=== PATIENT | male | born 1960 | race Two or more races ===

== ENCOUNTER 2024-05-31 07:16 | Inpatient (IN) | payer MEDICAID, OTHER ==
[~2024-05-31] VITALS: Ht 170.2 cm; Wt 109.4 kg
[~2024-05-31 07:16] MED LIST: AMLO1TAB23 PO; FURO40TA4 PO; HYDR-4798 PO; LABE200T33 PO; SPIR25TA8 PO
[2024-05-31] MEDS: LABETALOL HCL 20 MG/4 ML VL IV ONE (07:30)
[2024-05-31] MEDS: FUROSEMIDE 20 MG/2 ML VIAL IV ONE (07:30)
[2024-05-31 07:49] LABS: Basophils # (auto) 0 10 ^3/uL (0-0.2); Basophils % (auto) 0.5 % (0.0-2.0); Eosinophils # (auto) 0.3 10 ^3/uL (0-0.8); Eosinophils % (auto) 3.6 % (0.0-7.0); Hematocrit 34.9 % (41.0-53.0); Lymphocytes # (auto) 0.7 10 ^3/uL (0.4-5.4); Mean Corpuscular Hemoglobin 31.4 pg (28.0-32.0); Mean Corpuscular Hgb Conc. 34.3 g/dL (32.0-36.0); Mean Corpuscular Volume 91.4 fL (80.0-100.0); Monocytes # (auto) 0.4 10 ^3/uL (0-1.3); Monocytes % (auto) 5.4 % (0.0-12.0); Neutrophils # (auto) 5.9 10 ^3/uL (1.6-8.6); Neutrophils % (auto) 80.5 % (37.0-80.0); Platelet Count (auto) 128 10^3/uL (140-450); Red Blood Cells 3.82 10^6/uL (4.5-5.90); Red Cell Distribution Width 14.7 % (11.8-14.3); White Blood Cell 7.4 10^3/uL (4.4-10.8)
[2024-05-31 08:00] LABS: Alanine Aminotransferase 11 U/L (7-40); Albumin 3.8 g/dL (3.2-4.8); Alkaline Phosphatase 62 U/L (46-116); Anion Gap 10 (5-15); Aspartate Aminotransferase 11 U/L (13-40); BUN/Creatinine Ratio 7.8 (10.0-20.0); Bilirubin, Total 0.5 mg/dL (0.2-1.0); Blood Urea Nitrogen 23 mg/dL (9-23); Calcium 8.8 mg/dL (8.7-10.4); Carbon Dioxide 29 mmol/L (20-31); Chloride 105 mmol/L (98-107); Glucose 196 mg/dL (74-106); Magnesium 1.9 mg/dL (1.6-2.6); Potassium 2.6 mmol/L (3.5-5.1); Sodium 144 mmol/L (136-145)
[2024-05-31 08:01] LABS: Total Protein 6.3 g/dL (5.7-8.2)
[2024-05-31 08:05] LABS: INR 0.98 (0.9-1.15); Partial Thromboplastin Time 25.1 SEC (24.5-34.5); Prothrombin Time 10.4 sec (9.3-11.8)
[2024-05-31] MEDS: POTASSIUM EFFERVESENT TAB 25 MEQ PO ONE (13:58)
[2024-05-31] MEDS ORDERED: ACETAMINOPHEN 325 MG TAB PO PRN (15:15)
[2024-05-31] MEDS: MORPHINE SULFATE INJ 2 MG/ml SYRG IV PRN (15:28)
[2024-05-31] MEDS: ONDANSETRON HCL 4 MG/2 ML VIAL IV PRN (15:29)
[2024-05-31] MEDS ORDERED: MORPHINE SULFATE INJ 2 MG/ml SYRG IV PRN (15:30)
[2024-05-31] MEDS ORDERED: NITROGLYCERIN 0.4 MG SL TAB SL PRN (15:30)
[2024-05-31 15:32] LABS: Urine Bacteria None Seen /hpf (None Seen)
[2024-05-31 15:40] VITALS: PULSE 67; RESP 22; O2SAT 98
[2024-05-31] MEDS: METOPROLOL TARTRATE 25 MG TAB PO SCH (15:45)
[2024-05-31] MEDS: NIFEdipine ER 30 MG TAB PO SCH (15:46)
[2024-05-31 15:48] LABS: Urine Blood TRACE /uL (Negative); Urine Clarity Clear (Clear); Urine Color Colorless (Yellow); Urine Protein, UAD 2+ (Negative); Urine Specific Gravity 1.008 (1.001-1.035); Urine Urobilinogen Normal (Negative); Urine WBC 1 /hpf (0 - 3); Urine pH 6.5 (5.0-9.0)
[2024-05-31] MEDS: cloNIDine HCL 0.1 MG TAB PO PRN (16:31)
[2024-05-31] MEDS: METOPROLOL TARTRATE 25 MG TAB PO ONE (16:31)
[2024-05-31] MEDS: POTASSIUM CHL 20 Meq TABLET PO ONE (18:14)
[2024-05-31] MEDS: POTASSIUM CHL 20MEQ/100ML 100 ML IV SCH (18:14)
[2024-05-31] MEDS: FUROSEMIDE 40 MG/4 ML VIAL IV SCH (18:15)
[2024-05-31 19:25] VITALS: PULSE 64; RESP 19; O2SAT 95
[2024-05-31] MEDS: hydrALAZINE HCL 20 MG/ML VL IV PRN (21:29)
[2024-05-31 23:15] LABS: Alanine Aminotransferase 10 U/L (7-40); Alkaline Phosphatase 64 U/L (46-116); Anion Gap 6 (5-15); Aspartate Aminotransferase 11 U/L (13-40); BUN/Creatinine Ratio 10.7 (10.0-20.0); Blood Urea Nitrogen 28 mg/dL (9-23); Carbon Dioxide 32 mmol/L (20-31); Chloride 106 mmol/L (98-107); Glucose 126 mg/dL (74-106); Potassium 3.3 mmol/L (3.5-5.1); Sodium 144 mmol/L (136-145)
[2024-05-31 23:16] LABS: Albumin 3.8 g/dL (3.2-4.8); Bilirubin, Total 0.4 mg/dL (0.2-1.0); Total Protein 6.4 g/dL (5.7-8.2)
[2024-06-01] MEDS: cloNIDine HCL 0.1 MG TAB PO PRN (01:13)
[2024-06-01 04:55] LABS: Basophils # (auto) 0 10 ^3/uL (0-0.2); Basophils % (auto) 0.5 % (0.0-2.0); Eosinophils # (auto) 0.3 10 ^3/uL (0-0.8); Eosinophils % (auto) 3.3 % (0.0-7.0); Hematocrit 37.5 % (41.0-53.0); Hemoglobin 12.9 g/dL (13.5-17.5); Lymphocytes # (auto) 0.9 10 ^3/uL (0.4-5.4); Lymphocytes % (auto) 11.2 % (10.0-50.0); Mean Corpuscular Hemoglobin 31.4 pg (28.0-32.0); Mean Corpuscular Hgb Conc. 34.4 g/dL (32.0-36.0); Mean Corpuscular Volume 91.2 fL (80.0-100.0); Monocytes # (auto) 0.6 10 ^3/uL (0-1.3); Monocytes % (auto) 7.7 % (0.0-12.0); Neutrophils # (auto) 6.2 10 ^3/uL (1.6-8.6); Neutrophils % (auto) 77.3 % (37.0-80.0); Platelet Count (auto) 146 10^3/uL (140-450); Red Blood Cells 4.11 10^6/uL (4.5-5.90); Red Cell Distribution Width 14.5 % (11.8-14.3); White Blood Cell 8.1 10^3/uL (4.4-10.8)
[2024-06-01 05:21] LABS: Alanine Aminotransferase 12 U/L (7-40); Alkaline Phosphatase 66 U/L (46-116); Anion Gap 9 (5-15); BUN/Creatinine Ratio 11.1 (10.0-20.0); Blood Urea Nitrogen 27 mg/dL (9-23); Carbon Dioxide 31 mmol/L (20-31); Chloride 104 mmol/L (98-107); Glucose 169 mg/dL (74-106); Potassium 3.2 mmol/L (3.5-5.1); Sodium 144 mmol/L (136-145)
[2024-06-01 05:22] LABS: Albumin 3.8 g/dL (3.2-4.8); Aspartate Aminotransferase 14 U/L (13-40); Bilirubin, Total 0.6 mg/dL (0.2-1.0); Total Protein 6.1 g/dL (5.7-8.2)
[2024-06-01 07:44] VITALS: PULSE 70; RESP 17; O2SAT 92
[2024-06-01] MEDS: ENOXAPARIN SOD 30 MG/0.3 ML SYRINGE SC SCH (09:32)
[2024-06-01] MEDS: POTASSIUM CHL 20 Meq TABLET PO ONE (14:53)
[2024-06-01 22:09] VITALS: PULSE 83; RESP 20; O2SAT 98
[2024-06-01] MEDS ORDERED: GABA-1250 PO (22:22)
[2024-06-01] MEDS ORDERED: ASPI1TAB20 PO (22:22)
[2024-06-01] MEDS ORDERED: HYDR-4902 PO (22:22)
[2024-06-01] MEDS ORDERED: HYDR50TA47 PO (22:22)
[2024-06-01] MEDS ORDERED: CLON0.2T PO (22:22)
[2024-06-01] MEDS ORDERED: NIFE1TAB30 PO (22:22)
[2024-06-01] MEDS ORDERED: FURO1TAB33 PO (22:22)
[2024-06-02] VITALS (7 sets, daily range): BP systolic 142–174; BP diastolic 64–94; PULSE 46–76; RESP 17–20; TEMP 97.6–98; O2SAT 96–99
[2024-06-02] MEDS: ENOXAPARIN SOD 40 MG/0.4 ML SYRINGE SC SCH (10:29)
[2024-06-02] MEDS ORDERED: MET25T PO (15:52)
[2024-06-02] MEDS ORDERED: CLON0.2T PO (15:52)
[2024-06-02] MEDS ORDERED: NIFE1TAB30 PO (15:52)
[2024-06-02] MEDS ORDERED: GABA-1250 PO (15:52)
[2024-06-02] MEDS ORDERED: ASPI1TAB20 PO (15:52)
[2024-06-02] MEDS ORDERED: SPIR25TA8 PO (15:52)
[2024-06-02] MEDS ORDERED: FURO40TA4 PO (15:52)
[2024-06-02] MEDS ORDERED: HYDR50TA47 PO (15:52)
== END 2024-06-02 18:05 | disposition home or self-care (01) | DRG 133 ==
LOC: EDBD 07:16 → ER 07:16 → TELE 15:21 → TELE-E-ADS 06-01 15:21
PROVIDERS: ADMIT Internal Medicine; ATTEND Internal Medicine
DX: J96.21 Acute and chronic respiratory failure with hypoxia (principal); I50.33 Acute on chronic diastolic (congestive) heart failure; I24.89 Other forms of acute ischemic heart disease; J44.9 Chronic obstructive pulmonary disease, unspecified; J90 Pleural effusion, not elsewhere classified; I13.0 Hypertensive heart and chronic kidney disease with heart failure and stage 1 through stage 4 chronic kidney disease, or unspecified chronic kidney disease; Z99.81 Dependence on supplemental oxygen; E66.9 Obesity, unspecified; I16.0 Hypertensive urgency; N18.9 Chronic kidney disease, unspecified; J98.11 Atelectasis; F12.90 Cannabis use, unspecified, uncomplicated; Z87.891 Personal history of nicotine dependence; Z88.0 Allergy status to penicillin; Z91.148 Patient's other noncompliance with medication regimen for other reason; Z91.199 Patient's noncompliance with other medical treatment and regimen due to unspecified reason; Z68.37 Body mass index [BMI] 37.0-37.9, adult
CPT/HCPCS: 36415; 71045; 80053; 81001; 83735; 83880; 84132; 84484; 85025; 85610; 85730; 93306; 96374; 96375; 99291; G0378; J2405; J3480

== ENCOUNTER 2025-03-27 04:16 | Inpatient (IN) | payer MEDICAID ==
[~2025-03-27] VITALS: Ht 170.2 cm; Wt 120.0 kg
[~2025-03-27 04:16] MED LIST changes: -AMLO1TAB23 PO; +ASPI1TAB20 PO; +CLON0.2T PO; +GABA-1250 PO; -HYDR-4798 PO; +HYDR50TA47 PO; -LABE200T33 PO; +MET25T PO; +NIFE1TAB30 PO
--- NOTE | 2025-03-27 04:25 | ED.PDOC ---
SOB-HPI HPI Comments 64 year old male with a Hx of HTN, COPD, and CHF was BIBA for the c/c of SOB w/ associated non productive Cough. Per EMS, pts symptoms started 1x hour before ED arrival, and note the pts BP was in the 240's systolic on scene and BP is currently 250/112. EMS states that pt is normally on 4L O2 at home, and is currently SAT at 98%. Pt denies any ABD pain, CP, BURKETT, Dysuria, Dizziness, or any other associated factor or symptom at this time. 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 Modifying Factors: Exertion Associated Signs and Symptoms: Cough If cough with SOB: Non-Productive Past Medical History PAST MEDICAL HISTORY: CHF, COPD, HTN Surgical History: Denies all surgeries Family History Family History: Unknown Social History Smoker: Quit Greater Than 1 Year Alcohol: Denies ETOH Use Drugs: Denies Drug Use Lives In: Home Constitutional: denies: chills, diaphoresis, fatigue, fever, malaise, sweats, weakness, others EENTM: denies: blurred vision, double vision, ear bleeding, ear discharge, ear drainage, ear pain, ear ringing, eye pain, eye redness, hearing loss, mouth pain, mouth swelling, nasal discharge, nose bleeding, nose congestion, nose pain, photophobia, tearing, throat pain, throat swelling, voice changes, others Respiratory: reports: cough, SOB at rest, shortness of breath; denies: hemoptysis, orthopnea, SOB with excertion, stridor, wheezing, others Cardiovascular: denies: chest pain, dizzy spells, diaphoresis, Dyspnea on exertion, edema, irregular heart beat, left arm pain, lightheadedness, palpitations, PND, syncope, others Gastrointestinal: denies: abdomen distended, abdominal pain, blood streaked bowels, constipated, diarrhea, dysphagia, difficulty swallowing, hematemesis, melena, nausea, poor appetite, poor fluid intake, rectal bleeding, rectal pain, vomiting, others Genitourinary: denies: burning, dysuria, flank pain, frequency, hematuria, incontinence, penile discharge, penile sore, pain, testicle pain, testicle swelling, urgency, others Neurological: denies: dizziness, fainting, headache, left sided numbness, left sided weakness, numbness, paresthesia, pre-existing deficit, right sided numbness, right sided weakness, seizure, speech problems, tingling, tremors, weakness, others Musculoskeletal: denies: back pain, gout, joint pain, joint swelling, muscle pain, muscle stiffness, neck pain, others Integumetry: denies: bruises, change in color, change in hair/nails, dryness, laceration, lesions, lumps, rash, wounds, others Allergic/Immunocompromised: denies: Difficulty Healing, Frequent Infections, Hives, Itching, others Hematologic/Lymphatic: denies: anemia, blood clots, easy bleeding, easy bruising, swollen glands, others Endocrine: denies: excessive hunger, excessive sweating, excessive thirst, excessive urination, flushing, intolerance to cold, intolerance to heat, unexplained weight gain, unexplained weight loss, others Psychiatric: denies: anxiety, bipolar disorder, depression, hopeless, panic disorder, schizophrenia, sleepless, suicidal, others All Other Systems: Reviewed and Negative Physical Exam General Appearance: Moderate Distress, Normal, Obese HEENT: Normal ENT Inspection, Pharynx Normal, TMs Normal Neck: Full Range of Motion, Non-Tender, Normal, Normal Inspection Respiratory: Accessory Muscle Use, Chest Non-Tender, Lungs Clear, No R espiratory Distress, Other (Tachypnic) Cardiovascular: No Edema, No JVD, No Murmur, No Gallop, Normal Peripheral Pulses, Regular Rate/Rhythm Breast Exam: Deferred Gastrointestinal: No Organomegaly, Non Tender, No Pulsatile Mass, Normal Bowel Sounds, Soft Genitalia: Deferred Pelvic: Deferred Rectal: Deferred Extremities: No calf tenderness, Normal capillary refill, Normal inspection, Normal range of motion, Non-tender, No pedal edema Musculoskeletal : Apperance: Normal Neurologic: Alert, No Motor Deficits, Normal Affect, Normal Mood, No Sensory Deficits Cerebellar Function: Normal Reflexes: Normal Skin: Dry, Normal Color, Warm Lymphatic: No Adenopathy Was a procedure done? Was a procedure done?: No Differential Dx Differential Diagnosis: Anxiety, Asthma, Bronchitis, Cardiogenic Shock, CHF, COPD, Hypertension, Hyponatremia, Panic Attack, Pneumonia, Pneumothorax, Pulmonary Embolism, Respiratory Distress, Sinusitis, Allergic Rhinitis, Pharyngitis X-Ray, Labs, Meds, VS Vital Signs Date Time Temp Pulse Resp B/P (MAP) Pulse Ox O2 Delivery O2 Flow Rate FiO2 03/27/25 05:05 215/115 03/27/25 04:41 20 98 Nasal Cannula* 4 36 03/27/25 04:30 22 98 Nasal Cannula* 4 36 03/27/25 04:30 97.2 73 22 215/115 (148) 98 97.2 03/27/25 04:19 98.7 70 20 250/112 (158) 98 98.7 Lab Test 03/27/25 04:29 Range/Units White Blood Count 4.9 4.4-10.8 10^3/uL Red Blood Count 3.57 L 4.5-5.90 10^6/uL Hemoglobin 10.9 L 13.5-17.5 g/dL Hematocrit 31.8 L 41.0-53.0 % Mean Corpuscular Volume 88.9 80.0-100.0 fL Mean Corpuscular Hemoglobin 30.5 28.0-32.0 pg Mean Corpuscular Hemoglobin Concent 34.3 32.0-36.0 g/dL Red Cell Distribution Width 14.8 H 11.8-14.3 % Platelet Count 150 140-450 10^3/uL Mean Platelet Volume 8.7 6.9-10.8 fL Neutrophils (%) (Auto) 64.9 37.0-80.0 % Lymphocytes (%) (Auto) 19.6 10.0-50.0 % Monocytes (%) (Auto) 9.1 0.0-12.0 % Eosinophils (%) (Auto) 5.5 0.0-7.0 % Basophils (%) (Auto) 0.9 0.0-2.0 % Neutrophils # (Auto) 3.2 1.6-8.6 10 ^3/uL Lymphocytes # (Auto) 1.0 0.4-5.4 10 ^3/uL Monocytes # (Auto) 0.4 0-1.3 10 ^3/uL Eosinophils # (Auto) 0.3 0-0.8 10 ^3/uL Basophils # (Auto) 0 0-0.2 10 ^3/uL Nucleated Red Blood Cells 0.2 % Sodium Level 143 136-145 mmol/L Potassium Level 2.4 *L 3.5-5.1 mmol/L Chloride Level 104 98-107 mmol/L Carbon Dioxide Level 28 20-31 mmol/L Anion Gap 11 5-15 Blood Urea Nitrogen 26 H 9-23 mg/dL Creatinine 3.67 H 0.700-1.30 mg/dL Glomerular Filtration Rate Calc 18 >90 mL/min BUN/Creatinine Ratio 7.1 L 10.0-20.0 Serum Glucose 148 H 74-106 mg/dL Calcium Level 8.0 L 8.7-10.4 mg/dL Magnesium Level 1.9 1.6-2.6 mg/dL Total Bilirubin 0.3 0.2-1.0 mg/dL Aspartate Amino Transferase (AST) 14 13-40 U/L Alanine Aminotransferase (ALT) 9 7-40 U/L Alkaline Phosphatase 73 46-116 U/L Troponin I High Sensitivity 49 </=54 ng/L B-Type Natriuretic Peptide 329.24 0-100 pg/mL Total Protein 6.4 5.7-8.2 g/dL Albumin 3.9 3.2-4.8 g/dL Current Medications Medications (Trade) Dose Ordered Sig/Ricky Route Start Time Stop Time Status Last Admin Prednisone 40 mg ONCE ONCE PO 03/27/25 04:30 03/27/25 04:31 DC 03/27/25 04:44 Albuterol (Ventolin Medneb) 5 mg ONCE ONCE NEB 03/27/25 04:30 03/27/25 04:31 DC 03/27/25 04:34 Hydralazine HCl (Apresoline Injection) 10 mg ONCE ONCE IV 03/27/25 05:00 03/27/25 05:01 DC 03/27/25 05:05 Aspirin 162 mg ONCE ONCE PO 03/27/25 05:00 03/27/25 05:01 DC 03/27/25 05:05 Time of 1ST Reevaluation: 04:50 Reevaluation 1ST: Unchanged Patient Education/Counseling: Diagnosis, Treatment, Need For Follow Up Family Education/Counseling: No Family Present SEPSIS Sepsis Screen Physician Orders Chest Portable (03/27/25 04:20) Electrocardigram (03/27/25 04:20) Troponin-I Hs (03/27/25 05:20) Troponin-I Hs (03/27/25 07:20) Furosemide Injection (Lasix Injection) (03/27/25 05:30) Vital Signs Date Time Temp Pulse Resp B/P (MAP) Pulse Ox O2 Delivery O2 Flow Rate FiO2 03/27/25 05:05 215/115 03/27/25 04:41 20 98 Nasal Cannula* 4 36 03/27/25 04:30 22 98 Nasal Cannula* 4 36 03/27/25 04:30 97.2 73 22 215/115 (148) 98 97.2 03/27/25 04:19 98.7 70 20 250/112 (158) 98 98.7 Laboratory Tests Test 03/27/25 04:29 White Blood Count 4.9 10^3/uL (4.4-10.8) Medications Medications Dose Ordered Sig/Ricky Route Start Time Stop Time Status Last Admin Dose Admin Albuterol 5 mg ONCE ONCE NEB 03/27/25 04:30 03/27/25 04:31 DC 03/27/25 04:34 Aspirin 162 mg ONCE ONCE PO 03/27/25 05:00 03/27/25 05:01 DC 03/27/25 05:05 Hydralazine HCl 10 mg ONCE ONCE IV 03/27/25 05:00 03/27/25 05:01 DC 03/27/25 05:05 Prednisone 40 mg ONCE ONCE PO 03/27/25 04:30 03/27/25 04:31 DC 03/27/25 04:44 Departure 1 Departure Time of Disposition: 05:30 Impression: Primary Impression: CHF (congestive heart failure) Additional Impressions: Hypertensive urgency Hypokalemia Acute renal injury Disposition: 09 ADMITTED INPATIENT Admit to: Tele Condition: Guarded Discharged With: Self Comments Shortness of Breath with Acute CHF Exacerbation Chief Complaint: Shortness of breath worsening over the last day with dry cough History of Present Illness: Patient is a 64-year-old male with a history of hypertension, COPD, and CHF who presented to the Emergency Department via ambulance with complaints of progressively worsening shortness of breath over the past day accompanied by a dry, non-productive cough. The patient was noted to be in mild respiratory distress upon arrival. No reported fever, chest pain, orthopnea, paroxysmal nocturnal dyspnea, or lower extremity edema was mentioned in the decorating consultant. The patient's symptoms are consistent with an acute exacerbation of his underlying cardiopulmonary conditions. Review of Systems: Respiratory: Positive for shortness of breath and dry cough. Negative for hemoptysis. Cardiovascular: No reported chest pain, palpitations, or syncope. Constitutional: No reported fever, chills, or weight changes. Other systems: Limited information available from decorating consultant. Medications: Current medications not specified in decorating consultant. Allergies: No known allergies documented in decorating consultant. Past Medical History: 1. Hypertension 2. Chronic Obstructive Pulmonary Disease (COPD) 3. Congestive Heart Failure (CHF) Physical Exam: General: Patient in mild respiratory distress. Respiratory: Scattered crackles and wheezes in bilateral lung bases. Other systems: Limited information available from decorating consultant. Lab Results: CBC: - Hemoglobin: 10.9 g/dL (Low) - Hematocrit: 31.8% (Low) Chemistry: - BUN: 26 mg/dL (Elevated) - Creatinine: 3.67 mg/dL (Elevated) - Potassium: 2.4 mEq/L (Low) - Glucose: 148 mg/dL (Elevated) Cardiac Markers: - Troponin: 49 ng/L (At upper limit of normal) - BNP: 329 pg/mL (Elevated) Imaging and Other Relevant Results: Chest X-ray: Pulmonary vascular congestion consistent with pulmonary edema and congestive heart failure. Medical Decision Making: Summary Statement: 64-year-old male with history of hypertension, COPD, and CHF presenting with acute shortness of breath, found to have pulmonary edema on chest X-ray, elevated BNP, borderline troponin, acute kidney injury, and hypokalemia. Problem List: 1. Acute congestive heart failure exacerbation with pulmonary edema 2. Possible acute coronary syndrome 3. COPD exacerbation 4. Acute kidney injury 5. Hypokalemia 6. Mild anemia Differential Diagnosis: For the patient's dyspnea and pulmonary findings: CHF exacerbation, COPD exacerbation, pneumonia, pulmonary embolism, acute coronary syndrome with heart failure, volume overload due to renal insufficiency. ED Course: Patient received albuterol breathing treatment, Lasix, and aspirin in the Emergency Department. Laboratory studies revealed acute kidney injury, hypokalemia, mild anemia, and elevated BNP with borderline troponin. Chest X-ray showed findings consistent with pulmonary edema. Decision was made to admit the patient for management of acute coronary syndrome, CHF exacerbation, and COPD. Assessment and Plan: 1. Acute Congestive Heart Failure Exacerbation with Pulmonary Edema - Evident by shortness of breath, pulmonary crackles, elevated BNP, and chest X- ray findings - Initiated IV Lasix in the ED - Continue diuresis with careful monitoring of renal function - Daily weights and strict I/O monitoring - Oxygen supplementation as needed to maintain saturation >92% 2. Possible Acute Coronary Syndrome - Troponin at upper limit of normal - Initiated aspirin in the ED - Admit for serial cardiac enzymes and ECG monitoring - Consider cardiology consultation if troponin trends upward 3. COPD Exacerbation - Wheezes noted on exam - Received albuterol treatment in ED - Continue bronchodilator therapy - Consider steroid therapy 4. Acute Kidney Injury - Elevated BUN and creatinine - Likely pre-renal due to CHF - Monitor renal function closely during diuresis - Avoid nephrotoxic medications 5. Hypokalemia - Potassium 2.4 mEq/L - Initiate potassium replacement - Monitor levels closely, especially with diuretic therapy 6. Mild Anemia - Hemoglobin 10.9 g/dL, Hematocrit 31.8% - Monitor for signs of active bleeding - Consider workup for etiology if not previously evaluated Disposition: Admit to telemetry unit for management of acute cardiac and pulmonary issues with close monitoring of renal function and electrolytes. Additional Notes: Patient requires admission for acute coronary syndrome, CHF exacerbation, and COPD Billing Information: ICD-10: I50.9 - Heart failure, unspecified ICD-10: J44.1 - Chronic obstructive pulmonary disease with acute exacerbation ICD-10: I20.9 - Angina pectoris, unspecified ICD-10: N17.9 - Acute kidney failure, unspecified ICD-10: E87.6 - Hypokalemia Critical Care Note Critical Care Time?: Yes (35 min-critical care time only) Critical care comment: Total critical care time: Approximately 36 minutes Due to a high probability of clinically significant, life threatening deterioration, the patient required my highest level of preparedness to intervene emergently and I personally spent this critical care time directly and personally managing the patient. This critical care time included obtaining a history; examining the patient; pulse oximetry; ordering and review of studies; arranging urgent treatment with development of a management plan; evaluation of patient's response to treatment; frequent reassessment; and, discussions with other providers. This critical care time was performed to assess and manage the high probability of imminent, life-threatening deterioration that could result in multi-organ failure. It was exclusive of separately billable procedures and treating other patients. Stability Stability form required: No Heart Score Heart Score: Heart Score Response (Comments) Value History Moderate Suspicious 1 EKG Repolarization Disturb 1 Age 45-64 1 Risk Factors >3 or Hx ASHD 2 Troponin Normal limit 0 Total 5 I personally scribed for BRANDI SOOD MD ([email or web address]) on 03/27/25 at 04:25. Electronically submitted by Aric Mills ([email or web address]). I personally scribed for BRANDI SOOD MD ([email or web address]) on 03/27/25 at 04:43. Electronically submitted by Aric Mills ([email or web address]). BRANDI SOOD MD Mar 27, 2025 04:25
[2025-03-27 04:30] VITALS: RESP 22; O2SAT 98
[2025-03-27] MEDS: ALBUTEROL SULF 2.5 MG/0.5ML(0.5%) NEB SOLN NEB ONE (04:34)
[2025-03-27] MEDS: predniSONE 20 MG TAB PO ONE (04:44)
[2025-03-27 04:48] LABS: Hematocrit 31.8 % (41.0-53.0); Hemoglobin 10.9 g/dL (13.5-17.5); Mean Corpuscular Hemoglobin 30.5 pg (28.0-32.0); Mean Corpuscular Volume 88.9 fL (80.0-100.0); Nucleated Red Blood Cells % 0.2 %
[2025-03-27 04:57] LABS: Alkaline Phosphatase 73 U/L (46-116); Anion Gap 11 (5-15); BUN/Creatinine Ratio 7.1 (10.0-20.0); Carbon Dioxide 28 mmol/L (20-31); Chloride 104 mmol/L (98-107); Magnesium 1.9 mg/dL (1.6-2.6); Sodium 143 mmol/L (136-145); Total Protein 6.4 g/dL (5.7-8.2)
[2025-03-27 04:58] LABS: Albumin 3.9 g/dL (3.2-4.8); Bilirubin, Total 0.3 mg/dL (0.2-1.0)
[2025-03-27 04:59] LABS: Alanine Aminotransferase 9 U/L (7-40); Blood Urea Nitrogen 26 mg/dL (9-23); Calcium 8.0 mg/dL (8.7-10.4); Glucose 148 mg/dL (74-106)
[2025-03-27] MEDS: hydrALAZINE HCL 20 MG/ML VL IV ONE ×2 (05:05→06:01)
[2025-03-27 05:08] LABS: Potassium 2.4 mmol/L (3.5-5.1)
--- NOTE | 2025-03-27 05:14 | DVH ---
CHEST RADIOGRAPH Indication: SOB Technique: Single frontal view of the chest was obtained COMPARISON: XY CHEST PORTABLE on DOS: 05/31/24 FINDINGS: Lines and Tubes: None Lungs: Increased interstitial prominence Pleura: No effusion. No pneumothorax. Cardiomediastinal contours: Cardiomegaly Bones: Unremarkable IMPRESSION: Pulmonary edema
[2025-03-27] MEDS: POTASSIUM CHL 20 Meq TABLET PO ONE ×2 (05:37→13:24)
[2025-03-27] MEDS: FUROSEMIDE 40 MG/4 ML VIAL IV ONE (05:37)
--- NOTE | 2025-03-27 06:42 | ECG ---
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
[2025-03-27] MEDS: LABETALOL HCL 20 MG/4 ML VL IV ONE (06:45)
[2025-03-27] MEDS ORDERED: DOCUSATE SOD 100 MG CAP PO PRN (07:30)
[2025-03-27] MEDS ORDERED: NITROGLYCERIN 0.4 MG SL TAB SL PRN (07:30)
[2025-03-27] MEDS ORDERED: ACETAMINOPHEN 325 MG TAB PO PRN (07:30)
--- NOTE | 2025-03-27 07:35 | DVHHP2 ---
History of Present Illness Reason for Visit: Shortness of breath History of Present Illness David Huston is a 64-year-old male with past medical history of hypertension, COPD on home oxygen 4L/NC, and CHF, who came to the hospital due to shortness of breath. Patient states his shortness of breath woke him up from sleeping. He states it only started about 1 hour prior to arriving, and that he was feeling fine yesterday. He also states that he started coughing and was having high blood pressure. On arrival patient's SBP was in the 200's. Multiple IV medications were given by ER with little improvement. PO pills were started by myself with little improvement. Patient will be upgraded to ICU and started on a Nitro drip. Cardiovascular: CHF, HTN Pulmonary: COPD, Other (home oxygen use at 4:/NC) Past Surgical History: None Family History: None Smoke: No ALCOHOL: none Drugs: None Lives: Friends Domestic Violence: Neg Review of Systems Constitutional: No: Fever, Chills, Sweats, Weakness, Malaise, Other Eyes: No: Pain, Vision change, Conjunctivae inflammation, Eyelid inflammation, Other, Redness ENT: No: Ear pain, Ear discharge, Nose pain, Nose discharge, Nose congestion, Mouth pain, Mouth swelling, Throat pain, Throat swelling, Other Respiratory: Cough, Shortness of breath, SOB with excertion; No: Dry, Wheezing, Hemoptysis, Pleuritic Pain, Sputum, Wheezing, Other Cardiovascular: No: Chest Pain, Palpitations, Orthopnea, Paroxysmal Noc. Dyspnea, Edema, Lt Headedness, Other Gastrointestinal: No: Nausea, Vomiting, Abdominal Pain, Diarrhea, Constipation, Melena, Hematochezia, Other Genitourinary: No Dysuria, No Frequency, No Incontinence, No Hematuria, No Retention, No Other Musculoskeletal: No: other, neck pain, shoulder pain, arm pain, back pain, hand pain, leg pain, foot pain Skin: No: Rash, Lesions, Jaundice, Bruising, Other Neurological: No: Weakness, Numbness, Incoordination, Change in speech, Confusion, Seizures, Other Allergies: Coded Allergies: Penicillins (Verified Allergy, Unknown, 05/31/24) Medications Current Medications Medications Dose Ordered Sig/Ricky Route Start Time Stop Time Status Last Admin Dose Admin Sodium Chloride 10 ml Q8HR IV 03/27/25 14:00 UNV Ondansetron HCl 4 mg Q4HP PRN IV 03/27/25 07:30 UNV Docusate Sodium 100 mg BIDPRN PRN PO 03/27/25 07:30 UNV Acetaminophen 650 mg Q6HP PRN PO 03/27/25 07:30 UNV Exam Vital Signs Vital Signs Date Time Temp Pulse Resp B/P (MAP) Pulse Ox O2 Delivery O2 Flow Rate FiO2 03/27/25 07:25 200/93 03/27/25 07:00 64 16 98 03/27/25 06:30 97.6 97.6 03/27/25 04:41 Nasal Cannula* 4 36 General Appearance: Alert, Oriented X3, Cooperative, moderate distress HEENT: Atraumatic, PERRLA, Mucous membr. moist/pink Respiratory: Other (bilateral crackles in bases) Cardiovascular: Regular rate, Normal S1, Normal S2, No murmurs Abdominal: Normal bowel sounds, Soft, No tenderness Extremities: No clubbing, No cyanosis, Normal pulses, Other (bilateral lower extremity edema, ) Skin: No rashes, No breakdown, No significant lesion Neuro: Normal gait, Normal speech, Strength at 5/5 X4 ext Psych/Mental Status: Mental status NL, Mood NL Labs/Xrays Labs Test 03/27/25 05:30 03/27/25 04:29 Range/Units Troponin I High Sensitivity 53 </=54 ng/L White Blood Count 4.9 4.4-10.8 10^3/uL Red Blood Count 3.57 L 4.5-5.90 10^6/uL Hemoglobin 10.9 L 13.5-17.5 g/dL Hematocrit 31.8 L 41.0-53.0 % Mean Corpuscular Volume 88.9 80.0-100.0 fL Mean Corpuscular Hemoglobin 30.5 28.0-32.0 pg Mean Corpuscular Hemoglobin Concent 34.3 32.0-36.0 g/dL Red Cell Distribution Width 14.8 H 11.8-14.3 % Platelet Count 150 140-450 10^3/uL Mean Platelet Volume 8.7 6.9-10.8 fL Neutrophils (%) (Auto) 64.9 37.0-80.0 % Lymphocytes (%) (Auto) 19.6 10.0-50.0 % Monocytes (%) (Auto) 9.1 0.0-12.0 % Eosinophils (%) (Auto) 5.5 0.0-7.0 % Basophils (%) (Auto) 0.9 0.0-2.0 % Neutrophils # (Auto) 3.2 1.6-8.6 10 ^3/uL Lymphocytes # (Auto) 1.0 0.4-5.4 10 ^3/uL Monocytes # (Auto) 0.4 0-1.3 10 ^3/uL Eosinophils # (Auto) 0.3 0-0.8 10 ^3/uL Basophils # (Auto) 0 0-0.2 10 ^3/uL Nucleated Red Blood Cells 0.2 % Sodium Level 143 136-145 mmol/L Potassium Level 2.4 *L 3.5-5.1 mmol/L Chloride Level 104 98-107 mmol/L Carbon Dioxide Level 28 20-31 mmol/L Anion Gap 11 5-15 Blood Urea Nitrogen 26 H 9-23 mg/dL Creatinine 3.67 H 0.700-1.30 mg/dL Glomerular Filtration Rate Calc 18 >90 mL/min BUN/Creatinine Ratio 7.1 L 10.0-20.0 Serum Glucose 148 H 74-106 mg/dL Calcium Level 8.0 L 8.7-10.4 mg/dL Magnesium Level 1.9 1.6-2.6 mg/dL Total Bilirubin 0.3 0.2-1.0 mg/dL Aspartate Amino Transferase (AST) 14 13-40 U/L Alanine Aminotransferase (ALT) 9 7-40 U/L Alkaline Phosphatase 73 46-116 U/L B-Type Natriuretic Peptide 329.24 0-100 pg/mL Total Protein 6.4 5.7-8.2 g/dL Albumin 3.9 3.2-4.8 g/dL CHEST RADIOGRAPH FINDINGS: Lines and Tubes: None Lungs: Increased interstitial prominence Pleura: No effusion. No pneumothorax. Cardiomediastinal contours: Cardiomegaly Bones: Unremarkable IMPRESSION: Pulmonary edema SEPSIS Sepsis Screen Date sepsis recognized/suspect: Mar 27, 2025 Time Sepsis recognized/suspect: 629 Recent Procedure: No On Antibiotic Therapy: No Respiratory Rate >20: Yes Heart Rate >90: No Temp<36 C (96.8 F) or >38.3 C: No SBP <90 or MAP <65 mmHG: No New Acute Mental Status Change: No Is the patient on CPAP, BIPAP,: No Physician Orders Chest Portable (03/27/25 04:20) Troponin-I Hs (03/27/25 07:20) Potassium Chloride (Potassium Chloride). (03/27/25 05:45) Admit (03/27/25 07:25) Code Status (03/27/25 07:25) 2 Gm Sodium Diet (03/27/25 Breakfast) Sodium Chloride Lock (Saline Lock Ns) (03/27/25 14:00) Ondansetron Hcl (Zofran) (03/27/25 07:30) Docusate Sodium Capsule (Colace Capsule) (03/27/25 07:30) Complete Blood Count (03/28/25 04:00) Comprehensive Metabolic Panel (03/28/25 04:00) Condition: Serious (03/27/25 07:25) Acetaminophen Tablet (Tylenol Tablet) (03/27/25 07:30) Nitroglycerin Sublingual (Ntrostat Subli (03/27/25 07:30) Morphine Sulfate Injection (03/27/25 07:30) Stat Ekg For Chest Pain (03/27/25 07:25) Notify Md Of Changes From Base (03/27/25 07:25) Table Games Manager For 24 Hours (03/27/25 07:25) Emergency Dysrhythmia Protocol (03/27/25 07:25) Rhythm Strips Once Every Shift (03/27/25 07:25) Oxygen By Nasal Cannula (03/27/25 07:25) Aspirin Enteric Coated Tablet (Ecotrin E (03/27/25 10:00) Gabapentin Capsule (Neurontin Capsule) (03/27/25 14:00) (Nf) Hydralazine Hcl (03/27/25 14:00) (Nf) Nifedipine (Nifedipine Er) (03/27/25 10:00) Vital Signs Date Time Temp Pulse Resp B/P (MAP) Pulse Ox O2 Delivery O2 Flow Rate FiO2 03/27/25 07:25 200/93 03/27/25 07:00 64 16 191/89 (123) 98 03/27/25 06:45 78 216/99 03/27/25 06:30 97.6 78 22 216/99 (138) 99 97.6 03/27/25 06:01 249/111 03/27/25 05:37 230/112 03/27/25 05:05 215/115 03/27/25 04:41 20 98 Nasal Cannula* 4 36 03/27/25 04:37 69 03/27/25 04:30 22 98 Nasal Cannula* 4 36 03/27/25 04:30 97.2 73 22 215/115 (148) 98 97.2 03/27/25 04:19 98.7 70 20 250/112 (158) 98 98.7 Laboratory Tests Test 03/27/25 04:29 White Blood Count 4.9 10^3/uL (4.4-10.8) Medications Medications Dose Ordered Sig/Ricky Route Start Time Stop Time Status Last Admin Dose Admin Albuterol 5 mg ONCE ONCE NEB 03/27/25 04:30 03/27/25 04:31 DC 03/27/25 04:34 5 MG Aspirin 162 mg ONCE ONCE PO 03/27/25 05:00 03/27/25 05:01 DC 03/27/25 05:05 162 MG Clonidine HCl 0.1 mg ONCE ONCE PO 03/27/25 07:15 03/27/25 07:16 DC 03/27/25 07:25 0.1 MG Furosemide 40 mg ONCE ONCE IV 03/27/25 05:30 03/27/25 05:31 DC 03/27/25 05:37 40 MG Hydralazine HCl 10 mg ONCE ONCE IV 03/27/25 05:00 03/27/25 05:01 DC 03/27/25 05:05 10 MG Hydralazine HCl 10 mg ONCE ONCE IV 03/27/25 06:00 03/27/25 06:01 DC 03/27/25 06:01 10 MG Labetalol HCl 10 mg ONCE ONCE IV 03/27/25 06:45 03/27/25 06:46 DC 03/27/25 06:45 10 MG Potassium Chloride 40 meq ONCE ONCE PO 03/27/25 05:45 03/27/25 05:46 DC 03/27/25 05:37 40 MEQ Prednisone 40 mg ONCE ONCE PO 03/27/25 04:30 03/27/25 04:31 DC 03/27/25 04:44 40 MG Assessment/Plan Assessment/Plan Assessment: Pulmonary edema, Hypertensive urgency, Hypokalemia, Acute kidney injury, COPD, CHF, Plan: Admit to Tele, upgraded to ICU, IV Lasix, Manage/Monitor electrolytes closely, Chest X-ray in am, Breathing treatments as needed, Supplemental oxygen as needed, Strict I&O's, Nitro drip, Home medications reconciled, Consider nephrology consult if symptoms do not improve, Plan discussed with: Patient My Orders Orders - DANIS MONACO Procedure Category Date Status Time Admit ADMIT 03/27/25 Transmitted 07:25 Code Status CODE 03/27/25 Transmitted 07:25 2 Gm Sodium Diet DIET 03/27/25 Transmitted Breakfast Sodium Chloride Lock PHA 03/27/25 Transmitted (Saline Lock Ns) 14:00 Ondansetron Hcl PHA 03/27/25 Transmitted (Zofran) 07:30 Docusate Sodium PHA 03/27/25 Transmitted Capsule (Colace 07:30 Complete Blood Count LAB 03/28/25 Verified 04:00 Comprehensive LAB 03/28/25 Verified Metabolic Panel 04:00 Condition: Serious VICKIE 03/27/25 In Process 07:25 Acetaminophen Tablet PHA 03/27/25 Transmitted (Tylenol Tablet) 07:30 Nitroglycerin PHA 03/27/25 Transmitted Sublingual (Ntrostat 07:30 Morphine Sulfate PHA 03/27/25 Transmitted Injection 07:30 Stat Ekg For Chest VICKIE 03/27/25 In Process Pain 07:25 Notify Md Of Changes VICKIE 03/27/25 In Process From Base 07:25 Table Games Manager For VICKIE 03/27/25 In Process 24 Hours 07:25 Emergency Dysrhythmia VICKIE 03/27/25 In Process Protocol 07:25 Rhythm Strips Once VICKIE 03/27/25 In Process Every Shift 07:25 Oxygen By Nasal RT 03/27/25 Transmitted Cannula 07:25 Aspirin Enteric PHA 03/27/25 Transmitted Coated Tablet 10:00 Gabapentin Capsule PHA 03/27/25 Transmitted (Neurontin Capsule) 14:00 (Nf) Hydralazine Hcl PHA 03/27/25 Transmitted 14:00 (Nf) Nifedipine PHA 03/27/25 Transmitted (Nifedipine Er) 10:00 Date of Service: Mar 27, 2025 Billing Provider: DANIS MONACO Common Visit Codes: [id number] INP/OBS CARE (MOD) DANIS MONACO Mar 27, 2025 07:35
[2025-03-27] MEDS: POTASSIUM CHLORIDE 20 MEQ, LIDOCAINE 1% (LOCAL ANESTH.) 2 ML in SODIUM CHL 0.9% 100 ML IV ONE (07:41)
[2025-03-27 09:38] VITALS: BP 206/104; PULSE 64; RESP 25; TEMP 97; O2SAT 100
[2025-03-27] MEDS: methylPREDNISolone SOD SUCC 40 MG/ML VL IV SCH (10:00)
[2025-03-27] MEDS ORDERED: FUROSEMIDE 40 MG TAB PO SCH ×2 (10:00→10:27)
[2025-03-27] MEDS: METOPROLOL TARTRATE 25 MG TAB PO SCH (10:00)
[2025-03-27] MEDS: NITROGLYCERIN 50MG/250ML 250 ML IV SCH (10:59)
[2025-03-27] MEDS: SPIRONOLACTONE 25 MG TAB PO SCH (11:17)
[2025-03-27] MEDS: ASPirin-EC 81 mg tab PO SCH (11:17)
[2025-03-27] MEDS: GABAPENTIN 300 MG CAP PO SCH (11:22)
[2025-03-27 12:07] LABS: Potassium 2.9 mmol/L (3.5-5.1)
[2025-03-27 12:11] LABS: Magnesium 1.9 mg/dL (1.6-2.6)
[2025-03-27] MEDS: MAGNESIUM SULFATE 1GM/100ML 100 ML IV SCH (13:00)
[2025-03-27] MEDS: SODIUM CHLOR 0.9% PF (SALINE LOCK) 10ML VIAL/SYR IV SCH (14:00)
[2025-03-27] MEDS ORDERED: FUROSEMIDE 40 MG/4 ML VIAL IV SCH (18:00)
[2025-03-27] MEDS: FUROSEMIDE 40 MG/4 ML VIAL IV SCH (18:00)
[2025-03-27 19:54] LABS: Potassium 3.1 mmol/L (3.5-5.1)
[2025-03-27 20:01] VITALS: PULSE 71; RESP 16; O2SAT 97
[2025-03-27 20:01] LABS: Magnesium 1.9 mg/dL (1.6-2.6)
[2025-03-28] VITALS (8 sets, daily range): PULSE 68–95; RESP 12–20; O2SAT 90–99
[2025-03-28 04:21] LABS: Hematocrit 31.8 % (41.0-53.0); Hemoglobin 10.9 g/dL (13.5-17.5); Mean Corpuscular Hemoglobin 30.5 pg (28.0-32.0); Mean Corpuscular Volume 89.0 fL (80.0-100.0); Nucleated Red Blood Cells % 0.0 %
[2025-03-28 04:37] LABS: Albumin 4.0 g/dL (3.2-4.8); Alkaline Phosphatase 70 U/L (46-116); Anion Gap 13 (5-15); BUN/Creatinine Ratio 8.4 (10.0-20.0); Calcium 9.0 mg/dL (8.7-10.4); Carbon Dioxide 26 mmol/L (20-31); Chloride 103 mmol/L (98-107); Magnesium 2.0 mg/dL (1.6-2.6); Sodium 142 mmol/L (136-145); Total Protein 6.6 g/dL (5.7-8.2)
[2025-03-28 04:41] LABS: Alanine Aminotransferase < 9 U/L (7-40); Bilirubin, Total 0.3 mg/dL (0.2-1.0); Blood Urea Nitrogen 34 mg/dL (9-23); Glucose 158 mg/dL (74-106); Potassium 2.6 mmol/L (3.5-5.1)
[2025-03-28] MEDS: POTASSIUM CHL 20 Meq TABLET PO ONE (08:48)
[2025-03-28] MEDS: HYDROcodone-ACET 5/325MG TAB PO PRN (08:59)
[2025-03-28] MEDS: POTASSIUM EFFERVESENT TAB 25 MEQ PO ONE ×2 (12:41→21:22)
[2025-03-28] MEDS: hydrALAZINE HCL 20 MG/ML VL IV ONE (12:42)
[2025-03-28] MEDS: METOPROLOL TARTRATE 25 MG TAB PO ONE (12:43)
--- NOTE | 2025-03-28 13:48 | DVHPN2 ---
Subjective FEELS BETTER Reviewed: Care Plan, H&P, Labs, Medications, Previous Orders, Radiology Changes from previous H/P or p: No Changes Objective Vitals Vital Signs Date Time Temp Pulse Resp B/P (MAP) Pulse Ox O2 Delivery O2 Flow Rate FiO2 03/28/25 13:46 176/93 03/28/25 13:43 72 03/28/25 13:00 17 94 03/28/25 07:30 Nasal Cannula* 4 36 03/28/25 07:15 98.4 98.4 Intake/Output Intake and Output 03/28/25 07:00 Intake Total 168 ml Output Total 955 ml Balance -787 ml Intake IV Total 168 ml Output Urine Total 955 ml General Appearance: Alert, Oriented X3, Cooperative HEENT: Atraumatic Lungs: Other (Few crackles bilateral lungs) Cardiovascular: Regular rate Abdomen: Normal bowel sounds, Soft Extremities: Other (3+ edema bilateral lower extremities) Medications Current Medications Medications Dose Ordered Sig/Ricky Route Start Time Stop Time Status Last Admin Dose Admin Sodium Chloride 10 ml Q8HR IV 03/27/25 14:00 03/28/25 13:43 10 ML Ondansetron HCl 4 mg Q4HP PRN IV 03/27/25 07:30 Docusate Sodium 100 mg BIDPRN PRN PO 03/27/25 07:30 Acetaminophen 650 mg Q6HP PRN PO 03/27/25 07:30 Nitroglycerin 0.4 mg Q5MINP PRN SL 03/27/25 07:30 Morphine Sulfate 2 mg Q30M PRN IV 03/27/25 07:30 Aspirin 81 mg DAILY PO 03/27/25 10:00 03/28/25 10:07 81 MG Gabapentin 300 mg BID PO 03/27/25 10:32 03/28/25 10:07 300 MG Hydralazine HCl 50 mg TID PO 03/27/25 10:16 03/28/25 13:46 50 MG Nifedipine 60 mg DAILY PO 03/27/25 10:15 03/28/25 10:07 60 MG Methylprednisolone Sodium Succinate 40 mg BID IV 03/27/25 10:00 03/28/25 10:08 40 MG Ipratropium [place] 0.5 mg Q4HPRN PRN NEB 03/27/25 08:45 Albuterol 2.5 mg Q4HPRN PRN NEB 03/27/25 08:45 Nitroglycerin 250 ml @ 1.5 mls/hr Q24H IV 03/27/25 09:45 03/28/25 09:18 57 MLS/HR Spironolactone 12.5 mg BIDD PO 03/27/25 10:00 03/28/25 07:46 12.5 MG Furosemide 40 mg BIDD IV 03/27/25 18:00 Acetaminophen/ Hydrocodone Bitart 1 tab Q6HPRN PRN PO 03/28/25 08:45 03/28/25 08:59 1 TAB Clonidine HCl 0.2 mg BID PO 03/28/25 22:00 Metoprolol Tartrate 25 mg BID PO 03/28/25 22:00 Hydralazine HCl 10 mg Q2HP PRN IV 03/28/25 14:30 Laboratory Results Laboratory Tests 03/28/25 03:32 03/28/25 10:57 Chemistry Test 03/27/25 19:20 03/28/25 03:32 Magnesium Level 1.9 mg/dL (1.6-2.6) 2.0 mg/dL (1.6-2.6) Albumin 4.0 g/dL (3.2-4.8) Calcium Level 9.0 mg/dL (8.7-10.4) Phosphorus Level 2.9 mg/dL (2.4-5.1) Total Protein 6.6 g/dL (5.7-8.2) LFT Test 03/28/25 03:32 Alanine Aminotransferase (ALT) < 9 U/L (7-40) Alkaline Phosphatase 70 U/L (46-116) Aspartate Amino Transferase (AST) 13 U/L (13-40) Total Bilirubin 0.3 mg/dL (0.2-1.0) Assessment/Plan Assessment/Plan Pulmonary edema/acute on chronic heart failure Hypertensive urgency Anemia of chronic disease Chronic kidney disease stage IV Morbid obesity with BMI 36.1 and multiple comorbidities Hyperglycemia COPD Chronic respiratory failure Hyperlipidemia Hypokalemia Plan: Continue diuretics. Replace potassium. Blood pressure control. Nitroglycerin drip . Home blood pressure medications.. Further plan per orders. Total critical care time 45 minutes Plan discussed with: Patient My Orders Orders - LUIS MCDONALD MD Procedure Category Date Status Time Clonidine Hcl Tablet PHA 7/26/25 In Process (Catapres Tablet) 22:00 Metoprolol Tartrate PHA 03/28/25 In Process Tablet (Lopressor Ta 22:00 Hydralazine Injection PHA 03/28/25 In Process (Apresoline Inject 14:30 Basic Metabolic Panel LAB 03/29/25 Verified 04:00 Date of Service: Mar 28, 2025 Billing Provider: LUIS MCDONALD MD Common Visit Codes: [id number] CARE 30-74 MIN LUIS MCDONALD MD Mar 28, 2025 13:48
[2025-03-28] MEDS: MORPHINE SULFATE INJ 2 MG/ml SYRG IV PRN (13:51)
[2025-03-28] MEDS: ALBUTEROL SULF 2.5 MG/0.5ML(0.5%) NEB SOLN NEB PRN (14:01)
[2025-03-28] MEDS: IPRATROPIUM BROM 0.5 MG/2.5ML INH SOL NEB PRN (14:01)
[2025-03-28] MEDS: hydrALAZINE HCL 20 MG/ML VL IV PRN (15:45)
[2025-03-28 18:33] LABS: Alanine Aminotransferase 12 U/L (7-40); Alkaline Phosphatase 68 U/L (46-116); Anion Gap 14 (5-15); BUN/Creatinine Ratio 9.7 (10.0-20.0); Carbon Dioxide 27 mmol/L (20-31); Chloride 100 mmol/L (98-107); Sodium 141 mmol/L (136-145)
[2025-03-28 18:34] LABS: Albumin 3.4 g/dL (3.2-4.8); Blood Urea Nitrogen 38 mg/dL (9-23); Glucose 265 mg/dL (74-106); Potassium 2.6 mmol/L (3.5-5.1)
[2025-03-28 18:35] LABS: Bilirubin, Total 0.3 mg/dL (0.2-1.0); Calcium 7.9 mg/dL (8.7-10.4); Total Protein 5.5 g/dL (5.7-8.2)
[2025-03-28] MEDS: METOPROLOL TARTRATE 25 MG TAB PO SCH (21:23)
[2025-03-29] VITALS (27 sets, daily range): BP systolic 113–142; BP diastolic 56–76; PULSE 58–85; RESP 11–20; TEMP 97.6; O2SAT 91–100
[2025-03-29 05:06] LABS: Chloride 101 mmol/L (98-107); Sodium 139 mmol/L (136-145)
[2025-03-29 05:07] LABS: Anion Gap 12 (5-15); Carbon Dioxide 26 mmol/L (20-31)
[2025-03-29 05:12] LABS: BUN/Creatinine Ratio 10.5 (10.0-20.0)
[2025-03-29 05:17] LABS: Blood Urea Nitrogen 41 mg/dL (9-23); Calcium 8.5 mg/dL (8.7-10.4); Glucose 279 mg/dL (74-106); Potassium 3.0 mmol/L (3.5-5.1)
[2025-03-29] MEDS: POTASSIUM EFFERVESENT TAB 25 MEQ PO ONE (06:28)
[2025-03-29 07:54] LABS: Urine Protein, UAD 2+ (Negative)
[2025-03-29] MEDS: InsuLIN REG 1unit/0.01ml Soln (100units/ml) SC ONE (09:00)
[2025-03-29] MEDS: ACCU-CHEK COMFORT CURVE STRIP VI ONE (09:00)
[2025-03-29] MEDS: DEXTROSE (50%) 50ML SYRG IV ONE (09:00)
[2025-03-29] MEDS: ONDANSETRON HCL 4 MG/2 ML VIAL IV PRN (09:58)
--- NOTE | 2025-03-29 10:43 | DVHPN2 ---
Subjective Less short of breath today. Overall feels better. Blood pressure better Reviewed: Care Plan, H&P, Labs, Medications, Previous Orders, Radiology Changes from previous H/P or p: No Changes Objective Vitals Vital Signs Date Time Temp Pulse Resp B/P (MAP) Pulse Ox O2 Delivery O2 Flow Rate FiO2 03/29/25 10:15 79 13 147/70 (95) 95 03/29/25 08:16 Nasal Cannula* 4 36 03/29/25 08:16 97.6 97.6 Intake/Output Intake and Output 03/29/25 07:00 Output Total 875 ml Balance -875 ml Output Urine Total 875 ml General Appearance: Alert, Oriented X3, Cooperative HEENT: Atraumatic Lungs: Other (Few crackles bilateral lungs) Cardiovascular: Regular rate Abdomen: Normal bowel sounds, Soft Extremities: Other (2+ edema today bilateral lower extremities) Medications Current Medications Medications Dose Ordered Sig/Ricky Route Start Time Stop Time Status Last Admin Dose Admin Sodium Chloride 10 ml Q8HR IV 03/27/25 14:00 03/29/25 05:12 10 ML Ondansetron HCl 4 mg Q4HP PRN IV 03/27/25 07:30 03/29/25 09:58 4 MG Docusate Sodium 100 mg BIDPRN PRN PO 03/27/25 07:30 Acetaminophen 650 mg Q6HP PRN PO 03/27/25 07:30 Nitroglycerin 0.4 mg Q5MINP PRN SL 03/27/25 07:30 Morphine Sulfate 2 mg Q30M PRN IV 03/27/25 07:30 03/29/25 09:59 2 MG Aspirin 81 mg DAILY PO 03/27/25 10:00 03/29/25 09:43 81 MG Gabapentin 300 mg BID PO 03/27/25 10:32 03/29/25 09:44 300 MG Hydralazine HCl 50 mg TID PO 03/27/25 10:16 03/29/25 05:55 50 MG Nifedipine 60 mg DAILY PO 03/27/25 10:15 03/29/25 09:44 60 MG Methylprednisolone Sodium Succinate 40 mg BID IV 03/27/25 10:00 03/29/25 09:43 40 MG Ipratropium [place] 0.5 mg Q4HPRN PRN NEB 03/27/25 08:45 03/29/25 07:44 0.5 MG Albuterol 2.5 mg Q4HPRN PRN NEB 03/27/25 08:45 03/29/25 07:44 2.5 MG Nitroglycerin 250 ml @ 1.5 mls/hr Q24H IV 03/27/25 09:45 03/29/25 07:45 48 MLS/HR Spironolactone 12.5 mg BIDD PO 03/27/25 10:00 03/29/25 05:55 12.5 MG Acetaminophen/ Hydrocodone Bitart 1 tab Q6HPRN PRN PO 03/28/25 08:45 03/28/25 08:59 1 TAB Clonidine HCl 0.2 mg BID PO 03/28/25 22:00 03/29/25 09:44 0.2 MG Metoprolol Tartrate 25 mg BID PO 03/28/25 22:00 03/29/25 09:43 25 MG Hydralazine HCl 10 mg Q2HP PRN IV 03/28/25 14:30 03/29/25 04:18 10 MG Potassium Bicarbonate 50 meq DAILY PO 03/30/25 10:00 Diagnostic Test (Pha) 1 strip Q6HR 03/29/25 12:00 Insulin Human Regular Q6HR SC 03/29/25 12:00 Dextrose 50 ml PRN PRN IV 03/29/25 12:00 Laboratory Results Laboratory Tests 03/28/25 03:32 03/29/25 04:48 Chemistry Test 03/28/25 10:57 03/29/25 04:48 Albumin 3.4 g/dL (3.2-4.8) Calcium Level 7.9 mg/dL (8.7-10.4) L 8.5 mg/dL (8.7-10.4) L Total Protein 5.5 g/dL (5.7-8.2) L LFT Test 03/28/25 10:57 Alanine Aminotransferase (ALT) 12 U/L (7-40) Alkaline Phosphatase 68 U/L (46-116) Aspartate Amino Transferase (AST) 12 U/L (13-40) L Total Bilirubin 0.3 mg/dL (0.2-1.0) HgA1c, TSH Test 03/29/25 04:48 Hemoglobin A1c Pending Urinalysis Test 03/29/25 06:14 Urine Color Light-yellow (Yellow) Urine Clarity Clear (Clear) Urine pH 6.0 (5.0-9.0) Urine Specific Carbon 1.014 (1.001-1.035) Urine Protein 2+ (Negative) H Urine Ketones Negative (Negative) Urine Blood Trace /uL (Negative) H Urine Nitrite Negative (Negative) Urine Bilirubin Negative (Negative) Urine Urobilinogen Normal mg/dL (Negative) Urine Leukocyte Esterase Negative /uL (Negative) Urine RBC 1 /hpf (0 - 3) Urine Microscopic WBC 2 /HPF (0-3) Urine Squamous Epithelial Cells Few /hpf (<5) Urine Bacteria Few /hpf (None Seen) H Urine Glucose 2+ mg/dL (Normal) H Assessment/Plan Assessment/Plan Pulmonary edema/acute on chronic heart failure Hypertensive urgency Anemia of chronic disease Chronic kidney disease stage IV Morbid obesity with BMI 36.1 and multiple comorbidities Hyperglycemia COPD Chronic respiratory failure Hyperlipidemia Hypokalemia Plan: Continue aggressive diuresis. Replace potassium as needed. Start potassium daily. Nitroglycerin drip. Nephrology consult. Renal ultrasound. Further plan per orders. Total critical care time 35 minutes Plan discussed with: Patient, Other (Nursing) My Orders Orders - LUIS MCDONALD MD Procedure Category Date Status Time Clonidine Hcl Tablet PHA 03/28/25 In Process (Catapres Tablet) 22:00 Metoprolol Tartrate PHA 03/28/25 In Process Tablet (Lopressor Ta 22:00 Hydralazine Injection PHA 03/28/25 In Process (Apresoline Inject 14:30 Comprehensive LAB 03/30/25 Verified Metabolic Panel 06:00 Potassium Effervesent PHA 03/30/25 In Process Tab (Klor-Con/Ef) 10:00 Hemoglobin A1c LAB 03/29/25 In Process 08:58 Glucose Blood PHA 03/29/25 In Process (Accu-Chek Comfort 12:00 Insulin R (Human) PHA 03/29/25 In Process (Insulin R) 12:00 Dextrose 50% Syringe PHA 03/29/25 In Process 12:00 *[facility] CONS 03/29/25 Transmitted -[place] 09:56 Kidney US 03/29/25 Logged 09:56 Date of Service: Mar 29, 2025 Billing Provider: LUIS MCDONALD MD Common Visit Codes: [id number] CARE 30-74 MIN LUIS MCDONALD MD Mar 29, 2025 10:43
[2025-03-29] MEDS: InsuLIN REG 1unit/0.01ml Soln (100units/ml) SC SCH (11:34)
[2025-03-29] MEDS: ACCU-CHEK COMFORT CURVE STRIP VI SCH (11:38)
[2025-03-29] MEDS ORDERED: DEXTROSE (50%) 50ML SYRG IV PRN (12:00)
--- NOTE | 2025-03-29 13:18 | DVH ---
EXAM DESCRIPTION: RENAL ULTRASOUND CLINICAL HISTORY: ELEVATED BUN AND CREATINE COMPARISON: None TECHNIQUE: Multiplanar ultrasound examination of the kidneys and urinary bladder was performed. FINDINGS: Significantly limited study with poor visualization due to obscuring bowel gas and patient body absce ss. The right kidney measures 9.4 cm. No hydronephrosis. No solid renal masses. The left kidney measures 8.6 cm. No hydronephrosis. No solid renal masses. The echogenicity of the kidneys is within normal limits. Decompressed urinary bladder IMPRESSION: Significantly limited study with poor visualization of the kidneys. 1. No definite hydronephrosis. 2. Decompressed urinary bladder
--- NOTE | 2025-03-29 14:13 | DVHINCON2 ---
Date of service: Mar 29, [address] Cordova Reason for Consultation Acute kidney injury History of Present Illness Mr. Huston is a 64-year-old male with known history of chronic kidney disease who presented for further evaluation and management of significant shortness of breath. He was found to be in hypertensive urgency in the emergency department in his received treatment with IV medications. Current consultation requested due to elevated serum creatinine that has been as high as four. He is seen in the emergency department awake alert conversant and in no acute distress currently. He states that his shortness of breath has improved since management in the emergency department. Past Medical History Chronic heart failure Obesity Hypertension Allergies: Coded Allergies: Penicillins (Verified Allergy, Unknown, 05/31/24) Home Meds Active Scripts Metoprolol Tartrate (Lopressor) 25 Mg Tb, 12.5 MG PO BID, #60 TAB Prov:TEO HEART MD 06/02/24 Furosemide (Furosemide) 40 Mg Tab, 1 TAB PO BID for 30 Days, #120 TAB Prov:TEO HEART MD 06/02/24 Clonidine Hydrochloride (Clonidine Hcl) 0.2 Mg Tab, 1 TAB PO BID, #120 TAB 5 Refills Prov:TEO HEART MD 06/02/24 Hydralazine Hcl (Hydralazine Hcl) 50 Mg Tab, 1 TAB PO TID, #90 TAB 5 Refills Prov:TEO HEART MD 06/02/24 Nifedipine (Nifedipine Er) 60 Mg Tab, 1 TAB PO DAILY, #60 TAB 5 Refills Prov:TEO HEART MD 06/02/24 Gabapentin (Gabapentin) 300 Mg Cap, 1 CAP PO TID, #90 CAP 5 Refills Prov:TEO HEART MD 06/02/24 Spironolactone (Spironolactone) 25 Mg Tab, 0.5 TAB PO BID for 30 Days, #30 TAB Prov:TEO HEART MD 06/02/24 Aspirin (Aspir-81) 81 Mg Tab, 1 TAB PO DAILY, #60 TAB 5 Refills Prov:TEO HEART MD 06/02/24 Current Medications Current Medications Medications (Trade) Dose Ordered Sig/Ricky Route PRN Reason Start Time Stop Time Status Last Admin Clonidine HCl (Catapres Tablet) 0.2 mg BID PO 03/28/25 22:00 03/29/25 09:44 Metoprolol Tartrate (Lopressor Tablet) 25 mg BID PO 03/28/25 22:00 03/29/25 09:43 Hydralazine HCl (Apresoline Injection) 10 mg Q2HP PRN IV SBP>150 03/28/25 14:30 03/29/25 04:18 Potassium Bicarbonate (Klor-Con/Ef) 50 meq DAILY PO 03/30/25 10:00 Diagnostic Test (Pha) (Accu-Chek Comfort Curve T) 1 strip Q6HR 03/29/25 12:00 03/29/25 11:38 Insulin Human Regular (InsuLIN R) Q6HR SC 03/29/25 12:00 03/29/25 11:34 Dextrose 50 ml PRN PRN IV Blood Sugar LESS THAN 60 03/29/25 12:00 Family History: Patient reports no known family medical history. Review of Systems Denies gross hematuria, dysuria, tea or Coca-Cola colored urine Denies excessive use of recent NSAIDs, foamy urine, recent IV contrast studies Denies recent chest pain, Denies fever, chills, nausea, vomiting, diarrhea Denies unintentional weight loss, night sweats Denies focal weakness, numbness H&P Exam Vital Signs/I&O Vital Sign Date Time Temp Pulse Resp B/P (MAP) Pulse Ox O2 Delivery O2 Flow Rate FiO2 03/29/25 13:38 77 12 99 03/29/25 13:31 Nasal Cannula 4.0 03/29/25 13:31 36 03/29/25 13:21 147/57 03/29/25 12:00 98.5 98.5 Intake and Output0 03/28/25 03/29/25 19:00 07:00 Output Total 875 ml Balance -875 ml Output Urine Total 875 ml Physical Exam Gen: nad, obese heent: nc/at, mmm lungs: cta anteriorly cvs: No appreciable friction rub abd: soft, bowel sounds audible ext: + edema skin: no rash neuro: alert and oriented Labs/Diagnostic Data Labs/Diagnostic Data Laboratory Tests Test 03/29/25 11:32 03/29/25 06:14 03/29/25 04:48 03/28/25 10:57 Range/Units POC Glucose 327 H 70-106 mg/dl Urine Color Light-yellow Yellow Urine Clarity Clear Clear Urine pH 6.0 5.0-9.0 Urine Specific [place] 1.014 1.001-1.035 Urine Protein 2+ H Negative Urine Ketones Negative Negative Urine Blood Trace H Negative /uL Urine Nitrite Negative Negative Urine Bilirubin Negative Negative Urine Urobilinogen Normal Negative mg/dL Urine Leukocyte Esterase Negative Negative /uL Urine RBC 1 0 - 3 /hpf Urine Microscopic WBC 2 0-3 /HPF Urine Squamous Epithelial Cells Few <5 /hpf Urine Bacteria Few H None Seen /hpf Urine Glucose 2+ H Normal mg/dL Sodium Level 139 141 136-145 mmol/L Potassium Level 3.0 L 2.6 L 3.5-5.1 mmol/L Chloride Level 101 100 98-107 mmol/L Carbon Dioxide Level 26 27 20-31 mmol/L Anion Gap 12 14 5-15 Blood Urea Nitrogen 41 H 38 H 9-23 mg/dL Creatinine 3.90 H 3.91 H 0.700-1.30 mg/dL Glomerular Filtration Rate Calc 17 16 >90 mL/min BUN/Creatinine Ratio 10.5 9.7 L 10.0-20.0 Serum Glucose 279 H 265 #H 74-106 mg/dL Hemoglobin A1c 6.4 H <5.7 % A1C Calcium Level 8.5 L 7.9 L 8.7-10.4 mg/dL Total Bilirubin 0.3 0.2-1.0 mg/dL Aspartate Amino Transferase (AST) 12 L 13-40 U/L Alanine Aminotransferase (ALT) 12 7-40 U/L Alkaline Phosphatase 68 46-116 U/L Total Protein 5.5 L 5.7-8.2 g/dL Albumin 3.4 3.2-4.8 g/dL Test 03/28/25 03:32 03/27/25 19:20 03/27/25 11:09 03/27/25 07:30 Range/Units White Blood Count 9.1 # 4.4-10.8 10^3/uL Red Blood Count 3.57 L 4.5-5.90 10^6/uL Hemoglobin 10.9 L 13.5-17.5 g/dL Hematocrit 31.8 L 41.0-53.0 % Mean Corpuscular Volume 89.0 80.0-100.0 fL Mean Corpuscular Hemoglobin 30.5 28.0-32.0 pg Mean Corpuscular Hemoglobin Concent 34.3 32.0-36.0 g/dL Red Cell Distribution Width 14.6 H 11.8-14.3 % Platelet Count 169 140-450 10^3/uL Mean Platelet Volume 9.2 6.9-10.8 fL Neutrophils (%) (Auto) 80.9 H 37.0-80.0 % Lymphocytes (%) (Auto) 10.4 10.0-50.0 % Monocytes (%) (Auto) 7.8 0.0-12.0 % Eosinophils (%) (Auto) 0.5 0.0-7.0 % Basophils (%) (Auto) 0.4 0.0-2.0 % Neutrophils # (Auto) 7.3 1.6-8.6 10 ^3/uL Lymphocytes # (Auto) 0.9 0.4-5.4 10 ^3/uL Monocytes # (Auto) 0.7 0-1.3 10 ^3/uL Eosinophils # (Auto) 0 0-0.8 10 ^3/uL Basophils # (Auto) 0 0-0.2 10 ^3/uL Nucleated Red Blood Cells 0.0 % Sodium Level 142 136-145 mmol/L Potassium Level 2.6 L 3.1 L 2.9 L 3.5-5.1 mmol/L Chloride Level 103 98-107 mmol/L Carbon Dioxide Level 26 20-31 mmol/L Anion Gap 13 5-15 Blood Urea Nitrogen 34 H 9-23 mg/dL Creatinine 4.05 H 0.700-1.30 mg/dL Glomerular Filtration Rate Calc 16 >90 mL/min BUN/Creatinine Ratio 8.4 L 10.0-20.0 Serum Glucose 158 H 74-106 mg/dL Calcium Level 9.0 8.7-10.4 mg/dL Phosphorus Level 2.9 2.4-5.1 mg/dL Magnesium Level 2.0 1.9 1.9 1.6-2.6 mg/dL Total Bilirubin 0.3 0.2-1.0 mg/dL Aspartate Amino Transferase (AST) 13 13-40 U/L Alanine Aminotransferase (ALT) < 9 7-40 U/L Alkaline Phosphatase 70 46-116 U/L Total Protein 6.6 5.7-8.2 g/dL Albumin 4.0 3.2-4.8 g/dL Troponin I High Sensitivity 51 </=54 ng/L Test 03/27/25 05:30 03/27/25 04:29 Range/Units Troponin I High Sensitivity 53 49 </=54 ng/L White Blood Count 4.9 4.4-10.8 10^3/uL Red Blood Count 3.57 L 4.5-5.90 10^6/uL Hemoglobin 10.9 L 13.5-17.5 g/dL Hematocrit 31.8 L 41.0-53.0 % Mean Corpuscular Volume 88.9 80.0-100.0 fL Mean Corpuscular Hemoglobin 30.5 28.0-32.0 pg Mean Corpuscular Hemoglobin Concent 34.3 32.0-36.0 g/dL Red Cell Distribution Width 14.8 H 11.8-14.3 % Platelet Count 150 140-450 10^3/uL Mean Platelet Volume 8.7 6.9-10.8 fL Neutrophils (%) (Auto) 64.9 37.0-80.0 % Lymphocytes (%) (Auto) 19.6 10.0-50.0 % Monocytes (%) (Auto) 9.1 0.0-12.0 % Eosinophils (%) (Auto) 5.5 0.0-7.0 % Basophils (%) (Auto) 0.9 0.0-2.0 % Neutrophils # (Auto) 3.2 1.6-8.6 10 ^3/uL Lymphocytes # (Auto) 1.0 0.4-5.4 10 ^3/uL Monocytes # (Auto) 0.4 0-1.3 10 ^3/uL Eosinophils # (Auto) 0.3 0-0.8 10 ^3/uL Basophils # (Auto) 0 0-0.2 10 ^3/uL Nucleated Red Blood Cells 0.2 % Sodium Level 143 136-145 mmol/L Potassium Level 2.4 *L 3.5-5.1 mmol/L Chloride Level 104 98-107 mmol/L Carbon Dioxide Level 28 20-31 mmol/L Anion Gap 11 5-15 Blood Urea Nitrogen 26 H 9-23 mg/dL Creatinine 3.67 H 0.700-1.30 mg/dL Glomerular Filtration Rate Calc 18 >90 mL/min BUN/Creatinine Ratio 7.1 L 10.0-20.0 Serum Glucose 148 H 74-106 mg/dL Calcium Level 8.0 L 8.7-10.4 mg/dL Magnesium Level 1.9 1.6-2.6 mg/dL Total Bilirubin 0.3 0.2-1.0 mg/dL Aspartate Amino Transferase (AST) 14 13-40 U/L Alanine Aminotransferase (ALT) 9 7-40 U/L Alkaline Phosphatase 73 46-116 U/L B-Type Natriuretic Peptide 329.24 0-100 pg/mL Total Protein 6.4 5.7-8.2 g/dL Albumin 3.9 3.2-4.8 g/dL Assessment IMP: 1) Hemodynamically mediated acute kidney injury in the setting of hypertensive crisis. 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 Huston. Plan discussed with: Patient LISSETTE MONZON MD Mar 29, 2025 14:13
[2025-03-29 15:40] LABS: Protein, Urine 335.1 mg/dL (1-14)
[2025-03-30] VITALS (56 sets, daily range): BP systolic 116–183; BP diastolic 55–98; PULSE 52–214; RESP 11–22; TEMP 98–98.2; O2SAT 89–100
[2025-03-30 04:07] LABS: Hematocrit 28.3 % (41.0-53.0); Hemoglobin 9.8 g/dL (13.5-17.5); Mean Corpuscular Hemoglobin 30.7 pg (28.0-32.0); Mean Corpuscular Volume 88.4 fL (80.0-100.0); Nucleated Red Blood Cells % 0.1 %
[2025-03-30 04:14] LABS: Alanine Aminotransferase 16 U/L (7-40); Alkaline Phosphatase 69 U/L (46-116); Anion Gap 12 (5-15); BUN/Creatinine Ratio 11.1 (10.0-20.0); Carbon Dioxide 26 mmol/L (20-31); Chloride 100 mmol/L (98-107); Sodium 138 mmol/L (136-145); Total Protein 6.1 g/dL (5.7-8.2)
[2025-03-30 04:15] LABS: Albumin 3.7 g/dL (3.2-4.8)
[2025-03-30 04:36] LABS: Bilirubin, Total 0.2 mg/dL (0.2-1.0); Blood Urea Nitrogen 47 mg/dL (9-23); Calcium 7.8 mg/dL (8.7-10.4); Glucose 168 mg/dL (74-106); Potassium 3.3 mmol/L (3.5-5.1)
[2025-03-30] MEDS: POTASSIUM EFFERVESENT TAB 25 MEQ PO SCH (09:32)
[2025-03-30] MEDS: FUROSEMIDE 40 MG/4 ML VIAL IV ONE (10:29)
--- NOTE | 2025-03-30 11:37 | DVHPN2 ---
Subjective The patient seen and examined at bedside. No complains today. Off nitro drip Reviewed: Care Plan, H&P, Labs, Medications, Previous Orders, Radiology Changes from previous H/P or p: No Changes Objective Vitals Vital Signs Date Time Temp Pulse Resp B/P (MAP) Pulse Ox O2 Delivery O2 Flow Rate FiO2 03/30/25 10:31 67 18 151/72 (98) 99 03/30/25 10:20 Nasal Cannula 4.0 03/30/25 10:20 36 03/30/25 08:01 98.0 98.0 Intake/Output Intake and Output 03/30/25 07:00 Intake Total 701.0 ml Output Total 590 ml Balance 111.0 ml Intake Oral 350 ml IV Total 351.0 ml Output Urine Total 590 ml General Appearance: Alert, Oriented X3, Cooperative HEENT: Atraumatic Lungs: Other (Few crackles bilateral lungs) Cardiovascular: Regular rate Abdomen: Normal bowel sounds, Soft Extremities: Other (2+ edema today bilateral lower extremities) Medications Current Medications Medications Dose Ordered Sig/Ricky Route Start Time Stop Time Status Last Admin Dose Admin Sodium Chloride 10 ml Q8HR IV 03/27/25 14:00 03/30/25 05:30 10 ML Ondansetron HCl 4 mg Q4HP PRN IV 03/27/25 07:30 03/29/25 09:58 4 MG Docusate Sodium 100 mg BIDPRN PRN PO 03/27/25 07:30 Acetaminophen 650 mg Q6HP PRN PO 03/27/25 07:30 Nitroglycerin 0.4 mg Q5MINP PRN SL 03/27/25 07:30 Morphine Sulfate 2 mg Q30M PRN IV 03/27/25 07:30 03/30/25 09:30 2 MG Aspirin 81 mg DAILY PO 03/27/25 10:00 03/30/25 09:32 81 MG Gabapentin 300 mg BID PO 03/27/25 10:32 03/30/25 09:31 300 MG Hydralazine HCl 50 mg TID PO 03/27/25 10:16 03/30/25 05:29 50 MG Nifedipine 60 mg DAILY PO 03/27/25 10:15 03/30/25 10:00 60 MG Methylprednisolone Sodium Succinate 40 mg BID IV 03/27/25 10:00 03/30/25 09:30 40 MG Ipratropium [place] 0.5 mg Q4HPRN PRN NEB 03/27/25 08:45 03/30/25 10:20 0.5 MG Albuterol 2.5 mg Q4HPRN PRN NEB 03/27/25 08:45 03/30/25 10:20 2.5 MG Nitroglycerin 250 ml @ 1.5 mls/hr Q24H IV 03/27/25 09:45 03/29/25 17:07 36 MLS/HR Spironolactone 12.5 mg BIDD PO 03/27/25 10:00 03/30/25 05:29 12.5 MG Acetaminophen/ Hydrocodone Bitart 1 tab Q6HPRN PRN PO 03/28/25 08:45 03/28/25 08:59 1 TAB Clonidine HCl 0.2 mg BID PO 03/28/25 22:00 03/30/25 10:29 0.2 MG Metoprolol Tartrate 25 mg BID PO 03/28/25 22:00 03/29/25 22:09 25 MG Hydralazine HCl 10 mg Q2HP PRN IV 03/28/25 14:30 03/29/25 04:18 10 MG Potassium Bicarbonate 50 meq DAILY PO 03/30/25 10:00 03/30/25 09:32 50 MEQ Diagnostic Test (Pha) 1 strip Q6HR 03/29/25 12:00 03/30/25 05:30 1 STRIP Insulin Human Regular Q6HR SC 03/29/25 12:00 03/30/25 05:31 4 UNITS Dextrose 50 ml PRN PRN IV 03/29/25 12:00 Furosemide 40 mg BIDD IV 03/30/25 18:00 Laboratory Results Laboratory Tests 03/30/25 03:35 Chemistry Test 03/30/25 03:35 Albumin 3.7 g/dL (3.2-4.8) Calcium Level 7.8 mg/dL (8.7-10.4) L Phosphorus Level 5.5 mg/dL (2.4-5.1) H Total Protein 6.1 g/dL (5.7-8.2) LFT Test 03/30/25 03:35 Alanine Aminotransferase (ALT) 16 U/L (7-40) Alkaline Phosphatase 69 U/L (46-116) Aspartate Amino Transferase (AST) 17 U/L (13-40) Total Bilirubin 0.2 mg/dL (0.2-1.0) Urinalysis Test 03/29/25 06:14 03/29/25 14:34 Urine Color Light-yellow (Yellow) Urine Clarity Clear (Clear) Urine pH 6.0 (5.0-9.0) Urine Specific [place] 1.014 (1.001-1.035) Urine Protein 2+ (Negative) H Urine Ketones Negative (Negative) Urine Blood Trace /uL (Negative) H Urine Nitrite Negative (Negative) Urine Bilirubin Negative (Negative) Urine Urobilinogen Normal mg/dL (Negative) Urine Leukocyte Esterase Negative /uL (Negative) Urine RBC 1 /hpf (0 - 3) Urine Microscopic WBC 2 /HPF (0-3) Urine Squamous Epithelial Cells Few /hpf (<5) Urine Bacteria Few /hpf (None Seen) H Urine Glucose 2+ mg/dL (Normal) H Urine Creatinine 124.00 mg/dL (30.0-125.0) Urine Total Protein 335.1 mg/dL (1-14) H Labs and/or images reviewed: Labs reviewed by me Assessment/Plan Assessment/Plan Pulmonary edema, Hypertensive urgency, Hypokalemia, Acute kidney injury, COPD, CHF, Continue current management. Continue HTN medicaiton Continue lasix Will follow up kidney function. Off Nitro drip Down grade to telemetry This medical document was created using an electronic medical record system with [employer] direct computerized dictation system. Although this document has been carefully reviewed, there may still be some phonetic and typographical errors. These areas are purely typographical due to imperfections of the software programs, and do not reflect any compromise in the patient's medical care. Plan discussed with: Patient Date of Service: Mar 30, 2025 Billing Provider: JON WRIGHT MD Common Visit Codes: [id number] INP/OBS CARE(HIGH) JON WRIGHT MD Mar 30, 2025 11:37
--- NOTE | 2025-03-30 13:31 | ECG ---
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
--- NOTE | 2025-03-30 13:32 | ECG ---
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
[2025-03-30 14:39] LABS: COVID19 ANTIGEN SOFIA FIA NEGATIVE (NEGATIVE)
--- NOTE | 2025-03-30 16:09 | DVHPN2 ---
Progress Note Date Seen: Mar 30, 2025 Medical Necessity Reason Pt with a Central, PICC or Fol: No Subjective Patient reports: Feels better Review of Systems: RESPIRATORY:Abnormal (sob) Objective vital signs Vital Sign Date Time Temp Pulse Resp B/P (MAP) Pulse Ox O2 Delivery O2 Flow Rate FiO2 03/30/25 14:30 66 13 152/73 (99) 96 03/30/25 14:00 Nasal Cannula* 4 36 03/30/25 12:00 98.0 98.0 Total Intake and Output 03/29/25 03/29/25 03/30/25 15:00 23:00 07:00 Intake Total 288 ml 63.0 ml 350 ml Output Total 590 ml Balance 288 ml 63.0 ml -240 ml medications Current Medications Medications Dose Ordered Sig/Ricky Route Start Time Stop Time Status Last Admin Dose Admin Sodium Chloride 10 ml Q8HR IV 03/27/25 14:00 03/30/25 13:52 10 ML Ondansetron HCl 4 mg Q4HP PRN IV 03/27/25 07:30 03/29/25 09:58 4 MG Docusate Sodium 100 mg BIDPRN PRN PO 03/27/25 07:30 Acetaminophen 650 mg Q6HP PRN PO 03/27/25 07:30 Nitroglycerin 0.4 mg Q5MINP PRN SL 03/27/25 07:30 Morphine Sulfate 2 mg Q30M PRN IV 03/27/25 07:30 03/30/25 09:30 2 MG Aspirin 81 mg DAILY PO 03/27/25 10:00 03/30/25 09:32 81 MG Gabapentin 300 mg BID PO 03/27/25 10:32 03/30/25 09:31 300 MG Hydralazine HCl 50 mg TID PO 03/27/25 10:16 03/30/25 13:59 50 MG Nifedipine 60 mg DAILY PO 03/27/25 10:15 03/30/25 10:00 60 MG Methylprednisolone Sodium Succinate 40 mg BID IV 03/27/25 10:00 03/30/25 09:30 40 MG Ipratropium [place] 0.5 mg Q4HPRN PRN NEB 03/27/25 08:45 03/30/25 10:20 0.5 MG Albuterol 2.5 mg Q4HPRN PRN NEB 03/27/25 08:45 03/30/25 10:20 2.5 MG Nitroglycerin 250 ml @ 1.5 mls/hr Q24H IV 03/27/25 09:45 03/29/25 17:07 36 MLS/HR Spironolactone 12.5 mg BIDD PO 03/27/25 10:00 03/30/25 05:29 12.5 MG Acetaminophen/ Hydrocodone Bitart 1 tab Q6HPRN PRN PO 03/28/25 08:45 03/28/25 08:59 1 TAB Clonidine HCl 0.2 mg BID PO 03/28/25 22:00 03/30/25 10:29 0.2 MG Metoprolol Tartrate 25 mg BID PO 03/28/25 22:00 03/29/25 22:09 25 MG Hydralazine HCl 10 mg Q2HP PRN IV 03/28/25 14:30 03/29/25 04:18 10 MG Potassium Bicarbonate 50 meq DAILY PO 03/30/25 10:00 03/30/25 09:32 50 MEQ Diagnostic Test (Pha) 1 strip Q6HR 03/29/25 12:00 03/30/25 12:37 1 STRIP Insulin Human Regular Q6HR SC 03/29/25 12:00 03/30/25 12:37 6 UNITS Dextrose 50 ml PRN PRN IV 03/29/25 12:00 Furosemide 40 mg BIDD IV 03/30/25 18:00 Examination: GENERAL:Abnormal, MSK:Abnormal (edema) laboratory and microbiology Laboratory Tests 03/30/25 03:35 Test 03/30/25 03:35 Range/Units Serum Glucose 168 #H 74-106 mg/dL Microbiology Date/Time Source Procedure Growth Status 03/30/25 04:30 Nose MRSA Screen - Final Complete Problem List/Assessment/Plan Problem List/Assessment/Plan 1) Hemodynamically mediated acute kidney injury in the setting of hypertensive crisis./cardiorenal etiology 2) chronic kidney disease stage 4 3) hypertensive urgency 4) obesity 5) acute on chronic systolic and diastolic heart failure recs diuretics iv bp control Plan discussed with: Patient My Orders My Orders Orders - JUDITH SÁNCHEZ MD Procedure Category Date Status Time Furosemide Injection PHA 03/30/25 In Process (Lasix Injection) 18:00 JUDITH SÁNCHEZ MD Mar 30, 2025 16:09
[2025-03-30] MEDS: FUROSEMIDE 40 MG/4 ML VIAL IV SCH (18:14)
[2025-03-31] VITALS (14 sets, daily range): BP systolic 143–179; BP diastolic 87–96; PULSE 53–69; RESP 16–20; TEMP 96.9–98.4; O2SAT 92–100
[2025-03-31 11:19] LABS: Potassium 3.6 mmol/L (3.5-5.1)
[2025-03-31 11:20] LABS: Anion Gap 12 (5-15); Carbon Dioxide 27 mmol/L (20-31)
[2025-03-31 11:26] LABS: BUN/Creatinine Ratio 14.6 (10.0-20.0)
[2025-03-31 11:27] LABS: Blood Urea Nitrogen 69 mg/dL (9-23); Calcium 7.5 mg/dL (8.7-10.4); Chloride 96 mmol/L (98-107); Glucose 291 mg/dL (74-106); Sodium 135 mmol/L (136-145)
--- NOTE | 2025-03-31 11:33 | DVHPN2 ---
Subjective The patient seen and examined at bedside. No complains today. Reviewed: Care Plan, H&P, Labs, Medications, Previous Orders, Radiology Changes from previous H/P or p: No Changes Objective Vitals Vital Signs Date Time Temp Pulse Resp B/P (MAP) Pulse Ox O2 Delivery O2 Flow Rate FiO2 03/31/25 09:59 63 16 100 03/31/25 09:52 Nasal Cannula* 3 32 03/31/25 09:36 146/91 03/31/25 09:00 98.1 98.1 Intake/Output Intake and Output 03/31/25 07:00 Intake Total 400 ml Output Total 105 ml Balance 295 ml Intake Oral 400 ml Output Urine Total 105 ml General Appearance: Alert, Oriented X3, Cooperative HEENT: Atraumatic, PERRLA, EOMI, Mucous membr. moist/pink Lungs: Clear to auscultation, Other (Few crackles bilateral lungs) Cardiovascular: Regular rate, Normal S1, Normal S2, No murmurs, Gallops, Rubs Abdomen: Normal bowel sounds, Soft Extremities: Other (2+ edema today bilateral lower extremities) Neuro: Cranial nerves 3-12 NL Psych/Mental Status: Mental status NL Medications Current Medications Medications Dose Ordered Sig/Ricky Route Start Time Stop Time Status Last Admin Dose Admin Sodium Chloride 10 ml Q8HR IV 03/27/25 14:00 03/31/25 05:31 10 ML Ondansetron HCl 4 mg Q4HP PRN IV 03/27/25 07:30 03/29/25 09:58 4 MG Docusate Sodium 100 mg BIDPRN PRN PO 03/27/25 07:30 Acetaminophen 650 mg Q6HP PRN PO 03/27/25 07:30 Nitroglycerin 0.4 mg Q5MINP PRN SL 03/27/25 07:30 Morphine Sulfate 2 mg Q30M PRN IV 03/27/25 07:30 03/30/25 09:30 2 MG Aspirin 81 mg DAILY PO 03/27/25 10:00 03/31/25 09:37 81 MG Gabapentin 300 mg BID PO 03/27/25 10:32 03/31/25 09:36 300 MG Hydralazine HCl 50 mg TID PO 03/27/25 10:16 03/31/25 05:30 50 MG Nifedipine 60 mg DAILY PO 03/27/25 10:15 03/31/25 09:36 60 MG Methylprednisolone Sodium Succinate 40 mg BID IV 03/27/25 10:00 03/31/25 09:36 40 MG Ipratropium [place] 0.5 mg Q4HPRN PRN NEB 03/27/25 08:45 03/31/25 09:52 0.5 MG Albuterol 2.5 mg Q4HPRN PRN NEB 03/27/25 08:45 03/31/25 09:52 2.5 MG Nitroglycerin 250 ml @ 1.5 mls/hr Q24H IV 03/27/25 09:45 03/29/25 17:07 36 MLS/HR Spironolactone 12.5 mg BIDD PO 03/27/25 10:00 03/31/25 05:30 12.5 MG Acetaminophen/ Hydrocodone Bitart 1 tab Q6HPRN PRN PO 03/28/25 08:45 03/28/25 08:59 1 TAB Clonidine HCl 0.2 mg BID PO 03/28/25 22:00 03/31/25 09:35 0.2 MG Metoprolol Tartrate 25 mg BID PO 03/28/25 22:00 03/31/25 09:36 25 MG Hydralazine HCl 10 mg Q2HP PRN IV 03/28/25 14:30 03/29/25 04:18 10 MG Potassium Bicarbonate 50 meq DAILY PO 03/30/25 10:00 03/31/25 09:36 50 MEQ Diagnostic Test (Pha) 1 strip Q6HR 03/29/25 12:00 03/31/25 05:31 1 STRIP Insulin Human Regular Q6HR SC 03/29/25 12:00 03/31/25 05:41 3 UNITS Dextrose 50 ml PRN PRN IV 03/29/25 12:00 Furosemide 40 mg BIDD IV 03/30/25 18:00 03/31/25 05:31 40 MG Laboratory Results Laboratory Tests 03/30/25 03:35 03/31/25 10:54 Chemistry Test 03/31/25 10:54 Calcium Level 7.5 mg/dL (8.7-10.4) L Urinalysis Test 03/29/25 06:14 03/29/25 14:34 Urine Color Light-yellow (Yellow) Urine Clarity Clear (Clear) Urine pH 6.0 (5.0-9.0) Urine Specific [place] 1.014 (1.001-1.035) Urine Protein 2+ (Negative) H Urine Ketones Negative (Negative) Urine Blood Trace /uL (Negative) H Urine Nitrite Negative (Negative) Urine Bilirubin Negative (Negative) Urine Urobilinogen Normal mg/dL (Negative) Urine Leukocyte Esterase Negative /uL (Negative) Urine RBC 1 /hpf (0 - 3) Urine Microscopic WBC 2 /HPF (0-3) Urine Squamous Epithelial Cells Few /hpf (<5) Urine Bacteria Few /hpf (None Seen) H Urine Glucose 2+ mg/dL (Normal) H Urine Creatinine 124.00 mg/dL (30.0-125.0) Urine Total Protein 335.1 mg/dL (1-14) H Microbiology Microbiology Date/Time Source Procedure Growth Status 03/30/25 14:00 Voided Urine Urine Culture - Preliminary Resulted 03/30/25 04:30 Nose MRSA Screen - Final Complete Labs and/or images reviewed: Labs reviewed by me Assessment/Plan Assessment/Plan Pulmonary edema, Hypertensive urgency, Hypokalemia, Acute kidney injury, COPD, CHF, Continue current management. Continue HTN medicaiton Continue lasix Will follow up kidney function. Off Nitro drip Down grade to telemetry discharge planning. This medical document was created using an electronic medical record system with [email or web address] direct computerized dictation system. Although this document has been carefully reviewed, there may still be some phonetic and typographical errors. These areas are purely typographical due to imperfections of the software programs, and do not reflect any compromise in the patient's medical care. Plan discussed with: Patient My Orders Orders - JON WRIGHT MD Procedure Category Date Status Time Transfer Orders XFER 03/30/25 Transmitted 12:57 Respiratory Culture RAMA 03/30/25 Uncollected W/ Gs 12:57 Blood Culture RAMA 03/30/25 Uncollected 12:57 Urine Bacterial RAMA 03/30/25 In Process Culture 14:21 Date of Service: Mar 31, 2025 Billing Provider: JON WRIGHT MD Common Visit Codes: [id number] INP/OBS CARE(HIGH) JON WRIGHT MD Mar 31, 2025 11:32
--- NOTE | 2025-03-31 12:28 | DVH ---
CHEST RADIOGRAPH Indication: sob Technique: XY CHEST PORTABLE COMPARISON: None FINDINGS: The cardiac silhouette is enlarged. The lungs demonstrate bilateral patchy airspace opacities. The pu lmonary vasculature is prominent. Small bilateral pleural effusion. There is no pneumothorax. IMPRESSION: Cardiomegaly with pulmonary vascular congestion and bilateral patchy airspace opacities. Small bilateral pleural effusions.
--- NOTE | 2025-03-31 16:19 | DVH ---
CLINICAL HISTORY: R/O DVT right forearm TECHNIQUE: Color and duplex doppler imaging of the right upper extremity veins and right subclavian v ein was performed. Vessel compression if possible was also performed. WID: COMPARISON: None FINDINGS: The right internal jugular, axillary, basilic, cephalic, brachial, radial, and ulnar veins are paten t and demonstrate normal compressibility and flow. The right subclavian is patent. A PICC is seen in the cephalic vein. IMPRESSION: NO SONOGRAPHIC EVIDENCE FOR DEEP VENOUS THROMBOSIS IN THE RIGHT UPPER EXTREMITY VEINS.
--- NOTE | 2025-03-31 16:29 | DVHPN2 ---
Progress Note Date Seen: Mar 31, 2025 Medical Necessity Reason Pt with a Central, PICC or Fol: No Subjective Patient reports: Feels better Review of Systems: RESPIRATORY:Abnormal (sob ) Objective vital signs Vital Sign Date Time Temp Pulse Resp B/P (MAP) Pulse Ox O2 Delivery O2 Flow Rate FiO2 03/31/25 14:00 144/82 03/31/25 13:00 98.1 53 18 98 98.1 03/31/25 09:52 Nasal Cannula* 3 32 Total Intake and Output 03/30/25 03/30/25 03/31/25 15:00 23:00 07:00 Intake Total 100 ml 300 ml Output Total 100 ml 5 ml Balance 0 ml 295 ml medications Current Medications Medications Dose Ordered Sig/Ricky Route Start Time Stop Time Status Last Admin Dose Admin Sodium Chloride 10 ml Q8HR IV 03/27/25 14:00 03/31/25 14:00 10 ML Ondansetron HCl 4 mg Q4HP PRN IV 03/27/25 07:30 03/29/25 09:58 4 MG Docusate Sodium 100 mg BIDPRN PRN PO 03/27/25 07:30 Acetaminophen 650 mg Q6HP PRN PO 03/27/25 07:30 Nitroglycerin 0.4 mg Q5MINP PRN SL 03/27/25 07:30 Morphine Sulfate 2 mg Q30M PRN IV 03/27/25 07:30 03/30/25 09:30 2 MG Aspirin 81 mg DAILY PO 03/27/25 10:00 03/31/25 09:37 81 MG Gabapentin 300 mg BID PO 03/27/25 10:32 03/31/25 09:36 300 MG Hydralazine HCl 50 mg TID PO 03/27/25 10:16 03/31/25 14:00 50 MG Nifedipine 60 mg DAILY PO 03/27/25 10:15 03/31/25 09:36 60 MG Methylprednisolone Sodium Succinate 40 mg BID IV 03/27/25 10:00 03/31/25 09:36 40 MG Ipratropium [place] 0.5 mg Q4HPRN PRN NEB 03/27/25 08:45 03/31/25 09:52 0.5 MG Albuterol 2.5 mg Q4HPRN PRN NEB 03/27/25 08:45 03/31/25 09:52 2.5 MG Spironolactone 12.5 mg BIDD PO 03/27/25 10:00 03/31/25 05:30 12.5 MG Acetaminophen/ Hydrocodone Bitart 1 tab Q6HPRN PRN PO 03/28/25 08:45 03/28/25 08:59 1 TAB Clonidine HCl 0.2 mg BID PO 03/28/25 22:00 03/31/25 09:35 0.2 MG Metoprolol Tartrate 25 mg BID PO 03/28/25 22:00 03/31/25 09:36 25 MG Hydralazine HCl 10 mg Q2HP PRN IV 03/28/25 14:30 03/29/25 04:18 10 MG Potassium Bicarbonate 50 meq DAILY PO 03/30/25 10:00 03/31/25 09:36 50 MEQ Diagnostic Test (Pha) 1 strip Q6HR 03/29/25 12:00 03/31/25 12:11 1 STRIP Insulin Human Regular Q6HR SC 03/29/25 12:00 03/31/25 12:00 6 UNITS Dextrose 50 ml PRN PRN IV 03/29/25 12:00 Furosemide 40 mg BIDD IV 03/30/25 18:00 03/31/25 05:31 40 MG Examination: GENERAL:Normal, MSK:Abnormal (edema), SKIN:Abnormal, NEURO:Normal laboratory and microbiology Laboratory Tests 03/31/25 10:54 03/30/25 03:35 Test 03/31/25 10:54 Range/Units Serum Glucose 291 #H 74-106 mg/dL Microbiology Date/Time Source Procedure Growth Status 03/30/25 14:00 Voided Urine Urine Culture - Preliminary Resulted 03/30/25 04:30 Nose MRSA Screen - Final Complete Problem List/Assessment/Plan Problem List/Assessment/Plan 1) Hemodynamically mediated acute kidney injury in the setting of hypertensive crisis 2) chronic kidney disease stage 4 sec to HTN 3) hypertensive urgency 4) obesity 5) acute on chronic systolic and diastolic heart failure recs diuretics iv bp control consideration for SI[employer]ER MACHINE in next 24-48hrs should renal function worsens Plan discussed with: Patient My Orders My Orders Orders - JUDITH SÁNCHEZ MD Procedure Category Date Status Time Basic Metabolic Panel LAB 04/01/25 Verified 05:00 Basic Metabolic Panel LAB 04/02/25 Verified 05:00 Basic Metabolic Panel LAB 8/1/25 Verified 05:00 Basic Metabolic Panel LAB 04/04/25 Verified 05:00 Basic Metabolic Panel LAB 04/05/25 Verified 05:00 Basic Metabolic Panel LAB 04/06/25 Verified 05:00 Basic Metabolic Panel LAB 04/07/25 Verified 05:00 Chest Portable XY 03/31/25 Resulted 11:55 JUDITH SÁNCHEZ MD Mar 31, 2025 16:29
[2025-04-01] VITALS (13 sets, daily range): BP systolic 145–169; BP diastolic 69–101; PULSE 55–75; RESP 16–20; TEMP 97.7–98.3; O2SAT 97–100
[2025-04-01 06:59] LABS: Sodium 137 mmol/L (136-145)
[2025-04-01 07:00] LABS: Anion Gap 14 (5-15); Carbon Dioxide 25 mmol/L (20-31)
[2025-04-01 07:05] LABS: BUN/Creatinine Ratio 17.0 (10.0-20.0)
[2025-04-01 07:09] LABS: Blood Urea Nitrogen 78 mg/dL (9-23); Calcium 7.6 mg/dL (8.7-10.4); Chloride 98 mmol/L (98-107); Glucose 227 mg/dL (74-106); Potassium 3.4 mmol/L (3.5-5.1)
--- NOTE | 2025-04-01 11:43 | DVHPN2 ---
Subjective The patient seen and examined at bedside. The patient wanted to go home today. The patient is upset that he is still in the hospital.. Reviewed: Care Plan, H&P, Labs, Medications, Previous Orders, Radiology Changes from previous H/P or p: No Changes Objective Vitals Vital Signs Date Time Temp Pulse Resp B/P (MAP) Pulse Ox O2 Delivery O2 Flow Rate FiO2 04/01/25 10:54 71 18 100 04/01/25 10:48 Nasal Cannula* 4 36 04/01/25 09:44 179/82 04/01/25 09:00 98.0 98.0 Intake/Output Intake and Output 04/01/25 07:00 Intake Total 1696 ml Output Total 500 ml Balance 1196 ml Intake Oral 1696 ml Output Urine Total 500 ml # Voids 10 General Appearance: Alert, Oriented X3, Cooperative HEENT: Atraumatic, PERRLA, EOMI, Mucous membr. moist/pink Lungs: Clear to auscultation, Other (Few crackles bilateral lungs) Cardiovascular: Regular rate, Normal S1, Normal S2, No murmurs, Gallops, Rubs Abdomen: Normal bowel sounds, Soft Extremities: Other (2+ edema today bilateral lower extremities) Neuro: Cranial nerves 3-12 NL Psych/Mental Status: Mental status NL Medications Current Medications Medications Dose Ordered Sig/Ricky Route Start Time Stop Time Status Last Admin Dose Admin Sodium Chloride 10 ml Q8HR IV 03/27/25 14:00 04/01/25 05:13 10 ML Ondansetron HCl 4 mg Q4HP PRN IV 03/27/25 07:30 03/29/25 09:58 4 MG Docusate Sodium 100 mg BIDPRN PRN PO 03/27/25 07:30 Acetaminophen 650 mg Q6HP PRN PO 03/27/25 07:30 Nitroglycerin 0.4 mg Q5MINP PRN SL 03/27/25 07:30 Morphine Sulfate 2 mg Q30M PRN IV 03/27/25 07:30 03/30/25 09:30 2 MG Aspirin 81 mg DAILY PO 03/27/25 10:00 04/01/25 09:44 81 MG Gabapentin 300 mg BID PO 03/27/25 10:32 04/01/25 09:44 300 MG Hydralazine HCl 50 mg TID PO 03/27/25 10:16 04/01/25 05:12 50 MG Nifedipine 60 mg DAILY PO 03/27/25 10:15 04/01/25 09:43 60 MG Methylprednisolone Sodium Succinate 40 mg BID IV 03/27/25 10:00 04/01/25 09:45 40 MG Ipratropium [place] 0.5 mg Q4HPRN PRN NEB 03/27/25 08:45 04/01/25 10:48 0.5 MG Albuterol 2.5 mg Q4HPRN PRN NEB 03/27/25 08:45 04/01/25 10:48 2.5 MG Spironolactone 12.5 mg BIDD PO 03/27/25 10:00 04/01/25 05:13 12.5 MG Acetaminophen/ Hydrocodone Bitart 1 tab Q6HPRN PRN PO 03/28/25 08:45 03/31/25 21:00 1 TAB Clonidine HCl 0.2 mg BID PO 03/28/25 22:00 04/01/25 09:44 0.2 MG Metoprolol Tartrate 25 mg BID PO 03/28/25 22:00 04/01/25 09:44 25 MG Hydralazine HCl 10 mg Q2HP PRN IV 03/28/25 14:30 04/01/25 08:16 10 MG Potassium Bicarbonate 50 meq DAILY PO 03/30/25 10:00 04/01/25 09:45 50 MEQ Diagnostic Test (Pha) 1 strip Q6HR 03/29/25 12:00 04/01/25 05:14 1 STRIP Insulin Human Regular Q6HR SC 03/29/25 12:00 04/01/25 05:15 4 UNITS Dextrose 50 ml PRN PRN IV 03/29/25 12:00 Furosemide 40 mg BIDD IV 03/30/25 18:00 04/01/25 05:13 40 MG Laboratory Results Laboratory Tests 03/30/25 03:35 04/01/25 06:05 Chemistry Test 04/01/25 06:05 Calcium Level 7.6 mg/dL (8.7-10.4) L Urinalysis Test 03/29/25 06:14 03/29/25 14:34 Urine Color Light-yellow (Yellow) Urine Clarity Clear (Clear) Urine pH 6.0 (5.0-9.0) Urine Specific [place] 1.014 (1.001-1.035) Urine Protein 2+ (Negative) H Urine Ketones Negative (Negative) Urine Blood Trace /uL (Negative) H Urine Nitrite Negative (Negative) Urine Bilirubin Negative (Negative) Urine Urobilinogen Normal mg/dL (Negative) Urine Leukocyte Esterase Negative /uL (Negative) Urine RBC 1 /hpf (0 - 3) Urine Microscopic WBC 2 /HPF (0-3) Urine Squamous Epithelial Cells Few /hpf (<5) Urine Bacteria Few /hpf (None Seen) H Urine Glucose 2+ mg/dL (Normal) H Urine Creatinine 124.00 mg/dL (30.0-125.0) Urine Total Protein 335.1 mg/dL (1-14) H Microbiology Microbiology Date/Time Source Procedure Growth Status 03/30/25 14:00 Voided Urine Urine Culture - Preliminary Resulted 03/30/25 04:30 Nose MRSA Screen - Final Complete Labs and/or images reviewed: Labs reviewed by me Assessment/Plan Assessment/Plan Pulmonary edema, Hypertensive urgency, Hypokalemia, Acute kidney injury, COPD, CHF, Continue current management. Continue HTN medicaiton Continue lasix Will follow up kidney function. Off Nitro drip Down grade to telemetry I spoke with patient and his in length at bedside. I explained to them that the BUN creatinine which is his kidney function worsening today. We have to wait to see if nephrology recommend any other treatment. I spoke with patient and fhis on the phone. Finally, he agreed to stay here and waiting for kidney function improved. If not he might need hemodialysis. Discuss with Dr. Bergeron, nephrologists, she stated that the patient might need hemodialysis. She will reassess patient. This medical document was created using an electronic medical record system with [employer] direct computerized dictation system. Although this document has been carefully reviewed, there may still be some phonetic and typographical errors. These areas are purely typographical due to imperfections of the software programs, and do not reflect any compromise in the patient's medical care. Plan discussed with: Patient, Spouse, Other (rn) My Orders Orders - JON WRIGHT MD Procedure Category Date Status Time Rt Upper Dvt US 03/31/25 Resulted 14:47 Date of Service: Apr 01, 2025 Billing Provider: JON WRIGHT MD Common Visit Codes: [id number] INP/OBS CARE(HIGH) JON WRIGHT MD Apr 01, 2025 11:43
[2025-04-01] MEDS: cefTRIAXone 1GM/50ML D5W 50 ML IV ONE (13:45)
--- NOTE | 2025-04-01 16:39 | DVHPN2 ---
Progress Note Date Seen: Apr 01, 2025 Medical Necessity Reason Pt with a Central, PICC or Fol: No Subjective Patient reports: No new complaints, Feels better Review of Systems: HEENT:Normal, CVS:Normal, RESPIRATORY:Abnormal, GI:Normal, :Normal, MSK:Normal, NEURO:Normal Objective vital signs Vital Sign Date Time Temp Pulse Resp B/P (MAP) Pulse Ox O2 Delivery O2 Flow Rate FiO2 04/01/25 15:37 72 183/80 04/01/25 10:54 18 100 04/01/25 10:48 Nasal Cannula* 4 36 04/01/25 09:00 98.0 98.0 Total Intake and Output 03/31/25 03/31/25 04/01/25 15:00 23:00 07:00 Intake Total 776 ml 920 ml Output Total 500 ml Balance 776 ml 420 ml medications Current Medications Medications Dose Ordered Sig/Ricky Route Start Time Stop Time Status Last Admin Dose Admin Sodium Chloride 10 ml Q8HR IV 03/27/25 14:00 04/01/25 14:00 10 ML Ondansetron HCl 4 mg Q4HP PRN IV 03/27/25 07:30 03/29/25 09:58 4 MG Docusate Sodium 100 mg BIDPRN PRN PO 03/27/25 07:30 Acetaminophen 650 mg Q6HP PRN PO 03/27/25 07:30 Nitroglycerin 0.4 mg Q5MINP PRN SL 03/27/25 07:30 Morphine Sulfate 2 mg Q30M PRN IV 03/27/25 07:30 03/30/25 09:30 2 MG Aspirin 81 mg DAILY PO 03/27/25 10:00 04/01/25 09:44 81 MG Gabapentin 300 mg BID PO 03/27/25 10:32 04/01/25 09:44 300 MG Hydralazine HCl 50 mg TID PO 03/27/25 10:16 04/01/25 14:00 50 MG Nifedipine 60 mg DAILY PO 03/27/25 10:15 04/01/25 09:43 60 MG Methylprednisolone Sodium Succinate 40 mg BID IV 03/27/25 10:00 04/01/25 09:45 40 MG Ipratropium [place] 0.5 mg Q4HPRN PRN NEB 03/27/25 08:45 04/01/25 10:48 0.5 MG Albuterol 2.5 mg Q4HPRN PRN NEB 03/27/25 08:45 04/01/25 10:48 2.5 MG Spironolactone 12.5 mg BIDD PO 03/27/25 10:00 04/01/25 05:13 12.5 MG Acetaminophen/ Hydrocodone Bitart 1 tab Q6HPRN PRN PO 03/28/25 08:45 03/31/25 21:00 1 TAB Clonidine HCl 0.2 mg BID PO 03/28/25 22:00 04/01/25 09:44 0.2 MG Metoprolol Tartrate 25 mg BID PO 03/28/25 22:00 04/01/25 09:44 25 MG Hydralazine HCl 10 mg Q2HP PRN IV 03/28/25 14:30 04/01/25 08:16 10 MG Potassium Bicarbonate 50 meq DAILY PO 03/30/25 10:00 04/01/25 09:45 50 MEQ Diagnostic Test (Pha) 1 strip Q6HR 03/29/25 12:00 04/01/25 12:00 1 STRIP Insulin Human Regular Q6HR SC 03/29/25 12:00 04/01/25 12:00 8 UNITS Dextrose 50 ml PRN PRN IV 03/29/25 12:00 Furosemide 40 mg BIDD IV 03/30/25 18:00 04/01/25 05:13 40 MG Ceftriaxone Sodium 50 ml @ 100 mls/hr DAILY@09 IV 04/02/25 09:00 Examination: GENERAL:Normal, HEENT:Normal, NECK:Normal, LUNGS:Abnormal, CVS:Normal, ABDOMEN:Normal, MSK:Abnormal (edema), SKIN:Normal, NEURO:Normal, :Normal laboratory and microbiology Laboratory Tests 04/01/25 06:05 03/30/25 03:35 Test 04/01/25 06:05 Range/Units Serum Glucose 227 H 74-106 mg/dL Microbiology Date/Time Source Procedure Growth Status 03/31/25 13:28 Blood Blood Culture - Preliminary NO GROWTH AFTER 24 HOURS OF INCUBATION. Resulted 03/30/25 14:00 Voided Urine Urine Culture - Final Enterococcus faecalis Complete 03/30/25 04:30 Nose MRSA Screen - Final Complete Problem List/Assessment/Plan Problem List/Assessment/Plan 1) Hemodynamically mediated acute kidney injury in the setting of hypertensive crisis 2) chronic kidney disease stage 4 sec to HTN 3) hypertensive urgency 4) obesity 5) acute on chronic systolic and diastolic heart failure recs diuretics iv bp control--increase clonidine and hydralazine as ordered --bp high consideration for AIRLINE DISPATCHER in next 24-48hrs should renal function worsens further non oliguric d/w Plan discussed with: Patient My Orders My Orders Orders - JUDITH SÁNCHEZ MD Procedure Category Date Status Time Methylprednisolone PHA 04/02/25 Logged Sod Succ (Solu Medrol 10:00 Clonidine Hcl Tablet PHA 04/01/25 Logged (Catapres Tablet) 22:00 JUDITH SÁNCHEZ MD Apr 01, 2025 16:39
[2025-04-01] MEDS ORDERED: InsuLIN REG 1unit/0.01ml Soln (100units/ml) IV ONE (18:00)
[2025-04-01] MEDS: InsuLIN REG 1unit/0.01ml Soln (100units/ml) SC ONE (18:15)
[2025-04-02] VITALS (9 sets, daily range): BP systolic 154–174; BP diastolic 80–89; PULSE 48–68; RESP 16–19; TEMP 97.7–98.1; O2SAT 96–100
[2025-04-02 07:28] LABS: Chloride 103 mmol/L (98-107); Sodium 143 mmol/L (136-145)
[2025-04-02 07:29] LABS: Anion Gap 12 (5-15); Carbon Dioxide 28 mmol/L (20-31)
[2025-04-02 07:32] LABS: Calcium 7.4 mg/dL (8.7-10.4); Potassium 3.1 mmol/L (3.5-5.1)
[2025-04-02 07:34] LABS: BUN/Creatinine Ratio 18.7 (10.0-20.0); Glucose 95 mg/dL (74-106)
[2025-04-02 07:38] LABS: Blood Urea Nitrogen 80 mg/dL (9-23)
[2025-04-02] MEDS: cefTRIAXone 1GM/50ML D5W 50 ML IV SCH (08:48)
[2025-04-02] MEDS: methylPREDNISolone SOD SUCC 40 MG/ML VL IV SCH (09:34)
--- NOTE | 2025-04-02 11:19 | DVHPN2 ---
Subjective The patient seen and examined at bedside. The patient wanted to go home today. The patient is upset that he is still in the hospital.. Reviewed: Care Plan, H&P, Labs, Medications, Previous Orders, Radiology Objective Vitals Vital Signs Date Time Temp Pulse Resp B/P (MAP) Pulse Ox O2 Delivery O2 Flow Rate FiO2 04/02/25 09:35 174/88 04/02/25 09:34 68 04/02/25 07:32 99 Nasal Cannula 4.0 04/02/25 07:32 36 04/02/25 05:00 98.1 16 98.1 Intake/Output Intake and Output 04/02/25 07:00 Intake Total 1770 ml Output Total 2250 ml Balance -480 ml Intake Oral 1720 ml IV Total 50 ml Output Urine Total 2250 ml # Voids 1 General Appearance: Alert, Oriented X3, Cooperative HEENT: Atraumatic, PERRLA, EOMI, Mucous membr. moist/pink Lungs: Clear to auscultation, Other (Few crackles bilateral lungs) Cardiovascular: Regular rate, Normal S1, Normal S2, No murmurs, Gallops, Rubs Abdomen: Normal bowel sounds, Soft Extremities: Other (2+ edema today bilateral lower extremities) Neuro: Cranial nerves 3-12 NL Psych/Mental Status: Mental status NL Medications Current Medications Medications Dose Ordered Sig/Ricky Route Start Time Stop Time Status Last Admin Dose Admin Sodium Chloride 10 ml Q8HR IV 03/27/25 14:00 04/02/25 05:53 10 ML Ondansetron HCl 4 mg Q4HP PRN IV 03/27/25 07:30 03/29/25 09:58 4 MG Docusate Sodium 100 mg BIDPRN PRN PO 03/27/25 07:30 Acetaminophen 650 mg Q6HP PRN PO 03/27/25 07:30 Nitroglycerin 0.4 mg Q5MINP PRN SL 03/27/25 07:30 Morphine Sulfate 2 mg Q30M PRN IV 03/27/25 07:30 03/30/25 09:30 2 MG Aspirin 81 mg DAILY PO 03/27/25 10:00 04/02/25 09:35 81 MG Gabapentin 300 mg BID PO 03/27/25 10:32 04/02/25 09:34 300 MG Nifedipine 60 mg DAILY PO 03/27/25 10:15 04/02/25 09:35 60 MG Ipratropium [place] 0.5 mg Q4HPRN PRN NEB 03/27/25 08:45 04/01/25 10:48 0.5 MG Albuterol 2.5 mg Q4HPRN PRN NEB 03/27/25 08:45 04/01/25 10:48 2.5 MG Spironolactone 12.5 mg BIDD PO 03/27/25 10:00 04/02/25 05:54 12.5 MG Acetaminophen/ Hydrocodone Bitart 1 tab Q6HPRN PRN PO 03/28/25 08:45 03/31/25 21:00 1 TAB Metoprolol Tartrate 25 mg BID PO 03/28/25 22:00 04/02/25 09:34 25 MG Hydralazine HCl 10 mg Q2HP PRN IV 03/28/25 14:30 04/02/25 08:59 10 MG Potassium Bicarbonate 50 meq DAILY PO 03/30/25 10:00 04/02/25 09:35 50 MEQ Diagnostic Test (Pha) 1 strip Q6HR 03/29/25 12:00 04/02/25 05:59 1 STRIP Insulin Human Regular Q6HR SC 03/29/25 12:00 04/02/25 00:16 3 UNITS Dextrose 50 ml PRN PRN IV 03/29/25 12:00 Furosemide 40 mg BIDD IV 03/30/25 18:00 04/02/25 05:54 40 MG Ceftriaxone Sodium 50 ml @ 100 mls/hr DAILY@09 IV 04/02/25 09:00 04/02/25 08:48 100 MLS/HR Methylprednisolone Sodium Succinate 40 mg DAILY IV 04/02/25 10:00 04/02/25 09:34 40 MG Clonidine HCl 0.2 mg TID PO 04/01/25 22:00 04/02/25 05:57 0.2 MG Hydralazine HCl 100 mg TID PO 04/01/25 22:00 04/02/25 05:55 100 MG Laboratory Results Laboratory Tests 03/30/25 03:35 04/02/25 06:11 Chemistry Test 04/02/25 06:11 Calcium Level 7.4 mg/dL (8.7-10.4) L Urinalysis Test 03/29/25 06:14 03/29/25 14:34 Urine Color Light-yellow (Yellow) Urine Clarity Clear (Clear) Urine pH 6.0 (5.0-9.0) Urine Specific [place] 1.014 (1.001-1.035) Urine Protein 2+ (Negative) H Urine Ketones Negative (Negative) Urine Blood Trace /uL (Negative) H Urine Nitrite Negative (Negative) Urine Bilirubin Negative (Negative) Urine Urobilinogen Normal mg/dL (Negative) Urine Leukocyte Esterase Negative /uL (Negative) Urine RBC 1 /hpf (0 - 3) Urine Microscopic WBC 2 /HPF (0-3) Urine Squamous Epithelial Cells Few /hpf (<5) Urine Bacteria Few /hpf (None Seen) H Urine Glucose 2+ mg/dL (Normal) H Urine Creatinine 124.00 mg/dL (30.0-125.0) Urine Total Protein 335.1 mg/dL (1-14) H Microbiology Microbiology Date/Time Source Procedure Growth Status 03/31/25 13:28 Blood Blood Culture - Preliminary NO GROWTH AFTER 24 HOURS OF INCUBATION. Resulted 03/30/25 14:00 Voided Urine Urine Culture - Final Enterococcus faecalis Complete 03/30/25 04:30 Nose MRSA Screen - Final Complete Assessment/Plan Assessment/Plan Pulmonary edema, Hypertensive urgency, Hypokalemia, Acute kidney injury, COPD, CHF, Continue current management. Continue HTN medicaiton Continue lasix Will follow up kidney function. Off Nitro drip Down grade to telemetry I spoke with patient and his in length at bedside. I explained to them that the BUN creatinine which is his kidney function worsening today. We have to wait to see if nephrology recommend any other treatment. I spoke with patient and fhis on the phone. Finally, he agreed to stay here and waiting for kidney function improved. If not he might need hemodialysis. Discuss with Dr. Bergeron, nephrologists, she stated that the patient might need hemodialysis. She will reassess patient. This medical document was created using an electronic medical record system with [employer] computerized dictation system. Although this document has been carefully reviewed, there may still be some phonetic and typographical errors. These areas are purely typographical due to imperfections of the software programs, and do not reflect any compromise in the patient's medical care. My Orders Orders - JON WRIGHT MD Procedure Category Date Status Time Ceftriaxone 1gm/50ml PHA 04/02/25 In Process D5w (Rocephin) 09:00 Renal DIET 04/01/25 Transmitted Standard(2gna,3gk,Lopho) Dinner JON WRIGHT MD Apr 02, 2025 11:19
--- NOTE | 2025-04-02 16:15 | DVHPN2 ---
Progress Note Date Seen: Apr 02, 2025 Medical Necessity Reason Pt with a Central, PICC or Fol: No Subjective Patient reports: No new complaints Review of Systems: HEENT:Normal, CVS:Normal, RESPIRATORY:Abnormal, GI:Normal, :Normal, MSK:Normal, NEURO:Normal Objective vital signs Vital Sign Date Time Temp Pulse Resp B/P (MAP) Pulse Ox O2 Delivery O2 Flow Rate FiO2 04/02/25 14:30 154/89 04/02/25 12:38 97.7 57 19 96 97.7 04/02/25 10:20 Nasal Cannula 4.0 04/02/25 10:20 36 Total Intake and Output 04/01/25 04/01/25 04/02/25 15:00 23:00 07:00 Intake Total 1050 ml 720 ml Output Total 1000 ml 1250 ml Balance 50 ml -530 ml medications Current Medications Medications Dose Ordered Sig/Ricky Route Start Time Stop Time Status Last Admin Dose Admin Sodium Chloride 10 ml Q8HR IV 03/27/25 14:00 04/02/25 14:29 10 ML Ondansetron HCl 4 mg Q4HP PRN IV 03/27/25 07:30 03/29/25 09:58 4 MG Docusate Sodium 100 mg BIDPRN PRN PO 03/27/25 07:30 Acetaminophen 650 mg Q6HP PRN PO 03/27/25 07:30 Nitroglycerin 0.4 mg Q5MINP PRN SL 03/27/25 07:30 Morphine Sulfate 2 mg Q30M PRN IV 03/27/25 07:30 03/30/25 09:30 2 MG Aspirin 81 mg DAILY PO 03/27/25 10:00 04/02/25 09:35 81 MG Gabapentin 300 mg BID PO 03/27/25 10:32 04/02/25 09:34 300 MG Nifedipine 60 mg DAILY PO 03/27/25 10:15 04/02/25 09:35 60 MG Ipratropium [place] 0.5 mg Q4HPRN PRN NEB 03/27/25 08:45 04/01/25 10:48 0.5 MG Albuterol 2.5 mg Q4HPRN PRN NEB 03/27/25 08:45 04/01/25 10:48 2.5 MG Spironolactone 12.5 mg BIDD PO 03/27/25 10:00 04/02/25 05:54 12.5 MG Acetaminophen/ Hydrocodone Bitart 1 tab Q6HPRN PRN PO 03/28/25 08:45 03/31/25 21:00 1 TAB Metoprolol Tartrate 25 mg BID PO 03/28/25 22:00 04/02/25 09:34 25 MG Hydralazine HCl 10 mg Q2HP PRN IV 03/28/25 14:30 04/02/25 08:59 10 MG Potassium Bicarbonate 50 meq DAILY PO 03/30/25 10:00 04/02/25 09:35 50 MEQ Diagnostic Test (Pha) 1 strip Q6HR 03/29/25 12:00 04/02/25 11:58 1 STRIP Insulin Human Regular Q6HR SC 03/29/25 12:00 04/02/25 12:16 3 UNITS Dextrose 50 ml PRN PRN IV 03/29/25 12:00 Furosemide 40 mg BIDD IV 03/30/25 18:00 04/02/25 05:54 40 MG Ceftriaxone Sodium 50 ml @ 100 mls/hr DAILY@09 IV 04/02/25 09:00 04/02/25 08:48 100 MLS/HR Methylprednisolone Sodium Succinate 40 mg DAILY IV 04/02/25 10:00 04/02/25 09:34 40 MG Clonidine HCl 0.2 mg TID PO 04/01/25 22:00 04/02/25 14:30 0.2 MG Hydralazine HCl 100 mg TID PO 04/01/25 22:00 04/02/25 14:29 100 MG Examination: GENERAL:Normal, HEENT:Normal, NECK:Normal, LUNGS:Abnormal, CVS:Normal, ABDOMEN:Normal, MSK:Abnormal, SKIN:Normal, NEURO:Normal, :Normal laboratory and microbiology Laboratory Tests 04/02/25 06:11 03/30/25 03:35 Test 04/02/25 06:11 Range/Units Serum Glucose 95 # 74-106 mg/dL Microbiology Date/Time Source Procedure Growth Status 03/31/25 13:28 Blood Blood Culture - Preliminary NO GROWTH AFTER 48 HOURS OF INCUBATION. Resulted 03/30/25 14:00 Voided Urine Urine Culture - Final Enterococcus faecalis Complete 03/30/25 04:30 Nose MRSA Screen - Final Complete Problem List/Assessment/Plan Problem List/Assessment/Plan 1) Hemodynamically mediated acute kidney injury in the setting of hypertensive crisis 2) chronic kidney disease stage 4 sec to HTN 3) hypertensive urgency 4) obesity 5) acute on chronic systolic and diastolic heart failure recs diuretics iv bp control--increase clonidine and hydralazine as ordered --bp high kcl replace non oliguric no need for OVERNIGHT STOCKER yet f/u in office in 1-2 weeks with me after dc d/w Plan discussed with: Patient My Orders My Orders Orders - JUDITH SÁNCHEZ MD Procedure Category Date Status Time Methylprednisolone PHA 04/02/25 In Process Sod Succ (Solu Medrol 10:00 Clonidine Hcl Tablet PHA 04/01/25 In Process (Catapres Tablet) 22:00 Hydralazine Hcl PHA 04/01/25 In Process Tablet (Apresoline 22:00 JUDITH SÁNCHEZ MD Apr 02, 2025 16:14
[2025-04-02] MEDS ORDERED: NIFE1TAB30 PO (17:01)
[2025-04-02] MEDS ORDERED: MET25T PO (17:01)
[2025-04-02] MEDS ORDERED: SPIR25TA8 PO (17:01)
[2025-04-02] MEDS ORDERED: CLON0.2T PO (17:01)
[2025-04-02] MEDS ORDERED: GABA-1250 PO (17:01)
[2025-04-02] MEDS ORDERED: HYDR100T10 PO (17:01)
[2025-04-02] MEDS ORDERED: BUM1T PO (17:03)
--- NOTE | 2025-04-02 17:05 | DVHDS2 ---
Discharge Summary Date of Admission Mar 27, 2025 at 07:25 Date of Discharge: Apr 02, 2025 Admitting Diagnosis Pulmonary edema, Hypertensive urgency, Hypokalemia, Acute kidney injury, COPD, CHF, Labs/Diagnostic Data: Laboratory Results Test 04/02/25 11:51 04/02/25 06:11 03/30/25 14:00 03/30/25 13:30 POC Glucose 184 mg/dl (70-106) Sodium Level 143 mmol/L (136-145) Potassium Level 3.1 mmol/L (3.5-5.1) Chloride Level 103 mmol/L (98-107) Carbon Dioxide Level 28 mmol/L (20-31) Anion Gap 12 (5-15) Blood Urea Nitrogen 80 mg/dL (9-23) Creatinine 4.27 mg/dL (0.700-1.30) Glomerular Filtration Rate Calc 15 mL/min (>90) BUN/Creatinine Ratio 18.7 (10.0-20.0) Serum Glucose 95 mg/dL (74-106) Calcium Level 7.4 mg/dL (8.7-10.4) Influenza Type A Antigen Negative (Negative) Influenza Type B Antigen Negative (Negative) SARS-CoV-2 Antigen (Rapid) Negative (NEGATIVE) Test 03/30/25 03:35 03/29/25 14:34 03/29/25 06:14 03/29/25 04:48 White Blood Count 10.6 10^3/uL (4.4-10.8) Red Blood Count 3.20 10^6/uL (4.5-5.90) Hemoglobin 9.8 g/dL (13.5-17.5) Hematocrit 28.3 % (41.0-53.0) Mean Corpuscular Volume 88.4 fL (80.0-100.0) Mean Corpuscular Hemoglobin 30.7 pg (28.0-32.0) Mean Corpuscular Hemoglobin Concent 34.7 g/dL (32.0-36.0) Red Cell Distribution Width 15.2 % (11.8-14.3) Platelet Count 172 10^3/uL (140-450) Mean Platelet Volume 9.5 fL (6.9-10.8) Neutrophils (%) (Auto) 91.7 % (37.0-80.0) Lymphocytes (%) (Auto) 5.1 % (10.0-50.0) Monocytes (%) (Auto) 2.9 % (0.0-12.0) Eosinophils (%) (Auto) 0.0 % (0.0-7.0) Basophils (%) (Auto) 0.3 % (0.0-2.0) Neutrophils # (Auto) 9.7 10 ^3/uL (1.6-8.6) Lymphocytes # (Auto) 0.5 10 ^3/uL (0.4-5.4) Monocytes # (Auto) 0.3 10 ^3/uL (0-1.3) Eosinophils # (Auto) 0 10 ^3/uL (0-0.8) Basophils # (Auto) 0 10 ^3/uL (0-0.2) Nucleated Red Blood Cells 0.1 % Phosphorus Level 5.5 mg/dL (2.4-5.1) Total Bilirubin 0.2 mg/dL (0.2-1.0) Aspartate Amino Transferase (AST) 17 U/L (13-40) Alanine Aminotransferase (ALT) 16 U/L (7-40) Alkaline Phosphatase 69 U/L (46-116) Total Protein 6.1 g/dL (5.7-8.2) Albumin 3.7 g/dL (3.2-4.8) Parathyroid Hormone (Intact) 1140.6 pg/mL (18.4-80.1) Hepatitis B Surface Antigen Negative (Negative) Urine Creatinine 124.00 mg/dL (30.0-125.0) Urine Total Protein 335.1 mg/dL (1-14) Urine Color Light-yellow (Yellow) Urine Clarity Clear (Clear) Urine pH 6.0 (5.0-9.0) Urine Specific [place] 1.014 (1.001-1.035) Urine Protein 2+ (Negative) Urine Ketones Negative (Negative) Urine Blood Trace /uL (Negative) Urine Nitrite Negative (Negative) Urine Bilirubin Negative (Negative) Urine Urobilinogen Normal mg/dL (Negative) Urine Leukocyte Esterase Negative /uL (Negative) Urine RBC 1 /hpf (0 - 3) Urine Microscopic WBC 2 /HPF (0-3) Urine Squamous Epithelial Cells Few /hpf (<5) Urine Bacteria Few /hpf (None Seen) Urine Glucose 2+ mg/dL (Normal) Hemoglobin A1c 6.4 % A1C (<5.7) Test 03/28/25 03:32 03/27/25 07:30 03/27/25 04:29 Magnesium Level 2.0 mg/dL (1.6-2.6) Troponin I High Sensitivity 51 ng/L (</=54) B-Type Natriuretic Peptide 329.24 pg/mL (0-100) Other Laboratory Tests 04/02/25 06:11 03/30/25 03:35 Brief Hx & Hospital Course: This is a 64 years old male with past medical history of hypertension, COPD, on home oxygen 4 L nasal cannula, chronic congestive heart failure come to emergency department because severe shortness for breath. The patient stated that shortness a breath woke him up from sleeping. The patient was admitted. His systolic blood pressure in the 200. Multiple IV hypertensive medication was given by emergency department physician with little improved. The patient was started on nitro drip and upgraded to ICU. Patient also had chronic kidney disease stage 4 and his kidney function worsening so plush finisher was consulted. Subsequently patient is able to wean off nitro drip. Blood pressure better controlled. Diuretic with Bumex also was given and the patient feel better. Shortness for breath improved. Patient is able to get up and ambulate without shortness for breath. Today he doing much better. Kidney function stable. Patient will be discharged home. New medication including Bumex 1 mg p.o. twice per day. Advised the patient to follow up with his plush finisher per schedule. Follow up with primary care physician 1-2 weeks. Activity as tolerated. Diet per home diet. Recommend renal diet. Physical exam: HEENT: Normocephalic atraumatic pupils equal react to light and accommodation. Extraocular muscles intact, conjunctiva pink, oropharynx moist, no thrush, no exudate. Lymphatic: No lymphadenopathy Cardiovascular exam: S1, S2 was heard. No murmurs, rubs, gallops Lung: Clear on auscultation bilaterally, no wheeze, rale, rhonchi. GI: Abdominal soft, nondistended, nontenderness, positive bowel sounds. Extremity: No crepitus, cyanosis, edema. Pedal pulses present bilateral. Full range of motion. Skin: Normal turgor, no rash. Psych: Alert, oriented x3. Neurology: No focal deficits, cranial nerve II to XII grossly intact This medical document was created using an electronic medical record system with [employer] computerized dictation system. Although this document has been carefully reviewed, there may still be some phonetic and typographical errors. These areas are purely typographical due to imperfections of the software programs, and do not reflect any compromise in the patient's medical care. Condition at Discharge: Stable Final Diagnosis/Problems List Pulmonary edema, Hypertensive urgency, Hypokalemia, Acute kidney injury, COPD, CHF, Discharge Disposition: Home Discharge Instruct/Medications Diet: Renal Activity: No Restrictions, As Tolerated Follow Up/Referral: pcp 1-[address] Cruz , plush finisher per schedule Medications: See med list Scheduled Aspirin (Aspir-81), 1 TAB PO DAILY Bumetanide (Bumex Tablet), 1 MG PO BID Clonidine Hydrochloride (Clonidine Hcl), 1 TAB PO BID Gabapentin (Gabapentin), 1 CAP PO TID Hydralazine Hcl (Hydralazine Hcl), 1 TAB PO TID Metoprolol Tartrate (Lopressor), 25 MG PO BID Nifedipine (Nifedipine Er), 1 TAB PO DAILY Potassium Bicarbonate (Effer-K), 25 MEQ PO DAILY Spironolactone (Spironolactone), 0.5 TAB PO BID Discontinued Medications Furosemide (Furosemide), 1 TAB PO BID Hydralazine Hcl (Hydralazine Hcl), 1 TAB PO TID Metoprolol Tartrate (Lopressor), 12.5 MG PO BID Discharge Statement: "Patient was advised to return to the ER or call 911 if any headaches, dizziness, shortness of breath, chest pain, abdominal pain, bleeding, fevers, or worsening of medical condition. Patient was counseled about treatment plan, medications, possible side effects, patientverbalized understanding. All questions were answered to the best of my ability. This discharge took greater then 30 minutes in planning, reviewing documentation, counseling the patient, and discussing with other team members." ASSESSMENT ASSESSMENT Assessment MIREYA/CKD CHF exacerbation Date of Service: Apr 02, 2025 Billing Provider: JON WRIGHT MD Common Visit Codes: 93016-BAK/OBS DISCH DAY >30min JON WRIGHT MD Apr 02, 2025 17:05
[2025-04-02] MEDS ORDERED: POTA25TA23 PO (17:07)
== END 2025-04-02 18:35 | disposition home or self-care (01) | DRG 194 ==
LOC: ER 04:16 → EDBD 04:16 → OVERFLOW 07:25 → TELE-CENTR 03-30 16:00
PROVIDERS: ADMIT Internal Medicine; ATTEND Internal Medicine
PROC: 05HD33Z Insertion of Infusion Device into Right Cephalic Vein, Percutaneous Approach (ICD-10-PCS; principal; 2025-03-28)
PROC: B54MZZA Ultrasonography of Right Upper Extremity Veins, Guidance (ICD-10-PCS; 2025-03-28)
DX: I13.0 Hypertensive heart and chronic kidney disease with heart failure and stage 1 through stage 4 chronic kidney disease, or unspecified chronic kidney disease (principal); N17.0 Acute kidney failure with tubular necrosis; J96.10 Chronic respiratory failure, unspecified whether with hypoxia or hypercapnia; D63.1 Anemia in chronic kidney disease; N18.4 Chronic kidney disease, stage 4 (severe); Z99.81 Dependence on supplemental oxygen; Z68.36 Body mass index [BMI] 36.0-36.9, adult; I50.43 Acute on chronic combined systolic (congestive) and diastolic (congestive) heart failure; E66.01 Morbid (severe) obesity due to excess calories; Z20.822 Contact with and (suspected) exposure to COVID-19; J44.9 Chronic obstructive pulmonary disease, unspecified; I16.0 Hypertensive urgency; E87.6 Hypokalemia; E78.5 Hyperlipidemia, unspecified; R73.9 Hyperglycemia, unspecified; Z88.0 Allergy status to penicillin; Z87.891 Personal history of nicotine dependence
CPT/HCPCS: 36415; 71045; 76775; 80048; 80053; 81001; 82570; 82962; 83036; 83735; 83880; 83970; 84100; 84132; 84156; 84484; 85025; 87040; 87081; 87086; 87088; 87186; 87340; 87426; 87804; 93005; 93971; 94640; 96365; 96375; 99291; G0378; J1815; J2003; J2405

== ENCOUNTER 2025-04-17 02:24 | Inpatient (IN) | payer MEDICAID ==
[~2025-04-17] VITALS: Ht 175.3 cm; Wt 108.7 kg
[2025-04-17] VITALS (55 sets, daily range): BP systolic 152–192; BP diastolic 74–128; PULSE 68–92; RESP 10–28; TEMP 98.3; O2SAT 89–100
[~2025-04-17 02:24] MED LIST changes: +BUM1T PO; -FURO40TA4 PO; +HYDR100T10 PO; -HYDR50TA47 PO; +POTA25TA23 PO
--- NOTE | 2025-04-17 02:58 | ED.PDOC ---
Epistaxis- HPI HPI Comments 64-year-old male who came to ER via EMS for epistaxis. Patient has a history of hypertension and COPD, does take clopidogrel daily. Few hours ago he started having, right-sided epistaxis, intermittent throughout the day. Denies any trauma. On scene blood pressure was 238/110 mm Hg. Upon arrival to the ER blood pressure went down to 196/94 mm Hg REVIEW OF SYSTEMS: No fever, no chills, or fatigue HEENT: No sore throat, no earache, no congestion, no neck pain. (+) epistaxis Cardiac: No chest pain. No palpitations. Lungs: No shortness of breath, no cough. GI: No nausea, no vomiting, no diarrhea, no constipation, no abdominal pain : No dysuria, frequency, or urgency. No hematuria. Musculoskeletal: No joint pain , no joint swelling, no extremity edema. Skin: No rash, no itching. Neuro: No headache, no dizziness, no weakness Physical exam General: Awake, alert and oriented. No acute distress. Skin: Skin in warm, dry and intact. Appropriate color for ethnicity. Nailbeds pink with no cyanosis. HEENT: The head is normocephalic and atraumatic. Conjunctivae are clear without exudates or hemorrhage. Sclera is non-icteric. EOM are intact. No signs of nystagmus. Eyelids are normal in appearance without swelling or lesions. Oral mucosa is pink and moist Neck: The neck is supple with normal range of motion. No JVD. Cardiac: Heart rate and rhythm are normal. No murmurs, gallops, or rubs are auscultated. Respiratory: No signs of respiratory distress. Lung sounds are clear in all lobes bilaterally without rales, rhonchi, or wheezes. Abdominal: Abdomen is soft, non-tender without distention. Bowel sounds are present and normoactive in all four quadrants. Extremities: Upper and lower extremities are atraumatic in appearance without deformity or edema. Neurological: The patient is awake, alert and oriented to person, place, and time with normal speech. Speech is clear. There is no facial asymmetry. Psychiatric: Appropriate mood and affect. Good judgement and insight. No visual or auditory hallucinations. Chief Complaint: Nose Bleed Time Seen by MD: 02:57 Primary Care Provider: TIKA Reviewed Notes: Nurses Notes Allergies: Coded Allergies: Penicillins (Verified Allergy, Unknown, 05/31/24) Home Meds Active Scripts Potassium Bicarbonate (Effer-K) 25 Meq Tab, 25 MEQ PO DAILY, #30 TAB 5 Refills Prov:JON WRIGHT MD 04/02/25 Bumetanide (Bumex Tablet) 1 Mg Tab, 1 MG PO BID, #60 TAB 5 Refills BLK BX WARNING-CAN LEAD TO PROFOUND DIURESIS WITH FLUID- ELECTROLYTE LOSS Prov:JON WRIGHT MD 04/02/25 Hydralazine Hcl (Hydralazine Hcl) 100 Mg Tab, 1 TAB PO TID, #90 TAB 5 Refills Prov:JON WRIGHT MD 04/02/25 Metoprolol Tartrate (Lopressor) 25 Mg Tb, 25 MG PO BID, #60 TAB 5 Refills Prov:JON WRIGHT MD 04/02/25 Clonidine Hydrochloride (Clonidine Hcl) 0.2 Mg Tab, 1 TAB PO BID, #120 TAB 5 Refills Prov:JON WRIGHT MD 04/02/25 Nifedipine (Nifedipine Er) 60 Mg Tab, 1 TAB PO DAILY, #60 TAB 5 Refills Prov:JON WRIGHT MD 04/02/25 Gabapentin (Gabapentin) 300 Mg Cap, 1 CAP PO TID, #90 CAP 5 Refills Prov:JON WRIGHT MD 04/02/25 Spironolactone (Spironolactone) 25 Mg Tab, 0.5 TAB PO BID for 30 Days, #30 TAB 5 Refills Prov:JON WRIGHT MD 04/02/25 Aspirin (Aspir-81) 81 Mg Tab, 1 TAB PO DAILY, #60 TAB 5 Refills Prov:TEO HEART MD 06/02/24 Information Source: Patient Mode of Arrival: Ambulatory Severity: Streaking Timing: Hours Duration: Intermittent Location: Right naris Past Medical History PAST MEDICAL HISTORY: CHF, COPD, HTN Surgical History: Denies all surgeries Family History Family History: Reviewed,noncontributory to illness Social History Smoker: Quit Greater Than 1 Year Alcohol: Denies ETOH Use Drugs: Denies Drug Use Lives In: Home Was a procedure done? Was a procedure done?: Yes Nasal Cautery and Pack Indicaton: Anterior epitaxis Silver nitrate: Right Hemostasis: Was obtained Location of packing: Right Packing: Inflatable balloon Informed consent obtained: Yes Risks/benefits/alt described: Yes Differential Diagnosis (NSB) Differential Diagnosis: Anterior Nasal Bleed, Posterior Nasal Bleed, Hypertension X-Ray, Labs, Meds, VS Vital Signs Date Time Temp Pulse Resp B/P (MAP) Pulse Ox O2 Delivery O2 Flow Rate FiO2 04/17/25 05:30 69 220/114 04/17/25 04:08 227/101 04/17/25 03:00 199/98 04/17/25 02:24 101.0 84 16 230/110 94 101.0 Lab Test 04/17/25 05:25 04/17/25 03:00 Range/Units White Blood Count 5.7 4.4-10.8 10^3/uL Red Blood Count 3.13 L 4.5-5.90 10^6/uL Hemoglobin 9.6 L 10.3 L 13.5-17.5 g/dL Hematocrit 28.4 L 31.4 L 41.0-53.0 % Mean Corpuscular Volume 90.9 80.0-100.0 fL Mean Corpuscular Hemoglobin 30.6 28.0-32.0 pg Mean Corpuscular Hemoglobin Concent 33.7 32.0-36.0 g/dL Red Cell Distribution Width 15.7 H 11.8-14.3 % Platelet Count 203 140-450 10^3/uL Mean Platelet Volume 8.5 6.9-10.8 fL Neutrophils (%) (Auto) 77.2 37.0-80.0 % Lymphocytes (%) (Auto) 10.6 10.0-50.0 % Monocytes (%) (Auto) 9.1 0.0-12.0 % Eosinophils (%) (Auto) 2.7 0.0-7.0 % Basophils (%) (Auto) 0.4 0.0-2.0 % Neutrophils # (Auto) 4.4 1.6-8.6 10 ^3/uL Lymphocytes # (Auto) 0.6 0.4-5.4 10 ^3/uL Monocytes # (Auto) 0.5 0-1.3 10 ^3/uL Eosinophils # (Auto) 0.2 0-0.8 10 ^3/uL Basophils # (Auto) 0 0-0.2 10 ^3/uL Nucleated Red Blood Cells 0.1 % Prothrombin Time Pending Prothrombin Time INR Pending Sodium Level 144 136-145 mmol/L Potassium Level 3.0 L 3.5-5.1 mmol/L Chloride Level 106 98-107 mmol/L Carbon Dioxide Level 26 20-31 mmol/L Anion Gap 12 5-15 Blood Urea Nitrogen 29 H 9-23 mg/dL Creatinine 3.11 H 0.700-1.30 mg/dL Glomerular Filtration Rate Calc 22 >90 mL/min BUN/Creatinine Ratio 9.3 L 10.0-20.0 Serum Glucose 174 H 74-106 mg/dL Calcium Level 8.0 L 8.7-10.4 mg/dL Troponin I High Sensitivity 28 </=54 ng/L Current Medications Medications (Trade) Dose Ordered Sig/Ricky Route Start Time Stop Time Status Last Admin Lidocaine/ Epinephrine (Lidocaine/ Epinephrine 2% Inj) 20 ml ONCE ONCE IJ 04/17/25 03:00 04/17/25 03:01 DC 04/17/25 03:00 Clonidine HCl (Catapres Tablet) 0.2 mg ONCE ONCE PO 04/17/25 03:00 04/17/25 03:01 DC 04/17/25 03:00 Acetaminophen/ Hydrocodone Bitart ([place] 10/325MG Tab) 1 tab ONCE ONCE PO 04/17/25 04:15 04/17/25 04:16 DC 04/17/25 04:15 Labetalol HCl (Labetalol HCl) 20 mg ONCE ONCE IV 04/17/25 05:30 04/17/25 05:31 DC 04/17/25 05:30 Time of 1ST Reevaluation: 02:54 Reevaluation 1ST: Unchanged Patient Education/Counseling: Need For Follow Up Family Education/Counseling: No Family Present Departure 1 Departure Time of Disposition: 05:22 Impression: Primary Impression: Hypertensive urgency Additional Impression: Epistaxis Disposition: ADMITTED INPATIENT Condition: Guarded Comments 64-year-old male who presents with elevated blood pressure and nosebleed. 5.5 cm rhino rocket placed in right naris. (patient was unable to tolerate complete insertion, stopped procedure) Bleeding controlled Patient will be admitted for hypertensive urgency. Clonidine and labetalol administered in the ED Critical Care Note Critical Care Time?: Yes (35 min-critical care time only) Critical care comment: Hypertensive urgency, epistaxis Stability Stability form required: No Heart Score Heart Score: Heart Score Response (Comments) Value History N/A 0 EKG N/A 0 Age N/A 0 Risk Factors N/A 0 Troponin N/A 0 Total 0 I personally scribed for JONATHON POON MD ([email or web address]) on 04/17/25 at 02:58. Electronically submitted by Washington Darling ([employer]). I personally scribed for JONATHON POON MD ([email or web address]) on 04/17/25 at 04:06. Electronically submitted by Washington Darling ([employer]). JONATHON POON MD Apr 17, 2025 02:58 NA MOLINA DO Apr 17, 2025 06:37
[2025-04-17] MEDS: LIDOCAINE W/ EPINEPHRINE 2% INJ 20ML VIAL IJ ONE (03:00)
[2025-04-17 03:59] LABS: Hematocrit 31.4 % (41.0-53.0); Hemoglobin 10.3 g/dL (13.5-17.5)
[2025-04-17] MEDS: BACITRACIN TOP OINT 1 UD PKG TOP ONE (04:01)
[2025-04-17] MEDS: fentaNYL CITRATE 5 ML ONE (04:08)
[2025-04-17] MEDS: HYDROcodone-ACET 10/325MG TAB PO ONE (04:15)
[2025-04-17] MEDS: LABETALOL HCL 20 MG/4 ML VL IV ONE (05:30)
[2025-04-17 05:52] LABS: Chloride 106 mmol/L (98-107); Sodium 144 mmol/L (136-145)
[2025-04-17 05:53] LABS: Anion Gap 12 (5-15); Carbon Dioxide 26 mmol/L (20-31)
[2025-04-17 05:57] LABS: Hematocrit 28.4 % (41.0-53.0); Hemoglobin 9.6 g/dL (13.5-17.5); Mean Corpuscular Hemoglobin 30.6 pg (28.0-32.0); Mean Corpuscular Volume 90.9 fL (80.0-100.0); Nucleated Red Blood Cells % 0.1 %
[2025-04-17 05:58] LABS: BUN/Creatinine Ratio 9.3 (10.0-20.0)
[2025-04-17 06:06] LABS: Blood Urea Nitrogen 29 mg/dL (9-23); Calcium 8.0 mg/dL (8.7-10.4); Glucose 174 mg/dL (74-106); Potassium 3.0 mmol/L (3.5-5.1)
[2025-04-17 06:26] LABS: INR 1.06 (0.9-1.15); Prothrombin Time 11.2 sec (9.3-11.8)
[2025-04-17] MEDS ORDERED: DOCUSATE SOD 100 MG CAP PO PRN (06:45)
[2025-04-17] MEDS ORDERED: ONDANSETRON HCL 4 MG/2 ML VIAL IV PRN (06:45)
[2025-04-17] MEDS ORDERED: MORPHINE SULFATE INJ 2 MG/ml SYRG IV PRN (06:45)
[2025-04-17] MEDS ORDERED: NITROGLYCERIN 0.4 MG SL TAB SL PRN (06:45)
[2025-04-17] MEDS: hydrALAZINE HCL 20 MG/ML VL IV ONE (07:17)
--- NOTE | 2025-04-17 08:10 | DVHHP2 ---
History of Present Illness Reason for Visit: nose bleed History of Present Illness 64-year-old male with a past medical history of hypertension, COPD, and CHF presents after developing persistent epistaxis from the right nare. Patient was lying in bed when bleeding began, prompting ED evaluation. In the ED, a rhino rocket was placed by the ENT team with improved bleeding control. He reports taking Plavix and aspirin at home. He was noted to have severe hypertension with BP 230/110 despite ED-administered beta-angelina. Labs showed hemoglobin 9.3, hematocrit , potassium 3.0, and creatinine 3.11 (baseline unknown). Troponin was negative. Renal service was consulted for acute kidney injury. The patient denie s headache, dizziness, chest pain, shortness of breath, or syncope. States he has been taking his home medications as prescribed. Admitted for blood pressure management, anemia evaluation, and renal function monitoring. Past Medical History See HPI above Past Surgical History See HPI above Family History Reviewed, non-contributory to the management of this case. Past Social History The patient lives at home, denies smoking, alcohol or illicit drugs abuse. Review of Systems Constitutional: No: Fever, Chills, Sweats, Weakness, Malaise, Other Eyes: No: Pain, Vision change, Conjunctivae inflammation, Eyelid inflammation, Other, Redness ENT: Other (right nare bleeding ); No: Ear pain, Ear discharge, Nose pain, Nose discharge, Nose congestion, Mouth pain, Mouth swelling, Throat pain, Throat swelling Respiratory: No: Cough, Dry, Shortness of breath, SOB with excertion, Wheezing, Hemoptysis, Pleuritic Pain, Sputum, Wheezing, Other Cardiovascular: No: Chest Pain, Palpitations, Orthopnea, Paroxysmal Noc. Dyspnea, Edema, Lt Headedness, Other Gastrointestinal: No: Nausea, Vomiting, Abdominal Pain, Diarrhea, Constipation, Melena, Hematochezia, Other Genitourinary: No Dysuria, No Frequency, No Incontinence, No Hematuria, No Retention, No Other Musculoskeletal: No: other, neck pain, shoulder pain, arm pain, back pain, hand pain, leg pain, foot pain Skin: No: Rash, Lesions, Jaundice, Bruising, Other Neurological: No: Weakness, Numbness, Incoordination, Change in speech, Confusion, Seizures, Other Allergies: Coded Allergies: Penicillins (Verified Allergy, Unknown, 05/31/24) Medications Current Medications Medications Dose Ordered Sig/Ricky Route Start Time Stop Time Status Last Admin Dose Admin Ondansetron HCl 4 mg Q4HP PRN IV 04/17/25 06:45 Docusate Sodium 100 mg BIDPRN PRN PO 04/17/25 06:45 Morphine Sulfate 2 mg Q4HPRN PRN IV 04/17/25 06:45 Nitroglycerin 0.4 mg Q5MINP PRN SL 04/17/25 06:45 Metoprolol Tartrate 25 mg BID PO 04/17/25 10:00 Spironolactone 12.5 mg BID PO 04/17/25 10:00 Hydralazine HCl 100 mg TID PO 04/17/25 14:00 Nifedipine 60 mg DAILY PO 04/17/25 10:00 Exam Vital Signs Vital Signs Date Time Temp Pulse Resp B/P (MAP) Pulse Ox O2 Delivery O2 Flow Rate FiO2 04/17/25 07:17 201/55 04/17/25 05:30 69 04/17/25 02:24 101.0 16 94 101.0 General Appearance: Alert, Oriented X3, Cooperative, No acute distress HEENT: Atraumatic, PERRLA, EOMI, Mucous membr. moist/pink, Other (right nare with rhinorocket in place no active bleeding ) Respiratory: Clear to auscultation, Normal air movement Cardiovascular: Regular rate, Normal S1, Normal S2, No murmurs Abdominal: Normal bowel sounds, Soft, No tenderness, No hepatospenomegaly, No masses Extremities: No clubbing, No cyanosis, No edema, Normal pulses, No tenderness/swelling Skin: No rashes, No breakdown, No significant lesion Neuro: Normal gait, Normal speech, Strength at 5/5 X4 ext, Normal tone, Sensation intact, Cranial nerves 3-12 NL Psych/Mental Status: Mental status NL, Mood NL Labs/Xrays I reviewed labs, imaging CT scan abdomen pelvis, EKG and all diagnostic studies on this patient from ED records and the medical chart Labs Test 04/17/25 06:38 04/17/25 05:25 Range/Units Troponin I High Sensitivity 30 </=54 ng/L White Blood Count 5.7 4.4-10.8 10^3/uL Red Blood Count 3.13 L 4.5-5.90 10^6/uL Hemoglobin 9.6 L 13.5-17.5 g/dL Hematocrit 28.4 L 41.0-53.0 % Mean Corpuscular Volume 90.9 80.0-100.0 fL Mean Corpuscular Hemoglobin 30.6 28.0-32.0 pg Mean Corpuscular Hemoglobin Concent 33.7 32.0-36.0 g/dL Red Cell Distribution Width 15.7 H 11.8-14.3 % Platelet Count 203 140-450 10^3/uL Mean Platelet Volume 8.5 6.9-10.8 fL Neutrophils (%) (Auto) 77.2 37.0-80.0 % Lymphocytes (%) (Auto) 10.6 10.0-50.0 % Monocytes (%) (Auto) 9.1 0.0-12.0 % Eosinophils (%) (Auto) 2.7 0.0-7.0 % Basophils (%) (Auto) 0.4 0.0-2.0 % Neutrophils # (Auto) 4.4 1.6-8.6 10 ^3/uL Lymphocytes # (Auto) 0.6 0.4-5.4 10 ^3/uL Monocytes # (Auto) 0.5 0-1.3 10 ^3/uL Eosinophils # (Auto) 0.2 0-0.8 10 ^3/uL Basophils # (Auto) 0 0-0.2 10 ^3/uL Nucleated Red Blood Cells 0.1 % Prothrombin Time 11.2 9.3-11.8 sec Prothrombin Time INR 1.06 0.9-1.15 Sodium Level 144 136-145 mmol/L Potassium Level 3.0 L 3.5-5.1 mmol/L Chloride Level 106 98-107 mmol/L Carbon Dioxide Level 26 20-31 mmol/L Anion Gap 12 5-15 Blood Urea Nitrogen 29 H 9-23 mg/dL Creatinine 3.11 H 0.700-1.30 mg/dL Glomerular Filtration Rate Calc 22 >90 mL/min BUN/Creatinine Ratio 9.3 L 10.0-20.0 Serum Glucose 174 H 74-106 mg/dL Calcium Level 8.0 L 8.7-10.4 mg/dL SEPSIS Sepsis Screen Date sepsis recognized/suspect: Apr 17, 2025 Time Sepsis recognized/suspect: 223 Recent Procedure: No On Antibiotic Therapy: No Respiratory Rate >20: No Heart Rate >90: No Temp<36 C (96.8 F) or >38.3 C: No SBP <90 or MAP <65 mmHG: No New Acute Mental Status Change: No Is the patient on CPAP, BIPAP,: No Physician Orders Silver Nitrate (04/17/25 ) Electrocardigram (04/17/25 05:21) Troponin-I Hs (04/17/25 08:21) Electrocardigram (04/17/25 06:21) Electrocardigram (04/17/25 08:21) Admit (04/17/25 06:39) Allergies (04/17/25 06:39) Code Status (04/17/25 06:39) Ondansetron Hcl (Zofran) (04/17/25 06:45) Docusate Sodium Capsule (Colace Capsule) (04/17/25 06:45) Complete Blood Count (04/18/25 04:00) Comprehensive Metabolic Panel (04/18/25 04:00) Cardiac Diet-2gna,Lofat,Lochol (04/17/25 Breakfast) Condition: Stable (04/17/25 06:39) BRP (04/17/25 06:39) Morphine Sulfate Injection (04/17/25 06:45) Sequential Compression Device (04/17/25 ) Nitroglycerin Sublingual (Ntrostat Subli (04/17/25 06:45) Stat Ekg For Chest Pain (04/17/25 06:39) Notify Md Of Changes From Base (04/17/25 06:39) Rn Hemo Dialysis For 24 Hours (04/17/25 06:39) Emergency Dysrhythmia Protocol (04/17/25 06:39) Rhythm Strips Once Every Shift (04/17/25 06:39) Oxygen By Nasal Cannula (04/17/25 06:39) Metoprolol Tartrate Tablet (Lopressor Ta (04/17/25 10:00) Spironolactone (Aldactone) (04/17/25 10:00) Hydralazine Hcl Tablet (Apresoline Table (04/17/25 14:00) Nifedipine Er (Procardia Xl (Time-Releas (04/17/25 10:00) Vital Signs Date Time Temp Pulse Resp B/P (MAP) Pulse Ox O2 Delivery O2 Flow Rate FiO2 04/17/25 07:17 201/55 04/17/25 05:30 69 220/114 04/17/25 04:08 227/101 04/17/25 03:00 199/98 04/17/25 02:24 101.0 84 16 230/110 94 101.0 Laboratory Tests Test 04/17/25 05:25 White Blood Count 5.7 10^3/uL (4.4-10.8) Medications Medications Dose Ordered Sig/Ricky Route Start Time Stop Time Status Last Admin Dose Admin Acetaminophen/ Hydrocodone Bitart 1 tab ONCE ONCE PO 04/17/25 04:15 04/17/25 04:16 DC 04/17/25 04:15 1 TAB Clonidine HCl 0.2 mg ONCE ONCE PO 04/17/25 03:00 04/17/25 03:01 DC 04/17/25 03:00 0.2 MG Fentanyl Citrate 5 ml @ ud STK-MED ONCE .ROUTE 04/17/25 04:08 04/17/25 04:05 DC 04/17/25 04:08 100 MLS/HR Hydralazine HCl 5 mg ONCE ONCE IV 04/17/25 07:00 04/17/25 07:02 DC 04/17/25 07:17 5 MG Labetalol HCl 20 mg ONCE ONCE IV 04/17/25 05:30 04/17/25 05:31 DC 04/17/25 05:30 20 MG Lidocaine/ Epinephrine 20 ml ONCE ONCE IJ 04/17/25 03:00 04/17/25 03:01 DC 04/17/25 03:00 20 ML Assessment/Plan Assessment/Plan 64-year-old male withSevere hypertension with epistaxis and acute kidney injury requiring IV antihypertensive therapy, renal monitoring, and ENT follow-up. acute Hypertensive Urgency severe BP 230/110 Admit to telemetry for close monitoring. Continue IV antihypertensive regimen; titrate to gradual BP reduction to avoid end-organ ischemia. Resume home antihypertensives Monitor for symptoms of hypertensive emergency ordered hydralazine prn acute Epistaxis right nare, on dual antiplatelet therapy Rhino rocket in place Hold Plavix and aspirin temporarily given active bleeding and anemia. Monitor for recurrence of bleeding. Acute Kidney Injury likely multifactorial Renal consult fu results Avoid nephrotoxic medications. Monitor creatinine and urine output closely. Consider renal ultrasound if no improvement. acute on chronic Anemia acute on chronic, Hgb 9.3 Likely multifactorial: blood loss from epistaxis + chronic disease. Monitor CBC daily; transfuse if Hgb <7.0 or symptomatic. Iron studies and reticulocyte count if indicated. Hypokalemia K 3.0 Replete potassium orally or IV. Monitor electrolytes daily. Chronic Obstructive Pulmonary Disease without exacerbation Continue home inhalers as ordered. Monitor for respiratory distress. Chronic Systolic Heart Failure Continue home cardiac medications as tolerated. Monitor for fluid overload. CHRONIC PROBLEM LIST Hypertension Chronic Systolic Heart Failure COPD Anemia of Chronic Disease History of Dual Antiplatelet Therapy FEN / PPx Fluids/Electrolytes/Nutrition (FEN): hl Replete potassium to goal >4.0 m Cardiac diet Prophylaxis (PPx): DVT: Mechanical prophylaxis (SCDs) while bleeding risk present. GI: no gi ppx since no hx of gerds or gi bleed Disposition: Admit to telemetry for hypertensive management, renal monitoring, electrolyte correction, and ENT follow-up for epistaxis. Plan discussed with: Patient My Orders Orders - ARMANDO LARA DNP Procedure Category Date Status Time Admit ADMIT 04/17/25 Transmitted 06:39 Allergies VICKIE 04/17/25 In Process 06:39 Code Status CODE 04/17/25 Transmitted 06:39 Ondansetron Hcl PHA 04/17/25 In Process (Zofran) 06:45 Docusate Sodium PHA 04/17/25 In Process Capsule (Colace 06:45 Complete Blood Count LAB 04/18/25 Verified 04:00 Comprehensive LAB 04/18/25 Verified Metabolic Panel 04:00 Cardiac DIET 04/17/25 Transmitted Diet-2gna,Lofat,Lochol Breakfast Condition: Stable VICKIE 04/17/25 In Process 06:39 BRP VICKIE 04/17/25 In Process 06:39 Morphine Sulfate PHA 04/17/25 In Process Injection 06:45 Sequential VICKIE 04/17/25 In Process Compression Device Nitroglycerin PHA 04/17/25 In Process Sublingual (Ntrostat 06:45 Stat Ekg For Chest VICKIE 04/17/25 In Process Pain 06:39 Notify Of Changes VICKIE 04/17/25 In Process From Base 06:39 Rn Hemo Dialysis For VICKIE 04/17/25 In Process 24 Hours 06:39 Emergency Dysrhythmia VICKIE 04/17/25 In Process Protocol 06:39 Rhythm Strips Once VICKIE 04/17/25 In Process Every Shift 06:39 Oxygen By Nasal RT 04/17/25 Transmitted Cannula 06:39 Metoprolol Tartrate PHA 04/17/25 In Process Tablet (Lopressor Ta 10:00 Spironolactone PHA 04/17/25 In Process (Aldactone) 10:00 Hydralazine Hcl PHA 04/17/25 In Process Tablet (Apresoline 14:00 Nifedipine Er PHA 04/17/25 In Process (Procardia Xl 10:00 Date of Service: Apr 17, 2025 Billing Provider: ARMANDO LARA DNP Common Visit Codes: [id number] INP/OBS CARE (HIGH) ARMANDO LARA DNP Apr 17, 2025 08:10
[2025-04-17] MEDS: SPIRONOLACTONE 25 MG TAB PO SCH (09:46)
[2025-04-17] MEDS: METOPROLOL TARTRATE 25 MG TAB PO SCH (09:46)
[2025-04-17] MEDS: NITROGLYCERIN 50MG/250ML 250 ML IV SCH (11:43)
--- NOTE | 2025-04-17 17:58 | DVHINCON2 ---
Date of service: Apr 17, 2025 Reason for Consultation MIREYA History of Present Illness 63 years old male with past medical history of hypertension, COPD, Congestive heart failure, Chronic kidney disease four presented with chief complaints of epistaxis from the right nostril blood pressure found to be S BP 230/114 [place] tolic Patient underwent nasal packing Past Medical History per hpi Past Surgical History unknown Allergies: Coded Allergies: Penicillins (Verified Allergy, Unknown, 05/31/24) Home Meds Active Scripts Potassium Bicarbonate (Effer-K) 25 Meq Tab, 25 MEQ PO DAILY, #30 TAB 5 Refills Prov:JON WRIGHT MD 04/02/25 Bumetanide (Bumex Tablet) 1 Mg Tab, 1 MG PO BID, #60 TAB 5 Refills BLK BX WARNING-CAN LEAD TO PROFOUND DIURESIS WITH FLUID- ELECTROLYTE LOSS Prov:JON WRIGHT MD 04/02/25 Hydralazine Hcl (Hydralazine Hcl) 100 Mg Tab, 1 TAB PO TID, #90 TAB 5 Refills Prov:JON WRIGHT MD 04/02/25 Metoprolol Tartrate (Lopressor) 25 Mg Tb, 25 MG PO BID, #60 TAB 5 Refills Prov:JON WRIGHT MD 04/02/25 Clonidine Hydrochloride (Clonidine Hcl) 0.2 Mg Tab, 1 TAB PO BID, #120 TAB 5 Refills Prov:JON WRIGHT MD 04/02/25 Nifedipine (Nifedipine Er) 60 Mg Tab, 1 TAB PO DAILY, #60 TAB 5 Refills Prov:JON WRIGHT MD 04/02/25 Gabapentin (Gabapentin) 300 Mg Cap, 1 CAP PO TID, #90 CAP 5 Refills Prov:JON WRIGHT MD 04/02/25 Spironolactone (Spironolactone) 25 Mg Tab, 0.5 TAB PO BID for 30 Days, #30 TAB 5 Refills Prov:JON WRIGHT MD 04/02/25 Aspirin (Aspir-81) 81 Mg Tab, 1 TAB PO DAILY, #60 TAB 5 Refills Prov:TEO HEART MD 06/02/24 Current Medications Current Medications Medications (Trade) Dose Ordered Sig/Ricky Route PRN Reason Start Time Stop Time Status Last Admin Ondansetron HCl (Zofran) 4 mg Q4HP PRN IV NAUSEA / VOMITING 04/17/25 06:45 Docusate Sodium (Colace Capsule) 100 mg BIDPRN PRN PO FOR CONSTIPATION 04/17/25 06:45 Morphine Sulfate 2 mg Q4HPRN PRN IV SEVERE PAIN (7-10 PAIN SCALE) 04/17/25 06:45 Nitroglycerin (Ntrostat Sublingual) 0.4 mg Q5MINP PRN SL FOR CHEST PAIN 04/17/25 06:45 Metoprolol Tartrate (Lopressor Tablet) 25 mg BID PO 04/17/25 10:00 04/17/25 09:46 Spironolactone (Aldactone) 12.5 mg BID PO 04/17/25 10:00 04/17/25 17:53 DC 04/17/25 09:46 Hydralazine HCl (Apresoline Tablet) 100 mg TID PO 04/17/25 14:00 04/17/25 14:08 Nifedipine (Procardia Xl (Time-Release)) 60 mg DAILY PO 04/17/25 10:00 04/17/25 09:46 Nitroglycerin 250 ml @ 1.5 mls/hr Q24H IV 04/17/25 11:15 04/17/25 11:43 Spironolactone (Aldactone) 50 mg DAILY PO 04/18/25 10:00 UNV Family History: Patient reports no known family medical history. Review of Systems per hpi H&P Exam Vital Signs/I&O Vital Sign Date Time Temp Pulse Resp B/P (MAP) Pulse Ox O2 Delivery O2 Flow Rate FiO2 04/17/25 17:10 81 18 98 Nasal Cannula* 3 32 04/17/25 17:10 98.3 176/83 (114) 98.3 Physical Exam male Right nostril packing Fair bilateral air entry Sleepy Labs/Diagnostic Data Labs/Diagnostic Data Laboratory Tests Test 04/17/25 06:38 04/17/25 05:25 04/17/25 03:00 Range/Units Troponin I High Sensitivity 30 28 </=54 ng/L White Blood Count 5.7 4.4-10.8 10^3/uL Red Blood Count 3.13 L 4.5-5.90 10^6/uL Hemoglobin 9.6 L 10.3 L 13.5-17.5 g/dL Hematocrit 28.4 L 31.4 L 41.0-53.0 % Mean Corpuscular Volume 90.9 80.0-100.0 fL Mean Corpuscular Hemoglobin 30.6 28.0-32.0 pg Mean Corpuscular Hemoglobin Concent 33.7 32.0-36.0 g/dL Red Cell Distribution Width 15.7 H 11.8-14.3 % Platelet Count 203 140-450 10^3/uL Mean Platelet Volume 8.5 6.9-10.8 fL Neutrophils (%) (Auto) 77.2 37.0-80.0 % Lymphocytes (%) (Auto) 10.6 10.0-50.0 % Monocytes (%) (Auto) 9.1 0.0-12.0 % Eosinophils (%) (Auto) 2.7 0.0-7.0 % Basophils (%) (Auto) 0.4 0.0-2.0 % Neutrophils # (Auto) 4.4 1.6-8.6 10 ^3/uL Lymphocytes # (Auto) 0.6 0.4-5.4 10 ^3/uL Monocytes # (Auto) 0.5 0-1.3 10 ^3/uL Eosinophils # (Auto) 0.2 0-0.8 10 ^3/uL Basophils # (Auto) 0 0-0.2 10 ^3/uL Nucleated Red Blood Cells 0.1 % Prothrombin Time 11.2 9.3-11.8 sec Prothrombin Time INR 1.06 0.9-1.15 Sodium Level 144 136-145 mmol/L Potassium Level 3.0 L 3.5-5.1 mmol/L Chloride Level 106 98-107 mmol/L Carbon Dioxide Level 26 20-31 mmol/L Anion Gap 12 5-15 Blood Urea Nitrogen 29 H 9-23 mg/dL Creatinine 3.11 H 0.700-1.30 mg/dL Glomerular Filtration Rate Calc 22 >90 mL/min BUN/Creatinine Ratio 9.3 L 10.0-20.0 Serum Glucose 174 H 74-106 mg/dL Calcium Level 8.0 L 8.7-10.4 mg/dL Assessment Hypertensive emergency Chronic kidney disease four Epistaxis Obesity Hypokalemia Recommendations Continue nitro drip Spironolactone 50 mg oral daily Continue hydralazine Add calcium channel angelina We will follow renal function closely under icu care Plan discussed with: Patient JUDITH SÁNCHEZ MD Apr 17, 2025 17:58
[2025-04-17] MEDS: SPIRONOLACTONE 25 MG TAB PO ONE (18:00)
[2025-04-17] MEDS: IPRATROPIUM BROM 0.5 MG/2.5ML INH SOL ONE (19:53)
[2025-04-17] MEDS: ALBUTEROL SULF 2.5 MG/0.5ML(0.5%) NEB SOLN ONE (19:54)
[2025-04-17] MEDS: ALBUTEROL SULF 2.5 MG/0.5ML(0.5%) NEB SOLN NEB PRN (20:11)
[2025-04-17] MEDS: IPRATROPIUM BROM 0.5 MG/2.5ML INH SOL NEB PRN (20:12)
[2025-04-18] VITALS (55 sets, daily range): BP systolic 139–201; BP diastolic 58–102; PULSE 61–110; RESP 9–27; TEMP 98–99.3; O2SAT 91–100
--- NOTE | 2025-04-18 10:42 | DVHPN2 ---
Subjective Patient denies any symptoms at this time Reviewed: Care Plan, H&P, Labs, Medications Changes from previous H/P or p: No Changes General: Per HPI Eyes: No Pain, No Vision change, No Conjunctivae inflammation, No Eyelid inflammation, No Other, No Redness ENT: No Ear pain, No Ear discharge, No Nose pain, No Nose discharge, No Nose congestion, No Mouth pain, No Mouth swelling, No Throat pain, No Throat swelling; Other (right nare bleeding ) Cardiovascular: No Chest Pain, No Palpitations, No Orthopnea, No Paroxysmal Noc. Dyspnea, No Edema, No Lt Headedness, No Other Respiratory: No Cough, No Dry, No Shortness of breath, No SOB with excertion, No Wheezing, No Hemoptysis, No Pleuritic Pain, No Sputum, No Other Gastrointestinal: No Nausea, No Vomiting, No Abdominal Pain, No Diarrhea, No Constipation, No Melena, No Hematochezia, No Other Genitourinary: No Dysuria, No Frequency, No Incontinence, No Hematuria, No Retention, No Other Musculoskeletal: No other, No neck pain, No shoulder pain, No arm pain, No back pain, No hand pain, No leg pain, No foot pain Skin: No Rash, No Lesions, No Jaundice, No Bruising, No Other Objective Vitals Vital Signs Date Time Temp Pulse Resp B/P (MAP) Pulse Ox O2 Delivery O2 Flow Rate FiO2 04/18/25 09:17 166/70 04/18/25 09:16 80 04/18/25 09:04 97 Room Air 0.0 04/18/25 09:04 21 04/18/25 09:04 12 04/18/25 04:01 99.0 99.0 Intake/Output Intake and Output 04/18/25 07:00 Intake Total 902.0 ml Output Total 2100 ml Balance -1198.0 ml Intake Oral 350 ml IV Total 552.0 ml Output Urine Total 2100 ml Stool Total 0 ml # Bowel Movements 1 General Appearance: Alert, Oriented X3, Cooperative, No acute distress HEENT: Atraumatic, PERRLA Cardiovascular: Normal S1, Normal S2 Abdomen: Normal bowel sounds, Soft, No tenderness, No hepatospenomegaly Musculoskeletal: Normal sensory function, Normal motor function Skin: Dry, Intact Psych/Mental Status: Mental status NL, Mood NL Medications Current Medications Medications Dose Ordered Sig/Ricky Route Start Time Stop Time Status Last Admin Dose Admin Ondansetron HCl 4 mg Q4HP PRN IV 04/17/25 06:45 Docusate Sodium 100 mg BIDPRN PRN PO 04/17/25 06:45 Morphine Sulfate 2 mg Q4HPRN PRN IV 04/17/25 06:45 Nitroglycerin 0.4 mg Q5MINP PRN SL 04/17/25 06:45 Hydralazine HCl 100 mg TID PO 04/17/25 14:00 04/18/25 05:44 100 MG Nitroglycerin 250 ml @ 1.5 mls/hr Q24H IV 04/17/25 11:15 04/17/25 23:37 60 MLS/HR Spironolactone 50 mg DAILY PO 04/18/25 10:00 Amlodipine Besylate 10 mg DAILY PO 04/18/25 10:00 04/18/25 09:17 10 MG Ipratropium [place] 0.5 mg Q6HPRN PRN NEB 04/17/25 19:15 04/18/25 09:04 0.5 MG Albuterol 2.5 mg Q6HPRN PRN NEB 04/17/25 19:15 04/18/25 09:04 2.5 MG Metoprolol Tartrate 50 mg BID PO 04/18/25 10:00 Nifedipine 90 mg DAILY PO 04/18/25 10:00 Hold Laboratory Results Laboratory Tests 04/17/25 05:25 Labs and/or images reviewed: Labs reviewed by me, Image(s) reviewed by me Assessment/Plan Assessment/Plan Impression: -hypertensive crisis -epistaxis -CKD stage 4 -obesity -acute on chronic hypoxic respiratory failure -COPD -acute on chronic diastolic heart failure -dyslipidemia Plan: -increase p.o. antihypertensives: Procardia, metoprolol , weaned off Tridil drip -nephrology consultation -O2 supplementation to keep saturation greater than 92% -transferred to telemetry floor -re-evaluate for discharge this afternoon Critical care time spent with patient discussing and formulating plan of care: 40 minutes. This does not include time spent performing procedures. This medical document was created using an electronic medical record system with [employer] dictation system. Although this document has been carefully reviewed, there may still be some phonetic and typographical errors. These areas are purely typographical due to imperfections of the software programs, and do not reflect any compromise in the patient's medical care. Plan discussed with: Patient, Other (RN) My Orders Orders - LINDA NUGENT NP Procedure Category Date Status Time Urine Bacterial RAMA 04/17/25 In Process Culture 12:29 Nifedipine Er PHA 04/18/25 In Process (Procardia Xl 10:00 Metoprolol Tartrate PHA 04/18/25 In Process Tablet (Lopressor Ta 10:00 Transfer Orders XFER 04/18/25 Verified 10:39 Date of Service: Apr 18, 2025 Billing Provider: LINDA NUGENT NP Common Visit Codes: [id number] CARE 30-74 MIN LINDA NUGENT NP Apr 18, 2025 10:42
--- NOTE | 2025-04-18 11:52 | DVHPN2 ---
Progress Note Date Seen: Apr 18, 2025 Medical Necessity Reason Pt with a Central, PICC or Fol: No Subjective Patient reports: No new complaints, Feels better Review of Systems: HEENT:Abnormal, CVS:Normal, RESPIRATORY:Normal, GI:Normal, :Normal, MSK:Normal, NEURO:Normal Objective vital signs Vital Sign Date Time Temp Pulse Resp B/P (MAP) Pulse Ox O2 Delivery O2 Flow Rate FiO2 04/18/25 09:17 166/70 04/18/25 09:16 80 04/18/25 09:04 97 Room Air 0.0 04/18/25 09:04 21 04/18/25 09:04 12 04/18/25 04:01 99.0 99.0 Total Intake and Output 04/17/25 04/17/25 04/18/25 15:00 23:00 07:00 Intake Total 452.0 ml 450 ml Output Total 600 ml 900 ml 600 ml Balance -600 ml -448.0 ml -150 ml medications Current Medications Medications Dose Ordered Sig/Ricky Route Start Time Stop Time Status Last Admin Dose Admin Ondansetron HCl 4 mg Q4HP PRN IV 04/17/25 06:45 Docusate Sodium 100 mg BIDPRN PRN PO 04/17/25 06:45 Morphine Sulfate 2 mg Q4HPRN PRN IV 04/17/25 06:45 Nitroglycerin 0.4 mg Q5MINP PRN SL 04/17/25 06:45 Hydralazine HCl 100 mg TID PO 04/17/25 14:00 04/18/25 05:44 100 MG Spironolactone 50 mg DAILY PO 04/18/25 10:00 Amlodipine Besylate 10 mg DAILY PO 04/18/25 10:00 04/18/25 09:17 10 MG Ipratropium [place] 0.5 mg Q6HPRN PRN NEB 04/17/25 19:15 04/18/25 09:04 0.5 MG Albuterol 2.5 mg Q6HPRN PRN NEB 04/17/25 19:15 04/18/25 09:04 2.5 MG Metoprolol Tartrate 50 mg BID PO 04/18/25 10:00 Nifedipine 90 mg DAILY PO 04/18/25 10:00 Hold Examination: GENERAL:Normal, HEENT:Normal, NECK:Normal, LUNGS:Normal, CVS:Normal, ABDOMEN:Normal, MSK:Abnormal, SKIN:Normal, NEURO:Normal, :Normal laboratory and microbiology Laboratory Tests 04/17/25 05:25 Test 04/17/25 05:25 Range/Units Serum Glucose 174 H 74-106 mg/dL Microbiology Date/Time Source Procedure Growth Status 04/17/25 12:38 Voided Urine Urine Culture - Preliminary Resulted Problem List/Assessment/Plan Problem List/Assessment/Plan Hypertensive emergency Acute kidney injury on Chronic kidney disease four in the setting hypertensive urgency Hypertensive Chronic kidney disease Epistaxis Obesity Hypokalemia Recommendations off nitro drip Spironolactone 50 mg oral daily Continue hydralazine Add calcium channel angelina Okay to add ARB if needed add isosorbide We will follow renal function closely Refusing labs today Plan discussed with: Patient, Other My Orders My Orders Orders - JUDITH SÁNCHEZ MD Procedure Category Date Status Time Spironolactone PHA 04/18/25 In Process (Aldactone) 10:00 Amlodipine Tablet PHA 04/18/25 In Process (Norvasc Tablet) 10:00 JUDITH SÁNCHEZ MD Apr 18, 2025 11:52
[2025-04-18] MEDS: SPIRONOLACTONE 25 MG TAB PO SCH (12:31)
[2025-04-18] MEDS: METOPROLOL TARTRATE 50 MG TAB PO SCH (12:32)
[2025-04-18] MEDS ORDERED: SPIR50TA5 PO (15:34)
[2025-04-18] MEDS ORDERED: LOSA-534 PO (15:34)
[2025-04-18] MEDS ORDERED: METO-6 PO (15:34)
[2025-04-18] MEDS ORDERED: NIFE90TA75 PO (15:34)
--- NOTE | 2025-04-21 08:54 | DVHDS2 ---
Discharge Summary Date of Admission Apr 17, 2025 at 06:39 Date of Discharge: Apr 18, 2025 Admitting Diagnosis Hypertensive urgency Labs/Diagnostic Data: Laboratory Results Test 04/17/25 06:38 04/17/25 05:25 Troponin I High Sensitivity 30 ng/L (</=54) White Blood Count 5.7 10^3/uL (4.4-10.8) Red Blood Count 3.13 10^6/uL (4.5-5.90) Hemoglobin 9.6 g/dL (13.5-17.5) Hematocrit 28.4 % (41.0-53.0) Mean Corpuscular Volume 90.9 fL (80.0-100.0) Mean Corpuscular Hemoglobin 30.6 pg (28.0-32.0) Mean Corpuscular Hemoglobin Concent 33.7 g/dL (32.0-36.0) Red Cell Distribution Width 15.7 % (11.8-14.3) Platelet Count 203 10^3/uL (140-450) Mean Platelet Volume 8.5 fL (6.9-10.8) Neutrophils (%) (Auto) 77.2 % (37.0-80.0) Lymphocytes (%) (Auto) 10.6 % (10.0-50.0) Monocytes (%) (Auto) 9.1 % (0.0-12.0) Eosinophils (%) (Auto) 2.7 % (0.0-7.0) Basophils (%) (Auto) 0.4 % (0.0-2.0) Neutrophils # (Auto) 4.4 10 ^3/uL (1.6-8.6) Lymphocytes # (Auto) 0.6 10 ^3/uL (0.4-5.4) Monocytes # (Auto) 0.5 10 ^3/uL (0-1.3) Eosinophils # (Auto) 0.2 10 ^3/uL (0-0.8) Basophils # (Auto) 0 10 ^3/uL (0-0.2) Nucleated Red Blood Cells 0.1 % Prothrombin Time 11.2 sec (9.3-11.8) Prothrombin Time INR 1.06 (0.9-1.15) Sodium Level 144 mmol/L (136-145) Potassium Level 3.0 mmol/L (3.5-5.1) Chloride Level 106 mmol/L (98-107) Carbon Dioxide Level 26 mmol/L (20-31) Anion Gap 12 (5-15) Blood Urea Nitrogen 29 mg/dL (9-23) Creatinine 3.11 mg/dL (0.700-1.30) Glomerular Filtration Rate Calc 22 mL/min (>90) BUN/Creatinine Ratio 9.3 (10.0-20.0) Serum Glucose 174 mg/dL (74-106) Calcium Level 8.0 mg/dL (8.7-10.4) Other Laboratory Tests 04/17/25 05:25 Brief Hx & Hospital Course: History of Present Illness 64-year-old male with a past medical history of hypertension, COPD, and CHF presents after developing persistent epistaxis from the right nare. Patient was lying in bed when bleeding began, prompting ED evaluation. In the ED, a rhino rocket was placed by the ENT team with improved bleeding control. He reports taking Plavix and aspirin at home. He was noted to have severe hypertension with BP 230/110 despite ED-administered beta-angelina. Labs showed hemoglobin 9.3, hematocrit , potassium 3.0, and creatinine 3.11 (baseline unknown). Troponin was negative. Renal service was consulted for acute kidney injury. The patient denies headache, dizziness, chest pain, shortness of breath, or syncope. States he has been taking his home medications as prescribed. Admitted for blood pressure management, anemia evaluation, and renal function monitoring. Course of hospitalization: Patient was transferred to ICU and placed on Tridil drip. Patient had titration of oral antihypertensives including hydralazine, Procardia, losartan, metoprolol tartrate. Tridil drip was discontinued. Patient was downgraded to telemetry status, subsequently being discharged from the hospital. New prescription was provided for antihypertensives. While in the hospital, Nephrology consultation was placed given patient's CKD stage 4. Patient will follow up with Nephrology as an outpatient. All questions answered. Physical examination General: Alert and Oriented x3. No acute distress. Well-nourished. We will be use Eyes: EOMI. Anicteric. HENT: Moist mucous membranes. Lungs: Clear to auscultation bilaterally. No accessory muscle use. Cardiovascular: Regular rate and rhythm. No murmur. No JVD. Abdomen: Soft, non-tender and non-distended. No palpable masses. Extremities: No edema. Non-tender. Skin: No rashes or lesions. Warm. Neurologic: No focal neurological deficits. CN II-XII grossly intact, but not individually tested. Psychiatric: Cooperative. Appropriate mood and affect. Total time spent with patient discussing and formulating plan of care: 35 minutes. This medical document was created using an electronic medical record system with [employer] dictation system. Although this document has been carefully reviewed, there may still be some phonetic and typographical errors. These areas are purely typographical due to imperfections of the software programs, and do not reflect any compromise in the patient's medical care. Consults/Reason for consult Nephrology: CKD stage 4 Condition at Discharge: Guarded Final Diagnosis/Problems List EPISTAXIX WITH HYPERTENSIVE CRISIS Secondary diagnosis: -epistaxis -CKD stage 4 -obesity -acute on chronic hypoxic respiratory failure -COPD -acute on chronic diastolic heart failure -dyslipidemia Discharge Disposition: Home Discharge Instruct/Medications Diet: Renal Activity: No Restrictions, As Tolerated Follow Up/Referral: Follow up with Nephrology in 1-2 weeks Medications: Nicardipine XL 90 mg p.o. daily Toprol-XL 50 mg p.o. daily Losartan 50 mg p.o. daily Spironolactone 50 mg p.o. daily Scheduled Aspirin (Aspir-81), 1 TAB PO DAILY Bumetanide (Bumex Tablet), 1 MG PO BID Clonidine Hydrochloride (Clonidine Hcl), 1 TAB PO BID Gabapentin (Gabapentin), 1 CAP PO TID Hydralazine Hcl (Hydralazine Hcl), 1 TAB PO TID Losartan Potassium (Losartan Potassium), 1 TAB PO DAILY Metoprolol Succinate (Toprol Xl), 1 TAB PO DAILY Metoprolol Tartrate (Lopressor), 25 MG PO BID Nifedipine (Nifedipine Er), 1 TAB PO DAILY Nifedipine (Nifedipine Er), 1 TAB PO DAILY Potassium Bicarbonate (Effer-K), 25 MEQ PO DAILY Spironolactone (Spironolactone), 0.5 TAB PO BID Spironolactone (Spironolactone), 1 TAB PO DAILY 36 Discharge Statement: "Patient was advised to return to the ER or call 911 if any headaches, dizziness, shortness of breath, chest pain, abdominal pain, bleeding, fevers, or worsening of medical condition. Patient was counseled about treatment plan, medications, possible side effects, patientverbalized understanding. All questions were answered to the best of my ability. This discharge took greater then 30 minutes in planning, reviewing documentation, counseling the patient, and discussing with other team members." ASSESSMENT ASSESSMENT Assessment EPISTAXIX WITH HYPERTENSIVE CRISIS Date of Service: Apr 18, 2025 Billing Provider: LINDA NUGENT NP Common Visit Codes: 76847-WPK/OBS DISCH DAY >30min LINDA NUGENT NP Apr 21, 2025 08:54
== END 2025-04-18 16:43 | disposition home or self-care (01) | DRG 199 ==
LOC: ER 02:24 → EDBD 02:24 → OVERFLOW 06:39 → ICU WEST 15:17
PROVIDERS: ADMIT Nurse Practitioner Family; ATTEND Nurse Practitioner Family
DX: I16.9 Hypertensive crisis, unspecified (principal); J96.21 Acute and chronic respiratory failure with hypoxia; I50.33 Acute on chronic diastolic (congestive) heart failure; N17.9 Acute kidney failure, unspecified; D63.1 Anemia in chronic kidney disease; N18.4 Chronic kidney disease, stage 4 (severe); J44.9 Chronic obstructive pulmonary disease, unspecified; I13.0 Hypertensive heart and chronic kidney disease with heart failure and stage 1 through stage 4 chronic kidney disease, or unspecified chronic kidney disease; Z68.35 Body mass index [BMI] 35.0-35.9, adult; E66.9 Obesity, unspecified; E87.6 Hypokalemia; E78.5 Hyperlipidemia, unspecified; Z87.891 Personal history of nicotine dependence; Z79.02 Long term (current) use of antithrombotics/antiplatelets; Z88.0 Allergy status to penicillin
CPT/HCPCS: 30901; 36415; 80048; 84484; 85014; 85018; 85025; 85610; 87081; 87086; 94640; 96365; 96375; 99291; G0378

== ENCOUNTER 2025-04-22 07:37 | Inpatient (IN) | payer MEDICAID ==
[~2025-04-22] VITALS: Ht 170.2 cm; Wt 111.0 kg
[~2025-04-22 07:37] MED LIST changes: +LOSA-534 PO; +METO-6 PO; +NIFE90TA75 PO; +SPIR50TA5 PO
--- NOTE | 2025-04-22 07:59 | ED.PDOC ---
SOB-HPI HPI Comments This is a 64 year old male KEILAA presenting to the ED with chief complaint of SOB. EMS reports that the patient has been experiencing worsening SOB for the past hour. EMS relays that the patient's lungs on scene had crackles throughout and patient needed to be placed on BiPAP, now at 100% O2 saturation. EMS noted patient was hypotensive en route to the ED, however, patient's BP in the ED was noted to be 218/117. Patient denies any chest pain, dizziness, cough, syncope, fever, or chills. Chief Complaint: Shortness of Breath Time Seen by MD: 07:57 Primary Care Provider: TIKA Reviewed notes: Nurses Notes, Castings Drafter Notes, Medications, Allergies Information Source: Patient, Emergency Med Personnel Mode of Arrival: EMS Severity: Moderate Timing: Hours Duration: Since onset Context: At Rest PE Risk Factors: None History of: COPD, CHF Prehospital treatment: Oxygen Modifying Factors: Nothing Past Medical History PAST MEDICAL HISTORY: CHF, CKF, COPD, High Lipids, HTN Surgical History: Denies all surgeries Family History Family History: Reviewed,noncontributory to illness Social History Smoker: Quit Greater Than 1 Year Alcohol: Denies ETOH Use Drugs: Denies Drug Use Lives In: Home Constitutional: denies: chills, diaphoresis, fatigue, fever, malaise, sweats, weakness, others EENTM: denies: blurred vision, double vision, ear bleeding, ear discharge, ear drainage, ear pain, ear ringing, eye pain, eye redness, hearing loss, mouth pain, mouth swelling, nasal discharge, nose bleeding, nose congestion, nose pain, photophobia, tearing, throat pain, throat swelling, voice changes, others Respiratory: reports: shortness of breath; denies: cough, hemoptysis, orthopnea, SOB at rest, SOB with excertion, stridor, wheezing, others Cardiovascular: denies: chest pain, dizzy spells, diaphoresis, Dyspnea on exertion, edema, irregular heart beat, left arm pain, lightheadedness, palpitations, PND, syncope, others Gastrointestinal: denies: abdomen distended, abdominal pain, blood streaked bowels, constipated, diarrhea, dysphagia, difficulty swallowing, hematemesis, melena, nausea, poor appetite, poor fluid intake, rectal bleeding, rectal pain, vomiting, others Genitourinary: denies: burning, dysuria, flank pain, frequency, hematuria, incontinence, penile discharge, penile sore, pain, testicle pain, testicle swelling, urgency, others Neurological: denies: dizziness, fainting, headache, left sided numbness, left sided weakness, numbness, paresthesia, pre-existing deficit, right sided numbness, right sided weakness, seizure, speech problems, tingling, tremors, weakness, others Musculoskeletal: denies: back pain, gout, joint pain, joint swelling, muscle pain, muscle stiffness, neck pain, others Integumetry: denies: bruises, change in color, change in hair/nails, dryness, laceration, lesions, lumps, rash, wounds, others Allergic/Immunocompromised: denies: Difficulty Healing, Frequent Infections, Hives, Itching, others Hematologic/Lymphatic: denies: anemia, blood clots, easy bleeding, easy bruising, swollen glands, others Endocrine: denies: excessive hunger, excessive sweating, excessive thirst, excessive urination, flushing, intolerance to cold, intolerance to heat, unexplained weight gain, unexplained weight loss, others Psychiatric: denies: anxiety, bipolar disorder, depression, hopeless, panic disorder, schizophrenia, sleepless, suicidal, others All Other Systems: Reviewed and Negative Physical Exam General Appearance: Moderate Distress, Obese, Severe Distress HEENT: Normal ENT Inspection, Pale Conjuntivae (L), Pale Conjuntivae (R), PERRL/EOMI Neck: Full Range of Motion, Non-Tender, Normal, Normal Inspection Respiratory: Crackles, Decreased Breath Sounds, Expiration, Lungs Clear, Respiratory Distress, Rhonchi Cardiovascular: No Edema, No JVD, No Murmur, No Gallop, Normal Peripheral Pulses, Regular Rate/Rhythm Breast Exam: Deferred Gastrointestinal: No Organomegaly, Non Tender, No Pulsatile Mass, Normal Bowel Sounds, Soft Genitalia: Deferred Pelvic: Deferred Rectal: Deferred Extremities: No calf tenderness, Normal capillary refill, Normal inspection, Normal range of motion, Non-tender, No pedal edema Neurologic: Alert, hoop maker helper machine II-XII nml as Tested, No Motor Deficits, Normal Affect, Normal Mood, No Sensory Deficits Cerebellar Function: Normal Reflexes: Normal Skin: Dry, Normal Color, Warm Peripheral Pulses: 1+ carotid (R), 1+ carotid (L) Lymphatic: No Adenopathy Was a procedure done? Was a procedure done?: No Differential Dx Differential Diagnosis: Asthma, Cardiogenic Shock, CHF, COPD, Hypertension, Hyponatremia, Myocardial infarction, Pneumonia, Pulmonary Embolism, Respiratory Distress X-Ray, Labs, Meds, VS Vital Signs Date Time Temp Pulse Resp B/P (MAP) Pulse Ox O2 Delivery O2 Flow Rate FiO2 04/22/25 11:53 214/94 04/22/25 11:15 98.6 71 22 214/94 (134) 93 98.6 04/22/25 10:05 200/95 04/22/25 09:30 69 18 185/81 (115) 91 04/22/25 09:30 69 185/81 04/22/25 08:38 71 207/96 04/22/25 08:31 71 04/22/25 08:30 71 20 100 Bi-Pap+ 80 80 04/22/25 08:25 71 14 207/96 (133) 100 04/22/25 07:55 127 267/140 Facial BiPAP Mask 100 04/22/25 07:46 98.4 111 30 218/117 95 98.4 Lab Test 04/22/25 11:17 04/22/25 10:32 04/22/25 10:30 04/22/25 09:02 Range/Units Troponin I High Sensitivity 169 *H 65 *H </=54 ng/L Urine Color Light-yellow Yellow Urine Clarity Clear Clear Urine pH 6.0 5.0-9.0 Urine Specific [place] 1.012 1.001-1.035 Urine Protein 3+ H Negative Urine Ketones Negative Negative Urine Blood 1+ H Negative /uL Urine Nitrite Negative Negative Urine Bilirubin Negative Negative Urine Urobilinogen Normal Negative mg/dL Urine Leukocyte Esterase Negative Negative /uL Urine RBC 1 0 - 3 /hpf Urine Microscopic WBC 7 H 0-3 /HPF Urine Squamous Epithelial Cells Few <5 /hpf Urine Bacteria None seen None Seen /hpf Urine Glucose Trace Normal mg/dL Urine Opiates Screen Neg NEGATIVE Urine Fentanyl Screen Neg NEGATIVE Urine Barbiturates Screen Neg NEGATIVE Urine Phencyclidine Screen Neg NEGATIVE Urine Amphetamines Screen Neg NEGATIVE Urine Benzodiazepines Screen Neg NEGATIVE Urine Cocaine Screen Neg NEGATIVE Urine Cannabinoids Screen Neg NEGATIVE Test 04/22/25 08:43 04/22/25 08:13 Range/Units Blood Gas Specimen Type Arterial Blood Gas Sample Site Right radial Blood Gas Patient Temperature 37.0 Arterial Blood Date Drawn [id number] Arterial Blood pH 7.360 7.350-7.450 Arterial Blood Partial Pressure CO2 44.7 35.0-48.0 mmHg Arterial Blood Partial Pressure O2 179.7 H 83.0-108.0 mmHg Arterial Blood HCO3 24.7 21.0-28.0 mmol/L Arterial Blood Oxygen Saturation 98.9 H 94.0-98.0 % Arterial Blood Base Excess -0.8 -2.0-3.0 mmol/L Arterial Blood Oxyhemoglobin 98.0 94.0-98.0 % Arterial Blood Carboxyhemoglobin 0.1 L 0.5-1.5 % Arterial Blood Methemoglobin 0.8 0.0-1.5 % Bernardo Test Yes Blood Gas Total Hemoglobin 9.20 L 13.5-17.5 g/dL Blood Gas Set Respiration Rate 16.0 Blood Gas Modality Mask - bipap Blood Gas Spontaneous Rate 21 FiO2 % 80.0 Blood Gas EPAP 5 Blood Gas IPAP 12 White Blood Count 9.1 # 4.4-10.8 10^3/uL Red Blood Count 3.01 L 4.5-5.90 10^6/uL Hemoglobin 9.0 L 13.5-17.5 g/dL Hematocrit 27.2 L 41.0-53.0 % Mean Corpuscular Volume 90.3 80.0-100.0 fL Mean Corpuscular Hemoglobin 30.0 28.0-32.0 pg Mean Corpuscular Hemoglobin Concent 33.2 32.0-36.0 g/dL Red Cell Distribution Width 16.0 H 11.8-14.3 % Platelet Count 218 140-450 10^3/uL Mean Platelet Volume 8.7 6.9-10.8 fL Neutrophils (%) (Auto) 82.8 H 37.0-80.0 % Lymphocytes (%) (Auto) 8.9 L 10.0-50.0 % Monocytes (%) (Auto) 5.7 0.0-12.0 % Eosinophils (%) (Auto) 2.1 0.0-7.0 % Basophils (%) (Auto) 0.5 0.0-2.0 % Neutrophils # (Auto) 7.5 1.6-8.6 10 ^3/uL Lymphocytes # (Auto) 0.8 0.4-5.4 10 ^3/uL Monocytes # (Auto) 0.5 0-1.3 10 ^3/uL Eosinophils # (Auto) 0.2 0-0.8 10 ^3/uL Basophils # (Auto) 0 0-0.2 10 ^3/uL Nucleated Red Blood Cells 0.0 % Prothrombin Time 10.9 9.3-11.8 sec Prothrombin Time INR 1.03 0.9-1.15 Activated Partial Thromboplast Time 25.4 24.5-34.5 SEC D-Dimer, Quantitative 2.23 H 0.0-0.49 mg/L FEU Sodium Level 145 136-145 mmol/L Potassium Level 3.3 L 3.5-5.1 mmol/L Chloride Level 108 H 98-107 mmol/L Carbon Dioxide Level 25 20-31 mmol/L Anion Gap 12 5-15 Blood Urea Nitrogen 21 9-23 mg/dL Creatinine 3.94 H 0.700-1.30 mg/dL Glomerular Filtration Rate Calc 16 >90 mL/min BUN/Creatinine Ratio 5.3 L 10.0-20.0 Serum Glucose 175 H 74-106 mg/dL Calcium Level 7.1 L 8.7-10.4 mg/dL Magnesium Level 1.6 1.6-2.6 mg/dL Total Bilirubin 0.3 0.2-1.0 mg/dL Aspartate Amino Transferase (AST) 17 13-40 U/L Alanine Aminotransferase (ALT) 14 7-40 U/L Alkaline Phosphatase 78 46-116 U/L Troponin I High Sensitivity 35 </=54 ng/L B-Type Natriuretic Peptide 754.93 0-100 pg/mL Total Protein 5.9 5.7-8.2 g/dL Albumin 3.7 3.2-4.8 g/dL Current Medications Medications (Trade) Dose Ordered Sig/Ricky Route Start Time Stop Time Status Last Admin Labetalol HCl (Labetalol HCl) 20 mg ONCE ONCE IV 04/22/25 08:00 04/22/25 08:04 DC 04/22/25 08:38 Furosemide (Lasix Injection) 40 mg NOW ONCE IV 04/22/25 10:00 04/22/25 10:01 DC 04/22/25 10:05 Potassium Bicarbonate (Klor-Con/Ef) 25 meq ONCE ONCE PO 04/22/25 10:15 8/20/25 10:16 DC 04/22/25 10:10 Potassium Bicarbonate (Klor-Con/Ef) 25 meq ONCE ONCE PO 04/22/25 11:30 04/22/25 11:31 DC 04/22/25 11:53 Clonidine HCl (Catapres Tablet) 0.2 mg ONCE ONCE PO 04/22/25 11:45 04/22/25 11:46 DC 04/22/25 11:53 Hydralazine HCl (Apresoline Injection) 10 mg Q6HP PRN IV 04/22/25 12:30 04/22/25 14:38 DC 04/22/25 13:08 [place] [id number] Ph: [phone] DIAGNOSTIC IMAGING Diagnostic Imaging Report : [id number] Signed PATIENT: RADHA ROJO ACCT: [id number] UNIT: [id number] : 1960 LOC: ER ROOM / BED: / AGE / SEX: 64 / M ADM STATUS: REG ER SERVICE 075 ORDERING PHYSICIAN: LUCY YIN MD PROCEDURE(s): CXRP - CHEST PORTABLE REASON: sob ORDER NUMBER(s): [id number], ACCESSION NUMBER(s): [id number] CHEST RADIOGRAPH Indication:sob Technique: Single frontal view of the chest was obtained COMPARISON: March 31, 2025 FINDINGS: Lines and Tubes: None Lungs: Diffuse increased prominence of the pulmonary vasculature and small to moderate bilateral pleural effusions, [id number]-left. No pneumothorax. Cardiomediastinal contours: Cardiomegaly. Bones: Unremarkable IMPRESSION: 1. Cardiomegaly, diffuse increased prominence of the pulmonary vasculature and small to moderate bilateral pleural effusions, [id number]-left. ATED BY: ISACC GRAY MD DICTATED DATE/TIME: 04/22/25831 SIGNED BY: ISACC GRAY MD SIGNED DATE/TIME: 04/22/25831 CC: X-Ray, Labs, Meds, VS Comment Course in the emergency department eventful patient came in with a blood pressure 218/117 and on a CPAP for acute respiratory distress He was here two weeks ago syndrome The chest x-ray shows pulmonary edema with a bilateral pleural effusion The EKG shows normal sinus rhythm at 71 with a VH CBC 9100 with 82% 0.8% neutrophils H&H nine and 27 Urine shows 3+ protein 1+ blood INR 1.03 D-dimer 2.23 CMP potassium at 3.3 BUN 21 creatinine 3.94 with a GFR of 16 Blood sugar 175 Magnesium 1.6 Troponin 3.5 and 6.5 BNP 754 ABG is normal at this time Patient will be admitted for further care Images Reviewed?: Images reviewed and evaluated by me Time of 1ST Reevaluation: 08:55 Reevaluation 1ST: Unchanged Patient Education/Counseling: Diagnosis, Treatment, Prognosis Family Education/Counseling: Diagnosis, Treatment, Prognosis, No Family Present SEPSIS Sepsis Screen Physician Orders BIPAP (04/22/25 07:30) Abg W/ Co-Ox (04/22/25 08:45) Chest Portable (04/22/25 07:57) Heplock Iv (04/22/25 07:57) Enamel Applier (04/22/25 07:57) Blood Pressure (04/22/25 07:57) Oxygen (04/22/25 07:57) Pulse Oximetry (04/22/25 07:57) Electrocardigram (04/22/25 08:57) Electrocardigram (04/22/25 10:57) * Cardiology Consult (04/22/25 12:23) Kidney (04/22/25 12:24) *[facility] (04/22/25 12:24) Aspirin Enteric Coated Tablet (Ecotrin E (04/23/25 10:00) Gabapentin Capsule (Neurontin Capsule) (04/22/25 14:00) Clonidine Hcl Tablet (Catapres Tablet) (04/22/25 22:00) Nifedipine Er (Procardia Xl (Time-Releas (04/23/25 10:00) Complete Blood Count (04/23/25 05:00) Complete Blood Count (04/24/25 05:00) Complete Blood Count (04/25/25 05:00) Complete Blood Count (04/26/25 05:00) Complete Blood Count (04/27/25 05:00) Comprehensive Metabolic Panel (04/23/25 05:00) Comprehensive Metabolic Panel (04/24/25 05:00) Comprehensive Metabolic Panel (04/25/25 05:00) Comprehensive Metabolic Panel (04/26/25 05:00) Comprehensive Metabolic Panel (04/27/25 05:00) Vital Signs Date Time Temp Pulse Resp B/P (MAP) Pulse Ox O2 Delivery O2 Flow Rate FiO2 04/22/25 11:53 214/94 04/22/25 11:15 98.6 71 22 214/94 (134) 93 98.6 04/22/25 10:05 200/95 04/22/25 09:30 69 18 185/81 (115) 91 04/22/25 09:30 69 185/81 04/22/25 08:38 71 207/96 04/22/25 08:31 71 04/22/25 08:30 71 20 100 Bi-Pap+ 80 80 04/22/25 08:25 71 14 207/96 (133) 100 04/22/25 07:55 127 267/140 Facial BiPAP Mask 100 04/22/25 07:46 98.4 111 30 218/117 95 98.4 Laboratory Tests Test 04/22/25 08:13 White Blood Count 9.1 10^3/uL (4.4-10.8) # Medications Medications Dose Ordered Sig/Ricky Route Start Time Stop Time Status Last Admin Dose Admin Clonidine HCl 0.2 mg ONCE ONCE PO 04/22/25 11:45 04/22/25 11:46 DC 04/22/25 11:53 Furosemide 40 mg NOW ONCE IV 04/22/25 10:00 04/22/25 10:01 DC 04/22/25 10:05 Hydralazine HCl 10 mg Q6HP PRN IV 04/22/25 12:30 04/22/25 14:38 DC 04/22/25 13:08 Labetalol HCl 20 mg ONCE ONCE IV 04/22/25 08:00 04/22/25 08:04 DC 04/22/25 08:38 Potassium Bicarbonate 25 meq ONCE ONCE PO 04/22/25 10:15 04/22/25 10:16 DC 04/22/25 10:10 Potassium Bicarbonate 25 meq ONCE ONCE PO 04/22/25 11:30 04/22/25 11:31 DC 04/22/25 11:53 Departure 1 Departure Time of Disposition: 11:24 Impression: Primary Impression: Respiratory distress Additional Impressions: Pulmonary edema CKD (chronic kidney disease) stage 4, GFR 15-29 ml/min Uncontrolled diabetes mellitus Poorly-controlled hypertension Hypokalemia Anemia of chronic disease Elevated troponin Disposition: ADMITTED INPATIENT Admit to: [facility] Condition: Serious Critical Care Note Critical Care Time?: No Stability Stability form required: Yes Unstable for transfer: ICU, CCU, PCU, [facility] (Intensive VS monitoring), Requires medication (Requires Med for stabilization) Heart Score Heart Score: Heart Score Response (Comments) Value History Moderate Suspicious 1 EKG Normal 0 Age 45-64 1 Risk Factors >3 or Hx ASHD 2 Troponin 1-2 x's Normal limit 1 Total 5 I personally scribed for LUCY YIN MD ([email or web address]) on 04/22/25 at 07:59. Electronically submitted by Rick Guerra ([email or web address]). I personally scribed for LUCY YIN MD ([email or web address]) on 04/22/25 at 09:58. Electronically submitted by Rick Guerra ([email or web address]). LUCY YIN MD Apr 22, 2025 07:59
[2025-04-22 08:30] VITALS: PULSE 71; RESP 20; O2SAT 100
--- NOTE | 2025-04-22 08:34 | DVH ---
CHEST RADIOGRAPH Indication:sob Technique: Single frontal view of the chest was obtained COMPARISON: March 31, 2025 FINDINGS: Lines and Tubes: None Lungs: Diffuse increased prominence of the pulmonary vasculature and small to moderate bilateral pleu ral effusions, [id number]-left. No pneumothorax. Cardiomediastinal contours: Cardiomegaly. Bones: Unremarkable IMPRESSION: 1. Cardiomegaly, diffuse increased prominence of the pulmonary vasculature and small to moderate bila teral pleural effusions, [id number]-left.
[2025-04-22 08:35] LABS: Hematocrit 27.2 % (41.0-53.0); Hemoglobin 9.0 g/dL (13.5-17.5); Mean Corpuscular Hemoglobin 30.0 pg (28.0-32.0); Mean Corpuscular Volume 90.3 fL (80.0-100.0); Nucleated Red Blood Cells % 0.0 %
[2025-04-22] MEDS: LABETALOL HCL 20 MG/4 ML VL IV ONE (08:38)
[2025-04-22 08:49] LABS: Base Excess -0.8 mmol/L (-2.0-3.0)
[2025-04-22 08:51] LABS: Alanine Aminotransferase 14 U/L (7-40); Albumin 3.7 g/dL (3.2-4.8); Alkaline Phosphatase 78 U/L (46-116); Anion Gap 12 (5-15); BUN/Creatinine Ratio 5.3 (10.0-20.0); Blood Urea Nitrogen 21 mg/dL (9-23); Carbon Dioxide 25 mmol/L (20-31); Sodium 145 mmol/L (136-145); Total Protein 5.9 g/dL (5.7-8.2)
[2025-04-22 08:54] LABS: Bilirubin, Total 0.3 mg/dL (0.2-1.0); Calcium 7.1 mg/dL (8.7-10.4); Chloride 108 mmol/L (98-107); Glucose 175 mg/dL (74-106); Magnesium 1.6 mg/dL (1.6-2.6); Potassium 3.3 mmol/L (3.5-5.1)
[2025-04-22 08:57] LABS: INR 1.03 (0.9-1.15); Partial Thromboplastin Time 25.4 SEC (24.5-34.5); Prothrombin Time 10.9 sec (9.3-11.8)
[2025-04-22] MEDS: FUROSEMIDE 40 MG/4 ML VIAL IV ONE (10:05)
[2025-04-22] MEDS: POTASSIUM EFFERVESENT TAB 25 MEQ PO ONE ×2 (10:10→11:53)
[2025-04-22 11:04] LABS: Urine Protein, UAD 3+ (Negative)
--- NOTE | 2025-04-22 12:23 | DVHHP2 ---
Admitting Diagnosis: SOB History of Present Illness This is a 64 year old male KEILAA presenting to the ED with chief complaint of SOB. EMS reports that the patient has been experiencing worsening SOB for the past hour. EMS relays that the patient's lungs on scene had crackles throughout and patient needed to be placed on BiPAP, now at 100% O2 saturation. EMS noted patient was hypotensive en route to the ED, however, patient's BP in the ED was noted to be 218/117. Patient denies any chest pain, dizziness, cough, syncope, fever, or chills. PAST MEDICAL HISTORY: CHF, CKF, COPD, High Lipids, HTN Surgical History: Denies all surgeries Family History: Reviewed,noncontributory to illness Social History Smoker: Quit Greater Than 1 Year Alcohol: Denies ETOH Use Drugs: Denies Drug Use Lives In: Home Patient Family History: Patient reports no known family medical history. Allergies: Coded Allergies: Penicillins (Verified Allergy, Unknown, 05/31/24) Home Meds Active Scripts Losartan Potassium (Losartan Potassium) 50 Mg Tab, 1 TAB PO DAILY for 30 Days, #30 TAB 3 Refills Prov:LINDA NUGENT NP 04/18/25 Spironolactone (Spironolactone) 50 Mg Tab, 1 TAB PO DAILY, #30 TAB 5 Refills Prov:LINDA NUGENT NP 04/18/25 Metoprolol Succinate (Toprol Xl) 50 Mg Tab, 1 TAB PO DAILY, #30 TAB 5 Refills Prov:LINDA NUGENT NP 04/18/25 Nifedipine (Nifedipine Er) 90 Mg Tab, 1 TAB PO DAILY, #30 TAB 5 Refills Prov:LINDA NUGENT NP 04/18/25 Potassium Bicarbonate (Effer-K) 25 Meq Tab, 25 MEQ PO DAILY, #30 TAB 5 Refills Prov:JON WRIGHT MD 04/02/25 Bumetanide (Bumex Tablet) 1 Mg Tab, 1 MG PO BID, #60 TAB 5 Refills BLK BX WARNING-CAN LEAD TO PROFOUND DIURESIS WITH FLUID- ELECTROLYTE LOSS Prov:JON WRIGHT MD 04/02/25 Hydralazine Hcl (Hydralazine Hcl) 100 Mg Tab, 1 TAB PO TID, #90 TAB 5 Refills Prov:JON WRIGHT MD 04/02/25 Metoprolol Tartrate (Lopressor) 25 Mg Tb, 25 MG PO BID, #60 TAB 5 Refills Prov:JON WRIGHT MD 04/02/25 Clonidine Hydrochloride (Clonidine Hcl) 0.2 Mg Tab, 1 TAB PO BID, #120 TAB 5 Refills Prov:JON WRIGHT MD 04/02/25 Nifedipine (Nifedipine Er) 60 Mg Tab, 1 TAB PO DAILY, #60 TAB 5 Refills Prov:JON WRIGHT MD 04/02/25 Gabapentin (Gabapentin) 300 Mg Cap, 1 CAP PO TID, #90 CAP 5 Refills Prov:JON WRIGHT MD 04/02/25 Spironolactone (Spironolactone) 25 Mg Tab, 0.5 TAB PO BID for 30 Days, #30 TAB 5 Refills Prov:JON WRIGHT MD 04/02/25 Aspirin (Aspir-81) 81 Mg Tab, 1 TAB PO DAILY, #60 TAB 5 Refills Prov:TEO HEART MD 06/02/24 Vital Signs Vital Signs Date Time Temp Pulse Resp B/P (MAP) Pulse Ox O2 Delivery O2 Flow Rate FiO2 04/22/25 11:53 214/94 04/22/25 11:15 98.6 71 22 93 98.6 04/22/25 08:30 Bi-Pap+ 80 80 Physical Exam Gen: 64 y.o. man, lying in bed. NAD. HEENT: AT/NC Heart: RRR Lung: Decrease breath sounds right more than left. Crackles in lower lung reich Abd: soft, non-tender, non-distended Msk: pedal edema. no cyaosis Neuro: AOx3, no focal deficit SEPSIS Sepsis Screen Date sepsis recognized/suspect: Apr 22, 2025 Time Sepsis recognized/suspect: 829 Recent Procedure: No On Antibiotic Therapy: No Respiratory Rate >20: Yes Heart Rate >90: No Temp<36 C (96.8 F) or >38.3 C: No SBP <90 or MAP <65 mmHG: No New Acute Mental Status Change: No Is the patient on CPAP, BIPAP,: No Physician Orders BIPAP (04/22/25 07:30) Abg W/ Co-Ox (04/22/25 08:45) Chest Portable (04/22/25 07:57) Heplock Iv (04/22/25 07:57) New Home Sales Consultant (04/22/25 07:57) Blood Pressure (04/22/25 07:57) Oxygen (04/22/25 07:57) Pulse Oximetry (04/22/25 07:57) Electrocardigram (04/22/25 07:57) Electrocardigram (04/22/25 08:57) Electrocardigram (04/22/25 10:57) Vital Signs Date Time Temp Pulse Resp B/P (MAP) Pulse Ox O2 Delivery O2 Flow Rate FiO2 04/22/25 11:53 214/94 04/22/25 11:15 98.6 71 22 214/94 (134) 93 98.6 04/22/25 10:05 200/95 04/22/25 09:30 69 18 185/81 (115) 91 04/22/25 09:30 69 185/81 04/22/25 08:38 71 207/96 04/22/25 08:31 71 04/22/25 08:30 71 20 100 Bi-Pap+ 80 80 04/22/25 08:25 71 14 207/96 (133) 100 04/22/25 07:55 127 267/140 Facial BiPAP Mask 100 04/22/25 07:46 98.4 111 30 218/117 95 98.4 Laboratory Tests Test 04/22/25 08:13 White Blood Count 9.1 10^3/uL (4.4-10.8) # Medications Medications Dose Ordered Sig/Ricky Route Start Time Stop Time Status Last Admin Dose Admin Clonidine HCl 0.2 mg ONCE ONCE PO 04/22/25 11:45 04/22/25 11:46 DC 04/22/25 11:53 Furosemide 40 mg NOW ONCE IV 04/22/25 10:00 04/22/25 10:01 DC 04/22/25 10:05 Labetalol HCl 20 mg ONCE ONCE IV 04/22/25 08:00 04/22/25 08:04 DC 04/22/25 08:38 Potassium Bicarbonate 25 meq ONCE ONCE PO 04/22/25 10:15 04/22/25 10:16 DC 04/22/25 10:10 Potassium Bicarbonate 25 meq ONCE ONCE PO 04/22/25 11:30 04/22/25 11:31 DC 04/22/25 11:53 Results Labs Test 04/22/25 11:17 04/22/25 10:32 04/22/25 08:43 04/22/25 08:13 Range/Units Troponin I High Sensitivity 169 *H </=54 ng/L Urine Color Light-yellow Yellow Urine Clarity Clear Clear Urine pH 6.0 5.0-9.0 Urine Specific [place] 1.012 1.001-1.035 Urine Protein 3+ H Negative Urine Ketones Negative Negative Urine Blood 1+ H Negative /uL Urine Nitrite Negative Negative Urine Bilirubin Negative Negative Urine Urobilinogen Normal Negative mg/dL Urine Leukocyte Esterase Negative Negative /uL Urine RBC 1 0 - 3 /hpf Urine Microscopic WBC 7 H 0-3 /HPF Urine Squamous Epithelial Cells Few <5 /hpf Urine Bacteria None seen None Seen /hpf Urine Glucose Trace Normal mg/dL Blood Gas Specimen Type Arterial Blood Gas Sample Site Right radial Blood Gas Patient Temperature 37.0 Arterial Blood Date Drawn [id number] Arterial Blood pH 7.360 7.350-7.450 Arterial Blood Partial Pressure CO2 44.7 35.0-48.0 mmHg Arterial Blood Partial Pressure O2 179.7 H 83.0-108.0 mmHg Arterial Blood HCO3 24.7 21.0-28.0 mmol/L Arterial Blood Oxygen Saturation 98.9 H 94.0-98.0 % Arterial Blood Base Excess -0.8 -2.0-3.0 mmol/L Arterial Blood Oxyhemoglobin 98.0 94.0-98.0 % Arterial Blood Carboxyhemoglobin 0.1 L 0.5-1.5 % Arterial Blood Methemoglobin 0.8 0.0-1.5 % Bernardo Test Yes Blood Gas Total Hemoglobin 9.20 L 13.5-17.5 g/dL Blood Gas Set Respiration Rate 16.0 Blood Gas Modality Mask - bipap Blood Gas Spontaneous Rate 21 FiO2 % 80.0 Blood Gas EPAP 5 Blood Gas IPAP 12 White Blood Count 9.1 # 4.4-10.8 10^3/uL Red Blood Count 3.01 L 4.5-5.90 10^6/uL Hemoglobin 9.0 L 13.5-17.5 g/dL Hematocrit 27.2 L 41.0-53.0 % Mean Corpuscular Volume 90.3 80.0-100.0 fL Mean Corpuscular Hemoglobin 30.0 28.0-32.0 pg Mean Corpuscular Hemoglobin Concent 33.2 32.0-36.0 g/dL Red Cell Distribution Width 16.0 H 11.8-14.3 % Platelet Count 218 140-450 10^3/uL Mean Platelet Volume 8.7 6.9-10.8 fL Neutrophils (%) (Auto) 82.8 H 37.0-80.0 % Lymphocytes (%) (Auto) 8.9 L 10.0-50.0 % Monocytes (%) (Auto) 5.7 0.0-12.0 % Eosinophils (%) (Auto) 2.1 0.0-7.0 % Basophils (%) (Auto) 0.5 0.0-2.0 % Neutrophils # (Auto) 7.5 1.6-8.6 10 ^3/uL Lymphocytes # (Auto) 0.8 0.4-5.4 10 ^3/uL Monocytes # (Auto) 0.5 0-1.3 10 ^3/uL Eosinophils # (Auto) 0.2 0-0.8 10 ^3/uL Basophils # (Auto) 0 0-0.2 10 ^3/uL Nucleated Red Blood Cells 0.0 % Prothrombin Time 10.9 9.3-11.8 sec Prothrombin Time INR 1.03 0.9-1.15 Activated Partial Thromboplast Time 25.4 24.5-34.5 SEC D-Dimer, Quantitative 2.23 H 0.0-0.49 mg/L FEU Sodium Level 145 136-145 mmol/L Potassium Level 3.3 L 3.5-5.1 mmol/L Chloride Level 108 H 98-107 mmol/L Carbon Dioxide Level 25 20-31 mmol/L Anion Gap 12 5-15 Blood Urea Nitrogen 21 9-23 mg/dL Creatinine 3.94 H 0.700-1.30 mg/dL Glomerular Filtration Rate Calc 16 >90 mL/min BUN/Creatinine Ratio 5.3 L 10.0-20.0 Serum Glucose 175 H 74-106 mg/dL Calcium Level 7.1 L 8.7-10.4 mg/dL Magnesium Level 1.6 1.6-2.6 mg/dL Total Bilirubin 0.3 0.2-1.0 mg/dL Aspartate Amino Transferase (AST) 17 13-40 U/L Alanine Aminotransferase (ALT) 14 7-40 U/L Alkaline Phosphatase 78 46-116 U/L B-Type Natriuretic Peptide 754.93 0-100 pg/mL Total Protein 5.9 5.7-8.2 g/dL Albumin 3.7 3.2-4.8 g/dL Primary Diagnosis Acute CHF exacerbation Elevated troponin rule out ACS Elevated D-dimer rule out DVT MIREYA on CKD Hypertensive urgency Plan Elevated troponin trend until plateau Check EKG for ischemia Cardiology consult for elevated troponin rule out ACS and CHF exacerbation Daily weights Fluid restriction Resume home meds Hydralazine p.r.n. and labetalol p.r.n. for BP goal less than 130/80 IV Lasix [address] Choe Nephrology for MIREYA on CKD Ultrasound kidney Ultrasound lower extremity to rule out DVT Cardiac diet Full code Heparin for DVT prophylaxis No GI prophylaxis needed Plan discussed with: Patient Date of Service: Apr 22, 2025 Billing Provider: KAREEM RYAN MD Common Visit Codes: [id number] INP/OBS CARE (HIGH) KAREEM RYAN MD Apr 22, 2025 12:23
[2025-04-22] MEDS ORDERED: ACETAMINOPHEN 325 MG TAB PO PRN (12:45)
[2025-04-22] MEDS ORDERED: MORPHINE SULFATE INJ 2 MG/ml SYRG IV PRN (12:45)
[2025-04-22] MEDS ORDERED: NITROGLYCERIN 0.4 MG SL TAB SL PRN (12:45)
[2025-04-22] MEDS ORDERED: ONDANSETRON HCL 4 MG/2 ML VIAL IV PRN (12:45)
[2025-04-22] MEDS ORDERED: HYDROcodone-ACET 5/325MG TAB PO PRN (12:45)
[2025-04-22] MEDS ORDERED: DOCUSATE SOD 100 MG CAP PO PRN (12:45)
[2025-04-22] MEDS ORDERED: LABETALOL HCL 20 MG/4 ML VL IV PRN (12:45)
[2025-04-22] MEDS: hydrALAZINE HCL 20 MG/ML VL IV PRN (13:08)
[2025-04-22] MEDS ORDERED: METOPROLOL TARTRATE 25 MG TAB PO SCH (13:12)
--- NOTE | 2025-04-22 13:13 | DVH ---
INDICATION: assess for Rima on CKD, TECHNIQUE: Multiple real-time sonographic images of the kidneys and bladder were obtained. COMPARISON: US KIDNEY on DOS: 03/29/25 FINDINGS: The right kidney measures 9 cm in length, which is normal in size. No hydronephrosis. The left kidney measures 11 cm in length, which is normal in size. No hydronephrosis. No large intraluminal masses are seen in the bladder. Prior to voiding the bladder volume measures vo lume 103 cc. IMPRESSION: Increased bilateral echogenicity, which could represent bilateral medical renal disease.
[2025-04-22 14:16] VITALS: BP 186/86; PULSE 63; RESP 14; TEMP 98.6; O2SAT 96
--- NOTE | 2025-04-22 14:17 | DVH ---
Bilateral lower extremity venous doppler INDICATION: elevate d-dimer r/o dvt TECHNIQUE: Duplex venous sonography was performed with real-time and flow sensitive images submitted for evaluation. FINDINGS: Normal phasic venous flow. Veins are fully compressible. No filling defects. IMPRESSION: 1. No evidence of deep vein thrombosis.
[2025-04-22] MEDS: SODIUM CHLOR 0.9% PF (SALINE LOCK) 10ML VIAL/SYR IV SCH (14:27)
[2025-04-22] MEDS: GABAPENTIN 300 MG CAP PO SCH (14:57)
[2025-04-22] MEDS: MAGNESIUM SULFATE 1GM/100ML 100 ML IV ONE (14:59)
--- NOTE | 2025-04-22 15:33 | DVHINCON2 ---
Date Seen: Apr 22, 2025 Referring Physician ILEANA Salinas Reason for Consultation Elevated trop, CFH History of Present Illness This is a 64-year-old man who presented to the emergency room via EMS with a chief complaint of shortness of breath. At time of assessment the patient was found obtunded. Information obtained from medical records which state the patient presented with shortness of breath for 1 hour for which he was placed on a BiPAP machine for O2 support with improved oxygen saturations. Upon arrival to the emergency room he was found to be hypertensive with a systolic blood pressure in the 210s mmHg. A 12 lead electrocardiogram revealed a sinus rhythm with lateral leads and V4 T-wave inversion, these changes are similar from those from previous admission in March/2025. Serial troponin levels are trending up with latest in the 200s ng/L. Significant medical history includes HFpEF, hypertension, dyslipidemia, COPD with home O2 dependence, chronic kidney disease stage IV, history of tobacco use, active chronic cannabinoid use, and morbid obesity. Past Medical History Past medical history reviewed. No other significant than mentioned above. Past Surgical History Unable to obtain past medical history at this time. Family History: Patient reports no known family medical history. Family History Unable to obtain family history at this time. Social History Unable to obtain social history at this time. Allergies: Coded Allergies: Penicillins (Verified Allergy, Unknown, 05/31/24) Home Meds Active Scripts Losartan Potassium (Losartan Potassium) 50 Mg Tab, 1 TAB PO DAILY for 30 Days, #30 TAB 3 Refills Prov:LINDA NUGENT NP 04/18/25 Spironolactone (Spironolactone) 50 Mg Tab, 1 TAB PO DAILY, #30 TAB 5 Refills Prov:LINDA NUGENT NP 04/18/25 Metoprolol Succinate (Toprol Xl) 50 Mg Tab, 1 TAB PO DAILY, #30 TAB 5 Refills Prov:LINDA NUGENT NP 04/18/25 Nifedipine (Nifedipine Er) 90 Mg Tab, 1 TAB PO DAILY, #30 TAB 5 Refills Prov:LINDA NUGENT NP 04/18/25 Potassium Bicarbonate (Effer-K) 25 Meq Tab, 25 MEQ PO DAILY, #30 TAB 5 Refills Prov:JON WRIGHT MD 04/02/25 Bumetanide (Bumex Tablet) 1 Mg Tab, 1 MG PO BID, #60 TAB 5 Refills BLK BX WARNING-CAN LEAD TO PROFOUND DIURESIS WITH FLUID- ELECTROLYTE LOSS Prov:JON WRIGHT MD 04/02/25 Hydralazine Hcl (Hydralazine Hcl) 100 Mg Tab, 1 TAB PO TID, #90 TAB 5 Refills Prov:JON WRIGHT MD 04/02/25 Metoprolol Tartrate (Lopressor) 25 Mg Tb, 25 MG PO BID, #60 TAB 5 Refills Prov:JON WRIGHT MD 04/02/25 Clonidine Hydrochloride (Clonidine Hcl) 0.2 Mg Tab, 1 TAB PO BID, #120 TAB 5 Refills Prov:JON WRIGHT MD 04/02/25 Nifedipine (Nifedipine Er) 60 Mg Tab, 1 TAB PO DAILY, #60 TAB 5 Refills Prov:JON WRIGHT MD 04/02/25 Gabapentin (Gabapentin) 300 Mg Cap, 1 CAP PO TID, #90 CAP 5 Refills Prov:JON WRIGHT MD 04/02/25 Spironolactone (Spironolactone) 25 Mg Tab, 0.5 TAB PO BID for 30 Days, #30 TAB 5 Refills Prov:JON WRIGHT MD 04/02/25 Aspirin (Aspir-81) 81 Mg Tab, 1 TAB PO DAILY, #60 TAB 5 Refills Prov:TEO HEART MD 06/02/24 Home Meds Home medications reviewed. Current Medications Current Medications Medications (Trade) Dose Ordered Sig/Ricky Route PRN Reason Start Time Stop Time Status Last Admin Hydralazine HCl (Apresoline Injection) 10 mg Q6HP PRN IV SBP>150 04/22/25 12:30 04/22/25 14:38 DC 04/22/25 13:08 Aspirin (Ecotrin Enteric Coated Tablet) 81 mg DAILY PO 04/23/25 10:00 Gabapentin (Neurontin Capsule) 300 mg BID PO 04/22/25 14:00 04/22/25 14:57 Losartan Potassium (Cozaar Tablet) 50 mg DAILY PO 04/23/25 10:00 04/22/25 14:38 DC Metoprolol Tartrate (Lopressor Tablet) 25 mg BID PO 04/22/25 13:12 04/22/25 14:38 DC Clonidine HCl (Catapres Tablet) 0.2 mg BID PO 04/22/25 22:00 Hydralazine HCl (Apresoline Tablet) 100 mg TID PO 04/22/25 14:00 04/22/25 14:39 DC Nifedipine (Procardia Xl (Time-Release)) 90 mg DAILY PO 04/23/25 10:00 Spironolactone (Aldactone) 50 mg DAILY PO 04/23/25 10:00 04/22/25 14:39 DC Labetalol HCl (Labetalol HCl) 10 mg Q2HPRN PRN IV SBP>150 04/22/25 12:45 04/22/25 14:39 DC Sodium Chloride (Saline Lock Ns) 10 ml Q8HR IV 04/22/25 14:00 04/22/25 14:27 Docusate Sodium (Colace Capsule) 100 mg BIDPRN PRN PO FOR CONSTIPATION 04/22/25 12:45 Acetaminophen (Tylenol Tablet) 650 mg Q6HP PRN PO PAIN SCALE 1-3 OR TEMP>100.4 04/22/25 12:45 Acetaminophen/ Hydrocodone Bitart ([place] 5/325MG Tab) 1 tab Q4HP PRN PO MODERATE PAIN (4-6 PAIN SCALE) 04/22/25 12:45 Ondansetron HCl (Zofran) 4 mg Q4HP PRN IV NAUSEA / VOMITING 04/22/25 12:45 Nitroglycerin (Ntrostat Sublingual) 0.4 mg Q5MINP PRN SL FOR CHEST PAIN 04/22/25 12:45 Morphine Sulfate 2 mg Q30M PRN IV FOR CHEST PAIN 04/22/25 12:45 Heparin Sodium (Porcine) 5,000 units BID SC 04/22/25 22:00 Hydralazine HCl (Apresoline Tablet) 50 mg TID PO 04/22/25 22:00 Review of Systems Constitutional: No symptom reported Ears, Nose, & Throat: No symptom reported Eyes: No symptom reported Neurological: No symptoms reported Pulmonary/Respiratory: SOB Cardiovascular: No symptom reported Gastrointestinal: No symptom reported Genitourinary: No symptom reported Musculoskeletal: No symptom reported Skin: No symptom reported Psychiatric: No symptom reported Endocrine: No symptom reported Hemotologic/Lymphatic: No symptom reported Vital Signs Vital Signs Date Time Temp Pulse Resp B/P (MAP) Pulse Ox O2 Delivery O2 Flow Rate FiO2 04/22/25 14:27 61 16 191/86 (121) 97 04/22/25 14:16 98.6 4.0 36 98.6 04/22/25 08:30 Bi-Pap+ Labs/Diagnostic Data Labs Test 04/22/25 14:24 04/22/25 10:32 04/22/25 08:43 04/22/25 08:13 Range/Units Troponin I High Sensitivity 201 *H </=54 ng/L Urine Color Light-yellow Yellow Urine Clarity Clear Clear Urine pH 6.0 5.0-9.0 Urine Specific [place] 1.012 1.001-1.035 Urine Protein 3+ H Negative Urine Ketones Negative Negative Urine Blood 1+ H Negative /uL Urine Nitrite Negative Negative Urine Bilirubin Negative Negative Urine Urobilinogen Normal Negative mg/dL Urine Leukocyte Esterase Negative Negative /uL Urine RBC 1 0 - 3 /hpf Urine Microscopic WBC 7 H 0-3 /HPF Urine Squamous Epithelial Cells Few <5 /hpf Urine Bacteria None seen None Seen /hpf Urine Glucose Trace Normal mg/dL Blood Gas Specimen Type Arterial Blood Gas Sample Site Right radial Blood Gas Patient Temperature 37.0 Arterial Blood Date Drawn [id number] Arterial Blood pH 7.360 7.350-7.450 Arterial Blood Partial Pressure CO2 44.7 35.0-48.0 mmHg Arterial Blood Partial Pressure O2 179.7 H 83.0-108.0 mmHg Arterial Blood HCO3 24.7 21.0-28.0 mmol/L Arterial Blood Oxygen Saturation 98.9 H 94.0-98.0 % Arterial Blood Base Excess -0.8 -2.0-3.0 mmol/L Arterial Blood Oxyhemoglobin 98.0 94.0-98.0 % Arterial Blood Carboxyhemoglobin 0.1 L 0.5-1.5 % Arterial Blood Methemoglobin 0.8 0.0-1.5 % Bernardo Test Yes Blood Gas Total Hemoglobin 9.20 L 13.5-17.5 g/dL Blood Gas Set Respiration Rate 16.0 Blood Gas Modality Mask - bipap Blood Gas Spontaneous Rate 21 FiO2 % 80.0 Blood Gas EPAP 5 Blood Gas IPAP 12 White Blood Count 9.1 # 4.4-10.8 10^3/uL Red Blood Count 3.01 L 4.5-5.90 10^6/uL Hemoglobin 9.0 L 13.5-17.5 g/dL Hematocrit 27.2 L 41.0-53.0 % Mean Corpuscular Volume 90.3 80.0-100.0 fL Mean Corpuscular Hemoglobin 30.0 28.0-32.0 pg Mean Corpuscular Hemoglobin Concent 33.2 32.0-36.0 g/dL Red Cell Distribution Width 16.0 H 11.8-14.3 % Platelet Count 218 140-450 10^3/uL Mean Platelet Volume 8.7 6.9-10.8 fL Neutrophils (%) (Auto) 82.8 H 37.0-80.0 % Lymphocytes (%) (Auto) 8.9 L 10.0-50.0 % Monocytes (%) (Auto) 5.7 0.0-12.0 % Eosinophils (%) (Auto) 2.1 0.0-7.0 % Basophils (%) (Auto) 0.5 0.0-2.0 % Neutrophils # (Auto) 7.5 1.6-8.6 10 ^3/uL Lymphocytes # (Auto) 0.8 0.4-5.4 10 ^3/uL Monocytes # (Auto) 0.5 0-1.3 10 ^3/uL Eosinophils # (Auto) 0.2 0-0.8 10 ^3/uL Basophils # (Auto) 0 0-0.2 10 ^3/uL Nucleated Red Blood Cells 0.0 % Prothrombin Time 10.9 9.3-11.8 sec Prothrombin Time INR 1.03 0.9-1.15 Activated Partial Thromboplast Time 25.4 24.5-34.5 SEC D-Dimer, Quantitative 2.23 H 0.0-0.49 mg/L FEU Sodium Level 145 136-145 mmol/L Potassium Level 3.3 L 3.5-5.1 mmol/L Chloride Level 108 H 98-107 mmol/L Carbon Dioxide Level 25 20-31 mmol/L Anion Gap 12 5-15 Blood Urea Nitrogen 21 9-23 mg/dL Creatinine 3.94 H 0.700-1.30 mg/dL Glomerular Filtration Rate Calc 16 >90 mL/min BUN/Creatinine Ratio 5.3 L 10.0-20.0 Serum Glucose 175 H 74-106 mg/dL Calcium Level 7.1 L 8.7-10.4 mg/dL Magnesium Level 1.6 1.6-2.6 mg/dL Total Bilirubin 0.3 0.2-1.0 mg/dL Aspartate Amino Transferase (AST) 17 13-40 U/L Alanine Aminotransferase (ALT) 14 7-40 U/L Alkaline Phosphatase 78 46-116 U/L B-Type Natriuretic Peptide 754.93 0-100 pg/mL Total Protein 5.9 5.7-8.2 g/dL Albumin 3.7 3.2-4.8 g/dL Assessment Hypertensive emergency/encephalopathy Acute on chronic decompensated HFpEF, NYHA Class III Acute on chronic hypoxic respiratory failure NSTEMI, likely type 2 secondary to above Rule out acute neurological processes Cardiorenal syndrome type 4 Prediabetes, newly diagnosed Anemia in chronic disease Likely MIREYA on CKD stage IV Dyslipidemia Morbid obesity Plan/Recommendation (Dr. Gerard) Continue with a transthoracic echocardiogram to evaluate cardiac function. Initiate aggressive blood pressure control including BB (monitor HR closely), CCB with nifedipine, and hydralazine. Consider addition of isosorbide mononitrate if deemed necessary. Avoid nephrotoxic agents. Preload and afterload reduction, strict I&Os, daily weight, and fluid restrictions. Replete electrolytes as necessary. Obtain a chest US and head CT. Consider CPAP HS, suspected for CHEMA. Nephrology consultation. DVT/VTE prophylaxis. Medical management per cardiology standpoint. Thank you for allowing us to participate in this patient's care. Please call if you have any questions or concerns. Critical care time: 40 min. This medical document was created using an [employer] medical record system with voice recognition software and computerized dictation system. Although this document has been carefully reviewed, there might still be some phonetic and typographical errors. Occasional wrong-word or ``sound-alike substitutions may have occurred due to the inherent limitations of voice recognition software. These areas are purely typographical due to imperfections of the software programs and do not reflect any compromise in the patient's medical care. Please read the chart carefully and recognize, using context, where these substitutions have occurred. Plan discussed with: Other NYHA Physical activity limitations: Class3(Marked) ordinary Date of Service: Apr 22, 2025 Billing Provider: PATY CASSIDY Cardiology Common Codes: [id number]-[id number] CARE 30-74 MIN PATY CASSIDY Apr 22, 2025 15:33
--- NOTE | 2025-04-22 15:48 | DVH ---
EXAM: US CHEST ULTRASOUND Clinical History: Pleural effusions assessment Comparison: None Technique: Grayscale ultrasound of the chest performed with color Doppler and spectral/pulsed wavefo rm as indicated. Findings/Impression: Small bilateral pleural effusions.
[2025-04-22 16:34] LABS: Triglycerides 78 mg/dL (< 150)
[2025-04-22 16:36] LABS: Cholesterol 103 mg/dL (< 200)
[2025-04-22 16:37] LABS: HDL Cholesterol 38 mg/dL (40-59)
[2025-04-22] MEDS: NICARDIPINE HCL IN SODIUM CHLO 200 ML IV SCH (16:41)
[2025-04-22 16:44] LABS: Amphetamine Screen, Urine Neg (NEGATIVE); Barbiturate Scree,Urine Neg (NEGATIVE); Benzodiazephine Screen, Urine Neg (NEGATIVE); Cannabinoid Screen, Urine Neg (NEGATIVE); Cocaine Screen, Urine Neg (NEGATIVE); Opiate Scree,Urine Neg (NEGATIVE); Phencyclidine Screen, Urine Neg (NEGATIVE)
--- NOTE | 2025-04-22 16:49 | DVH ---
CLINICAL HISTORY: Mental status change. TECHNIQUE: Helical scanning was performed of the head from the skull base to the vertex. Multiplanar reconstructions were performed. This exam was performed according to our departmental dose optimizat ion program. Up-to-date CT equipment and radiation dose reduction techniques are utilized as appropri ate. CTDI 61.6 DLP 1108.6 COMPARISON: None FINDINGS: There is no evidence for acute intracranial hemorrhage, acute ischemic changes, mass, mass effect, or extra-axial fluid collection. There is no hydrocephalus or midline shift. There is no effacement of the cerebral sulci and basal subarachnoid cisterns. The hansen-white matter differentiation is well monique ntained. 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 There is an old left paramedian pontine lacunar infarct. The imaged paranasal sinuses are clear. IMPRESSION: NO ACUTE INTRACRANIAL ABNORMALITY SEEN.
[2025-04-22] MEDS: FUROSEMIDE 20 MG/2 ML VIAL IV SCH (18:05)
--- NOTE | 2025-04-22 18:33 | ECG ---
[facility] Test Date: 2025-04-22 Test Time: 08:29:02 Pat Name: RADHA ROJO Department: [facility] ED Room: [address] [place] [address] Gender: M [employer]: DA : 1960 Requested By: LUCY YIN Order Number: [id number] Reading MD: Clayton Gerard Measurements Intervals [place] Rate: 71 P: 56 WI: 190 QRS: -22 QRSD: 94 T: 128 QT: 452 QTc: 492 Interpretive Statements Sinus rhythm Abnormal R-wave progression, early transition Probable LVH with secondary repol abnrm Borderline prolonged QT interval Electronically Signed On 04-22-2025 22:32:55 PDT by Clayton Gerard Please click the below link to view image of tracing.
[2025-04-22 19:30] VITALS: PULSE 67; RESP 14; O2SAT 93
[2025-04-22] MEDS: CARVEDILOL 12.5 MG TAB PO SCH (21:54)
[2025-04-22] MEDS: HEPARIN SODIUM (PORCINE) 5000 UNITS/ML 1ML VIAL SC SCH (21:56)
[2025-04-23] VITALS (69 sets, daily range): BP systolic 109–181; BP diastolic 61–88; PULSE 54–79; RESP 10–26; TEMP 97.3–98.8; O2SAT 87–100
[2025-04-23] MEDS ORDERED: HYDR-4072 (04:44)
[2025-04-23] MEDS: ASPirin-EC 81 mg tab PO SCH (08:35)
[2025-04-23] MEDS: FUROSEMIDE 20 MG/2 ML VIAL IV SCH (09:29)
[2025-04-23] MEDS ORDERED: SPIRONOLACTONE 25 MG TAB PO SCH (10:00)
[2025-04-23] MEDS ORDERED: LOSARTAN POTASSIUM 50 MG TAB PO SCH (10:00)
[2025-04-23 10:19] LABS: Alanine Aminotransferase 13 U/L (7-40); Albumin 3.5 g/dL (3.2-4.8); Alkaline Phosphatase 71 U/L (46-116); Anion Gap 11 (5-15); BUN/Creatinine Ratio 5.7 (10.0-20.0); Blood Urea Nitrogen 20 mg/dL (9-23); Calcium 7.8 mg/dL (8.7-10.4); Carbon Dioxide 26 mmol/L (20-31); Chloride 106 mmol/L (98-107); Glucose 190 mg/dL (74-106); Magnesium 1.7 mg/dL (1.6-2.6); Potassium 3.4 mmol/L (3.5-5.1); Sodium 143 mmol/L (136-145); Total Protein 5.8 g/dL (5.7-8.2)
[2025-04-23 10:20] LABS: Bilirubin, Total 0.4 mg/dL (0.2-1.0)
--- NOTE | 2025-04-23 10:26 | DVHPNRES ---
Progress Note Date Seen: Apr 23, 2025 Resident Creating Document: JUANA DE PAZ RESIDENT Medical Necessity Reason Pt with a Central, PICC or Fol: No Subjective Review of Systems RADHA ROJO is a 64-year-old male with a PMH of HFpEF,HTN, DLD, COPD with the home oxygen 4 L, CKD presented to the ED with the chief complaints of worsening of shortness of breath since morning on the day of admission. Patient is poor historian due to somnolence so history obtained from the per patient's symptoms began early in the moaning when he got up to use the restroom and experienced sudden difficulty breathing. Prior to this episode patient has been having cold with a associated rhinorrhea and mild cough for past 3- 4 days. Patient's also reports that he has a history of his lungs feeling with the fluid leading to these episodes and also having high blood pressures. Patient reported that he can do his daily household cause independently. Patient multiple hospital admissions and recent admission was in April 17 and March 27 for pulmonary edema and uncontrolled HTN. On arrival to ED patient was somnolent, obtunded and initially placed on BiPAP and switched to nasal cannula 4 L PMH: As above PSH: Not significant Family history: Noncontributory Social history: Lives at home with the . Stopped smoking 1 year ago ex- smoker with a 1 pack/day. No other drug abuse Allergies: Penicillins Home medications: Bumex, aspirin, clonidine, gabapentin, hydralazine, losartan, metoprolol Patient seen and examined at the bedside. Unable to obtain complete ROS due to patient is somnolent but reported improvement in shortness of breath since admission, reported no new complaints at this time. Objective vital signs Vital Sign Date Time Temp Pulse Resp B/P (MAP) Pulse Ox O2 Delivery O2 Flow Rate FiO2 04/23/25 10:15 64 20 138/70 (92) 88 04/23/25 08:01 98.6 98.6 04/23/25 08:00 Nasal Cannula* 4 36 Total Intake and Output 04/22/25 04/22/25 04/23/25 15:00 23:00 07:00 Intake Total 350 ml 650 ml Output Total 1250 ml 1050 ml Balance -900 ml -400 ml medications Current Medications Medications Dose Ordered Sig/Ricky Route Start Time Stop Time Status Last Admin Dose Admin Aspirin 81 mg DAILY PO 04/23/25 10:00 04/23/25 08:35 81 MG Gabapentin 300 mg BID PO 04/22/25 14:00 04/23/25 08:36 300 MG Clonidine HCl 0.2 mg BID PO 04/22/25 22:00 04/23/25 08:35 0.2 MG Nifedipine 90 mg DAILY PO 04/23/25 10:00 04/23/25 08:35 90 MG Sodium Chloride 10 ml Q8HR IV 04/22/25 14:00 04/23/25 04:54 10 ML Docusate Sodium 100 mg BIDPRN PRN PO 04/22/25 12:45 Acetaminophen 650 mg Q6HP PRN PO 04/22/25 12:45 Acetaminophen/ Hydrocodone Bitart 1 tab Q4HP PRN PO 04/22/25 12:45 Ondansetron HCl 4 mg Q4HP PRN IV 04/22/25 12:45 Nitroglycerin 0.4 mg Q5MINP PRN SL 04/22/25 12:45 Morphine Sulfate 2 mg Q30M PRN IV 04/22/25 12:45 Heparin Sodium (Porcine) 5,000 units BID SC 04/22/25 22:00 04/23/25 08:44 5,000 UNITS Hydralazine HCl 50 mg TID PO 04/22/25 22:00 04/23/25 04:53 50 MG Carvedilol 12.5 mg Q12HR PO 04/22/25 22:00 04/23/25 08:36 12.5 MG Nicardipine/ Sodium Chloride 200 ml @ 50 mls/hr Q4H IV 04/22/25 16:30 04/23/25 09:30 75 MLS/HR Furosemide 40 mg BIDD IV 04/23/25 09:00 04/23/25 09:29 40 MG Examination Pt is lying on bed General Appearance: somnolent, Oriented X3 HEENT: Atraumatic, Mucous membranes moist/pink Respiratory: bilateral lower zone crackles Cardiovascular: Regular rate, Normal S1, Normal S2, No murmurs Abdominal: Active bowel sounds, Soft, no distention, no tenderness Extremities: 1+ edema BLE, no tenderness Skin: No Significant rash, except past surgical scars Neuro: somnolent, Normal speech, sensorimotor deficits none Nurse was there as hotel maintenance engineer during examination laboratory and microbiology Laboratory Tests 04/23/25 09:30 04/22/25 08:13 Test 04/23/25 09:30 Range/Units Serum Glucose 190 H 74-106 mg/dL Labs and/or images reviewed: Labs reviewed by me, Image(s) reviewed by me Problem List/Assessment/Plan 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 Exacerbation # B/l pleural effusion - med nebs - initially on BiPAP right now on N/C - closely monitor Respironics - ABG - CXR and chest x-ray showed effusion bilateral CVS # Hypertensive emergency # Acute on chronic decompensated HFpEF, NYHA Class III # NSTEMI, likely type 2 secondary to above # Cardiorenal syndrome type 4 - ICU status - elevated troponins and BNP - patient was started on nicardipine drip and titrating down as tolerated - Initiate aggressive blood pressure control including Coreg, nifedipine , Clonidine and hydralazine - Lasix 40 mg IV b.i.d. - strict I&Os, daily weight, and fluid restrictions - cardiology on board, advised to continue medical management - continuously monitor blood pressure - echo, pending GI/Liver /Kidney/Metabolic # Hypertensive kidney disease # MIREYA likely VMN from hypertensive emergency on CKD stage 4 - renal ultrasound showed chronic changes - Lasix 40 mg IV b.i.d. - strict I&Os, daily weight, and fluid restrictions - nephrology on board - monitor electrolytes # Hypokalemia - Repleting - Monitor lab # hypomagnesemia- monitor lab for now Endo # type 2 DM with hyperglycemia - recent HbA1c 6.4 - mild ISS Heme-Onc # anemia of chronic disease likely from CKD - ordered SOB - monitor lab - iron panel DVT PPX: Heparin PUD PPX: Protonix Diet: Cardiac Drips: Nicardipine drip, titrating down Goals of care discussed with the patient's and patient's for more than 27 minutes: Full code state Care plan updated with the patient bedside and patient's on telephone Critical care time spent more than 63 minutes excluding procedures Case discussed with Dr. Carter and nurse Plan discussed with: Patient, Spouse My Orders My Orders Orders - JUANA DE PAZ Procedure Category Date Status Time Thyroid Stimulating LAB 04/23/25 In Process Hormone 09:34 Rapid Influenza A&B LAB 04/23/25 Logged 09:34 Covid19 Antigen Shahnaz LAB 04/23/25 Logged 09:34 Date of Service: Apr 23, 2025 Billing Provider: YUNIER CARTER MD Common Visit Codes: [id number] CARE 30-74 MIN JUANA DE PAZ Apr 23, 2025 10:26 YUNIER CARTER MD Apr 25, 2025 11:46
[2025-04-23] MEDS ORDERED: DEXTROSE (50%) 50ML SYRG IV PRN (10:45)
[2025-04-23] MEDS ORDERED: DOXYCYCLINE 100MG/100ML 100 ML IV SCH (10:45)
[2025-04-23 11:09] LABS: Hematocrit 26.6 % (41.0-53.0); Hemoglobin 8.6 g/dL (13.5-17.5); Mean Corpuscular Hemoglobin 28.9 pg (28.0-32.0); Mean Corpuscular Volume 89.0 fL (80.0-100.0); Nucleated Red Blood Cells % 0.1 %
[2025-04-23] MEDS: cefTRIAXone 1GM/50ML D5W 50 ML IV ONE (11:19)
[2025-04-23] MEDS: methylPREDNISolone SOD SUCC 40 MG/ML VL IV SCH (11:19)
[2025-04-23] MEDS: ACCU-CHEK COMFORT CURVE STRIP VI SCH (11:20)
[2025-04-23] MEDS: InsuLIN REG 1unit/0.01ml Soln (100units/ml) SC SCH (11:27)
[2025-04-23 11:34] LABS: Iron 66.0 ug/dL (65-175)
[2025-04-23 11:41] LABS: Total Iron Binding Capacity 222.0 ug/dL (250-425)
[2025-04-23] MEDS: POTASSIUM EFFERVESENT TAB 25 MEQ PO ONE (13:21)
--- NOTE | 2025-04-23 13:29 | DVHPN2 ---
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 Denies any cardiac symptoms at time of assessment. Patient now off of nicardipine drip Objective vital signs Vital Sign Date Time Temp Pulse Resp B/P (MAP) Pulse Ox O2 Delivery O2 Flow Rate FiO2 04/23/25 13:21 156/78 04/23/25 13:18 97.3 61 14 94 97.3 04/23/25 08:00 Nasal Cannula* 4 36 Total Intake and Output 04/22/25 04/22/25 04/23/25 15:00 23:00 07:00 Intake Total 350 ml 650 ml Output Total 1250 ml 1050 ml Balance -900 ml -400 ml medications Current Medications Medications Dose Ordered Sig/Ricky Route Start Time Stop Time Status Last Admin Dose Admin Aspirin 81 mg DAILY PO 04/23/25 10:00 04/23/25 08:35 81 MG Clonidine HCl 0.2 mg BID PO 04/22/25 22:00 04/23/25 08:35 0.2 MG Nifedipine 90 mg DAILY PO 04/23/25 10:00 04/23/25 08:35 90 MG Sodium Chloride 10 ml Q8HR IV 04/22/25 14:00 04/23/25 13:09 10 ML Docusate Sodium 100 mg BIDPRN PRN PO 04/22/25 12:45 Acetaminophen 650 mg Q6HP PRN PO 04/22/25 12:45 Acetaminophen/ Hydrocodone Bitart 1 tab Q4HP PRN PO 04/22/25 12:45 Ondansetron HCl 4 mg Q4HP PRN IV 04/22/25 12:45 Nitroglycerin 0.4 mg Q5MINP PRN SL 04/22/25 12:45 Morphine Sulfate 2 mg Q30M PRN IV 04/22/25 12:45 Heparin Sodium (Porcine) 5,000 units BID SC 04/22/25 22:00 04/23/25 08:44 5,000 UNITS Hydralazine HCl 50 mg TID PO 04/22/25 22:00 04/23/25 13:21 50 MG Carvedilol 12.5 mg Q12HR PO 04/22/25 22:00 04/23/25 08:36 12.5 MG Furosemide 40 mg BIDD IV 04/23/25 09:00 04/23/25 09:29 40 MG Albuterol 2.5 mg Q4HWA [facility] 04/23/25 14:00 Ipratropium [place] 0.5 mg Q4HWA [facility] 04/23/25 14:00 Diagnostic Test (Pha) 1 strip ACHS 04/23/25 11:30 04/23/25 11:20 1 STRIP Insulin Human Regular ACHS SC 04/23/25 11:30 04/23/25 11:27 4 UNITS Dextrose 50 ml UD PRN IV 04/23/25 10:45 Pantoprazole Sodium 40 mg DAILY IV 04/24/25 10:00 Examination: GENERAL:Normal, LUNGS:Normal, CVS:Normal, NEURO:Normal laboratory and microbiology Laboratory Tests 04/23/25 10:50 04/23/25 09:30 Test 04/23/25 09:30 Range/Units Serum Glucose 190 H 74-106 mg/dL Problem List/Assessment/Plan Problem List/Assessment/Plan Hypertensive emergency/encephalopathy Acute on chronic decompensated HFpEF, NYHA Class III Acute on chronic hypoxic respiratory failure NSTEMI, likely type 2 secondary to above Cardiorenal syndrome type 4 Prediabetes, newly diagnosed Acute on chronic anemia MIREYA on CKD stage IV Dyslipidemia Morbid obesity Plan/Recommendation(Dr. Gerard): Continue with a transthoracic echocardiogram to evaluate cardiac function. Nicardipine drip was stopped earlier today. Initiate aggressive oral blood pressure control including BB (monitor HR closely), CCB with nifedipine, and hydralazine. Consider addition of isosorbide mononitrate if deemed necessary. Avoid nephrotoxic agents. Preload and afterload reduction, strict I&Os, daily weight, and fluid restrictions. Replete electrolytes as necessary. Nephrology consultation and recommendations. DVT/VTE prophylaxis. Medical management per cardiology standpoint. Thank you for allowing us to participate in this patient's care. Please call if you have any questions or concerns. Critical care time: 40 min. This medical document was created using an electronic medical record system with voice recognition software and computerized dictation system. Although this document has been carefully reviewed, there might still be some phonetic and typographical errors. Occasional wrong-word or ``sound-alike substitutions may have occurred due to the inherent limitations of voice recognition software. These areas are purely typographical due to imperfections of the software programs and do not reflect any compromise in the patient's medical care. Please read the chart carefully and recognize, using context, where these substitutions have occurred. Plan discussed with: Patient Date of Service: Apr 23, 2025 Billing Provider: BETTY QUICK Common Visit Codes: [id number] CARE 30-74 MIN BETTY QUICK Apr 23, 2025 13:29
[2025-04-23 13:48] LABS: COVID19 ANTIGEN SOFIA FIA NEGATIVE (NEGATIVE)
--- NOTE | 2025-04-23 13:52 | DVHINCON2 ---
Date of service: Apr 23, 2025 Reason for Consultation Chronic kidney disease History of Present Illness 64-year-old male with past medical history of chronic kidney disease stage 4, hypertension, diabetes, seizure disorder, diastolic heart failure. Patient recently hospitalized at [facility] less than one month ago for altered mental status was found to be fluid overloaded was started on diuretics. Patient presents for this admission complaining of shortness of breath. Patient was found to be in respiratory distress was transferred to the ICU due to hypertensive emergency. Nephrology consulted due to elevated creatinine level. Allergies: Coded Allergies: Penicillins (Verified Allergy, Unknown, 05/31/24) Home Meds Active Scripts Losartan Potassium (Losartan Potassium) 50 Mg Tab, 1 TAB PO DAILY for 30 Days, #30 TAB 3 Refills Prov:LINDA NUGENT NP 04/18/25 Spironolactone (Spironolactone) 50 Mg Tab, 1 TAB PO DAILY, #30 TAB 5 Refills Prov:LINDA NUGENT NP 04/18/25 Metoprolol Succinate (Toprol Xl) 50 Mg Tab, 1 TAB PO DAILY, #30 TAB 5 Refills Prov:LINDA NUGENT NP 04/18/25 Nifedipine (Nifedipine Er) 90 Mg Tab, 1 TAB PO DAILY, #30 TAB 5 Refills Prov:LINDA NUGENT NP 04/18/25 Potassium Bicarbonate (Effer-K) 25 Meq Tab, 25 MEQ PO DAILY, #30 TAB 5 Refills Prov:JON WRIGHT MD 04/02/25 Bumetanide (Bumex Tablet) 1 Mg Tab, 1 MG PO BID, #60 TAB 5 Refills BLK BX WARNING-CAN LEAD TO PROFOUND DIURESIS WITH FLUID- ELECTROLYTE LOSS Prov:JON WRIGHT MD 04/02/25 Hydralazine Hcl (Hydralazine Hcl) 100 Mg Tab, 1 TAB PO TID, #90 TAB 5 Refills Prov:JON WRIGHT MD 04/02/25 Metoprolol Tartrate (Lopressor) 25 Mg Tb, 25 MG PO BID, #60 TAB 5 Refills Prov:JON WRIGHT MD 04/02/25 Clonidine Hydrochloride (Clonidine Hcl) 0.2 Mg Tab, 1 TAB PO BID, #120 TAB 5 Refills Prov:JON WRIGHT MD 04/02/25 Nifedipine (Nifedipine Er) 60 Mg Tab, 1 TAB PO DAILY, #60 TAB 5 Refills Prov:JON WRIGHT MD 04/02/25 Gabapentin (Gabapentin) 300 Mg Cap, 1 CAP PO TID, #90 CAP 5 Refills Prov:JON WRIGHT MD 04/02/25 Spironolactone (Spironolactone) 25 Mg Tab, 0.5 TAB PO BID for 30 Days, #30 TAB 5 Refills Prov:JON WRIGHT MD 04/02/25 Aspirin (Aspir-81) 81 Mg Tab, 1 TAB PO DAILY, #60 TAB 5 Refills Prov:TEO HEART MD 06/02/24 Reported Medications Hydrocodone-Acetaminophen (Hydrocodone/Acetaminophen 10-325 mg) 1 Tab Tab, TID 04/23/25 Current Medications Current Medications Medications (Trade) Dose Ordered Sig/Ricky Route PRN Reason Start Time Stop Time Status Last Admin Aspirin (Ecotrin Enteric Coated Tablet) 81 mg DAILY PO 04/23/25 10:00 04/23/25 08:35 Gabapentin (Neurontin Capsule) 300 mg BID PO 04/22/25 14:00 04/23/25 11:45 DC 04/23/25 08:36 Losartan Potassium (Cozaar Tablet) 50 mg DAILY PO 04/23/25 10:00 04/22/25 14:38 DC Clonidine HCl (Catapres Tablet) 0.2 mg BID PO 04/22/25 22:00 04/23/25 08:35 Hydralazine HCl (Apresoline Tablet) 100 mg TID PO 04/22/25 14:00 04/22/25 14:39 DC Nifedipine (Procardia Xl (Time-Release)) 90 mg DAILY PO 04/23/25 10:00 04/23/25 08:35 Spironolactone (Aldactone) 50 mg DAILY PO 04/23/25 10:00 04/22/25 14:39 DC Sodium Chloride (Saline Lock Ns) 10 ml Q8HR IV 04/22/25 14:00 04/23/25 13:09 Heparin Sodium (Porcine) 5,000 units BID SC 04/22/25 22:00 04/23/25 08:44 Hydralazine HCl (Apresoline Tablet) 50 mg TID PO 04/22/25 22:00 04/23/25 13:21 Carvedilol (Coreg Tablet) 12.5 mg Q12HR PO 04/22/25 22:00 04/23/25 08:36 Furosemide (Lasix Injection) 20 mg BIDD IV 04/22/25 18:00 04/23/25 08:50 DC 04/23/25 04:54 Nicardipine/ Sodium Chloride 200 ml @ 50 mls/hr Q4H IV 04/22/25 16:30 04/23/25 11:45 DC 04/23/25 09:30 Furosemide (Lasix Injection) 40 mg BIDD IV 04/23/25 09:00 04/23/25 09:29 Ceftriaxone Sodium 50 ml @ 100 mls/hr DAILY@09 IV 04/24/25 09:00 04/23/25 12:07 DC Doxycycline Hyclate 100 ml @ 50 mls/hr Q12H IV 04/23/25 10:45 04/23/25 12:07 DC Methylprednisolone Sodium Succinate (Solu Medrol) 40 mg BID IV 04/23/25 10:45 04/23/25 11:45 DC 04/23/25 11:19 Albuterol (Ventolin Medneb) 2.5 mg Q4HWA [facility] 04/23/25 14:00 Ipratropium [place] (Atrovent Medneb) 0.5 mg Q4HWA [facility] 04/23/25 14:00 Diagnostic Test (Pha) (Accu-Chek Comfort Curve T) 1 strip ACHS 04/23/25 11:30 04/23/25 11:20 Insulin Human Regular (InsuLIN R) ACHS SC 04/23/25 11:30 04/23/25 11:27 Dextrose 50 ml UD PRN IV Blood Sugar LESS THAN 60 04/23/25 10:45 Pantoprazole Sodium (Protonix) 40 mg DAILY IV 04/24/25 10:00 Family History: FH: Alzheimers disease FH: HTN (hypertension) G8 MOTHER FH: cancer G8 MOTHER Grandmother Grandfather Review of Systems Shortness of breath H&P Exam Vital Signs/I&O Vital Sign Date Time Temp Pulse Resp B/P (MAP) Pulse Ox O2 Delivery O2 Flow Rate FiO2 04/23/25 13:21 156/78 04/23/25 13:18 97.3 61 14 94 97.3 04/23/25 08:00 Nasal Cannula* 4 36 Intake and Output 04/22/25 04/23/25 19:00 07:00 Intake Total 200 ml 800 ml Output Total 400 ml 1900 ml Balance -200 ml -1100 ml Intake Oral 100 ml IV Total 200 ml 700 ml Output Urine Total 400 ml 1900 ml Physical Exam male Overweight b/l crackles at bases 1+ trace edema rrr AAOx 3 no confusion Labs/Diagnostic Data Labs/Diagnostic Data Laboratory Tests Test 04/23/25 11:30 04/23/25 11:26 04/23/25 10:50 04/23/25 09:30 Range/Units POC Glucose 201 H 70-106 mg/dl White Blood Count 4.0 #L 4.4-10.8 10^3/uL Red Blood Count 2.99 L 4.5-5.90 10^6/uL Hemoglobin 8.6 L 13.5-17.5 g/dL Hematocrit 26.6 L 41.0-53.0 % Mean Corpuscular Volume 89.0 80.0-100.0 fL Mean Corpuscular Hemoglobin 28.9 28.0-32.0 pg Mean Corpuscular Hemoglobin Concent 32.5 32.0-36.0 g/dL Red Cell Distribution Width 16.3 H 11.8-14.3 % Platelet Count 186 140-450 10^3/uL Mean Platelet Volume 9.1 6.9-10.8 fL Neutrophils (%) (Auto) 66.0 37.0-80.0 % Lymphocytes (%) (Auto) 20.8 10.0-50.0 % Monocytes (%) (Auto) 8.4 0.0-12.0 % Eosinophils (%) (Auto) 3.5 0.0-7.0 % Basophils (%) (Auto) 1.3 0.0-2.0 % Neutrophils # (Auto) 2.6 1.6-8.6 10 ^3/uL Lymphocytes # (Auto) 0.8 0.4-5.4 10 ^3/uL Monocytes # (Auto) 0.3 0-1.3 10 ^3/uL Eosinophils # (Auto) 0.1 0-0.8 10 ^3/uL Basophils # (Auto) 0.1 0-0.2 10 ^3/uL Nucleated Red Blood Cells 0.1 % Iron Level 66 65-175 ug/dL Total Iron Binding Capacity 222 L 250-425 ug/dL Percent Iron Saturation 29.7 20-55 % Ferritin 219.7 22-322 ng/mL Sodium Level 143 136-145 mmol/L Potassium Level 3.4 L 3.5-5.1 mmol/L Chloride Level 106 98-107 mmol/L Carbon Dioxide Level 26 20-31 mmol/L Anion Gap 11 5-15 Blood Urea Nitrogen 20 9-23 mg/dL Creatinine 3.48 H 0.700-1.30 mg/dL Glomerular Filtration Rate Calc 19 >90 mL/min BUN/Creatinine Ratio 5.7 L 10.0-20.0 Serum Glucose 190 H 74-106 mg/dL Calcium Level 7.8 L 8.7-10.4 mg/dL Phosphorus Level 3.2 2.4-5.1 mg/dL Magnesium Level 1.7 1.6-2.6 mg/dL Total Bilirubin 0.4 0.2-1.0 mg/dL Aspartate Amino Transferase (AST) 17 13-40 U/L Alanine Aminotransferase (ALT) 13 7-40 U/L Alkaline Phosphatase 71 46-116 U/L Total Protein 5.8 5.7-8.2 g/dL Albumin 3.5 3.2-4.8 g/dL Thyroid Stimulating Hormone (TSH) 0.93 0.55-4.78 uIU/mL Test 04/22/25 16:01 04/22/25 15:18 04/22/25 14:24 04/22/25 11:17 Range/Units Plasma/Serum Blood Alcohol 4.2 <10 mg/dL Troponin I High Sensitivity 216 *H 201 *H 169 *H </=54 ng/L Triglycerides Level 78 < 150 mg/dL Cholesterol Level 103 < 200 mg/dL LDL Cholesterol 51 < 100 mg/dL HDL Cholesterol 38 L 40-59 mg/dL Test 04/22/25 10:32 04/22/25 10:30 04/22/25 09:02 04/22/25 08:43 Range/Units Urine Color Light-yellow Yellow Urine Clarity Clear Clear Urine pH 6.0 5.0-9.0 Urine Specific [place] 1.012 1.001-1.035 Urine Protein 3+ H Negative Urine Ketones Negative Negative Urine Blood 1+ H Negative /uL Urine Nitrite Negative Negative Urine Bilirubin Negative Negative Urine Urobilinogen Normal Negative mg/dL Urine Leukocyte Esterase Negative Negative /uL Urine RBC 1 0 - 3 /hpf Urine Microscopic WBC 7 H 0-3 /HPF Urine Squamous Epithelial Cells Few <5 /hpf Urine Bacteria None seen None Seen /hpf Urine Glucose Trace Normal mg/dL Urine Opiates Screen Neg NEGATIVE Urine Fentanyl Screen Neg NEGATIVE Urine Barbiturates Screen Neg NEGATIVE Urine Phencyclidine Screen Neg NEGATIVE Urine Amphetamines Screen Neg NEGATIVE Urine Benzodiazepines Screen Neg NEGATIVE Urine Cocaine Screen Neg NEGATIVE Urine Cannabinoids Screen Neg NEGATIVE Troponin I High Sensitivity 65 *H </=54 ng/L Blood Gas Specimen Type Arterial Blood Gas Sample Site Right radial Blood Gas Patient Temperature 37.0 Arterial Blood Date Drawn [id number] Arterial Blood pH 7.360 7.350-7.450 Arterial Blood Partial Pressure CO2 44.7 35.0-48.0 mmHg Arterial Blood Partial Pressure O2 179.7 H 83.0-108.0 mmHg Arterial Blood HCO3 24.7 21.0-28.0 mmol/L Arterial Blood Oxygen Saturation 98.9 H 94.0-98.0 % Arterial Blood Base Excess -0.8 -2.0-3.0 mmol/L Arterial Blood Oxyhemoglobin 98.0 94.0-98.0 % Arterial Blood Carboxyhemoglobin 0.1 L 0.5-1.5 % Arterial Blood Methemoglobin 0.8 0.0-1.5 % Bernardo Test Yes Blood Gas Total Hemoglobin 9.20 L 13.5-17.5 g/dL Blood Gas Set Respiration Rate 16.0 Blood Gas Modality Mask - bipap Blood Gas Spontaneous Rate 21 FiO2 % 80.0 Blood Gas EPAP 5 Blood Gas IPAP 12 Test 04/22/25 08:13 Range/Units White Blood Count 9.1 # 4.4-10.8 10^3/uL Red Blood Count 3.01 L 4.5-5.90 10^6/uL Hemoglobin 9.0 L 13.5-17.5 g/dL Hematocrit 27.2 L 41.0-53.0 % Mean Corpuscular Volume 90.3 80.0-100.0 fL Mean Corpuscular Hemoglobin 30.0 28.0-32.0 pg Mean Corpuscular Hemoglobin Concent 33.2 32.0-36.0 g/dL Red Cell Distribution Width 16.0 H 11.8-14.3 % Platelet Count 218 140-450 10^3/uL Mean Platelet Volume 8.7 6.9-10.8 fL Neutrophils (%) (Auto) 82.8 H 37.0-80.0 % Lymphocytes (%) (Auto) 8.9 L 10.0-50.0 % Monocytes (%) (Auto) 5.7 0.0-12.0 % Eosinophils (%) (Auto) 2.1 0.0-7.0 % Basophils (%) (Auto) 0.5 0.0-2.0 % Neutrophils # (Auto) 7.5 1.6-8.6 10 ^3/uL Lymphocytes # (Auto) 0.8 0.4-5.4 10 ^3/uL Monocytes # (Auto) 0.5 0-1.3 10 ^3/uL Eosinophils # (Auto) 0.2 0-0.8 10 ^3/uL Basophils # (Auto) 0 0-0.2 10 ^3/uL Nucleated Red Blood Cells 0.0 % Prothrombin Time 10.9 9.3-11.8 sec Prothrombin Time INR 1.03 0.9-1.15 Activated Partial Thromboplast Time 25.4 24.5-34.5 SEC D-Dimer, Quantitative 2.23 H 0.0-0.49 mg/L FEU Sodium Level 145 136-145 mmol/L Potassium Level 3.3 L 3.5-5.1 mmol/L Chloride Level 108 H 98-107 mmol/L Carbon Dioxide Level 25 20-31 mmol/L Anion Gap 12 5-15 Blood Urea Nitrogen 21 9-23 mg/dL Creatinine 3.94 H 0.700-1.30 mg/dL Glomerular Filtration Rate Calc 16 >90 mL/min BUN/Creatinine Ratio 5.3 L 10.0-20.0 Serum Glucose 175 H 74-106 mg/dL Calcium Level 7.1 L 8.7-10.4 mg/dL Magnesium Level 1.6 1.6-2.6 mg/dL Total Bilirubin 0.3 0.2-1.0 mg/dL Aspartate Amino Transferase (AST) 17 13-40 U/L Alanine Aminotransferase (ALT) 14 7-40 U/L Alkaline Phosphatase 78 46-116 U/L Troponin I High Sensitivity 35 </=54 ng/L B-Type Natriuretic Peptide 754.93 0-100 pg/mL Total Protein 5.9 5.7-8.2 g/dL Albumin 3.7 3.2-4.8 g/dL Assessment 64-year-old male with past medical history of chronic kidney disease stage 4 hypertension and diabetes, and diastolic heart failure presents to the hospital with fluid overload in the setting of hypertensive emergency Acute kidney injury hemodynamically mediated Chronic kidney disease stage 4 htn emergency dm2 diastic hf anemia due to ckd BP control, oral meds, taper off drip low salt diet add epogen 3x a week increase lasix dose to bid, rec achieve neg fluid balance cardiology phos wnl no indication for dialysis at this time critical care time 32mins Plan discussed with: Patient TREVER FERNANDEZ MD Apr 23, 2025 13:52
[2025-04-23] MEDS: IPRATROPIUM BROM 0.5 MG/2.5ML INH SOL NEB SCH (14:46)
[2025-04-23] MEDS: ALBUTEROL SULF 2.5 MG/0.5ML(0.5%) NEB SOLN NEB SCH (14:46)
[2025-04-23] MEDS: EPOETIN ALFA-EPBX 10,000 UNIT/1ML VIAL SC SCH (21:31)
[2025-04-24] VITALS (38 sets, daily range): BP systolic 111–163; BP diastolic 44–115; PULSE 51–84; RESP 11–22; TEMP 98–98.9; O2SAT 89–100
[2025-04-24 06:23] LABS: Alanine Aminotransferase 10 U/L (7-40); Albumin 3.4 g/dL (3.2-4.8); Alkaline Phosphatase 69 U/L (46-116); Anion Gap 10 (5-15); BUN/Creatinine Ratio 5.9 (10.0-20.0); Carbon Dioxide 24 mmol/L (20-31); Chloride 106 mmol/L (98-107); Magnesium 1.9 mg/dL (1.6-2.6); Potassium 4.7 mmol/L (3.5-5.1); Sodium 140 mmol/L (136-145); Total Protein 5.9 g/dL (5.7-8.2)
[2025-04-24 06:32] LABS: Hematocrit 26.4 % (41.0-53.0); Hemoglobin 8.7 g/dL (13.5-17.5)
[2025-04-24 06:34] LABS: Iron 41.0 ug/dL (65-175); Total Iron Binding Capacity 200.0 ug/dL (250-425)
[2025-04-24 06:36] LABS: Glucose 141 mg/dL (74-106)
[2025-04-24 06:37] LABS: Bilirubin, Total 0.2 mg/dL (0.2-1.0); Blood Urea Nitrogen 24 mg/dL (9-23); Calcium 7.9 mg/dL (8.7-10.4)
[2025-04-24] MEDS: PANTOPRAZOLE 40 MG/10 ML VIAL INJ IV SCH (08:43)
[2025-04-24] MEDS ORDERED: cefTRIAXone 1GM/50ML D5W 50 ML IV SCH (09:00)
--- NOTE | 2025-04-24 10:26 | DVHPN2 ---
Progress Note Date Seen: Apr 24, 2025 Medical Necessity Reason Pt with a Central, PICC or Fol: No Subjective Review of Systems: RESPIRATORY:Abnormal Other Systems: Patient seen and examined by myself today in follow-up, O2 supplement Objective vital signs Vital Sign Date Time Temp Pulse Resp B/P (MAP) Pulse Ox O2 Delivery O2 Flow Rate FiO2 04/24/25 10:00 97 Nasal Cannula 4.0 04/24/25 10:00 64 04/24/25 10:00 36 04/24/25 09:00 12 154/106 (122) 04/24/25 08:00 98.0 98.0 Total Intake and Output 04/23/25 04/23/25 04/24/25 15:00 23:00 07:00 Intake Total 400 ml 716 ml 240 ml Output Total 900 ml 300 ml Balance 400 ml -184 ml -60 ml medications Current Medications Medications Dose Ordered Sig/Ricky Route Start Time Stop Time Status Last Admin Dose Admin Aspirin 81 mg DAILY PO 04/23/25 10:00 04/24/25 08:44 81 MG Clonidine HCl 0.2 mg BID PO 04/22/25 22:00 04/24/25 08:43 0.2 MG Nifedipine 90 mg DAILY PO 04/23/25 10:00 04/24/25 08:44 90 MG Sodium Chloride 10 ml Q8HR IV 04/22/25 14:00 04/24/25 07:30 10 ML Docusate Sodium 100 mg BIDPRN PRN PO 04/22/25 12:45 Acetaminophen 650 mg Q6HP PRN PO 04/22/25 12:45 Acetaminophen/ Hydrocodone Bitart 1 tab Q4HP PRN PO 04/22/25 12:45 Ondansetron HCl 4 mg Q4HP PRN IV 04/22/25 12:45 Nitroglycerin 0.4 mg Q5MINP PRN SL 04/22/25 12:45 Morphine Sulfate 2 mg Q30M PRN IV 04/22/25 12:45 Heparin Sodium (Porcine) 5,000 units BID SC 04/22/25 22:00 04/24/25 08:46 5,000 UNITS Hydralazine HCl 50 mg TID PO 04/22/25 22:00 04/24/25 06:22 50 MG Carvedilol 12.5 mg Q12HR PO 04/22/25 22:00 04/24/25 08:44 12.5 MG Furosemide 40 mg BIDD IV 04/23/25 09:00 04/24/25 06:22 40 MG Albuterol 2.5 mg Q4HWA [facility] 04/23/25 14:00 04/24/25 06:27 2.5 MG Ipratropium [place] 0.5 mg Q4HWA [facility] 04/23/25 14:00 04/24/25 06:27 0.5 MG Diagnostic Test (Pha) 1 strip ACHS 04/23/25 11:30 04/24/25 06:17 1 STRIP Insulin Human Regular ACHS [place] 04/23/25 11:30 04/24/25 06:34 3 UNITS Dextrose 50 ml UD PRN IV 04/23/25 10:45 Pantoprazole Sodium 40 mg DAILY IV 04/24/25 10:00 04/24/25 08:43 40 MG Epoetin Catalino-epbx 6,000 unit TUTHSA@2100 [place] 04/23/25 21:00 04/23/25 21:31 6,000 UNIT Examination: LUNGS:Normal, CVS:Normal, MSK:Normal laboratory and microbiology Laboratory Tests 04/24/25 05:18 Test 04/24/25 05:18 Range/Units Serum Glucose 141 H 74-106 mg/dL Microbiology Date/Time Source Procedure Growth Status 04/23/25 04:19 Nose MRSA Screen - Final Complete Problem List/Assessment/Plan Problem List/Assessment/Plan Acute kidney injury superimposed Chronic Kidney Disease stage 4 secondary hemodynamic mediated Acute respiratory failure Congestive heart failure exacerbation Diabetes mellitus type 2 Hypertensive urgency Anemia due to Chronic Kidney Disease Recommendation Kidney function stable Chronic Kidney Disease stage 4 Avoid nephrotoxic medications Strict I&Os Renal diet Insulin sliding scale Blood pressure control No indication for acute dialysis at this time We will continue to follow up Plan discussed with: Patient FLAVIA BRONW MD Apr 24, 2025 10:26
[2025-04-24 11:24] LABS: Hematocrit 24.8 % (41.0-53.0); Hemoglobin 8.1 g/dL (13.5-17.5); Mean Corpuscular Hemoglobin 28.9 pg (28.0-32.0); Mean Corpuscular Volume 88.4 fL (80.0-100.0); Nucleated Red Blood Cells % 0.0 %
[2025-04-24 12:08] LABS: Protein, Urine 135.2 mg/dL (1-14)
--- NOTE | 2025-04-24 12:25 | DVHPN2 ---
Consult Progress Note Subjective Other Systems: Patient in normal sinus rhythm with depressed T-waves on patient monitor. Denies any cardiac symptoms at time of assessment Objective vital signs Vital Sign Date Time Temp Pulse Resp B/P (MAP) Pulse Ox O2 Delivery O2 Flow Rate FiO2 04/24/25 11:57 61 141/66 04/24/25 11:02 17 99 04/24/25 10:56 Nasal Cannula 4.0 04/24/25 10:56 36 04/24/25 08:00 98.0 98.0 Total Intake and Output 04/23/25 04/23/25 04/24/25 15:00 23:00 07:00 Intake Total 400 ml 716 ml 240 ml Output Total 900 ml 300 ml Balance 400 ml -184 ml -60 ml medications Current Medications Medications Dose Ordered Sig/Ricky Route Start Time Stop Time Status Last Admin Dose Admin Aspirin 81 mg DAILY PO 04/23/25 10:00 04/24/25 08:44 81 MG Clonidine HCl 0.2 mg BID PO 04/22/25 22:00 04/24/25 08:43 0.2 MG Nifedipine 90 mg DAILY PO 04/23/25 10:00 04/24/25 08:44 90 MG Sodium Chloride 10 ml Q8HR IV 04/22/25 14:00 04/24/25 07:30 10 ML Docusate Sodium 100 mg BIDPRN PRN PO 04/22/25 12:45 Acetaminophen 650 mg Q6HP PRN PO 04/22/25 12:45 Acetaminophen/ Hydrocodone Bitart 1 tab Q4HP PRN PO 04/22/25 12:45 Ondansetron HCl 4 mg Q4HP PRN IV 04/22/25 12:45 Nitroglycerin 0.4 mg Q5MINP PRN SL 04/22/25 12:45 Morphine Sulfate 2 mg Q30M PRN IV 04/22/25 12:45 Heparin Sodium (Porcine) 5,000 units BID SC 04/22/25 22:00 04/24/25 08:46 5,000 UNITS Hydralazine HCl 50 mg TID PO 04/22/25 22:00 04/24/25 06:22 50 MG Carvedilol 12.5 mg Q12HR PO 04/22/25 22:00 04/24/25 08:44 12.5 MG Furosemide 40 mg BIDD IV 04/23/25 09:00 04/24/25 06:22 40 MG Albuterol 2.5 mg Q4HWA [facility] 04/23/25 14:00 04/24/25 10:56 2.5 MG Ipratropium [place] 0.5 mg Q4HWA [facility] 04/23/25 14:00 04/24/25 10:56 0.5 MG Diagnostic Test (Pha) 1 strip ACHS 04/23/25 11:30 04/24/25 11:59 1 STRIP Insulin Human Regular ACHS [place] 04/23/25 11:30 04/24/25 12:01 4 UNITS Dextrose 50 ml UD PRN IV 04/23/25 10:45 Pantoprazole Sodium 40 mg DAILY IV 04/24/25 10:00 04/24/25 08:43 40 MG Epoetin Catalino-epbx 6,000 unit TUTHSA@2100 [place] 04/23/25 21:00 04/23/25 21:31 6,000 UNIT Examination: GENERAL:Normal, LUNGS:Normal, CVS:Normal, NEURO:Normal laboratory and microbiology Laboratory Tests 04/24/25 10:10 04/24/25 05:18 Test 04/24/25 05:18 Range/Units Serum Glucose 141 H 74-106 mg/dL Problem List/Assessment/Plan Problem List/Assessment/Plan Hypertensive emergency/encephalopathy, resolved Acute on chronic decompensated HFpEF, NYHA Class III Acute on chronic hypoxic respiratory failure NSTEMI, likely type 2 secondary to above Cardiorenal syndrome type 4 Prediabetes, newly diagnosed Acute on chronic anemia MIREYA on CKD stage IV Dyslipidemia Morbid obesity Plan/Recommendation(Dr. Gerard): Continue with a transthoracic echocardiogram to evaluate cardiac function. Continue aggressive oral blood pressure control including BB (monitor HR closely), CCB with nifedipine, and hydralazine. Consider addition of isosorbide mononitrate if deemed necessary. Avoid nephrotoxic agents. Preload and afterload reduction, strict I&Os, daily weight, and fluid restrictions. Replete electrolytes as necessary. Nephrology consultation and recommendations. DVT/VTE prophylaxis. Medical management per cardiology standpoint given patient has poor renal function. Depressed T-waves noted on patient monitor. Discussed with patient for the possible eventual need for coronary angiogram. At this time, patient agrees to hold off as the administration of contrast can further damage renal function. In the setting of an unremarkable transthoracic echocardiogram, there is no further inpatient cardiac workup indicated at this time. Patient educated to establish and follow up with Cardiology in the outpatient setting within 1-2 weeks post discharge. Thank you for allowing us to participate in this patient's care. Please call if you have any questions or concerns. Critical care time: 35 min. This medical document was created using an electronic medical record system with voice recognition software and computerized dictation system. Although this document has been carefully reviewed, there might still be some phonetic and typographical errors. Occasional wrong-word or ``sound-alike substitutions may have occurred due to the inherent limitations of voice recognition software. These areas are purely typographical due to imperfections of the software programs and do not reflect any compromise in the patient's medical care. Please read the chart carefully and recognize, using context, where these substitutions have occurred. Plan discussed with: Patient Date of Service: Apr 24, 2025 Billing Provider: BETTY QUICK Common Visit Codes: [id number] CARE 30-74 MIN BETTY QUICK Apr 24, 2025 12:25
[2025-04-24 12:37] LABS: Urine Protein, UAD 1+ (Negative)
--- NOTE | 2025-04-24 17:04 | DVHPNRES ---
Progress Note Date Seen: Apr 24, 2025 Resident Creating Document: JUANA DE PAZ RESIDENT Medical Necessity Reason Pt with a Central, PICC or Fol: No Subjective Review of Systems Patient seen and examined at the bedside. Currently on 4 L NC, overnight events reviewed, reported no new complaints at this time. Patient reported improvement in his symptoms since admission. Downgraded to telemetry today from ICU. hr consultant evaluated the patient and advised coronary angiogram due to T-wave depressions on groover operator but due to given renal function patient will advised to establish and follow up with the Cardiology on outpatient within 1-2 weeks after the discharge for possible coronary angiogram. And Nephrology sales consultant residential manager advised to follow up on outpatient. BiPAP at night. Possible DC tomorrow if echo normal. Patient need diabetic medication while discharge. Patient reports: Feels better Objective vital signs Vital Sign Date Time Temp Pulse Resp B/P (MAP) Pulse Ox O2 Delivery O2 Flow Rate FiO2 04/24/25 16:00 98.9 60 19 137/72 (93) 97 98.9 04/24/25 14:25 Nasal Cannula 4.0 04/24/25 14:25 36 Total Intake and Output 04/23/25 04/23/25 04/24/25 15:00 23:00 07:00 Intake Total 400 ml 716 ml 240 ml Output Total 900 ml 300 ml Balance 400 ml -184 ml -60 ml medications Current Medications Medications Dose Ordered Sig/Ricky Route Start Time Stop Time Status Last Admin Dose Admin Aspirin 81 mg DAILY PO 04/23/25 10:00 04/24/25 08:44 81 MG Clonidine HCl 0.2 mg BID PO 04/22/25 22:00 04/24/25 08:43 0.2 MG Nifedipine 90 mg DAILY PO 04/23/25 10:00 04/24/25 08:44 90 MG Sodium Chloride 10 ml Q8HR IV 04/22/25 14:00 04/24/25 13:10 10 ML Docusate Sodium 100 mg BIDPRN PRN PO 04/22/25 12:45 Acetaminophen 650 mg Q6HP PRN PO 04/22/25 12:45 Acetaminophen/ Hydrocodone Bitart 1 tab Q4HP PRN PO 04/22/25 12:45 Ondansetron HCl 4 mg Q4HP PRN IV 04/22/25 12:45 Nitroglycerin 0.4 mg Q5MINP PRN SL 04/22/25 12:45 Morphine Sulfate 2 mg Q30M PRN IV 04/22/25 12:45 Heparin Sodium (Porcine) 5,000 units BID SC 04/22/25 22:00 04/24/25 08:46 5,000 UNITS Hydralazine HCl 50 mg TID PO 04/22/25 22:00 04/24/25 13:10 50 MG Carvedilol 12.5 mg Q12HR PO 04/22/25 22:00 04/24/25 08:44 12.5 MG Furosemide 40 mg BIDD IV 04/23/25 09:00 04/24/25 06:22 40 MG Albuterol 2.5 mg Q4HWA [facility] 04/23/25 14:00 04/24/25 14:25 2.5 MG Ipratropium [place] 0.5 mg Q4HWA [facility] 04/23/25 14:00 04/24/25 14:25 0.5 MG Diagnostic Test (Pha) 1 strip ACHS 04/23/25 11:30 04/24/25 11:59 1 STRIP Insulin Human Regular ACHS [place] 04/23/25 11:30 04/24/25 12:01 4 UNITS Dextrose 50 ml UD PRN IV 04/23/25 10:45 Pantoprazole Sodium 40 mg DAILY IV 04/24/25 10:00 04/24/25 08:43 40 MG Epoetin Catalino-epbx 6,000 unit TUTHSA@2100 [place] 04/23/25 21:00 04/23/25 21:31 6,000 UNIT Examination Pt is lying on bed General Appearance: Alert, Oriented X3, Cooperative, Not in acute distress HEENT: Atraumatic, Mucous membranes moist/pink Respiratory: Clear to auscultation, Normal air movement, No added sounds Cardiovascular: Regular rate, Normal S1, Normal S2, No murmurs Abdominal: Active bowel sounds, Soft, no distention, no tenderness Extremities: 1+ edema, Normal pulses, No tenderness Skin: No Significant rash, except past surgical scars Neuro: Normal speech, sensorimotor deficits none Psych/Mental Status: Mental status NL, Mood NL Nurse was there as prop and effects designer during examination laboratory and microbiology Laboratory Tests 04/24/25 10:10 04/24/25 05:18 Test 04/24/25 05:18 Range/Units Serum Glucose 141 H 74-106 mg/dL Microbiology Date/Time Source Procedure Growth Status 04/23/25 04:19 Nose MRSA Screen - Final Complete Labs and/or images reviewed: Labs reviewed by me, Image(s) reviewed by me Problem List/Assessment/Plan Problem List/Assessment/Plan TURNER OFF # Acute metabolic encephalopathy likely from hypertensive emergency # r/o Acute CVA - head CT showed no acute changes - monitor neurological symptoms RS # Acute on chronic hypoxic respiratory failure likely from COPD/ CHF exacerbation # COPD ? Exacerbation # B/l pleural effusion - med nebs - initially on BiPAP right now on N/C - closely monitor Respironics - ABG - CXR and chest x-ray showed effusion bilateral CVS # Hypertensive emergency # Acute on chronic decompensated HFpEF, NYHA Class III # NSTEMI, likely type 2 secondary to above # Cardiorenal syndrome type 4 - Tele status - elevated troponins and BNP - patient was started on nicardipine drip and titrating down as tolerated- DC 04/23 - Initiate aggressive blood pressure control including Coreg, nifedipine , Clonidine and hydralazine - Lasix 40 mg IV b.i.d. - strict I&Os, daily weight, and fluid restrictions - cardiology on board, advised to continue medical management - continuously monitor blood pressure - echo, pending - Cardiology recomended- Depressed T-waves noted on groover operator. Discussed with patient for the possible eventual need for coronary angiogram. At this time, patient agrees to hold off as the administration of contrast can further damage renal function. In the setting of an unremarkable transthoracic echocardiogram, there is no further inpatient cardiac workup indicated at this time. Patient educated to establish and follow up with Cardiology in the outpatient setting within 1-2 weeks post discharge. GI/Liver /Kidney/Metabolic # Hypertensive kidney disease # MIREYA likely VMN from hypertensive emergency on CKD stage 4 - renal ultrasound showed chronic changes - Lasix 40 mg IV b.i.d. - strict I&Os, daily weight, and fluid restrictions - nephrology on board - monitor electrolytes -nephrology recommended outpatient follow up. # Hypokalemia - Repleting - Monitor lab # hypomagnesemia- monitor lab for now Endo # type 2 DM with hyperglycemia - recent HbA1c 6.4 - mild ISS Heme-Onc # anemia of chronic disease likely from CKD - ordered SOB - monitor lab - iron panel DVT PPX: Heparin PUD PPX: Protonix Diet: Cardiac Drips: Nicardipine drip, titrating down- DC8/21 Goals of care discussed with the patient's and patient's for more than 27 minutes: Full code state Care plan updated with the patient bedside and patient's on telephone Critical care time spent more than 53 minutes excluding procedures Case discussed with Dr. Maher regarding his blood pressure and nicardipine drip and nonradiating to telemetry. Plan discussed with: Patient, Other (rn) My Orders My Orders Orders - JUANA DE PAZ Procedure Category Date Status Time Transfer Orders XFER 04/24/25 Transmitted 13:00 JUANA DE PAZ Apr 24, 2025 17:04
[2025-04-25] VITALS (29 sets, daily range): BP systolic 115–157; BP diastolic 56–87; PULSE 53–76; RESP 13–20; TEMP 98.2–98.5; O2SAT 91–100
[2025-04-25 04:43] LABS: Hematocrit 25.7 % (41.0-53.0); Hemoglobin 8.5 g/dL (13.5-17.5); Mean Corpuscular Hemoglobin 29.1 pg (28.0-32.0); Mean Corpuscular Volume 88.4 fL (80.0-100.0); Nucleated Red Blood Cells % 0.1 %
[2025-04-25 05:02] LABS: Alanine Aminotransferase 12 U/L (7-40); Albumin 3.5 g/dL (3.2-4.8); Alkaline Phosphatase 65 U/L (46-116); Anion Gap 10 (5-15); BUN/Creatinine Ratio 7.7 (10.0-20.0); Carbon Dioxide 26 mmol/L (20-31); Chloride 105 mmol/L (98-107); Magnesium 1.7 mg/dL (1.6-2.6); Potassium 3.9 mmol/L (3.5-5.1); Sodium 141 mmol/L (136-145)
[2025-04-25 05:04] LABS: Bilirubin, Total 0.2 mg/dL (0.2-1.0); Blood Urea Nitrogen 33 mg/dL (9-23); Calcium 7.8 mg/dL (8.7-10.4); Glucose 95 mg/dL (74-106); Total Protein 5.6 g/dL (5.7-8.2)
--- NOTE | 2025-04-25 09:03 | DVHPN2 ---
Progress Note Date Seen: Apr 25, 2025 Medical Necessity Reason Pt with a Central, PICC or Fol: No Subjective Review of Systems: RESPIRATORY:Abnormal Other Systems: Patient seen and examined by myself today in follow-up Objective vital signs Vital Sign Date Time Temp Pulse Resp B/P (MAP) Pulse Ox O2 Delivery O2 Flow Rate FiO2 04/25/25 08:15 72 124/70 04/25/25 08:00 20 95 Nasal Cannula* 4 36 04/25/25 08:00 98.4 98.4 Total Intake and Output 04/24/25 04/24/25 04/25/25 15:00 23:00 07:00 Intake Total 860 ml 200 ml Output Total 625 ml 600 ml Balance 235 ml -400 ml medications Current Medications Medications Dose Ordered Sig/Ricky Route Start Time Stop Time Status Last Admin Dose Admin Aspirin 81 mg DAILY PO 04/23/25 10:00 04/25/25 08:14 81 MG Clonidine HCl 0.2 mg BID PO 04/22/25 22:00 04/25/25 08:13 0.2 MG Nifedipine 90 mg DAILY PO 04/23/25 10:00 04/25/25 08:14 90 MG Sodium Chloride 10 ml Q8HR IV 04/22/25 14:00 04/25/25 06:16 10 ML Docusate Sodium 100 mg BIDPRN PRN PO 04/22/25 12:45 Acetaminophen 650 mg Q6HP PRN PO 04/22/25 12:45 Acetaminophen/ Hydrocodone Bitart 1 tab Q4HP PRN PO 04/22/25 12:45 Ondansetron HCl 4 mg Q4HP PRN IV 04/22/25 12:45 Nitroglycerin 0.4 mg Q5MINP PRN SL 04/22/25 12:45 Morphine Sulfate 2 mg Q30M PRN IV 04/22/25 12:45 Heparin Sodium (Porcine) 5,000 units BID SC 04/22/25 22:00 04/25/25 08:16 5,000 UNITS Hydralazine HCl 50 mg TID PO 04/22/25 22:00 04/25/25 06:12 50 MG Carvedilol 12.5 mg Q12HR PO 04/22/25 22:00 04/25/25 08:15 12.5 MG Furosemide 40 mg BIDD IV 04/23/25 09:00 04/25/25 06:12 40 MG Albuterol 2.5 mg Q4HWA [facility] 04/23/25 14:00 04/25/25 06:49 2.5 MG Ipratropium [place] 0.5 mg Q4HWA [facility] 04/23/25 14:00 04/25/25 06:49 0.5 MG Diagnostic Test (Pha) 1 strip ACHS 04/23/25 11:30 04/25/25 06:17 1 STRIP Insulin Human Regular ACHS SC 04/23/25 11:30 04/24/25 21:32 2 UNITS Dextrose 50 ml UD PRN IV 04/23/25 10:45 Pantoprazole Sodium 40 mg DAILY IV 04/24/25 10:00 04/25/25 08:13 40 MG Epoetin Catalino-epbx 6,000 unit TUTHSA@2100 [place] 04/23/25 21:00 04/23/25 21:31 6,000 UNIT Examination: LUNGS:Normal, CVS:Normal, MSK:Abnormal laboratory and microbiology Laboratory Tests 04/25/25 04:17 Test 04/25/25 04:17 Range/Units Serum Glucose 95 74-106 mg/dL Microbiology Date/Time Source Procedure Growth Status 04/23/25 04:19 Nose MRSA Screen - Final Complete Problem List/Assessment/Plan Problem List/Assessment/Plan Acute kidney injury superimposed Chronic Kidney Disease stage 4 secondary hemodynamic mediated Acute on chronic respiratory failure, O2 supplement Congestive heart failure exacerbation Diabetes mellitus type 2 Hypertensive urgency Hypomagnesemia Anemia due to Chronic Kidney Disease Recommendation Kidney function stable, CKD 4/5 Increased urine output Strict I&Os Renal diet Continue with diuresis Magnesium sulfate IV piggyback Insulin sliding scale Blood pressure control Kidney ultrasound reported bilateral echogenic kidney consistent with chronic kidney disease No indication for acute dialysis at this time We will continue to follow up Plan discussed with: Patient My Orders My Orders Orders - FLAVIA BROWN MD Procedure Category Date Status Time Renal Specific DIET 04/24/25 Transmitted Diet(Renal) Lunch FLAVIA BROWN MD Apr 25, 2025 09:03
[2025-04-25] MEDS: MAGNESIUM SULFATE 1GM/100ML 100 ML IV ONE (09:33)
--- NOTE | 2025-04-25 13:55 | DVHPN2 ---
Subjective Overnight events noted. Patient is currently in [place] will be downgraded to telemetry. Patient's denies any chest pain shortness of breaths. 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 Medications Current Medications Medications Dose Ordered Sig/Ricky Route Start Time Stop Time Status Last Admin Dose Admin Aspirin 81 mg DAILY PO 04/23/25 10:00 04/25/25 08:14 81 MG Clonidine HCl 0.2 mg BID PO 04/22/25 22:00 04/25/25 08:13 0.2 MG Nifedipine 90 mg DAILY PO 04/23/25 10:00 04/25/25 08:14 90 MG Sodium Chloride 10 ml Q8HR IV 04/22/25 14:00 04/25/25 11:46 10 ML Docusate Sodium 100 mg BIDPRN PRN PO 04/22/25 12:45 Acetaminophen 650 mg Q6HP PRN PO 04/22/25 12:45 Acetaminophen/ Hydrocodone Bitart 1 tab Q4HP PRN PO 04/22/25 12:45 Ondansetron HCl 4 mg Q4HP PRN IV 04/22/25 12:45 Nitroglycerin 0.4 mg Q5MINP PRN SL 04/22/25 12:45 Morphine Sulfate 2 mg Q30M PRN IV 04/22/25 12:45 Heparin Sodium (Porcine) 5,000 units BID SC 04/22/25 22:00 04/25/25 08:16 5,000 UNITS Hydralazine HCl 50 mg TID PO 04/22/25 22:00 04/25/25 12:59 50 MG Carvedilol 12.5 mg Q12HR PO 04/22/25 22:00 04/25/25 08:15 12.5 MG Furosemide 40 mg BIDD IV 04/23/25 09:00 04/25/25 06:12 40 MG Albuterol 2.5 mg Q4HWA [facility] 04/23/25 14:00 04/25/25 06:49 2.5 MG Ipratropium [place] 0.5 mg Q4HWA [facility] 04/23/25 14:00 04/25/25 06:49 0.5 MG Diagnostic Test (Pha) 1 strip ACHS 04/23/25 11:30 04/25/25 11:45 1 STRIP Insulin Human Regular ACHS [place] 04/23/25 11:30 04/25/25 11:46 2 UNITS Dextrose 50 ml UD PRN IV 04/23/25 10:45 Pantoprazole Sodium 40 mg DAILY IV 04/24/25 10:00 04/25/25 08:13 40 MG Epoetin Catalino-epbx 6,000 unit TUTHSA@2100 [place] 04/23/25 21:00 04/23/25 21:31 6,000 UNIT Laboratory Results Laboratory Tests 04/25/25 04:17 Chemistry Test 04/25/25 04:17 Albumin 3.5 g/dL (3.2-4.8) Calcium Level 7.8 mg/dL (8.7-10.4) L Magnesium Level 1.7 mg/dL (1.6-2.6) Total Protein 5.6 g/dL (5.7-8.2) L LFT Test 04/25/25 04:17 Alanine Aminotransferase (ALT) 12 U/L (7-40) Alkaline Phosphatase 65 U/L (46-116) Aspartate Amino Transferase (AST) 18 U/L (13-40) Total Bilirubin 0.2 mg/dL (0.2-1.0) Urinalysis Test 04/24/25 11:38 04/24/25 11:39 Urine Color Colorless (Yellow) Urine Clarity Clear (Clear) Urine pH 6.5 (5.0-9.0) Urine Specific [place] 1.009 (1.001-1.035) Urine Protein 1+ (Negative) H Urine Ketones Negative (Negative) Urine Blood Negative /uL (Negative) Urine Nitrite Negative (Negative) Urine Bilirubin Negative (Negative) Urine Urobilinogen Normal mg/dL (Negative) Urine Leukocyte Esterase Negative /uL (Negative) Urine RBC <1 /hpf (0 - 3) Urine Microscopic WBC 1 /HPF (0-3) Urine Squamous Epithelial Cells Few /hpf (<5) Urine Bacteria None seen /hpf (None Seen) Urine Protein/Creatinine Ratio 2.21 Urine Glucose Normal mg/dL (Normal) Urine Total Protein 135.2 mg/dL (1-14) H Urine Creatinine 61.05 mg/dL (30.0-125.0) Urine Sodium 67 mmol/L (40-220) Microbiology Microbiology Date/Time Source Procedure Growth Status 04/23/25 04:19 Nose MRSA Screen - Final Complete Assessment/Plan Assessment/Plan 64-year-old male with a known history of chronic respiratory failure on home O2 at 4 L, COPD, previous history of tobacco use disorder, quit few years ago congestive heart failure with diastolic dysfunction, CKD stage 4, morbid obesity classII, who initially presented to the hospital with the increasing shortness a breath was on BiPAP as well as hypertensive emergency. 1. Hypertensive emergency currently off of nicardipine drip 2. Acute on chronic decompensated congestive heart failure with diastolic dysfunction 3. Acute on chronic hypoxic respiratory failure secondary to acute CHF exacerbation with diastolic dysfunction 4. NSTEMI type 2 secondary to hypertensive emergency as well as acute CHF exacerbation 5. AKA with underlying CKD stage 4 6. COPD currently not in exacerbation 7. Previous history of tobacco use disorder 8. Morbid obesity classII -continue IV diuretics, strict I&O , physical therapy evaluation and treatment - discharge plan. Plan discussed with: Patient Date of Service: Apr 25, 2025 Billing Provider: TEO HEART MD Common Visit Codes: [id number] INP/OBS CARE(MOD) TEO HEART MD Apr 25, 2025 13:55
--- NOTE | 2025-04-25 17:56 | DVHSR ---
APPROVED REPORT EXAM: LIMITED Two-dimensional and M-mode echocardiogram with Doppler and color Doppler. Blood Pressure: 214/94 mmHg INDICATION Elevated Trops CHF r/o acs RISK FACTORS Obesity: Height: 5' 9", Weight: 251 DIMENSIONS LVDd5.0 (3.8-5.7cm)LA (2D)4.3 (1.9-4.0cm)Aortic Root3.8 (2.0-3.7cm) LVDs3.5 (2.5-4.0cm)LA (MM) (1.9-4.0cm)Aortic Cusp Exc1.6 (1.5-2.0cm) EF (%) 57.0 (55-70%)Rt. Atrium4.3 (1.9-4.0cm)Asc. Aorta cm IVSd1.7 (0.7-1.1cm)RV (D) (1.8-2.4cm) PWd1.5 (0.7-1.1cm) Mitral Valve MitralMitral Stenosis E wave1.10m/sMV Mean GR.mmHg A wave0.80m/sMV Peak GR.mmHg E/A ratio1.42D MVAcm2 Aortic Valve Aortic ValveAortic Stenosis V11.10m/Mahsa Mean GR.6mmHg V21.70m/[place] Peak GR.12mmHg LVOT Diameter2.1 (1.8-2.4cm)Doppler AVA2.24cm2 AI P 1/2 Zzcc427.97ms Pulmonic Valve V20.80m/s Other Information Quality : Technically LimitedRhythm : Technically limited study due to body habitus. Conclusion Sinus rhythm. Concentric LVH. Biatrial enlargement. Normal valves. EF of 60% with normal RV function. Mild TR. Mild aortic insufficiency. No pericardial effusion masses or vegetations discernible.
[2025-04-26] VITALS (9 sets, daily range): BP systolic 148–161; BP diastolic 80–88; PULSE 57–82; RESP 16–18; TEMP 97.9–98.6; O2SAT 95–100
--- NOTE | 2025-04-26 11:01 | DVHPN2 ---
Progress Note Date Seen: Apr 26, 2025 Medical Necessity Reason Pt with a Central, PICC or Fol: No Subjective Review of Systems: RESPIRATORY:Abnormal Other Systems: Patient seen and examined by myself today in follow-up Objective vital signs Vital Sign Date Time Temp Pulse Resp B/P (MAP) Pulse Ox O2 Delivery O2 Flow Rate FiO2 04/26/25 10:15 82 114/72 04/26/25 09:45 18 100 04/26/25 09:38 Nasal Cannula* 4 36 04/26/25 09:00 97.9 97.9 Total Intake and Output 04/25/25 04/25/25 04/26/25 15:00 23:00 07:00 Intake Total 700 ml 250 ml 400 ml Output Total 875 ml 1000 ml Balance -175 ml 250 ml -600 ml medications Current Medications Medications Dose Ordered Sig/Ricky Route Start Time Stop Time Status Last Admin Dose Admin Aspirin 81 mg DAILY PO 04/23/25 10:00 04/26/25 10:15 81 MG Clonidine HCl 0.2 mg BID PO 04/22/25 22:00 04/26/25 10:15 0.2 MG Nifedipine 90 mg DAILY PO 04/23/25 10:00 04/26/25 10:15 90 MG Sodium Chloride 10 ml Q8HR IV 04/22/25 14:00 04/26/25 05:22 10 ML Docusate Sodium 100 mg BIDPRN PRN PO 04/22/25 12:45 Acetaminophen 650 mg Q6HP PRN PO 04/22/25 12:45 Acetaminophen/ Hydrocodone Bitart 1 tab Q4HP PRN PO 04/22/25 12:45 Ondansetron HCl 4 mg Q4HP PRN IV 04/22/25 12:45 Nitroglycerin 0.4 mg Q5MINP PRN SL 04/22/25 12:45 Morphine Sulfate 2 mg Q30M PRN IV 04/22/25 12:45 Heparin Sodium (Porcine) 5,000 units BID SC 04/22/25 22:00 04/25/25 21:46 5,000 UNITS Hydralazine HCl 50 mg TID PO 04/22/25 22:00 04/26/25 05:21 50 MG Carvedilol 12.5 mg Q12HR PO 04/22/25 22:00 04/26/25 10:15 12.5 MG Furosemide 40 mg BIDD IV 04/23/25 09:00 04/26/25 05:21 40 MG Albuterol 2.5 mg Q4HWA [facility] 04/23/25 14:00 04/26/25 09:38 2.5 MG Ipratropium [place] 0.5 mg Q4HWA [facility] 04/23/25 14:00 04/26/25 09:38 0.5 MG Diagnostic Test (Pha) 1 strip ACHS 04/23/25 11:30 04/26/25 10:55 1 STRIP Insulin Human Regular ACHS SC 04/23/25 11:30 04/26/25 10:57 2 UNITS Dextrose 50 ml UD PRN IV 04/23/25 10:45 Pantoprazole Sodium 40 mg DAILY IV 04/24/25 10:00 04/26/25 10:14 40 MG Epoetin Catalino-epbx 6,000 unit TUTHSA@2100 [facility] 04/23/25 21:00 04/25/25 21:18 6,000 UNIT Examination: LUNGS:Normal, CVS:Normal, MSK:Normal laboratory and microbiology Laboratory Tests 04/25/25 04:17 Test 04/25/25 04:17 Range/Units Serum Glucose 95 74-106 mg/dL Microbiology Date/Time Source Procedure Growth Status 04/23/25 04:19 Nose MRSA Screen - Final Complete Problem List/Assessment/Plan Problem List/Assessment/Plan Acute kidney injury superimposed Chronic Kidney Disease stage 4 secondary hemodynamic mediated Acute on chronic respiratory failure, O2 supplement Congestive heart failure exacerbation Diabetes mellitus type 2 Hypertensive urgency Hypomagnesemia Anemia due to Chronic Kidney Disease Recommendation Kidney function stable, CKD 4/5 Increased urine output Strict I&Os Renal diet Continue with diuresis Magnesium sulfate IV piggyback Insulin sliding scale Blood pressure control Kidney ultrasound reported bilateral echogenic kidney consistent with chronic kidney disease No indication for acute dialysis at this time We will continue to follow up Plan discussed with: Patient Dietary Evaluation Review Comments: 1) Add 60g CCHO restriction to renal cardiac diet 2) Encourage optimal PO intake 3) Refer to outpatient RD for weight management 4) Follow-up with cardiology and nephrology 5) Continue to monitor I&O, labs, and skin integrity Expected Outcomes/Goals: 1) appetite and labs to improve 2) gradual wt loss 3) f/u in 3-5 days FLAVIA BROWN MD Apr 26, 2025 11:01
--- NOTE | 2025-04-26 13:04 | DVHDS2 ---
Discharge Summary Date of Admission Apr 22, 2025 at 12:45 Date of Discharge: Apr 26, 2025 Labs/Diagnostic Data: Laboratory Results Test 04/26/25 10:45 04/25/25 04:17 04/24/25 11:39 04/24/25 11:38 POC Glucose 146 mg/dl (70-106) White Blood Count 4.7 10^3/uL (4.4-10.8) Red Blood Count 2.91 10^6/uL (4.5-5.90) Hemoglobin 8.5 g/dL (13.5-17.5) Hematocrit 25.7 % (41.0-53.0) Mean Corpuscular Volume 88.4 fL (80.0-100.0) Mean Corpuscular Hemoglobin 29.1 pg (28.0-32.0) Mean Corpuscular Hemoglobin Concent 32.9 g/dL (32.0-36.0) Red Cell Distribution Width 16.3 % (11.8-14.3) Platelet Count 173 10^3/uL (140-450) Mean Platelet Volume 9.9 fL (6.9-10.8) Neutrophils (%) (Auto) 66.9 % (37.0-80.0) Lymphocytes (%) (Auto) 21.2 % (10.0-50.0) Monocytes (%) (Auto) 8.2 % (0.0-12.0) Eosinophils (%) (Auto) 3.0 % (0.0-7.0) Basophils (%) (Auto) 0.7 % (0.0-2.0) Neutrophils # (Auto) 3.1 10 ^3/uL (1.6-8.6) Lymphocytes # (Auto) 1.0 10 ^3/uL (0.4-5.4) Monocytes # (Auto) 0.4 10 ^3/uL (0-1.3) Eosinophils # (Auto) 0.1 10 ^3/uL (0-0.8) Basophils # (Auto) 0 10 ^3/uL (0-0.2) Nucleated Red Blood Cells 0.1 % Sodium Level 141 mmol/L (136-145) Potassium Level 3.9 mmol/L (3.5-5.1) Chloride Level 105 mmol/L (98-107) Carbon Dioxide Level 26 mmol/L (20-31) Anion Gap 10 (5-15) Blood Urea Nitrogen 33 mg/dL (9-23) Creatinine 4.27 mg/dL (0.700-1.30) Glomerular Filtration Rate Calc 15 mL/min (>90) BUN/Creatinine Ratio 7.7 (10.0-20.0) Serum Glucose 95 mg/dL (74-106) Calcium Level 7.8 mg/dL (8.7-10.4) Magnesium Level 1.7 mg/dL (1.6-2.6) Total Bilirubin 0.2 mg/dL (0.2-1.0) Aspartate Amino Transferase (AST) 18 U/L (13-40) Alanine Aminotransferase (ALT) 12 U/L (7-40) Alkaline Phosphatase 65 U/L (46-116) Total Protein 5.6 g/dL (5.7-8.2) Albumin 3.5 g/dL (3.2-4.8) Urine Creatinine 61.05 mg/dL (30.0-125.0) Urine Sodium 67 mmol/L (40-220) Urine Color Colorless (Yellow) Urine Clarity Clear (Clear) Urine pH 6.5 (5.0-9.0) Urine Specific [place] 1.009 (1.001-1.035) Urine Protein 1+ (Negative) Urine Ketones Negative (Negative) Urine Blood Negative /uL (Negative) Urine Nitrite Negative (Negative) Urine Bilirubin Negative (Negative) Urine Urobilinogen Normal mg/dL (Negative) Urine Leukocyte Esterase Negative /uL (Negative) Urine RBC <1 /hpf (0 - 3) Urine Microscopic WBC 1 /HPF (0-3) Urine Squamous Epithelial Cells Few /hpf (<5) Urine Bacteria None seen /hpf (None Seen) Urine Protein/Creatinine Ratio 2.21 Urine Glucose Normal mg/dL (Normal) Urine Total Protein 135.2 mg/dL (1-14) Test 04/24/25 05:18 04/23/25 11:30 04/23/25 09:30 04/22/25 16:01 Iron Level 41 ug/dL (65-175) Total Iron Binding Capacity 200 ug/dL (250-425) Percent Iron Saturation 20.5 % (20-55) Ferritin 230.4 ng/mL (22-322) Influenza Type A Antigen Negative (Negative) Influenza Type B Antigen Negative (Negative) SARS-CoV-2 Antigen (Rapid) Negative (NEGATIVE) Phosphorus Level 3.2 mg/dL (2.4-5.1) Thyroid Stimulating Hormone (TSH) 0.93 uIU/mL (0.55-4.78) Plasma/Serum Blood Alcohol 4.2 mg/dL (<10) Test 04/22/25 15:18 04/22/25 14:24 04/22/25 10:30 04/22/25 08:43 Troponin I High Sensitivity 216 ng/L (</=54) Triglycerides Level 78 mg/dL (< 150) Cholesterol Level 103 mg/dL (< 200) LDL Cholesterol 51 mg/dL (< 100) HDL Cholesterol 38 mg/dL (40-59) Urine Opiates Screen Neg (NEGATIVE) Urine Fentanyl Screen Neg (NEGATIVE) Urine Barbiturates Screen Neg (NEGATIVE) Urine Phencyclidine Screen Neg (NEGATIVE) Urine Amphetamines Screen Neg (NEGATIVE) Urine Benzodiazepines Screen Neg (NEGATIVE) Urine Cocaine Screen Neg (NEGATIVE) Urine Cannabinoids Screen Neg (NEGATIVE) Blood Gas Specimen Type Arterial Blood Gas Sample Site Right radial Blood Gas Patient Temperature 37.0 Arterial Blood Date Drawn [id number] Arterial Blood pH 7.360 (7.350-7.450) Arterial Blood Partial Pressure CO2 44.7 mmHg (35.0-48.0) Arterial Blood Partial Pressure O2 179.7 mmHg (83.0-108.0) Arterial Blood HCO3 24.7 mmol/L (21.0-28.0) Arterial Blood Oxygen Saturation 98.9 % (94.0-98.0) Arterial Blood Base Excess -0.8 mmol/L (-2.0-3.0) Arterial Blood Oxyhemoglobin 98.0 % (94.0-98.0) Arterial Blood Carboxyhemoglobin 0.1 % (0.5-1.5) Arterial Blood Methemoglobin 0.8 % (0.0-1.5) Bernardo Test Yes Blood Gas Total Hemoglobin 9.20 g/dL (13.5-17.5) Blood Gas Set Respiration Rate 16.0 Blood Gas Modality Mask - bipap Blood Gas Spontaneous Rate 21 FiO2 % 80.0 Blood Gas EPAP 5 Blood Gas IPAP 12 Test 04/22/25 08:13 Prothrombin Time 10.9 sec (9.3-11.8) Prothrombin Time INR 1.03 (0.9-1.15) Activated Partial Thromboplast Time 25.4 SEC (24.5-34.5) D-Dimer, Quantitative 2.23 mg/L FEU (0.0-0.49) B-Type Natriuretic Peptide 754.93 pg/mL (0-100) Other Laboratory Tests 04/25/25 04:17 Brief Hx & Hospital Course: 64-year-old male with a known history of chronic respiratory failure on home O2 at 4 L, COPD, previous history of tobacco use disorder, quit few years ago congestive heart failure with diastolic dysfunction, CKD stage 4, morbid obesity classII, who initially presented to the hospital with the increasing shortness a breath was on BiPAP as well as hypertensive emergency. Patient was started on nicardipine drip also patient was not on BiPAP in the beginning later on switched to fully entered which is his baseline home O2. Patient was did not for NSTEMI type 2. Also acute kidney injury with underlying CKD nephrology was following. Visual being discharged under stable condition. Condition at Discharge: Stable Final Diagnosis/Problems List 64-year-old male with a known history of chronic respiratory failure on home O2 at 4 L, COPD, previous history of tobacco use disorder, quit few years ago congestive heart failure with diastolic dysfunction, CKD stage 4, morbid obesity classII, who initially presented to the hospital with the increasing shortness a breath was on BiPAP as well as hypertensive emergency. 1. Hypertensive emergency currently off of nicardipine drip 2. Acute on chronic decompensated congestive heart failure with diastolic dysfunction 3. Acute on chronic hypoxic respiratory failure secondary to acute CHF exacerbation with diastolic dysfunction 4. NSTEMI type 2 secondary to hypertensive emergency as well as acute CHF exacerbation 5. AKA with underlying CKD stage 4 6. COPD currently not in exacerbation 7. Previous history of tobacco use disorder 8. Morbid obesity classII Discharge Disposition: Home SNF Discharge Will this Physician continue t: No Discharge Instruct/Medications Diet: Cardiac 2g Na,low cholest Activity: See Comment Activity comment: No driving, no signing legal documents, no playing on machinery while on narcotics. Follow Up/Referral: Please follow up with the PCP and Cardiology in 1-2 weeks Medications: Resume home medications. Scheduled Aspirin (Aspir-81), 1 TAB PO DAILY Bumetanide (Bumex Tablet), 1 MG PO BID Clonidine Hydrochloride (Clonidine Hcl), 1 TAB PO BID Gabapentin (Gabapentin), 1 CAP PO TID Hydralazine Hcl (Hydralazine Hcl), 1 TAB PO TID Hydrocodone-Acetaminophen (Hydrocodone/Acetaminophen 10-325 mg), TID, (Reported) Losartan Potassium (Losartan Potassium), 1 TAB PO DAILY Metoprolol Succinate (Toprol Xl), 1 TAB PO DAILY Nifedipine (Nifedipine Er), 1 TAB PO DAILY Nifedipine (Nifedipine Er), 1 TAB PO DAILY Potassium Bicarbonate (Effer-K), 25 MEQ PO DAILY Spironolactone (Spironolactone), 0.5 TAB PO BID Spironolactone (Spironolactone), 1 TAB PO DAILY Discontinued Medications Metoprolol Tartrate (Lopressor), 25 MG PO BID Discharge Statement: "Patient was advised to return to the ER or call 911 if any headaches, dizziness, shortness of breath, chest pain, abdominal pain, bleeding, fevers, or worsening of medical condition. Patient was counseled about treatment plan, medications, possible side effects, patientverbalized understanding. All questions were answered to the best of my ability. This discharge took greater then 30 minutes in planning, reviewing documentation, counseling the patient, and discussing with other team members." ASSESSMENT ASSESSMENT Assessment 64-year-old male with a known history of chronic respiratory failure on home O2 at 4 L, COPD, previous history of tobacco use disorder, quit few years ago congestive heart failure with diastolic dysfunction, CKD stage 4, morbid obesity classII, who initially presented to the hospital with the increasing shortness a breath was on BiPAP as well as hypertensive emergency. 1. Hypertensive emergency currently off of nicardipine drip 2. Acute on chronic decompensated congestive heart failure with diastolic dysfunction 3. Acute on chronic hypoxic respiratory failure secondary to acute CHF exacerbation with diastolic dysfunction 4. NSTEMI type 2 secondary to hypertensive emergency as well as acute CHF exacerbation 5. AKA with underlying CKD stage 4 6. COPD currently not in exacerbation 7. Previous history of tobacco use disorder 8. Morbid obesity classII Date of Service: Apr 26, 2025 Billing Provider: TEO HEART MD Common Visit Codes: 38064-BHJ/OBS DISCH DAY >30min TEO HEART MD Apr 26, 2025 13:04
== END 2025-04-26 17:15 | disposition home or self-care (01) | DRG 133 ==
LOC: EDBD 07:37 → ER 07:37 → OVERFLOW 12:45 → ICU CENTRL 04-23 04:23 → TELE-WESTW 04-25 15:16 → WEST WING 04-25 16:20
PROVIDERS: ADMIT Internal Medicine Pulmonary Disease; ATTEND Internal Medicine Pulmonary Disease
PROC: 5A09357 Assistance with Respiratory Ventilation, Less than 24 Consecutive Hours, Continuous Positive Airway Pressure (ICD-10-PCS; principal; 2025-04-22)
PROC: 5A09357 Assistance with Respiratory Ventilation, Less than 24 Consecutive Hours, Continuous Positive Airway Pressure (ICD-10-PCS; 2025-04-23)
DX: J96.21 Acute and chronic respiratory failure with hypoxia (principal); N17.0 Acute kidney failure with tubular necrosis; I21.A1 Myocardial infarction type 2; I50.33 Acute on chronic diastolic (congestive) heart failure; G93.41 Metabolic encephalopathy; I13.0 Hypertensive heart and chronic kidney disease with heart failure and stage 1 through stage 4 chronic kidney disease, or unspecified chronic kidney disease; I16.1 Hypertensive emergency; D63.1 Anemia in chronic kidney disease; E66.01 Morbid (severe) obesity due to excess calories; N18.4 Chronic kidney disease, stage 4 (severe); E78.5 Hyperlipidemia, unspecified; E11.22 Type 2 diabetes mellitus with diabetic chronic kidney disease; E87.6 Hypokalemia; J44.9 Chronic obstructive pulmonary disease, unspecified; G40.909 Epilepsy, unspecified, not intractable, without status epilepticus; E83.42 Hypomagnesemia; E11.65 Type 2 diabetes mellitus with hyperglycemia; Z99.81 Dependence on supplemental oxygen; Z87.891 Personal history of nicotine dependence; Z88.0 Allergy status to penicillin; Z79.82 Long term (current) use of aspirin; Z79.899 Other long term (current) drug therapy; Z82.49 Family history of ischemic heart disease and other diseases of the circulatory system; Z82.0 Family history of epilepsy and other diseases of the nervous system; Z68.37 Body mass index [BMI] 37.0-37.9, adult
CPT/HCPCS: 36415; 36600; 70450; 71045; 76604; 76775; 80053; 80061; 80307; 80320; 81001; 82570; 82728; 82805; 82962; 83540; 83550; 83735; 83880; 84100; 84156; 84300; 84443; 84484; 85014; 85018; 85025; 85379; 85610; 85730; 87081; 87426; 87804; 93005; 93306; 93970; 94640; 94660; 96374; 96375; 97163; G0378; J1815; J2405; J2470

== ENCOUNTER 2025-05-26 00:46 | Inpatient (IN) | payer MEDICAID ==
[2025-05-25 22:00] VITALS: O2SAT 95
[2025-05-26] VITALS (11 sets, daily range): BP systolic 141–178; BP diastolic 73–99; PULSE 60–79; RESP 12–24; TEMP 97.6–98.6; O2SAT 92–100
[~2025-05-26] VITALS: Ht 180.3 cm; Wt 132.0 kg
[~2025-05-26 00:46] MED LIST changes: +HYDR-4072; -MET25T PO
--- NOTE | 2025-05-26 01:05 | ECG ---
[facility] Test Date: 2025-05-26 Test Time: 00:52:01 Pat Name: RADHA ORJO Department: Room: [address] [place] [address] Gender: M Telecom Billing Analyst: SINDY : 1960 Requested By: BRANDI SOOD Order Number: [id number] Reading MD: Clayton Gerard Measurements Intervals [place] Rate: 78 P: 57 AL: 183 QRS: -23 QRSD: 94 T: 165 QT: 432 QTc: 493 Interpretive Statements Sinus rhythm Abnormal R-wave progression, early transition LVH with secondary repolarization abnormality Borderline prolonged QT interval Electronically Signed On 05-26-2025 15:44:54 PDT by Clayton Gerard Please click the below link to view image of tracing.
--- NOTE | 2025-05-26 01:31 | ED.PDOC ---
History of Present Illness HPI Comments 64 y/o obese M is BIBA from private residence for c/c of shortness of breath. Endorsement of 1x week history of difficulty breathing, with sudden exacerbation, this morning, while at rest, sitting down. No stated modifiers. Significant history of CHF, CKF IV, COPD w/home O2 (4LPM), Chronic respiratory failure, HLD, HTN, NSTEMI II, and former tobacco cigarette user. No recent prior ailments, sick contacts, injuries, travel, or additional pertinent events or history reported. Denial of any chest pain, cough, congestion, fever, chills, or further associated symptoms. Per EMS personnel report, vitals were noted to have been stable and within normal limits, with exception of patient being hypertensive at 190's/90's and bilateral pedal edema. Chief Complaint: Shortness of Breath Time Seen by MD: 01:00 Primary Care Provider: TIKA Reviewed Notes: Nurses Notes, Eeg Technologist Notes, Medications, Allergies Allergies: Coded Allergies: Penicillins (Verified Allergy, Unknown, 05/31/24) Home Meds Active Scripts Losartan Potassium (Losartan Potassium) 50 Mg Tab, 1 TAB PO DAILY for 30 Days, #30 TAB 3 Refills Prov:LINDA NUGENT NP 04/18/25 Spironolactone (Spironolactone) 50 Mg Tab, 1 TAB PO DAILY, #30 TAB 5 Refills Prov:LINDA NUGENT NP 04/18/25 Metoprolol Succinate (Toprol Xl) 50 Mg Tab, 1 TAB PO DAILY, #30 TAB 5 Refills Prov:LINDA NUGENT NP 04/18/25 Nifedipine (Nifedipine Er) 90 Mg Tab, 1 TAB PO DAILY, #30 TAB 5 Refills Prov:LINDA NUGENT NP 04/18/25 Potassium Bicarbonate (Effer-K) 25 Meq Tab, 25 MEQ PO DAILY, #30 TAB 5 Refills Prov:JON WRIGHT MD 04/02/25 Bumetanide (Bumex Tablet) 1 Mg Tab, 1 MG PO BID, #60 TAB 5 Refills BLK BX WARNING-CAN LEAD TO PROFOUND DIURESIS WITH FLUID- ELECTROLYTE LOSS Prov:JON WRIGHT MD 04/02/25 Hydralazine Hcl (Hydralazine Hcl) 100 Mg Tab, 1 TAB PO TID, #90 TAB 5 Refills Prov:JON WRIGHT MD 04/02/25 Clonidine Hydrochloride (Clonidine Hcl) 0.2 Mg Tab, 1 TAB PO BID, #120 TAB 5 Refills Prov:JON WRIGHT MD 04/02/25 Nifedipine (Nifedipine Er) 60 Mg Tab, 1 TAB PO DAILY, #60 TAB 5 Refills Prov:JON WRIGHT MD 04/02/25 Gabapentin (Gabapentin) 300 Mg Cap, 1 CAP PO TID, #90 CAP 5 Refills Prov:JON WRIGHT MD 04/02/25 Spironolactone (Spironolactone) 25 Mg Tab, 0.5 TAB PO BID for 30 Days, #30 TAB 5 Refills Prov:JON WRIGHT MD 04/02/25 Aspirin (Aspir-81) 81 Mg Tab, 1 TAB PO DAILY, #60 TAB 5 Refills Prov:TEO HEART MD 06/02/24 Reported Medications Hydrocodone-Acetaminophen (Hydrocodone/Acetaminophen 10-325 mg) 1 Tab Tab, TID 04/23/25 Information Source: Patient, Emergency Med Personnel Mode of Arrival: EMS Severity: Moderate Timing: Weeks Duration: Since onset Prehospital treatment: 12 Lead EKG, Accucheck, Supervisor [employer] Processing Past Medical History PAST MEDICAL HISTORY: CHF, CKF (stage IV), COPD (Home O2 (4LPM)), High Lipids, HTN, CT (NSTEMI II ) Past Medical History (Other): Chronic respiratory failure Surgical History: Denies all surgeries Family History Family History: Reviewed,noncontributory to illness Social History Smoker: Quit Greater Than 1 Year Alcohol: Denies ETOH Use Drugs: Denies Drug Use Lives In: Home All Other Systems: Reviewed and Negative (Comprehensive review of systems are negative unless stated in HPI) Physical Exam General Appearance: No Apparent Distress, Obese HEENT: Normal ENT Inspection, Pharynx Normal, TMs Normal Neck: Full Range of Motion, Non-Tender, Normal, Normal Inspection Respiratory: Chest Non-Tender, Crackles (bilateral lung reich), Lungs Clear, No Accessory Muscle Use, Respiratory Distress (mild ) Cardiovascular: No Edema, No JVD, No Murmur, No Gallop, Normal Peripheral Pulses, Regular Rate/Rhythm Breast Exam: Deferred Gastrointestinal: No Organomegaly, Non Tender, No Pulsatile Mass, Normal Bowel Sounds, Soft Genitalia: Deferred Pelvic: Deferred Rectal: Deferred Extremities: Leg edema (2+ to BLE), No calf tenderness, Normal capillary ref ill, Normal range of motion, Non-tender, No pedal edema, Swelling (2+ edema to BLE) Musculoskeletal : Apperance: Normal Neurologic: Alert, sales contractor 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 Was a procedure done?: No EKG EKG : Pulse Rate (adult): 78 Colon: Normal Cardiac Rhythm: NSR Block: None Hypertrophy: None ST: Normal Differential Dx Considerations may include: acute on chronic respiratory failure, acute CHF exacerbation, acute COPD exacerbation, CT, PE, URI, PNA, viral syndrome, pleural effusions, among others X-Ray, Labs, Meds, VS Vital Signs Date Time Temp Pulse Resp B/P (MAP) Pulse Ox O2 Delivery O2 Flow Rate FiO2 05/26/25 01:31 78 05/26/25 01:16 98.1 79 12 172/73 (106) 94 98.1 05/26/25 01:16 79 12 94 Nasal Cannula* 4 36 05/26/25 00:52 78 05/26/25 00:51 97.6 86 20 190/98 98 97.6 Lab Test 05/26/25 03:00 05/26/25 02:10 Range/Units White Blood Count 5.0 4.4-10.8 10^3/uL Red Blood Count 3.40 L 4.5-5.90 10^6/uL Hemoglobin 9.8 L 13.5-17.5 g/dL Hematocrit 29.5 L 41.0-53.0 % Mean Corpuscular Volume 86.8 80.0-100.0 fL Mean Corpuscular Hemoglobin 28.7 28.0-32.0 pg Mean Corpuscular Hemoglobin Concent 33.0 32.0-36.0 g/dL Red Cell Distribution Width 16.2 H 11.8-14.3 % Platelet Count 141 140-450 10^3/uL Mean Platelet Volume 9.1 6.9-10.8 fL Neutrophils (%) (Auto) 74.4 37.0-80.0 % Lymphocytes (%) (Auto) 11.9 10.0-50.0 % Monocytes (%) (Auto) 7.9 0.0-12.0 % Eosinophils (%) (Auto) 5.0 0.0-7.0 % Basophils (%) (Auto) 0.8 0.0-2.0 % Neutrophils # (Auto) 3.7 1.6-8.6 10 ^3/uL Lymphocytes # (Auto) 0.6 0.4-5.4 10 ^3/uL Monocytes # (Auto) 0.4 0-1.3 10 ^3/uL Eosinophils # (Auto) 0.2 0-0.8 10 ^3/uL Basophils # (Auto) 0 0-0.2 10 ^3/uL Nucleated Red Blood Cells 0.1 % Troponin I High Sensitivity 28 26 </=54 ng/L B-Type Natriuretic Peptide Pending Prothrombin Time 9.8 9.3-11.8 sec Prothrombin Time INR 0.92 0.9-1.15 Activated Partial Thromboplast Time < 20.0 L 24.5-34.5 SEC Sodium Level 145 136-145 mmol/L Potassium Level 3.2 L 3.5-5.1 mmol/L Chloride Level 104 98-107 mmol/L Carbon Dioxide Level 27 20-31 mmol/L Anion Gap 14 5-15 Blood Urea Nitrogen 22 9-23 mg/dL Creatinine 3.48 H 0.700-1.30 mg/dL Glomerular Filtration Rate Calc 19 >90 mL/min BUN/Creatinine Ratio 6.3 L 10.0-20.0 Serum Glucose 127 H 74-106 mg/dL Calcium Level 8.1 L 8.7-10.4 mg/dL Total Bilirubin 0.2 0.2-1.0 mg/dL Aspartate Amino Transferase (AST) 17 13-40 U/L Alanine Aminotransferase (ALT) < 9 7-40 U/L Alkaline Phosphatase 70 46-116 U/L Total Protein 6.4 5.7-8.2 g/dL Albumin 3.7 3.2-4.8 g/dL Time of 1ST Reevaluation: 01:30 Reevaluation 1ST: Unchanged Patient Education/Counseling: Treatment Family Education/Counseling: No Family Present SEPSIS Sepsis Screen Date sepsis recognized/suspect: May 26, 2025 Time Sepsis recognized/suspect: 54 Recent Procedure: No On Antibiotic Therapy: No Respiratory Rate >20: No Heart Rate >90: No Temp<36 C (96.8 F) or >38.3 C: No SBP <90 or MAP <65 mmHG: No New Acute Mental Status Change: No Is the patient on CPAP, BIPAP,: No Physician Orders B-Type Natriuretic Peptide (05/26/25 01:01) Chest Portable (05/26/25 01:01) Troponin-I Hs (05/26/25 04:01) Lt Lower Dvt (05/26/25 01:04) Vital Signs Date Time Temp Pulse Resp B/P (MAP) Pulse Ox O2 Delivery O2 Flow Rate FiO2 05/26/25 01:31 78 05/26/25 01:16 98.1 79 12 172/73 (106) 94 98.1 05/26/25 01:16 79 12 94 Nasal Cannula* 4 36 05/26/25 00:52 78 05/26/25 00:51 97.6 86 20 190/98 98 97.6 Laboratory Tests Test 05/26/25 03:00 White Blood Count 5.0 10^3/uL (4.4-10.8) Departure 1 Departure Time of Disposition: 03:59 Impression: Primary Impression: CHF (congestive heart failure) Additional Impressions: Acute renal injury Uncontrolled diabetes mellitus Respiratory failure with hypoxia Disposition: ADMITTED INPATIENT Admit to: Tele Condition: Guarded Discharged With: Self Comments 64-year-old patient with shortness of breath. Patient is requiring oxygen by cannula. Lab review shows chest x-ray shows congestive heart failure /pulmonary edema. Creatinine is high at 3.48. Patient will need admission for diuresis and renal consultation for possible dialysis and supportive care and further workup. Critical Care Note Critical Care Time?: Yes (35 min-critical care time only) Critical care comment: Total critical care time: Approximately 36 minutes Due to a high probability of clinically significant, life threatening deterioration, the patient required my highest level of preparedness to intervene emergently and I personally spent this critical care time directly and personally managing the patient. This critical care time included obtaining a history; examining the patient; pulse oximetry; ordering and review of studies; arranging urgent treatment with development of a management plan; evaluation of patient's response to treatment; frequent reassessment; and, discussions with other providers. This critical care time was performed to assess and manage the high probability of imminent, life-threatening deterioration that could result in multi-organ failure. It was exclusive of separately billable procedures and treating other patients. Stability Stability form required: No Heart Score Heart Score: Heart Score Response (Comments) Value History Highly Suspicious 2 EKG Normal 0 Age 45-64 1 Risk Factors >3 or Hx ASHD 2 Troponin 1-2 x's Normal limit 1 Total 6 I personally scribed for BRANDI SOOD MD ([email or web address]) on 05/26/25 at 01:31. Electronically submitted by Dano Escobar [email or web address]). BRANDI SOOD MD May 26, 2025 01:31
--- NOTE | 2025-05-26 01:59 | DVH ---
Left lower extremity venous duplex Clinical History: left leg swelling and pain Comparison: US BILAT LOWER DVT on DOS: 04/22/25, US RT UPPER DVT on DOS: 03/31/25 Technique: Duplex doppler evaluation of the deep venous system of the left lower extremity from the common femor al vein to the popliteal vein including color doppler and spectral/pulsed waveform analysis was perfo rmed. Findings: The common femoral vein demonstrates appropriate compressibility and waveform variability. There is compressibility/patency of the great saphenous vein at the proximal thigh. The femoral vein demonstrates appropriate compressibility and waveform variability. The deep femoral vein demonstrates appropriate compressibility and waveform variability. The popliteal vein demonstrates appropriate compressibility and waveform variability. There is normal compressibility at the tibioperoneal trunk. Impression: 1. No left femoropopliteal venous thrombosis.
[2025-05-26 02:51] LABS: Albumin 3.7 g/dL (3.2-4.8); Alkaline Phosphatase 70 U/L (46-116); Anion Gap 14 (5-15); BUN/Creatinine Ratio 6.3 (10.0-20.0); Blood Urea Nitrogen 22 mg/dL (9-23); Carbon Dioxide 27 mmol/L (20-31); Chloride 104 mmol/L (98-107); Sodium 145 mmol/L (136-145); Total Protein 6.4 g/dL (5.7-8.2)
[2025-05-26 02:52] LABS: INR 0.92 (0.9-1.15); Partial Thromboplastin Time < 20.0 SEC (24.5-34.5); Prothrombin Time 9.8 sec (9.3-11.8)
--- NOTE | 2025-05-26 03:18 | DVH ---
CHEST RADIOGRAPH Indication: SOB Technique: Single frontal view of the chest was obtained COMPARISON: US CHEST ULTRASOUND on DOS: 04/22/25, XY CHEST PORTABLE on DOS: 04/22/25, XY CHEST PORTABLE on DOS: 03/31/25, XY CHEST PORTABLE on DOS: 03/27/25, XY CHEST PORTABLE on DOS: 05/31/24 FINDINGS: Lines and Tubes: None Lungs: Stable diffuse increased prominence of the pulmonary vasculature and small bilateral pleural e ffusions. No pneumothorax. Cardiomediastinal contours: Cardiomegaly. Bones: Unremarkable IMPRESSION: 1. Stable pulmonary edema and small bilateral pleural effusions. 2. Cardiomegaly.
[2025-05-26 03:28] LABS: Glucose 127 mg/dL (74-106); Potassium 3.2 mmol/L (3.5-5.1)
[2025-05-26 03:29] LABS: Alanine Aminotransferase < 9 U/L (7-40); Bilirubin, Total 0.2 mg/dL (0.2-1.0); Calcium 8.1 mg/dL (8.7-10.4)
[2025-05-26 03:32] LABS: Hematocrit 29.5 % (41.0-53.0); Hemoglobin 9.8 g/dL (13.5-17.5); Mean Corpuscular Hemoglobin 28.7 pg (28.0-32.0); Mean Corpuscular Volume 86.8 fL (80.0-100.0); Nucleated Red Blood Cells % 0.1 %
[2025-05-26] MEDS: FUROSEMIDE 40 MG/4 ML VIAL IV ONE (04:40)
[2025-05-26] MEDS: hydrALAZINE HCL 20 MG/ML VL IV ONE (04:42)
[2025-05-26] MEDS: POTASSIUM CHL 20 Meq TABLET PO ONE ×2 (05:19→08:44)
[2025-05-26] MEDS ORDERED: ATOR40TA52 PO (07:29)
[2025-05-26] MEDS ORDERED: LEVE500T3 PO (07:29)
[2025-05-26] MEDS ORDERED: MORPHINE SULFATE INJ 2 MG/ml SYRG IV PRN (07:30)
[2025-05-26] MEDS ORDERED: NITROGLYCERIN 0.4 MG SL TAB SL PRN (07:30)
[2025-05-26] MEDS ORDERED: ONDANSETRON HCL 4 MG/2 ML VIAL IV PRN (07:30)
[2025-05-26] MEDS ORDERED: ACETAMINOPHEN 325 MG TAB PO PRN (07:30)
--- NOTE | 2025-05-26 07:43 | DVHHP2 ---
History of Present Illness Reason for Visit: Shortness of breath History of Present Illness David Huston is a 64-year-old male with past medical history of COPD on home oxygen at 4L N/C, hypertension, hyperlipidemia, chronic kidney disease, and seizures, who came to the hospital for shortness of breath. Patient states his shortness of breath began last night. Patient states his shortness of breath came on at rest, and that he has been compliant with his medications. There was an ECHO completed here 04/22/25 that showed an EF of 60%, with no significant valvular disease. He states he is supposed to follow with cardiology and nephrology but he can not remember who he is supposed to see. Cardiovascular: CHF, HTN, hyperipidemia Pulmonary: COPD (on hoome oxygen ) Heme/Onc: Anemia NOS Renal/: Chronic renal insuff Past Surgical History: None Smoke: No ALCOHOL: none Drugs: None Lives: with Family Domestic Violence: Neg Review of Systems Constitutional: No: Fever, Chills, Sweats, Weakness, Malaise, Other Eyes: No: Pain, Vision change, Conjunctivae inflammation, Eyelid inflammation, Other, Redness ENT: No: Ear pain, Ear discharge, Nose pain, Nose discharge, Nose congestion, Mouth pain, Mouth swelling, Throat pain, Throat swelling, Other Respiratory: Shortness of breath, SOB with excertion, Wheezing; No: Cough, Dry, Hemoptysis, Pleuritic Pain, Sputum, Wheezing, Other Cardiovascular: No: Chest Pain, Palpitations, Orthopnea, Paroxysmal Noc. Dyspnea, Edema, Lt Headedness, Other Gastrointestinal: No: Nausea, Vomiting, Abdominal Pain, Diarrhea, Constipation, Melena, Hematochezia, Other Genitourinary: No Dysuria, No Frequency, No Incontinence, No Hematuria, No Retention, No Other Musculoskeletal: No: other, neck pain, shoulder pain, arm pain, back pain, hand pain, leg pain, foot pain Skin: No: Rash, Lesions, Jaundice, Bruising, Other Neurological: No: Weakness, Numbness, Incoordination, Change in speech, Confusion, Seizures, Other Allergies: Coded Allergies: Penicillins (Verified Allergy, Unknown, 05/31/24) Medications Current Medications Medications Dose Ordered Sig/Ricky Route Start Time Stop Time Status Last Admin Dose Admin Ipratropium [place] 0.5 mg Q6HWA NEB 05/26/25 12:00 UNV Albuterol 2.5 mg Q6HWA NEB 05/26/25 12:00 UNV Sodium Chloride 10 ml Q8HR IV 05/26/25 14:00 UNV Acetaminophen/ Hydrocodone Bitart 1 tab Q4HP PRN PO 05/26/25 07:30 UNV Ondansetron HCl 4 mg Q4HP PRN IV 05/26/25 07:30 UNV Docusate Sodium 100 mg BIDPRN PRN PO 05/26/25 07:30 UNV Acetaminophen 650 mg Q6HP PRN PO 05/26/25 07:30 UNV Nitroglycerin 0.4 mg Q5MINP PRN SL 05/26/25 07:30 UNV Morphine Sulfate 2 mg Q30M PRN IV 05/26/25 07:30 UNV Aspirin 81 mg DAILY PO 05/26/25 10:00 UNV Gabapentin 300 mg TID PO 05/26/25 14:00 UNV Losartan Potassium 50 mg DAILY PO 05/26/25 10:00 UNV Metoprolol Succinate 50 mg DAILY PO 05/26/25 10:00 UNV Patient Own Medication 1 tab BID PO 05/26/25 10:00 UNV Patient Own Medication 1 tab DAILY PO 05/26/25 10:00 UNV Patient Own Medication 1 tab DAILY PO 05/26/25 10:00 UNV Levetiracetam 500 mg BID PO 05/26/25 10:00 UNV Patient Own Medication 1 tab QPM PO 05/26/25 18:00 UNV Bumetanide 1 mg BIDD IV 05/26/25 18:00 UNV Exam Vital Signs Vital Signs Date Time Temp Pulse Resp B/P (MAP) Pulse Ox O2 Delivery O2 Flow Rate FiO2 05/26/25 07:24 79 Nasal Cannula* 2 28 05/26/25 07:00 19 178/73 (108) 95 05/26/25 01:16 98.1 98.1 General Appearance: Alert, Oriented X3, Cooperative, moderate distress HEENT: Atraumatic, PERRLA, Mucous membr. moist/pink Respiratory: Other (crackles and diminished breath sounds) Cardiovascular: Regular rate, Normal S1, Normal S2, Other (Hypertensive) Abdominal: Normal bowel sounds, Soft, No tenderness Extremities: No clubbing, No cyanosis, Other (bilateral pitting edema of upper and lower extremities) Skin: No rashes, No breakdown Neuro: Normal speech Psych/Mental Status: Mental status NL Labs/Xrays Labs Test 05/26/25 05:20 05/26/25 03:00 05/26/25 02:10 Range/Units Troponin I High Sensitivity 26 </=54 ng/L White Blood Count 5.0 4.4-10.8 10^3/uL Red Blood Count 3.40 L 4.5-5.90 10^6/uL Hemoglobin 9.8 L 13.5-17.5 g/dL Hematocrit 29.5 L 41.0-53.0 % Mean Corpuscular Volume 86.8 80.0-100.0 fL Mean Corpuscular Hemoglobin 28.7 28.0-32.0 pg Mean Corpuscular Hemoglobin Concent 33.0 32.0-36.0 g/dL Red Cell Distribution Width 16.2 H 11.8-14.3 % Platelet Count 141 140-450 10^3/uL Mean Platelet Volume 9.1 6.9-10.8 fL Neutrophils (%) (Auto) 74.4 37.0-80.0 % Lymphocytes (%) (Auto) 11.9 10.0-50.0 % Monocytes (%) (Auto) 7.9 0.0-12.0 % Eosinophils (%) (Auto) 5.0 0.0-7.0 % Basophils (%) (Auto) 0.8 0.0-2.0 % Neutrophils # (Auto) 3.7 1.6-8.6 10 ^3/uL Lymphocytes # (Auto) 0.6 0.4-5.4 10 ^3/uL Monocytes # (Auto) 0.4 0-1.3 10 ^3/uL Eosinophils # (Auto) 0.2 0-0.8 10 ^3/uL Basophils # (Auto) 0 0-0.2 10 ^3/uL Nucleated Red Blood Cells 0.1 % B-Type Natriuretic Peptide 218.77 0-100 pg/mL Prothrombin Time 9.8 9.3-11.8 sec Prothrombin Time INR 0.92 0.9-1.15 Activated Partial Thromboplast Time < 20.0 L 24.5-34.5 SEC Sodium Level 145 136-145 mmol/L Potassium Level 3.2 L 3.5-5.1 mmol/L Chloride Level 104 98-107 mmol/L Carbon Dioxide Level 27 20-31 mmol/L Anion Gap 14 5-15 Blood Urea Nitrogen 22 9-23 mg/dL Creatinine 3.48 H 0.700-1.30 mg/dL Glomerular Filtration Rate Calc 19 >90 mL/min BUN/Creatinine Ratio 6.3 L 10.0-20.0 Serum Glucose 127 H 74-106 mg/dL Calcium Level 8.1 L 8.7-10.4 mg/dL Total Bilirubin 0.2 0.2-1.0 mg/dL Aspartate Amino Transferase (AST) 17 13-40 U/L Alanine Aminotransferase (ALT) < 9 7-40 U/L Alkaline Phosphatase 70 46-116 U/L Total Protein 6.4 5.7-8.2 g/dL Albumin 3.7 3.2-4.8 g/dL CHEST RADIOGRAPH FINDINGS: Lines and Tubes: None Lungs: Stable diffuse increased prominence of the pulmonary vasculature and small bilateral pleural effusions. No pneumothorax. Cardiomediastinal contours: Cardiomegaly. Bones: Unremarkable IMPRESSION: 1. Stable pulmonary edema and small bilateral pleural effusions. 2. Cardiomegaly. Left lower extremity venous duplex Findings: The common femoral vein demonstrates appropriate compressibility and waveform variability. There is compressibility/patency of the great saphenous vein at the proximal thigh. The femoral vein demonstrates appropriate compressibility and waveform variability. The deep femoral vein demonstrates appropriate compressibility and waveform variability. The popliteal vein demonstrates appropriate compressibility and waveform variability. There is normal compressibility at the tibioperoneal trunk. Impression: 1. No left femoropopliteal venous thrombosis. SEPSIS Sepsis Screen Date sepsis recognized/suspect: May 26, 2025 Time Sepsis recognized/suspect: 0120 Recent Procedure: No On Antibiotic Therapy: No Respiratory Rate >20: No Heart Rate >90: No Temp<36 C (96.8 F) or >38.3 C: No SBP <90 or MAP <65 mmHG: No New Acute Mental Status Change: No Is the patient on CPAP, BIPAP,: No Physician Orders Chest Portable (05/26/25 01:01) Lt Lower Dvt (05/26/25 01:04) Ipratropium Medneb (Atrovent Medneb) (05/26/25 12:00) Albuterol Medneb (Ventolin Medneb) (05/26/25 12:00) Admit (05/26/25 07:24) Code Status (05/26/25 07:24) Sodium Chloride Lock (Saline Lock Ns) (05/26/25 14:00) Hydrocodone-Acet 5/325mg Tab ([place] 5/32 (05/26/25 07:30) Ondansetron Hcl (Zofran) (05/26/25 07:30) Docusate Sodium Capsule (Colace Capsule) (05/26/25 07:30) Complete Blood Count (05/27/25 04:00) Comprehensive Metabolic Panel (05/27/25 04:00) Cardiac Diet-2gna,Lofat,Lochol (05/26/25 Breakfast) Condition: Serious (05/26/25 07:24) Acetaminophen Tablet (Tylenol Tablet) (05/26/25 07:30) Nitroglycerin Sublingual (Ntrostat Subli (05/26/25 07:30) Morphine Sulfate Injection (05/26/25 07:30) Stat Ekg For Chest Pain (05/26/25 07:24) Notify Md Of Changes From Base (05/26/25 07:24) Customer Acquisition Manager For 24 Hours (05/26/25 07:24) Emergency Dysrhythmia Protocol (05/26/25 07:24) Rhythm Strips Once Every Shift (05/26/25 07:24) Oxygen By Nasal Cannula (05/26/25 07:24) Aspirin Enteric Coated Tablet (Ecotrin E (05/26/25 10:00) Gabapentin Capsule (Neurontin Capsule) (05/26/25 14:00) Losartan Tablet (Cozaar Tablet) (05/26/25 10:00) Metoprolol Xl Succinate (Toprol Xl) (05/26/25 10:00) (Nf) Clonidine Hydrochloride (Clonidine (05/26/25 10:00) (Nf) Nifedipine (Nifedipine Er) (05/26/25 10:00) (Nf) Spironolactone (05/26/25 10:00) Levetiracetam Tablet (Keppra Tablet) (05/26/25 10:00) (Nf) Atorvastatin Calcium (05/26/25 18:00) Bumetanide Injection (Bumex Injection) (05/26/25 18:00) Bumetanide Injection (Bumex Injection) (05/26/25 07:45) Vital Signs Date Time Temp Pulse Resp B/P (MAP) Pulse Ox O2 Delivery O2 Flow Rate FiO2 05/26/25 07:24 79 Nasal Cannula* 2 28 05/26/25 07:00 78 19 178/73 (108) 95 05/26/25 06:00 73 14 182/80 (114) 96 05/26/25 05:36 79 18 195/93 (127) 94 05/26/25 04:42 190/85 05/26/25 04:40 190/85 05/26/25 04:36 78 16 190/85 (120) 97 05/26/25 04:30 78 15 188/93 (124) 96 05/26/25 04:00 79 05/26/25 01:31 78 05/26/25 01:16 98.1 79 12 172/73 (106) 94 98.1 05/26/25 01:16 79 12 94 Nasal Cannula* 4 36 05/26/25 00:52 78 05/26/25 00:51 97.6 86 20 190/98 98 97.6 Laboratory Tests Test 05/26/25 03:00 White Blood Count 5.0 10^3/uL (4.4-10.8) Medications Medications Dose Ordered Sig/Ricky Route Start Time Stop Time Status Last Admin Dose Admin Aspirin 81 mg ONCE ONCE PO 05/26/25 04:15 05/26/25 04:16 DC 05/26/25 04:42 81 MG Furosemide 40 mg ONCE ONCE IV 05/26/25 04:15 05/26/25 04:16 DC 05/26/25 04:40 40 MG Hydralazine HCl 15 mg ONCE ONCE IV 05/26/25 04:45 05/26/25 04:46 DC 05/26/25 04:42 15 MG Potassium Chloride 20 meq ONCE ONCE PO 05/26/25 05:15 05/26/25 05:16 DC 05/26/25 05:19 20 MEQ Assessment/Plan Assessment/Plan Assessment: Hypertensive urgency, COPD exacerbation, Pulmonary edema, Fluid overload, Cardiomegaly, Acute on chronic kidney failure, Hypokalemia, Anemia, Plan: Admit to Tele, IV diuretics, PRN antihypertensives, Breathing treatments as needed, Manage/Monitor electrolytes closely, Supplemental oxygen as needed, Home medications reconciled, Plan discussed with: Patient My Orders Orders - 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 Procedure Category Date Status Time Ipratropium Medneb PHA 05/26/25 Logged (Atrovent Medneb) 12:00 Albuterol Medneb PHA 05/26/25 Logged (Ventolin Medneb) 12:00 Admit ADMIT 05/26/25 Transmitted 07:24 Code Status CODE 05/26/25 Transmitted 07:24 Sodium Chloride Lock PHA 05/26/25 Logged (Saline Lock Ns) 14:00 Hydrocodone-Acet PHA 05/26/25 Logged 5/325mg Tab ([place] 07:30 Ondansetron Hcl PHA 05/26/25 Logged (Zofran) 07:30 Docusate Sodium PHA 05/26/25 Logged Capsule (Colace 07:30 Complete Blood Count LAB 05/27/25 Verified 04:00 Comprehensive LAB 05/27/25 Verified Metabolic Panel 04:00 Cardiac DIET 05/26/25 Transmitted Diet-2gna,Lofat,Lochol Breakfast Condition: Serious [facility] 05/26/25 In Process 07:24 Acetaminophen Tablet [facility] 05/26/25 Logged (Tylenol Tablet) 07:30 Nitroglycerin [facility] 05/26/25 Logged Sublingual (Ntrostat 07:30 Morphine Sulfate PHA 05/26/25 Logged Injection 07:30 Stat Ekg For Chest [facility] 05/26/25 In Process Pain 07:24 Notify Of Changes [facility] 05/26/25 In Process From Base 07:24 Customer Acquisition Manager For [facility] 05/26/25 In Process 24 Hours 07:24 Emergency Dysrhythmia [facility] 05/26/25 In Process Protocol 07:24 Rhythm Strips Once [facility] 05/26/25 In Process Every Shift 07:24 Oxygen By Nasal RT 05/26/25 Transmitted Cannula 07:24 Aspirin Enteric PHA 05/26/25 Logged Coated Tablet 10:00 Gabapentin Capsule PHA 05/26/25 Logged (Neurontin Capsule) 14:00 Losartan Tablet [facility] 05/26/25 Logged (Cozaar Tablet) 10:00 Metoprolol Xl PHA 05/26/25 Logged Succinate (Toprol Xl) 10:00 (Nf) Clonidine PHA 9/23/25 Logged Hydrochloride 10:00 (Nf) Nifedipine PHA 05/26/25 Logged (Nifedipine Er) 10:00 (Nf) Spironolactone PHA 05/26/25 Logged 10:00 Levetiracetam Tablet PHA 05/26/25 Logged (Keppra Tablet) 10:00 (Nf) Atorvastatin PHA 05/26/25 Logged Calcium 18:00 Bumetanide Injection PHA 05/26/25 Transmitted (Bumex Injection) 18:00 Bumetanide Injection PHA 05/26/25 Transmitted (Bumex Injection) 07:45 Date of Service: May 26, 2025 Billing Provider: DANIS MONACO Common Visit Codes: [id number] INP/OBS CARE (HIGH) DANIS MONACO May 26, 2025 07:43
[2025-05-26] MEDS: ASPirin-EC 81 mg tab PO SCH (08:18)
[2025-05-26] MEDS: BUMETANIDE 1mg/4ml VIAL (0.25mg/ml) IV ONE (08:44)
[2025-05-26] MEDS: SPIRONOLACTONE 25 MG TAB PO SCH (08:44)
[2025-05-26] MEDS: GABAPENTIN 300 MG CAP PO SCH (08:45)
[2025-05-26] MEDS: LOSARTAN POTASSIUM 50 MG TAB PO SCH (08:45)
[2025-05-26] MEDS: levETIRAcetam 500 MG TAB PO SCH (08:46)
[2025-05-26] MEDS: METOPROLOL SUCCINATE XL 50 MG TAB PO SCH (08:46)
[2025-05-26] MEDS ORDERED: PATIENTS OWN MEDICATION (Spironolactone 1 TAB) PO SCH (10:00)
[2025-05-26] MEDS ORDERED: PATIENTS OWN MEDICATION (Nifedipine (Nifedipine Er) 1 TAB) PO SCH (10:00)
[2025-05-26] MEDS ORDERED: PATIENTS OWN MEDICATION (Clonidine Hydrochloride (Clonidine Hcl) 1 TAB) PO SCH (10:00)
[2025-05-26 11:18] LABS: Potassium 3.1 mmol/L (3.5-5.1)
[2025-05-26 11:24] LABS: Magnesium 1.9 mg/dL (1.6-2.6)
[2025-05-26] MEDS: ALBUTEROL SULF 2.5 MG/0.5ML(0.5%) NEB SOLN NEB SCH (13:30)
[2025-05-26] MEDS: IPRATROPIUM BROM 0.5 MG/2.5ML INH SOL NEB SCH (13:30)
[2025-05-26] MEDS ORDERED: GABAPENTIN 300 MG CAP PO SCH (14:00)
[2025-05-26] MEDS: SODIUM CHLOR 0.9% PF (SALINE LOCK) 10ML VIAL/SYR IV SCH (14:08)
--- NOTE | 2025-05-26 15:47 | DVHPN2 ---
Subjective Clinically stable. Systolic blood pressure in the 160s. Denies any chest pain or shortness for breath headache dizziness or lightheadedness. Other review of systems reviewed normal. Changes from previous H/P or p: No Changes Eyes: No Pain, No Vision change, No Conjunctivae inflammation, No Eyelid inflammation, No Other, No Redness ENT: No Ear pain, No Ear discharge, No Nose pain, No Nose discharge, No Nose congestion, No Mouth pain, No Mouth swelling, No Throat pain, No Throat swelling, No Other Cardiovascular: No Chest Pain, No Palpitations, No Orthopnea, No Paroxysmal Noc. Dyspnea, No Edema, No Lt Headedness, No Other Respiratory: No Cough, No Dry; Shortness of breath, SOB with excertion, W heezing; No Hemoptysis, No Pleuritic Pain, No Sputum, No Other Gastrointestinal: No Nausea, No Vomiting, No Abdominal Pain, No Diarrhea, No Constipation, No Melena, No Hematochezia, No Other Genitourinary: No Dysuria, No Frequency, No Incontinence, No Hematuria, No Retention, No Other Musculoskeletal: No other, No neck pain, No shoulder pain, No arm pain, No back pain, No hand pain, No leg pain, No foot pain Skin: No Rash, No Lesions, No Jaundice, No Bruising, No Other Objective Vitals Vital Signs Date Time Temp Pulse Resp B/P (MAP) Pulse Ox O2 Delivery O2 Flow Rate FiO2 05/26/25 15:00 60 13 163/73 (103) 95 05/26/25 13:30 Nasal Cannula* 3 32 05/26/25 13:00 97.7 97.7 Exam Alert awake oriented x3. Comfortable obese gentleman without distress. HEENT neck supple no JVD pupils equal round react to light. Heart regular rate and rhythm S1-S2 without murmurs. Lungs fair air movement no rales or wheezing chest tube will expansion. Abdomen obese soft nontender positive bowel sounds. Extremities no edema positive pulses. Neurologic no focal deficits. Medications Current Medications Medications Dose Ordered Sig/Ricky Route Start Time Stop Time Status Last Admin Dose Admin Ipratropium [place] 0.5 mg Q6HWA NEB 05/26/25 12:00 05/26/25 13:30 0.5 MG Albuterol 2.5 mg Q6HWA [facility] 05/26/25 12:00 05/26/25 13:30 2.5 MG Sodium Chloride 10 ml Q8HR IV 05/26/25 14:00 05/26/25 14:08 10 ML Acetaminophen/ Hydrocodone Bitart 1 tab Q4HP PRN PO 05/26/25 07:30 Ondansetron HCl 4 mg Q4HP PRN IV 05/26/25 07:30 Docusate Sodium 100 mg BIDPRN PRN PO 05/26/25 07:30 Acetaminophen 650 mg Q6HP PRN PO 05/26/25 07:30 Nitroglycerin 0.4 mg Q5MINP PRN SL 05/26/25 07:30 Morphine Sulfate 2 mg Q30M PRN IV 05/26/25 07:30 Aspirin 81 mg DAILY PO 05/26/25 10:00 05/26/25 08:18 81 MG Losartan Potassium 50 mg DAILY PO 05/26/25 10:00 05/26/25 08:45 50 MG Metoprolol Succinate 50 mg DAILY PO 05/26/25 10:00 05/26/25 08:46 50 MG Patient Own Medication 1 tab BID PO 05/26/25 10:00 Cancel Patient Own Medication 1 tab DAILY PO 05/26/25 10:00 UNV Patient Own Medication 1 tab DAILY PO 05/26/25 10:00 UNV Levetiracetam 500 mg BID PO 05/26/25 10:00 05/26/25 08:46 500 MG Patient Own Medication 1 tab QPM PO 05/26/25 18:00 UNV Bumetanide 1 mg BIDD IV 05/26/25 18:00 Gabapentin 300 mg DAILY PO 05/26/25 10:00 05/26/25 08:45 300 MG Clonidine HCl 0.2 mg BID PO 05/26/25 10:00 05/26/25 08:45 0.2 MG Nifedipine 90 mg DAILY PO 05/26/25 10:00 05/26/25 08:46 90 MG Spironolactone 50 mg DAILY PO 05/26/25 10:00 05/26/25 08:44 50 MG Atorvastatin Calcium 40 mg HS PO 05/26/25 22:00 Clonidine HCl 0.2 mg Q6HP PRN PO 05/26/25 14:00 05/26/25 14:27 0.2 MG Potassium Bicarbonate 50 meq BID PO 05/26/25 15:30 05/27/25 22:01 Laboratory Results Laboratory Tests 05/26/25 02:10 05/26/25 03:00 05/26/25 10:06 Chemistry Test 05/26/25 02:10 05/26/25 10:06 Albumin 3.7 g/dL (3.2-4.8) Calcium Level 8.1 mg/dL (8.7-10.4) L Total Protein 6.4 g/dL (5.7-8.2) Magnesium Level 1.9 mg/dL (1.6-2.6) Coagulation Test 05/26/25 02:10 Prothrombin Time 9.8 sec (9.3-11.8) Prothrombin Time INR 0.92 (0.9-1.15) Activated Partial Thromboplast Time < 20.0 SEC (24.5-34.5) L Cardiac Markers Test 05/26/25 03:00 B-Type Natriuretic Peptide 218.77 pg/mL (0-100) LFT Test 05/26/25 02:10 Alanine Aminotransferase (ALT) < 9 U/L (7-40) Alkaline Phosphatase 70 U/L (46-116) Aspartate Amino Transferase (AST) 17 U/L (13-40) Total Bilirubin 0.2 mg/dL (0.2-1.0) Assessment/Plan Assessment/Plan Hypertensive urgency, COPD exacerbation, Pulmonary edema, Fluid overload, Cardiomegaly, Acute on chronic kidney failure, Hypokalemia, Anemia, Plan: Admit to Tele, IV diuretics, PRN antihypertensives, Breathing treatments as needed, Manage/Monitor electrolytes closely, Supplemental oxygen as needed, Continue home medications. Physical therapy evaluation and ambulate. Replace potassium. Further clinical management per clinical course and care plan discussed with the patient and nurse. Plan discussed with: Patient, Other My Orders Orders - ARMANI HAYES MD Procedure Category Date Status Time Clonidine Hcl Tablet PHA 05/26/25 In Process (Catapres Tablet) 14:00 Urinalysis LAB 05/26/25 Logged 15:19 Drug Screen LAB 05/26/25 Logged 15:19 Pt Request For Service PT 05/26/25 Logged 15:19 Potassium Effervesent PHA 05/26/25 In Process Tab (Klor-Con/Ef) 15:[address] 05/26/25 Logged 15:19 Date of Service: May 26, 2025 Billing Provider: REX STILES MD Common Visit Codes: [id number] INP/OBS CARE(MOD) ARMANI HAYES MD May 26, 2025 15:47
[2025-05-26] MEDS: POTASSIUM EFFERVESENT TAB 25 MEQ PO SCH (15:57)
--- NOTE | 2025-05-26 16:43 | DVH ---
EXAM: CT HEAD WITHOUT CONTRAST INDICATION: aloc TECHNIQUE: CT images of the head were obtained without administration of IV contrast. CT scans at [facility] facility use dose modulation, iterative reconstruction, and/or weight based dosing when appropriate to reduce radiation dose to as low as reasonably achievable. COMPARISON: CT HEAD WITHOUT CONTRAST on DOS: 04/22/25 FINDINGS: PARENCHYMA: No acute hemorrhage. There is no mass effect, midline shift, or herniation. There is pres ervation of the hansen white differentiation. Mild scattered hypoattenuation along the periventricular, centrum semiovale, and deep white matter tracts, which are nonspecific however statistically most li lj represent chronic microvascular ischemic change. Sequelae of lacunar infarction right basal gang sundeep. VENTRICLES: No hydrocephalus. EXTRA-AXIAL SPACES: No extra-axial fluid collections. OTHER: The bony structures are intact. Visualized portions of the paranasal sinuses and mastoid air cells are clear. IMPRESSION: 1. No CT evidence of an acute intracranial abnormality. 2. Sequelae of chronic microvascular ischemic change. 3. Sequelae of lacunar infarction of the right anterior periventricular white matter extending into t he right lentiform nucleus.
[2025-05-26] MEDS: BUMETANIDE 1mg/4ml VIAL (0.25mg/ml) IV SCH (17:31)
[2025-05-26] MEDS ORDERED: PATIENTS OWN MEDICATION (Atorvastatin Calcium 1 TAB) PO SCH (18:00)
[2025-05-26 18:21] LABS: Urine Protein, UAD 3+ (Negative)
[2025-05-26 18:22] LABS: Amphetamine Screen, Urine Neg (NEGATIVE); Barbiturate Scree,Urine Neg (NEGATIVE); Benzodiazephine Screen, Urine Neg (NEGATIVE); Cannabinoid Screen, Urine Neg (NEGATIVE); Cocaine Screen, Urine Neg (NEGATIVE); Opiate Scree,Urine Neg (NEGATIVE); Phencyclidine Screen, Urine Neg (NEGATIVE)
[2025-05-26] MEDS: ATORVASTATIN 20 MG TAB PO SCH (21:49)
[2025-05-27] VITALS (16 sets, daily range): BP systolic 148–185; BP diastolic 78–96; PULSE 60–73; RESP 13–24; TEMP 97.1–98; O2SAT 93–100
[2025-05-27 10:52] LABS: Hematocrit 28.0 % (41.0-53.0); Hemoglobin 9.0 g/dL (13.5-17.5); Mean Corpuscular Hemoglobin 28.6 pg (28.0-32.0); Mean Corpuscular Volume 88.9 fL (80.0-100.0); Nucleated Red Blood Cells % 0.2 %
[2025-05-27 11:12] LABS: Alanine Aminotransferase 10 U/L (7-40); Albumin 3.3 g/dL (3.2-4.8); Alkaline Phosphatase 64 U/L (46-116); Anion Gap 10 (5-15); BUN/Creatinine Ratio 7.6 (10.0-20.0); Bilirubin, Total 0.3 mg/dL (0.2-1.0); Blood Urea Nitrogen 29 mg/dL (9-23); Calcium 8.2 mg/dL (8.7-10.4); Carbon Dioxide 30 mmol/L (20-31); Chloride 103 mmol/L (98-107); Glucose 221 mg/dL (74-106); Potassium 4.0 mmol/L (3.5-5.1); Sodium 143 mmol/L (136-145); Total Protein 5.6 g/dL (5.7-8.2)
--- NOTE | 2025-05-27 16:58 | DVHPN2 ---
Subjective Clinically stable. Blood pressure still in the 150-160 range. Sleeping but easily arousable. Complains of sleep apnea/panic attacks at night. Changes from previous H/P or p: No Changes Eyes: No Pain, No Vision change, No Conjunctivae inflammation, No Eyelid inflammation, No Other, No Redness ENT: No Ear pain, No Ear discharge, No Nose pain, No Nose discharge, No Nose congestion, No Mouth pain, No Mouth swelling, No Throat pain, No Throat swelling, No Other Cardiovascular: No Chest Pain, No Palpitations, No Orthopnea, No Paroxysmal Noc. Dyspnea, No Edema, No Lt Headedness, No Other Respiratory: No Cough, No Dry; Shortness of breath, SOB with excertion, W heezing; No Hemoptysis, No Pleuritic Pain, No Sputum, No Other Gastrointestinal: No Nausea, No Vomiting, No Abdominal Pain, No Diarrhea, No Constipation, No Melena, No Hematochezia, No Other Genitourinary: No Dysuria, No Frequency, No Incontinence, No Hematuria, No Retention, No Other Musculoskeletal: No other, No neck pain, No shoulder pain, No arm pain, No back pain, No hand pain, No leg pain, No foot pain Skin: No Rash, No Lesions, No Jaundice, No Bruising, No Other Objective Vitals Vital Signs Date Time Temp Pulse Resp B/P (MAP) Pulse Ox O2 Delivery O2 Flow Rate FiO2 05/27/25 16:41 97.2 62 14 159/85 (109) 98 97.2 05/27/25 10:00 Nasal Cannula 4.0 05/27/25 10:00 36 Intake/Output Intake and Output 05/27/25 07:00 Intake Total 400 ml Output Total 1800 ml Balance -1400 ml Intake Oral 400 ml Output Urine Total 1800 ml # Voids 5 Exam Alert awake oriented x3. Comfortable obese gentleman without distress. HEENT neck supple no JVD pupils equal round react to light. Heart regular rate and rhythm S1-S2 without murmurs. Lungs fair air movement no rales or wheezing chest tube will expansion. Abdomen obese soft nontender positive bowel sounds. Extremities no edema positive pulses. Neurologic no focal deficits. Medications Current Medications Medications Dose Ordered Sig/Ricky Route Start Time Stop Time Status Last Admin Dose Admin Ipratropium [place] 0.5 mg Q6HWA NEB 05/26/25 12:00 05/27/25 11:17 0.5 MG Albuterol 2.5 mg Q6HWA NEB 05/26/25 12:00 05/27/25 11:17 2.5 MG Sodium Chloride 10 ml Q8HR IV 05/26/25 14:00 05/27/25 05:34 10 ML Acetaminophen/ Hydrocodone Bitart 1 tab Q4HP PRN PO 05/26/25 07:30 Ondansetron HCl 4 mg Q4HP PRN IV 05/26/25 07:30 Docusate Sodium 100 mg BIDPRN PRN PO 05/26/25 07:30 Acetaminophen 650 mg Q6HP PRN PO 05/26/25 07:30 Nitroglycerin 0.4 mg Q5MINP PRN SL 05/26/25 07:30 Morphine Sulfate 2 mg Q30M PRN IV 05/26/25 07:30 Aspirin 81 mg DAILY PO 05/26/25 10:00 05/27/25 08:09 81 MG Losartan Potassium 50 mg DAILY PO 05/26/25 10:00 05/27/25 08:08 50 MG Metoprolol Succinate 50 mg DAILY PO 05/26/25 10:00 05/27/25 08:25 50 MG Patient Own Medication 1 tab BID PO 05/26/25 10:00 Cancel Patient Own Medication 1 tab DAILY PO 05/26/25 10:00 UNV Patient Own Medication 1 tab DAILY PO 05/26/25 10:00 UNV Levetiracetam 500 mg BID PO 05/26/25 10:00 05/27/25 08:24 500 MG Patient Own Medication 1 tab QPM PO 05/26/25 18:00 UNV Bumetanide 1 mg BIDD IV 05/26/25 18:00 05/27/25 05:34 1 MG Gabapentin 300 mg DAILY PO 05/26/25 10:00 05/27/25 08:23 300 MG Clonidine HCl 0.2 mg BID PO 05/26/25 10:00 05/27/25 08:07 0.2 MG Nifedipine 90 mg DAILY PO 05/26/25 10:00 05/27/25 08:25 90 MG Spironolactone 50 mg DAILY PO 05/26/25 10:00 05/27/25 08:24 50 MG Atorvastatin Calcium 40 mg HS PO 05/26/25 22:00 05/26/25 21:49 40 MG Clonidine HCl 0.2 mg Q6HP PRN PO 05/26/25 14:00 05/26/25 14:27 0.2 MG Potassium Bicarbonate 50 meq BID PO 05/26/25 15:30 05/27/25 22:01 05/27/25 09:44 50 MEQ Laboratory Results Laboratory Tests 05/27/25 10:13 Chemistry Test 05/27/25 10:13 Albumin 3.3 g/dL (3.2-4.8) Calcium Level 8.2 mg/dL (8.7-10.4) L Total Protein 5.6 g/dL (5.7-8.2) L LFT Test 05/27/25 10:13 Alanine Aminotransferase (ALT) 10 U/L (7-40) Alkaline Phosphatase 64 U/L (46-116) Aspartate Amino Transferase (AST) 11 U/L (13-40) L Total Bilirubin 0.3 mg/dL (0.2-1.0) Urinalysis Test 05/26/25 15:19 Urine Color Light-yellow (Yellow) Urine Clarity Clear (Clear) Urine pH 6.5 (5.0-9.0) Urine Specific [place] 1.015 (1.001-1.035) Urine Protein 3+ (Negative) H Urine Ketones Negative (Negative) Urine Blood Trace /uL (Negative) H Urine Nitrite Negative (Negative) Urine Bilirubin Negative (Negative) Urine Urobilinogen Normal mg/dL (Negative) Urine Leukocyte Esterase Negative /uL (Negative) Urine RBC 1 /hpf (0 - 3) Urine Microscopic WBC 3 /HPF (0-3) Urine Squamous Epithelial Cells Few /hpf (<5) Urine Bacteria None seen /hpf (None Seen) Urine Glucose Normal mg/dL (Normal) Microbiology Microbiology Date/Time Source Procedure Growth Status 05/26/25 22:00 Nose MRSA Screen - Final Complete Assessment/Plan Assessment/Plan Hypertensive urgency, COPD exacerbation, Probable obesity hypoventilation syndrome Morbid obesity with a BMI 37 Pulmonary edema, Fluid overload, Cardiomegaly, Acute on chronic kidney failure, Hypokalemia, Anemia, Plan: I will increase clonidine to 3 times a day. I will DC Aldactone given worsening renal function. Continue Bumex and losartan. Continue rest of blood pressure medications. Follow daily BMP for kidney function. Nephrology consultation. Renal ultrasound for the kidneys. Given his history of obesity with hypoventilation syndrome I will have pulmonology consultation. We will get an ABG. Continue oxygen for now. Continue rest of supportive care and treatment. Further clinical management per clinical course. Plan discussed with: Patient My Orders Orders - ARMANI HAYES MD Procedure Category Date Status Time Abg W/ Co-Ox RT 05/27/25 Logged 15:52 *Consult CONS 05/27/25 Transmitted 15:52 Clonidine Hcl Tablet PHA 05/27/25 Transmitted (Catapres Tablet) 17:00 *Dr. [facility] -Da CONS 05/27/25 Transmitted Nora 16:53 Kidney US 05/27/25 Logged 16:53 Basic Metabolic Panel LAB 05/28/25 Verified 05:00 Basic Metabolic Panel LAB 05/29/25 Verified 05:00 Basic Metabolic Panel LAB 05/30/25 Verified 05:00 Basic Metabolic Panel LAB 05/31/25 Verified 05:00 Basic Metabolic Panel LAB 06/01/25 Verified 05:00 Date of Service: May 27, 2025 Billing Provider: ARMANI HAYES MD Common Visit Codes: [id number] INP/OBS CARE(MOD) ARMANI HAYES MD May 27, 2025 16:58
[2025-05-27 17:12] LABS: Base Excess 6.3 mmol/L (-2.0-3.0)
--- NOTE | 2025-05-27 18:01 | DVH ---
INDICATION: Renal failure TECHNIQUE: Multiple real-time sonographic images of the kidneys and bladder were obtained. COMPARISON: US LT LOWER DVT on DOS: 05/26/25, US BILAT LOWER DVT on DOS: 04/22/25, US KIDNEY on DOS: , US RT UPPER DVT on DOS: 03/31/25, US KIDNEY on DOS: 03/29/25 FINDINGS: The right kidney measures 9.9 cm in length, which is normal in size. There is increased ech ogenicity of the right kidney. No hydronephrosis. The left kidney measures 11.9 cm in length, which is normal in size. There is increased echogenicity of the left kidney. No hydronephrosis. No intraluminal mass is seen in the bladder although the bladder is mostly collapsed. At the time of the examination, the bladder volume is approximately 8 cc. IMPRESSION: Increased echogenicity of the kidneys consistent with medical renal disease. No hydronephrosis of eit her kidney.
[2025-05-28] VITALS (19 sets, daily range): BP systolic 154–184; BP diastolic 80–98; PULSE 57–96; RESP 18–24; TEMP 97.5–98.7; O2SAT 91–100
[2025-05-28] MEDS: NITROGLYCERIN 0.4 MG SL TAB SL ONE (05:58)
[2025-05-28] MEDS: FUROSEMIDE 40 MG/4 ML VIAL IV ONE (06:00)
[2025-05-28] MEDS: FUROSEMIDE 40 MG/4 ML VIAL ONE (06:01)
[2025-05-28] MEDS: hydrALAZINE HCL 20 MG/ML VL ONE (06:01)
[2025-05-28] MEDS: hydrALAZINE HCL 20 MG/ML VL IV ONE (06:04)
--- NOTE | 2025-05-28 06:49 | RESUS ---
CODE ASSIST ASSESSSMENT Initial Information Code Assist Date: May 28, 2025 Code Assist Time: 05:52 Location of Arrest: [place] Room # 296-A Provider Name Dr. Smallwood Crash Cart Opened and Supplies: No Situation Staff concerned/worried, speci: SaO2 <90 Situation comment: Patient become short of breath, oxygen desaturating. Primary RN called rapid response was called. Background Background: David Huston is a 64-year-old male with past medical history of COPD on home oxygen at 4L N/[place], hypertension, hyperlipidemia, chronic kidney disease, and seizures, who came to the hospital for shortness of breath. Patient states his shortness of breath began last night. Patient states his shortness of breath came on at rest, and that he has been compliant with his medications. There was an ECHO completed here 04/22/25 that showed an EF of 60%, with no significant valvular disease. He states he is supposed to follow with cardiology and nephrology but he can not remember who he is supposed to see. Assessment Temperature (Fahrenheit): 97.5 Blood Pressure Systolic: 170 Blood Pressure Diastolic: 83 Respiratory Rate: 32 O2 Sat by Pulse Oximetry: 80 Bedside Blood Glucose: 176 Assessment comment: Initial Blood pressure Recommendations/Interventions Medications and Responses #1: Medication Time: 05:58 ADULT Medications Given: Albuterol 2.5 mg Med Neb Heart Rate: 101 EKG Rhythm: Sinus Tachycardia Blood Pressure Systolic: 252 Blood Pressure Diastolic: 131 Respiratory Rate: 32 O2 Sat by Pulse Oximetry: 90 Medications and Responses #2: Medication Time: 06:00 ADULT Medications Given: Lasix 40mg Route of Administration: IV EKG Rhythm: Sinus Rhythm Blood Pressure Systolic: 144 Blood Pressure Diastolic: 122 Respiratory Rate: 28 O2 Sat by Pulse Oximetry: 96 Medications and Responses #3: Medication Time: 06:04 ADULT Medications Given: Hydralazin Route of Administration: IV Medication Comment: 10mg IVPush EKG Rhythm: Sinus Rhythm Blood Pressure Systolic: 203 Blood Pressure Diastolic: 155 Respiratory Rate: 26 O2 Sat by Pulse Oximetry: 96 Procedures: Accu check, CBC, Cardiac Monitoring, BIPAP Outcome Outcome: Problem Resolved Follow up Report Follow up Report Patient was placed on Bipap, family to be informed by primary RN. Cxray pending, and ABG in 1 hour. Team Members Team Members , RT Ariane De La Garza MST charge, [facility] ICU charge, Leelee whiteside RN. Mack Kenny sup MACK SAGE May 28, 2025 06:49
[2025-05-28 06:55] LABS: Hematocrit 33.9 % (41.0-53.0); Hemoglobin 11.3 g/dL (13.5-17.5); Mean Corpuscular Hemoglobin 29.2 pg (28.0-32.0); Mean Corpuscular Volume 87.6 fL (80.0-100.0); Nucleated Red Blood Cells % 0.1 %
[2025-05-28 07:07] LABS: Anion Gap 14 (5-15)
[2025-05-28 07:12] LABS: BUN/Creatinine Ratio 7.4 (10.0-20.0)
[2025-05-28 07:13] LABS: Blood Urea Nitrogen 30 mg/dL (9-23); Calcium 9.2 mg/dL (8.7-10.4); Carbon Dioxide 26 mmol/L (20-31); Chloride 103 mmol/L (98-107); Glucose 160 mg/dL (74-106); Potassium 4.7 mmol/L (3.5-5.1); Sodium 143 mmol/L (136-145)
[2025-05-28 07:21] LABS: Base Excess 3.7 mmol/L (-2.0-3.0)
--- NOTE | 2025-05-28 07:53 | DVH ---
CHEST RADIOGRAPH Indication: SOB Technique: Single frontal view of the chest was obtained COMPARISON: XY CHEST PORTABLE on DOS: 05/26/25, US CHEST ULTRASOUND on DOS: 04/22/25, XY CHEST PORTABLE on DOS: 04/22/25, XY CHEST PORTABLE on DOS: 03/31/25, XY CHEST PORTABLE on DOS: 03/27/25 FINDINGS: Lines and Tubes: None Lungs: Congestion. Pleura: Small bilateral pleural effusions. No pneumothorax. Cardiomediastinal contours: Cardiomegaly. Bones: Unremarkable IMPRESSION: Cardiomegaly and pulmonary vascular congestion.
--- NOTE | 2025-05-28 08:15 | ECG ---
[facility] Test Date: 2025-05-28 Test Time: 06:05:11 Pat Name: RADHA ROJO Department: Respiratoy Room: 0296T A Gender: M [employer] Inspector: morgan : 1960 Requested By: BRAN VALENTIN Order Number: [id number] Reading MD: Clayton Gerard Measurements Intervals Means Rate: 99 P: 47 CA: 188 QRS: -8 QRSD: 90 T: 127 QT: 385 QTc: 495 Interpretive Statements Sinus rhythm Probable left atrial enlargement Abnormal R-wave progression, early transition Probable LVH with secondary repol abnrm Borderline prolonged QT interval Electronically Signed On 06-02-2025 21:36:30 PDT by Clayton Gerard Please click the below link to view image of tracing.
--- NOTE | 2025-05-28 10:28 | DVHPN2 ---
Subjective The patient is seen and examined at bedside. The patient wanted to go home. Creatinine still elevated to four. Reviewed: Care Plan, H&P, Labs, Medications, Previous Orders, Radiology Changes from previous H/P or p: No Changes Eyes: No Pain, No Vision change, No Conjunctivae inflammation, No Eyelid inflammation, No Other, No Redness ENT: No Ear pain, No Ear discharge, No Nose pain, No Nose discharge, No Nose congestion, No Mouth pain, No Mouth swelling, No Throat pain, No Throat swelling, No Other Cardiovascular: No Chest Pain, No Palpitations, No Orthopnea, No Paroxysmal Noc. Dyspnea, No Edema, No Lt Headedness, No Other Respiratory: No Cough, No Dry; Shortness of breath, SOB with excertion, W heezing; No Hemoptysis, No Pleuritic Pain, No Sputum, No Other Gastrointestinal: No Nausea, No Vomiting, No Abdominal Pain, No Diarrhea, No Constipation, No Melena, No Hematochezia, No Other Genitourinary: No Dysuria, No Frequency, No Incontinence, No Hematuria, No Retention, No Other Musculoskeletal: No other, No neck pain, No shoulder pain, No arm pain, No back pain, No hand pain, No leg pain, No foot pain Skin: No Rash, No Lesions, No Jaundice, No Bruising, No Other Objective Vitals Vital Signs Date Time Temp Pulse Resp B/P (MAP) Pulse Ox O2 Delivery O2 Flow Rate FiO2 05/28/25 10:08 168/109 05/28/25 10:07 66 05/28/25 09:20 98.5 20 97 98.5 05/28/25 08:08 Nasal Cannula* 4 36 Intake/Output Intake and Output 05/28/25 07:00 Intake Total 772 ml Output Total 1650 ml Balance -878 ml Intake Oral 772 ml Output Urine Total 1650 ml # Bowel Movements 1 General Appearance: Alert, Oriented X3, Cooperative HEENT: Atraumatic, PERRLA, EOMI, Mucous membr. moist/pink Neck: Supple Cardiovascular: Regular rate, Normal S1, Normal S2, No murmurs, Gallops, Rubs Abdomen: Normal bowel sounds, Soft, No tenderness Neuro: Cranial nerves 3-12 NL Psych/Mental Status: Mental status NL Medications Current Medications Medications Dose Ordered Sig/Ricky Route Start Time Stop Time Status Last Admin Dose Admin Ipratropium [place] 0.5 mg Q6HWA NEB 05/26/25 12:00 05/28/25 06:00 0.5 MG Albuterol 2.5 mg Q6HWA NEB 05/26/25 12:00 05/28/25 06:00 2.5 MG Sodium Chloride 10 ml Q8HR IV 05/26/25 14:00 05/28/25 05:58 10 ML Acetaminophen/ Hydrocodone Bitart 1 tab Q4HP PRN PO 05/26/25 07:30 Ondansetron HCl 4 mg Q4HP PRN IV 05/26/25 07:30 Docusate Sodium 100 mg BIDPRN PRN PO 05/26/25 07:30 Acetaminophen 650 mg Q6HP PRN PO 05/26/25 07:30 Nitroglycerin 0.4 mg Q5MINP PRN SL 05/26/25 07:30 Morphine Sulfate 2 mg Q30M PRN IV 05/26/25 07:30 Aspirin 81 mg DAILY PO 05/26/25 10:00 05/28/25 10:06 81 MG Losartan Potassium 50 mg DAILY PO 05/26/25 10:00 05/28/25 10:07 50 MG Metoprolol Succinate 50 mg DAILY PO 05/26/25 10:00 05/28/25 10:07 50 MG Patient Own Medication 1 tab BID PO 05/26/25 10:00 Cancel Patient Own Medication 1 tab DAILY PO 05/26/25 10:00 UNV Patient Own Medication 1 tab DAILY PO 05/26/25 10:00 UNV Levetiracetam 500 mg BID PO 05/26/25 10:00 05/28/25 10:07 500 MG Patient Own Medication 1 tab QPM PO 05/26/25 18:00 UNV Bumetanide 1 mg BIDD IV 05/26/25 18:00 05/28/25 05:50 1 MG Gabapentin 300 mg DAILY PO 05/26/25 10:00 05/28/25 10:08 300 MG Nifedipine 90 mg DAILY PO 05/26/25 10:00 05/28/25 10:08 90 MG Atorvastatin Calcium 40 mg HS PO 05/26/25 22:00 05/27/25 22:23 40 MG Clonidine HCl 0.2 mg Q6HP PRN PO 05/26/25 14:00 05/26/25 14:27 0.2 MG Clonidine HCl 0.2 mg TID PO 05/27/25 17:00 05/28/25 06:31 0.2 MG Laboratory Results Laboratory Tests 05/28/25 05:58 Chemistry Test 05/28/25 05:58 Calcium Level 9.2 mg/dL (8.7-10.4) Urinalysis Test 05/26/25 15:19 Urine Color Light-yellow (Yellow) Urine Clarity Clear (Clear) Urine pH 6.5 (5.0-9.0) Urine Specific [place] 1.015 (1.001-1.035) Urine Protein 3+ (Negative) H Urine Ketones Negative (Negative) Urine Blood Trace /uL (Negative) H Urine Nitrite Negative (Negative) Urine Bilirubin Negative (Negative) Urine Urobilinogen Normal mg/dL (Negative) Urine Leukocyte Esterase Negative /uL (Negative) Urine RBC 1 /hpf (0 - 3) Urine Microscopic WBC 3 /HPF (0-3) Urine Squamous Epithelial Cells Few /hpf (<5) Urine Bacteria None seen /hpf (None Seen) Urine Glucose Normal mg/dL (Normal) Blood Gas Results Test 05/27/25 16:15 05/28/25 07:14 Arterial Blood pH 7.523 (7.350-7.450) 7.475 (7.350-7.450) FiO2 % 36.0 40.0 Microbiology Microbiology Date/Time Source Procedure Growth Status 05/26/25 22:00 Nose MRSA Screen - Final Complete Labs and/or images reviewed: Labs reviewed by me Assessment/Plan Assessment/Plan Hypertensive urgency, COPD exacerbation, Probable obesity hypoventilation syndrome Morbid obesity with a BMI 37 Pulmonary edema, Fluid overload, Cardiomegaly, Acute on chronic kidney failure, Hypokalemia, Anemia, Plan: Continuing clonidine to 3 times a day. DC Aldactone given worsening renal function. Continue Bumex and losartan. Continue rest of blood pressure medications. Follow daily BMP for kidney function. Nephrology consultation appreciate. Renal ultrasound for the kidneys showed kidney disease. Given his history of obesity with hypoventilation syndrome I will have pulmonology consultation. We will get an ABG. Continue oxygen for now. Continue rest of supportive care and treatment. Further clinical management per clinical course. Explained to the patient his kidney function is not improved yet. Need to wait for trending down of kidney function. Continuing with diuretics for fluid overload. He is not stable to be discharged yet. The patient is not happy about it but he agreed to stay. This medical document was created using an electronic medical record system with [employer] direct computerized dictation system. Although this document has been carefully reviewed, there may still be some phonetic and typographical errors. These areas are purely typographical due to imperfections of the software programs, and do not reflect any compromise in the patient's medical care. Plan discussed with: Patient Date of Service: May 28, 2025 Billing Provider: JON WRIGHT MD Common Visit Codes: [id number] INP/OBS CARE(HIGH) JON WRIGHT MD May 28, 2025 10:28
--- NOTE | 2025-05-28 15:48 | DVHINCON2 ---
Date of service: May 28, [address] Juan Miguel Thomas Reason for Consultation MIREYA History of Present Illness Mr. Huston is a 64-year-old male with known history of advanced stage IV CKD, comorbid conditions including heart failure with preserved EF, obesity, COPD who presents for further evaluation and management of significant worsening dyspnea that apparently awoke him from sleep. He was seen in his room this afternoon awake alert conversant and reports that his shortness of breath has improved since initial hospital admission. This technical publications writer was notified by Dr. Juan Miguel Thomas to take over the consultation as Mr. Huston sees Dr. Bergeron in outpatient chronic kidney Disease Clinic at [facility]. His serum creatinine remains in the high three to low four range. He continues on his angiotensin receptor angelina. His spironolactone has been held. He has been managed with noninvasive ventilatory support, antihypertensive medications and diuresis. Mr. Huston denies recent fevers, chills, nausea, vomiting. He does admit to slight increase in bilateral lower extremity edema. Past Medical History COPD Obesity Hypertension Heart failure with preserved EF. Allergies: Coded Allergies: Penicillins (Verified Allergy, Unknown, 05/31/24) Home Meds Active Scripts Losartan Potassium (Losartan Potassium) 50 Mg Tab, 1 TAB PO DAILY for 30 Days, #30 TAB 3 Refills Prov:LINDA NUGENT NP 04/18/25 Spironolactone (Spironolactone) 50 Mg Tab, 1 TAB PO DAILY, #30 TAB 5 Refills Prov:LINDA NUGENT NP 04/18/25 Metoprolol Succinate (Toprol Xl) 50 Mg Tab, 1 TAB PO DAILY, #30 TAB 5 Refills Prov:LINDA NUGENT NP 04/18/25 Nifedipine (Nifedipine Er) 90 Mg Tab, 1 TAB PO DAILY, #30 TAB 5 Refills Prov:LINDA NUGENT NP 04/18/25 Potassium Bicarbonate (Effer-K) 25 Meq Tab, 25 MEQ PO DAILY, #30 TAB 5 Refills Prov:JON WRIGHT MD 04/02/25 Bumetanide (Bumex Tablet) 1 Mg Tab, 1 MG PO BID, #60 TAB 5 Refills BLK BX WARNING-CAN LEAD TO PROFOUND DIURESIS WITH FLUID- ELECTROLYTE LOSS Prov:JON WRIGHT MD 04/02/25 Hydralazine Hcl (Hydralazine Hcl) 100 Mg Tab, 1 TAB PO TID, #90 TAB 5 Refills Prov:JON WRIGHT MD 04/02/25 Clonidine Hydrochloride (Clonidine Hcl) 0.2 Mg Tab, 1 TAB PO BID, #120 TAB 5 Refills Prov:JON WRIGHT MD 04/02/25 Gabapentin (Gabapentin) 300 Mg Cap, 1 CAP PO TID, #90 CAP 5 Refills Prov:JON WRIGHT MD 04/02/25 Aspirin (Aspir-81) 81 Mg Tab, 1 TAB PO DAILY, #60 TAB 5 Refills Prov:TEO HEART MD 06/02/24 Reported Medications Atorvastatin Calcium (ATORVASTATIN CALCIUM) 40 Mg Tab, 1 TAB PO QPM, #90 TAB 3 Refills 05/26/25 Levetiracetam (Levetiracetam) 500 Mg Tab, 1 TAB PO BID 05/26/25 Hydrocodone-Acetaminophen (Hydrocodone/Acetaminophen 10-325 mg) 1 Tab Tab, TID 04/23/25 Discontinued Scripts Nifedipine (Nifedipine Er) 60 Mg Tab, 1 TAB PO DAILY, #60 TAB 5 Refills Prov:JON WRIGHT MD 04/02/25 Spironolactone (Spironolactone) 25 Mg Tab, 0.5 TAB PO BID for 30 Days, #30 TAB 5 Refills Prov:JON WRIGHT MD 04/02/25 Current Medications Current Medications Medications (Trade) Dose Ordered Sig/Ricky Route PRN Reason Start Time Stop Time Status Last Admin Clonidine HCl (Catapres Tablet) 0.2 mg TID PO 05/27/25 17:00 05/28/25 14:01 Family History: FH: Alzheimers disease FH: HTN (hypertension) G8 MOTHER FH: cancer G8 MOTHER Grandmother Grandfather Review of Systems Denies gross hematuria, dysuria, tea or Coca-Cola colored urine Denies excessive use of recent NSAIDs, foamy urine, recent IV contrast studies Denies fever, chills, nausea, vomiting, diarrhea Denies unintentional weight loss, night sweats Denies focal weakness, numbness H&P Exam Vital Signs/I&O Vital Sign Date Time Temp Pulse Resp B/P (MAP) Pulse Ox O2 Delivery O2 Flow Rate FiO2 05/28/25 14:01 172/98 05/28/25 13:01 97.6 66 20 99 97.6 05/28/25 11:45 Nasal Cannula 4.0 05/28/25 11:45 36 Intake and Output 05/27/25 05/28/25 19:00 07:00 Intake Total 300 ml 472 ml Output Total 800 ml 850 ml Balance -500 ml -378 ml Intake Oral 300 ml 472 ml Output Urine Total 800 ml 850 ml # Bowel Movements 1 Physical Exam Gen: nad, awake and alert heent: nc/at, mmm lungs: Distant breath sounds cvs: no rub abd: soft, bowel sounds audible ext: + edema skin: no rash neuro: alert and oriented Labs/Diagnostic Data Labs/Diagnostic Data Laboratory Tests Test 05/28/25 07:14 05/28/25 05:58 05/28/25 05:56 05/27/25 16:15 Range/Units Blood Gas Specimen Type Arterial Arterial Blood Gas Sample Site Left radial Left radial Blood Gas Patient Temperature 37.0 37.0 Arterial Blood Date Drawn [id number] Arterial Blood pH 7.475 H 7.523 H 7.350-7.450 Arterial Blood Partial Pressure CO2 38.1 36.7 35.0-48.0 mmHg Arterial Blood Partial Pressure O2 71.4 L 63.1 L 83.0-108.0 mmHg Arterial Blood HCO3 27.4 29.5 H 21.0-28.0 mmol/L Arterial Blood Oxygen Saturation 93.2 L 92.0 L 94.0-98.0 % Arterial Blood Base Excess 3.7 H 6.3 H -2.0-3.0 mmol/L Arterial Blood Oxyhemoglobin 92.1 L 91.4 L 94.0-98.0 % Arterial Blood Carboxyhemoglobin 0.3 L 0.1 L 0.5-1.5 % Arterial Blood Methemoglobin 0.9 0.5 0.0-1.5 % Bernardo Test Yes Yes Blood Gas Total Hemoglobin 9.50 L 9.50 L 13.5-17.5 g/dL Blood Gas Set Respiration Rate 12.0 Blood Gas Modality Mask - bipap Nasal cannula Blood Gas Spontaneous Rate 23 FiO2 % 40.0 36.0 Blood Gas Spontaneous Tidal Volume 753 Blood Gas EPAP 5 Blood Gas IPAP 14 Blood Gas Comments I-time 0.80 sec. White Blood Count 8.0 # 4.4-10.8 10^3/uL Red Blood Count 3.87 L 4.5-5.90 10^6/uL Hemoglobin 11.3 #L 13.5-17.5 g/dL Hematocrit 33.9 #L 41.0-53.0 % Mean Corpuscular Volume 87.6 80.0-100.0 fL Mean Corpuscular Hemoglobin 29.2 28.0-32.0 pg Mean Corpuscular Hemoglobin Concent 33.4 32.0-36.0 g/dL Red Cell Distribution Width 16.2 H 11.8-14.3 % Platelet Count 183 140-450 10^3/uL Mean Platelet Volume 9.9 6.9-10.8 fL Neutrophils (%) (Auto) 63.3 37.0-80.0 % Lymphocytes (%) (Auto) 22.9 10.0-50.0 % Monocytes (%) (Auto) 8.9 0.0-12.0 % Eosinophils (%) (Auto) 4.0 0.0-7.0 % Basophils (%) (Auto) 0.9 0.0-2.0 % Neutrophils # (Auto) 5.0 1.6-8.6 10 ^3/uL Lymphocytes # (Auto) 1.8 0.4-5.4 10 ^3/uL Monocytes # (Auto) 0.7 0-1.3 10 ^3/uL Eosinophils # (Auto) 0.3 0-0.8 10 ^3/uL Basophils # (Auto) 0.1 0-0.2 10 ^3/uL Nucleated Red Blood Cells 0.1 % Sodium Level 143 136-145 mmol/L Potassium Level 4.7 3.5-5.1 mmol/L Chloride Level 103 98-107 mmol/L Carbon Dioxide Level 26 20-31 mmol/L Anion Gap 14 5-15 Blood Urea Nitrogen 30 H 9-23 mg/dL Creatinine 4.04 H 0.700-1.30 mg/dL Glomerular Filtration Rate Calc 16 >90 mL/min BUN/Creatinine Ratio 7.4 L 10.0-20.0 Serum Glucose 160 H 74-106 mg/dL Calcium Level 9.2 8.7-10.4 mg/dL POC Glucose 176 H 70-106 mg/dl Blood Gas Liter Flow 4.00 Test 05/27/25 10:13 05/26/25 15:19 05/26/25 10:06 05/26/25 05:20 Range/Units White Blood Count 4.3 L 4.4-10.8 10^3/uL Red Blood Count 3.15 L 4.5-5.90 10^6/uL Hemoglobin 9.0 L 13.5-17.5 g/dL Hematocrit 28.0 L 41.0-53.0 % Mean Corpuscular Volume 88.9 80.0-100.0 fL Mean Corpuscular Hemoglobin 28.6 28.0-32.0 pg Mean Corpuscular Hemoglobin Concent 32.1 32.0-36.0 g/dL Red Cell Distribution Width 16.2 H 11.8-14.3 % Platelet Count 126 L 140-450 10^3/uL Mean Platelet Volume 9.2 6.9-10.8 fL Neutrophils (%) (Auto) 78.5 37.0-80.0 % Lymphocytes (%) (Auto) 11.1 10.0-50.0 % Monocytes (%) (Auto) 7.6 0.0-12.0 % Eosinophils (%) (Auto) 1.8 0.0-7.0 % Basophils (%) (Auto) 1.0 0.0-2.0 % Neutrophils # (Auto) 3.4 1.6-8.6 10 ^3/uL Lymphocytes # (Auto) 0.5 0.4-5.4 10 ^3/uL Monocytes # (Auto) 0.3 0-1.3 10 ^3/uL Eosinophils # (Auto) 0.1 0-0.8 10 ^3/uL Basophils # (Auto) 0 0-0.2 10 ^3/uL Nucleated Red Blood Cells 0.2 % Sodium Level 143 136-145 mmol/L Potassium Level 4.0 3.1 L 3.5-5.1 mmol/L Chloride Level 103 98-107 mmol/L Carbon Dioxide Level 30 20-31 mmol/L Anion Gap 10 5-15 Blood Urea Nitrogen 29 H 9-23 mg/dL Creatinine 3.80 H 0.700-1.30 mg/dL Glomerular Filtration Rate Calc 17 >90 mL/min BUN/Creatinine Ratio 7.6 L 10.0-20.0 Serum Glucose 221 H 74-106 mg/dL Calcium Level 8.2 L 8.7-10.4 mg/dL Total Bilirubin 0.3 0.2-1.0 mg/dL Aspartate Amino Transferase (AST) 11 L 13-40 U/L Alanine Aminotransferase (ALT) 10 7-40 U/L Alkaline Phosphatase 64 46-116 U/L Total Protein 5.6 L 5.7-8.2 g/dL Albumin 3.3 3.2-4.8 g/dL Urine Color Light-yellow Yellow Urine Clarity Clear Clear Urine pH 6.5 5.0-9.0 Urine Specific [place] 1.015 1.001-1.035 Urine Protein 3+ H Negative Urine Ketones Negative Negative Urine Blood Trace H Negative /uL Urine Nitrite Negative Negative Urine Bilirubin Negative Negative Urine Urobilinogen Normal Negative mg/dL Urine Leukocyte Esterase Negative Negative /uL Urine RBC 1 0 - 3 /hpf Urine Microscopic WBC 3 0-3 /HPF Urine Squamous Epithelial Cells Few <5 /hpf Urine Bacteria None seen None Seen /hpf Urine Glucose Normal Normal mg/dL Urine Opiates Screen Neg NEGATIVE Urine Fentanyl Screen Neg NEGATIVE Urine Barbiturates Screen Neg NEGATIVE Urine Phencyclidine Screen Neg NEGATIVE Urine Amphetamines Screen Neg NEGATIVE Urine Benzodiazepines Screen Neg NEGATIVE Urine Cocaine Screen Neg NEGATIVE Urine Cannabinoids Screen Neg NEGATIVE Magnesium Level 1.9 1.6-2.6 mg/dL Troponin I High Sensitivity 26 </=54 ng/L Test 05/26/25 03:00 05/26/25 02:10 Range/Units White Blood Count 5.0 4.4-10.8 10^3/uL Red Blood Count 3.40 L 4.5-5.90 10^6/uL Hemoglobin 9.8 L 13.5-17.5 g/dL Hematocrit 29.5 L 41.0-53.0 % Mean Corpuscular Volume 86.8 80.0-100.0 fL Mean Corpuscular Hemoglobin 28.7 28.0-32.0 pg Mean Corpuscular Hemoglobin Concent 33.0 32.0-36.0 g/dL Red Cell Distribution Width 16.2 H 11.8-14.3 % Platelet Count 141 140-450 10^3/uL Mean Platelet Volume 9.1 6.9-10.8 fL Neutrophils (%) (Auto) 74.4 37.0-80.0 % Lymphocytes (%) (Auto) 11.9 10.0-50.0 % Monocytes (%) (Auto) 7.9 0.0-12.0 % Eosinophils (%) (Auto) 5.0 0.0-7.0 % Basophils (%) (Auto) 0.8 0.0-2.0 % Neutrophils # (Auto) 3.7 1.6-8.6 10 ^3/uL Lymphocytes # (Auto) 0.6 0.4-5.4 10 ^3/uL Monocytes # (Auto) 0.4 0-1.3 10 ^3/uL Eosinophils # (Auto) 0.2 0-0.8 10 ^3/uL Basophils # (Auto) 0 0-0.2 10 ^3/uL Nucleated Red Blood Cells 0.1 % Troponin I High Sensitivity 28 26 </=54 ng/L B-Type Natriuretic Peptide 218.77 0-100 pg/mL Prothrombin Time 9.8 9.3-11.8 sec Prothrombin Time INR 0.92 0.9-1.15 Activated Partial Thromboplast Time < 20.0 L 24.5-34.5 SEC Sodium Level 145 136-145 mmol/L Potassium Level 3.2 L 3.5-5.1 mmol/L Chloride Level 104 98-107 mmol/L Carbon Dioxide Level 27 20-31 mmol/L Anion Gap 14 5-15 Blood Urea Nitrogen 22 9-23 mg/dL Creatinine 3.48 H 0.700-1.30 mg/dL Glomerular Filtration Rate Calc 19 >90 mL/min BUN/Creatinine Ratio 6.3 L 10.0-20.0 Serum Glucose 127 H 74-106 mg/dL Calcium Level 8.1 L 8.7-10.4 mg/dL Total Bilirubin 0.2 0.2-1.0 mg/dL Aspartate Amino Transferase (AST) 17 13-40 U/L Alanine Aminotransferase (ALT) < 9 7-40 U/L Alkaline Phosphatase 70 46-116 U/L Total Protein 6.4 5.7-8.2 g/dL Albumin 3.7 3.2-4.8 g/dL Microbiology Date/Time Source Procedure Growth Status 05/26/25 22:00 Nose MRSA Screen - Final Complete Assessment IMP: 1) Hemodynamically mediated MIREYA/VMN in setting of hypertensive urgency/ somewhat labile blood pressure readings with change in blood pressure that may be outside the range of renal autoregulation. 2) CKD stage IV 3) acute on chronic diastolic heart failure 4) acute hypoxemic respiratory failure 5) possible COPD exacerbation REC: - agree with diuresis - we will temporarily hold his losartan due to MIREYA - plan to repeat renal panel, we will check FeNa, quantify proteinuria - sympatholytic p.r.n. for additional hypertensive control - he currently is without urgent indication for dialysis, if you remains metabolically stable, we will have him follow up with Dr. Bergeron in clinic next week. - Thank you for allowing us to participate in his care. Plan discussed with: Patient LISSETTE MONZON MD May 28, 2025 15:48
[2025-05-28 22:30] LABS: Urine Amorphous Crystal FEW /hpf (None Seen); Urine Protein, UAD 2+ (Negative)
[2025-05-28 23:01] LABS: Protein, Urine 264.0 mg/dL (1-14)
[2025-05-29] VITALS (22 sets, daily range): BP systolic 122–163; BP diastolic 64–92; PULSE 50–88; RESP 14–22; TEMP 96.6–98.8; O2SAT 92–100
[2025-05-29 07:05] LABS: Chloride 104 mmol/L (98-107); Potassium 3.8 mmol/L (3.5-5.1); Sodium 143 mmol/L (136-145)
[2025-05-29 07:06] LABS: Anion Gap 11 (5-15); Carbon Dioxide 28 mmol/L (20-31)
[2025-05-29 07:11] LABS: BUN/Creatinine Ratio 7.1 (10.0-20.0)
[2025-05-29 07:12] LABS: Blood Urea Nitrogen 29 mg/dL (9-23); Calcium 8.4 mg/dL (8.7-10.4); Glucose 130 mg/dL (74-106)
[2025-05-29] MEDS: HYDROcodone-ACET 5/325MG TAB PO PRN (09:57)
--- NOTE | 2025-05-29 12:50 | DVHPN2 ---
Subjective The patient is seen and examined at bedside. The patient wanted to go home. Creatinine still elevated . Reviewed: Care Plan, H&P, Labs, Medications, Previous Orders, Radiology Changes from previous H/P or p: No Changes Eyes: No Pain, No Vision change, No Conjunctivae inflammation, No Eyelid inflammation, No Other, No Redness ENT: No Ear pain, No Ear discharge, No Nose pain, No Nose discharge, No Nose congestion, No Mouth pain, No Mouth swelling, No Throat pain, No Throat swelling, No Other Cardiovascular: No Chest Pain, No Palpitations, No Orthopnea, No Paroxysmal Noc. Dyspnea, No Edema, No Lt Headedness, No Other Respiratory: No Cough, No Dry; Shortness of breath, SOB with excertion, W heezing; No Hemoptysis, No Pleuritic Pain, No Sputum, No Other Gastrointestinal: No Nausea, No Vomiting, No Abdominal Pain, No Diarrhea, No Constipation, No Melena, No Hematochezia, No Other Genitourinary: No Dysuria, No Frequency, No Incontinence, No Hematuria, No Retention, No Other Musculoskeletal: No other, No neck pain, No shoulder pain, No arm pain, No back pain, No hand pain, No leg pain, No foot pain Skin: No Rash, No Lesions, No Jaundice, No Bruising, No Other Objective Vitals Vital Signs Date Time Temp Pulse Resp B/P (MAP) Pulse Ox O2 Delivery O2 Flow Rate FiO2 05/29/25 12:32 98.5 55 18 163/87 (112) 97 98.5 05/29/25 11:57 Facial BiPAP Mask 40 05/29/25 10:00 10 Intake/Output Intake and Output 05/29/25 07:00 Intake Total 750 ml Output Total 220 ml Balance 530 ml Intake Oral 750 ml Output Urine Total 220 ml # Voids 5 General Appearance: Alert, Oriented X3, Cooperative HEENT: Atraumatic, PERRLA, EOMI, Mucous membr. moist/pink Neck: Supple Cardiovascular: Regular rate, Normal S1, Normal S2, No murmurs, Gallops, Rubs Abdomen: Normal bowel sounds, Soft, No tenderness Neuro: Cranial nerves 3-12 NL Psych/Mental Status: Mental status NL Medications Current Medications Medications Dose Ordered Sig/Ricky Route Start Time Stop Time Status Last Admin Dose Admin Ipratropium [place] 0.5 mg Q6HWA NEB 05/26/25 12:00 05/29/25 11:56 0.5 MG Albuterol 2.5 mg Q6HWA NEB 05/26/25 12:00 05/29/25 11:56 2.5 MG Sodium Chloride 10 ml Q8HR IV 05/26/25 14:00 05/29/25 06:34 10 ML Acetaminophen/ Hydrocodone Bitart 1 tab Q4HP PRN PO 05/26/25 07:30 05/29/25 09:57 1 TAB Ondansetron HCl 4 mg Q4HP PRN IV 05/26/25 07:30 Docusate Sodium 100 mg BIDPRN PRN PO 05/26/25 07:30 Acetaminophen 650 mg Q6HP PRN PO 05/26/25 07:30 Nitroglycerin 0.4 mg Q5MINP PRN SL 05/26/25 07:30 Morphine Sulfate 2 mg Q30M PRN IV 05/26/25 07:30 Aspirin 81 mg DAILY PO 05/26/25 10:00 05/29/25 09:55 81 MG Metoprolol Succinate 50 mg DAILY PO 05/26/25 10:00 05/28/25 10:07 50 MG Patient Own Medication 1 tab BID PO 05/26/25 10:00 Cancel Patient Own Medication 1 tab DAILY PO 05/26/25 10:00 UNV Patient Own Medication 1 tab DAILY PO 05/26/25 10:00 UNV Levetiracetam 500 mg BID PO 05/26/25 10:00 05/29/25 09:56 500 MG Patient Own Medication 1 tab QPM PO 05/26/25 18:00 UNV Bumetanide 1 mg BIDD IV 05/26/25 18:00 05/29/25 06:35 1 MG Gabapentin 300 mg DAILY PO 05/26/25 10:00 05/29/25 09:56 300 MG Nifedipine 90 mg DAILY PO 05/26/25 10:00 05/29/25 09:58 90 MG Atorvastatin Calcium 40 mg HS PO 05/26/25 22:00 05/28/25 21:04 40 MG Clonidine HCl 0.2 mg Q6HP PRN PO 05/26/25 14:00 05/29/25 00:35 0.2 MG Clonidine HCl 0.2 mg TID PO 05/27/25 17:00 05/29/25 06:34 0.2 MG Laboratory Results Laboratory Tests 05/28/25 05:58 05/29/25 06:09 Chemistry Test 05/29/25 06:09 Calcium Level 8.4 mg/dL (8.7-10.4) L Urinalysis Test 05/28/25 21:30 Urine Color Light-yellow (Yellow) Urine Clarity Clear (Clear) Urine pH 7.0 (5.0-9.0) Urine Specific [place] 1.012 (1.001-1.035) Urine Protein 2+ (Negative) H Urine Ketones Negative (Negative) Urine Blood Trace /uL (Negative) H Urine Nitrite Negative (Negative) Urine Bilirubin Negative (Negative) Urine Urobilinogen Normal mg/dL (Negative) Urine Leukocyte Esterase Negative /uL (Negative) Urine RBC 1 /hpf (0 - 3) Urine Microscopic WBC 3 /HPF (0-3) Urine Squamous Epithelial Cells Few /hpf (<5) Urine Amorphous Crystals Few /hpf (None Seen) Urine Bacteria Few /hpf (None Seen) H Urine Creatinine 86.37 mg/dL (30.0-125.0) Urine Sodium 55 mmol/L (40-220) Urine Glucose Normal mg/dL (Normal) Urine Total Protein 264.0 mg/dL (1-14) H Microbiology Microbiology Date/Time Source Procedure Growth Status 05/26/25 22:00 Nose MRSA Screen - Final Complete Labs and/or images reviewed: Labs reviewed by me Assessment/Plan Assessment/Plan Hypertensive urgency, COPD exacerbation, Probable obesity hypoventilation syndrome Morbid obesity with a BMI 37 Pulmonary edema, Fluid overload, Cardiomegaly, Acute on chronic kidney failure, Hypokalemia, Anemia, Plan: Continuing clonidine to 3 times a day. DC Aldactone given worsening renal function. Continue Bumex and losartan. Continue rest of blood pressure medications. Follow daily BMP for kidney function. Nephrology consultation appreciate. Renal ultrasound for the kidneys showed kidney disease. Given his history of obesity with hypoventilation syndrome I will have pulmonology consultation. We will get an ABG. Continue oxygen for now. Continue rest of supportive care and treatment. Further clinical management per clinical course. This medical document was created using an electronic medical record system with [employer] direct computerized dictation system. Although this document has been carefully reviewed, there may still be some phonetic and typographical errors. These areas are purely typographical due to imperfections of the software programs, and do not reflect any compromise in the patient's medical care. Plan discussed with: Patient Date of Service: May 29, 2025 Billing Provider: JON WRIGHT MD Common Visit Codes: [id number] INP/OBS CARE(HIGH) JON WRIGHT MD May 29, 2025 12:50
--- NOTE | 2025-05-29 15:25 | DVHPN2 ---
Progress Note Date Seen: May 29, 2025 Medical Necessity Reason Pt with a Central, PICC or Fol: No Subjective Review of Systems Patient receiving PT at this time. Patient states he feels better Patient reports: No new complaints Objective vital signs Vital Sign Date Time Temp Pulse Resp B/P (MAP) Pulse Ox O2 Delivery O2 Flow Rate FiO2 05/29/25 13:45 159/80 05/29/25 12:32 98.5 55 18 97 98.5 05/29/25 11:57 Facial BiPAP Mask 40 05/29/25 10:00 10 Total Intake and Output 05/28/25 05/28/25 05/29/25 15:00 23:00 07:00 Intake Total 600 ml 150 ml Output Total 220 ml Balance 600 ml -70 ml medications Current Medications Medications Dose Ordered Sig/Ricky Route Start Time Stop Time Status Last Admin Dose Admin Ipratropium [place] 0.5 mg Q6HWA NEB 05/26/25 12:00 05/29/25 11:56 0.5 MG Albuterol 2.5 mg Q6HWA NEB 05/26/25 12:00 05/29/25 11:56 2.5 MG Sodium Chloride 10 ml Q8HR IV 05/26/25 14:00 05/29/25 13:46 10 ML Acetaminophen/ Hydrocodone Bitart 1 tab Q4HP PRN PO 05/26/25 07:30 05/29/25 09:57 1 TAB Ondansetron HCl 4 mg Q4HP PRN IV 05/26/25 07:30 Docusate Sodium 100 mg BIDPRN PRN PO 05/26/25 07:30 Acetaminophen 650 mg Q6HP PRN PO 05/26/25 07:30 Nitroglycerin 0.4 mg Q5MINP PRN SL 05/26/25 07:30 Morphine Sulfate 2 mg Q30M PRN IV 05/26/25 07:30 Aspirin 81 mg DAILY PO 05/26/25 10:00 05/29/25 09:55 81 MG Metoprolol Succinate 50 mg DAILY PO 05/26/25 10:00 05/28/25 10:07 50 MG Patient Own Medication 1 tab BID PO 05/26/25 10:00 Cancel Patient Own Medication 1 tab DAILY PO 05/26/25 10:00 UNV Patient Own Medication 1 tab DAILY PO 05/26/25 10:00 UNV Levetiracetam 500 mg BID PO 05/26/25 10:00 05/29/25 09:56 500 MG Patient Own Medication 1 tab QPM PO 05/26/25 18:00 UNV Bumetanide 1 mg BIDD IV 05/26/25 18:00 05/29/25 06:35 1 MG Gabapentin 300 mg DAILY PO 05/26/25 10:00 05/29/25 09:56 300 MG Nifedipine 90 mg DAILY PO 05/26/25 10:00 05/29/25 09:58 90 MG Atorvastatin Calcium 40 mg HS PO 05/26/25 22:00 05/28/25 21:04 40 MG Clonidine HCl 0.2 mg Q6HP PRN PO 05/26/25 14:00 05/29/25 00:35 0.2 MG Clonidine HCl 0.2 mg TID PO 05/27/25 17:00 05/29/25 13:45 0.2 MG Examination Gen: Patient appears stated age. NAD Lungs: Bilateral air entry. CTA Heart: RRR, normal S1 and S2 Ext:+ edema Neuro: Alert and oriented x 4 laboratory and microbiology Laboratory Tests 05/29/25 06:09 05/28/25 05:58 Test 05/29/25 06:09 Range/Units Serum Glucose 130 H 74-106 mg/dL Microbiology Date/Time Source Procedure Growth Status 05/26/25 22:00 Nose MRSA Screen - Final Complete Labs and/or images reviewed: Labs reviewed by me Problem List/Assessment/Plan Problem List/Assessment/Plan IMP: 1) Hemodynamically mediated MIREYA/VMN in setting of hypertensive urgency/ somewhat labile blood pressure readings with change in blood pressure that may be outside the range of renal autoregulation. 2) CKD stage IV 3) acute on chronic diastolic heart failure 4) acute hypoxemic respiratory failure 5) possible COPD exacerbation REC: - Serial BMP's - Strict I&O's - Continue to hold ARB during time course of MIREYA. - Avoidance of NSAIDs, and contrast studies if able - FENa < 2%, pt on diuretics - Sympatholytic p.r.n. for additional hypertensive control - Pt currently is without urgent indication for dialysis. If pt continues to remain metabolically stable, he will follow up with in clinic upon D/C - Will continue to monitor daily for [employer] Plan discussed with: Patient, Spouse, Other (Dr. Choe) T[facility] May 29, 2025 15:25
[2025-05-30] VITALS (16 sets, daily range): BP systolic 158–178; BP diastolic 77–95; PULSE 50–77; RESP 16–22; TEMP 97.5–98.1; O2SAT 95–100
[2025-05-30 08:04] LABS: Anion Gap 12 (5-15); Carbon Dioxide 26 mmol/L (20-31); Chloride 101 mmol/L (98-107); Potassium 4.0 mmol/L (3.5-5.1); Sodium 139 mmol/L (136-145)
[2025-05-30 08:10] LABS: BUN/Creatinine Ratio 6.8 (10.0-20.0); Blood Urea Nitrogen 28 mg/dL (9-23); Calcium 8.5 mg/dL (8.7-10.4); Glucose 159 mg/dL (74-106)
--- NOTE | 2025-05-30 13:21 | DVHPN2 ---
Subjective The patient is seen and examined at bedside. The patient wanted to go home. Creatinine still elevated . Reviewed: Care Plan, H&P, Labs, Medications, Previous Orders, Radiology Changes from previous H/P or p: No Changes Eyes: No Pain, No Vision change, No Conjunctivae inflammation, No Eyelid inflammation, No Other, No Redness ENT: No Ear pain, No Ear discharge, No Nose pain, No Nose discharge, No Nose congestion, No Mouth pain, No Mouth swelling, No Throat pain, No Throat swelling, No Other Cardiovascular: No Chest Pain, No Palpitations, No Orthopnea, No Paroxysmal Noc. Dyspnea, No Edema, No Lt Headedness, No Other Respiratory: No Cough, No Dry; Shortness of breath, SOB with excertion, W heezing; No Hemoptysis, No Pleuritic Pain, No Sputum, No Other Gastrointestinal: No Nausea, No Vomiting, No Abdominal Pain, No Diarrhea, No Constipation, No Melena, No Hematochezia, No Other Genitourinary: No Dysuria, No Frequency, No Incontinence, No Hematuria, No Retention, No Other Musculoskeletal: No other, No neck pain, No shoulder pain, No arm pain, No back pain, No hand pain, No leg pain, No foot pain Skin: No Rash, No Lesions, No Jaundice, No Bruising, No Other Objective Vitals Vital Signs Date Time Temp Pulse Resp B/P (MAP) Pulse Ox O2 Delivery O2 Flow Rate FiO2 05/30/25 10:00 100 Bi-Pap+ 10 50 50 05/30/25 09:01 54 05/30/25 09:00 97.5 20 158/84 (108) 97.5 Intake/Output Intake and Output 05/30/25 07:00 Intake Total 940 ml Output Total 1815 ml Balance -875 ml Intake Oral 940 ml Output Urine Total 1815 ml General Appearance: Alert, Oriented X3, Cooperative HEENT: Atraumatic, PERRLA, EOMI, Mucous membr. moist/pink Neck: Supple Cardiovascular: Regular rate, Normal S1, Normal S2, No murmurs, Gallops, Rubs Abdomen: Normal bowel sounds, Soft, No tenderness Neuro: Cranial nerves 3-12 NL Psych/Mental Status: Mental status NL Medications Current Medications Medications Dose Ordered Sig/Ricky Route Start Time Stop Time Status Last Admin Dose Admin Ipratropium [place] 0.5 mg Q6HWA NEB 05/26/25 12:00 05/30/25 12:16 0.5 MG Albuterol 2.5 mg Q6HWA NEB 05/26/25 12:00 05/30/25 12:16 2.5 MG Sodium Chloride 10 ml Q8HR IV 05/26/25 14:00 05/30/25 05:57 10 ML Acetaminophen/ Hydrocodone Bitart 1 tab Q4HP PRN PO 05/26/25 07:30 05/29/25 09:57 1 TAB Ondansetron HCl 4 mg Q4HP PRN IV 05/26/25 07:30 Docusate Sodium 100 mg BIDPRN PRN PO 05/26/25 07:30 Acetaminophen 650 mg Q6HP PRN PO 05/26/25 07:30 Nitroglycerin 0.4 mg Q5MINP PRN SL 05/26/25 07:30 Morphine Sulfate 2 mg Q30M PRN IV 05/26/25 07:30 Aspirin 81 mg DAILY PO 05/26/25 10:00 05/30/25 08:58 81 MG Metoprolol Succinate 50 mg DAILY PO 05/26/25 10:00 05/28/25 10:07 50 MG Patient Own Medication 1 tab BID PO 05/26/25 10:00 Cancel Patient Own Medication 1 tab DAILY PO 05/26/25 10:00 UNV Patient Own Medication 1 tab DAILY PO 05/26/25 10:00 UNV Levetiracetam 500 mg BID PO 05/26/25 10:00 05/30/25 08:58 500 MG Patient Own Medication 1 tab QPM PO 05/26/25 18:00 UNV Bumetanide 1 mg BIDD IV 05/26/25 18:00 05/30/25 05:56 1 MG Gabapentin 300 mg DAILY PO 05/26/25 10:00 05/30/25 08:58 300 MG Nifedipine 90 mg DAILY PO 05/26/25 10:00 05/30/25 08:59 90 MG Atorvastatin Calcium 40 mg HS PO 05/26/25 22:00 05/29/25 21:16 40 MG Clonidine HCl 0.2 mg Q6HP PRN PO 05/26/25 14:00 05/30/25 05:57 0.2 MG Clonidine HCl 0.2 mg TID PO 05/27/25 17:00 05/30/25 00:00 0.2 MG Laboratory Results Laboratory Tests 05/28/25 05:58 05/30/25 05:57 Chemistry Test 05/30/25 05:57 Calcium Level 8.5 mg/dL (8.7-10.4) L Urinalysis Test 05/28/25 21:30 Urine Color Light-yellow (Yellow) Urine Clarity Clear (Clear) Urine pH 7.0 (5.0-9.0) Urine Specific [place] 1.012 (1.001-1.035) Urine Protein 2+ (Negative) H Urine Ketones Negative (Negative) Urine Blood Trace /uL (Negative) H Urine Nitrite Negative (Negative) Urine Bilirubin Negative (Negative) Urine Urobilinogen Normal mg/dL (Negative) Urine Leukocyte Esterase Negative /uL (Negative) Urine RBC 1 /hpf (0 - 3) Urine Microscopic WBC 3 /HPF (0-3) Urine Squamous Epithelial Cells Few /hpf (<5) Urine Amorphous Crystals Few /hpf (None Seen) Urine Bacteria Few /hpf (None Seen) H Urine Creatinine 86.37 mg/dL (30.0-125.0) Urine Sodium 55 mmol/L (40-220) Urine Glucose Normal mg/dL (Normal) Urine Total Protein 264.0 mg/dL (1-14) H Microbiology Microbiology Date/Time Source Procedure Growth Status 05/26/25 22:00 Nose MRSA Screen - Final Complete Labs and/or images reviewed: Labs reviewed by me Assessment/Plan Assessment/Plan Hypertensive urgency, COPD exacerbation, Probable obesity hypoventilation syndrome Morbid obesity with a BMI 37 Pulmonary edema, Fluid overload, Cardiomegaly, Acute on chronic kidney failure, Hypokalemia, Anemia, Plan: Continuing clonidine to 3 times a day. DC Aldactone given worsening renal function. Continue Bumex and losartan. Continue rest of blood pressure medications. Follow daily BMP for kidney function. Nephrology consultation appreciate. Renal ultrasound for the kidneys showed kidney disease. Given his history of obesity with hypoventilation syndrome, pulmonology consultation was consult. We will get an ABG. Continue oxygen for now. Continue rest of supportive care and treatment. Further clinical management per clinical course. DW patient. Still want to monitor BUN/cr. This medical document was created using an electronic medical record system with [employer] direct computerized dictation system. Although this document has been carefully reviewed, there may still be some phonetic and typographical errors. These areas are purely typographical due to imperfections of the software programs, and do not reflect any compromise in the patient's medical care. Plan discussed with: Patient My Orders Orders - JON WRIGHT MD Procedure Category Date Status Time Renal DIET 05/29/25 Transmitted Standard(2gna,3gk,Lopho) Dinner Date of Service: May 30, 2025 Billing Provider: JON WRIGHT MD Common Visit Codes: [id number] INP/OBS CARE(HIGH) JON WRIGHT MD May 30, 2025 13:21
--- NOTE | 2025-05-30 16:08 | DVHPN2 ---
Progress Note Date Seen: May 30, 2025 Medical Necessity Reason Pt with a Central, PICC or Fol: No Subjective Patient reports: No new complaints, Feels better Objective vital signs Vital Sign Date Time Temp Pulse Resp B/P (MAP) Pulse Ox O2 Delivery O2 Flow Rate FiO2 05/30/25 14:58 150/89 05/30/25 13:00 97.5 53 18 99 97.5 05/30/25 12:16 Nasal Cannula* 4 36 Total Intake and Output 05/29/25 05/29/25 05/30/25 15:00 23:00 07:00 Intake Total 400 ml 540 ml Output Total 1000 ml 815 ml Balance -600 ml -275 ml medications Current Medications Medications Dose Ordered Sig/Ricky Route Start Time Stop Time Status Last Admin Dose Admin Ipratropium [place] 0.5 mg Q6HWA NEB 05/26/25 12:00 05/30/25 12:16 0.5 MG Albuterol 2.5 mg Q6HWA NEB 05/26/25 12:00 05/30/25 12:16 2.5 MG Sodium Chloride 10 ml Q8HR IV 05/26/25 14:00 05/30/25 13:57 10 ML Acetaminophen/ Hydrocodone Bitart 1 tab Q4HP PRN PO 05/26/25 07:30 05/29/25 09:57 1 TAB Ondansetron HCl 4 mg Q4HP PRN IV 05/26/25 07:30 Docusate Sodium 100 mg BIDPRN PRN PO 05/26/25 07:30 Acetaminophen 650 mg Q6HP PRN PO 05/26/25 07:30 Nitroglycerin 0.4 mg Q5MINP PRN SL 05/26/25 07:30 Morphine Sulfate 2 mg Q30M PRN IV 05/26/25 07:30 Aspirin 81 mg DAILY PO 05/26/25 10:00 05/30/25 08:58 81 MG Metoprolol Succinate 50 mg DAILY PO 05/26/25 10:00 05/28/25 10:07 50 MG Patient Own Medication 1 tab BID PO 05/26/25 10:00 Cancel Patient Own Medication 1 tab DAILY PO 05/26/25 10:00 UNV Patient Own Medication 1 tab DAILY PO 05/26/25 10:00 UNV Levetiracetam 500 mg BID PO 05/26/25 10:00 05/30/25 08:58 500 MG Patient Own Medication 1 tab QPM PO 05/26/25 18:00 UNV Bumetanide 1 mg BIDD IV 05/26/25 18:00 05/30/25 05:56 1 MG Gabapentin 300 mg DAILY PO 05/26/25 10:00 05/30/25 08:58 300 MG Nifedipine 90 mg DAILY PO 05/26/25 10:00 05/30/25 08:59 90 MG Atorvastatin Calcium 40 mg HS PO 05/26/25 22:00 05/29/25 21:16 40 MG Clonidine HCl 0.2 mg Q6HP PRN PO 05/26/25 14:00 05/30/25 05:57 0.2 MG Clonidine HCl 0.2 mg TID PO 05/27/25 17:00 05/30/25 13:58 0.2 MG Examination Gen: Patient appears stated age. NAD Lungs: Bilateral air entry. CTA Heart: RRR, normal S1 and S2 Ext:+ edema Neuro: Alert and oriented x 4 laboratory and microbiology Laboratory Tests 05/30/25 05:57 05/28/25 05:58 Test 05/30/25 05:57 Range/Units Serum Glucose 159 H 74-106 mg/dL Microbiology Date/Time Source Procedure Growth Status 05/26/25 22:00 Nose MRSA Screen - Final Complete Labs and/or images reviewed: Labs reviewed by me Problem List/Assessment/Plan Problem List/Assessment/Plan IMP: 1) Hemodynamically mediated MIREYA/VMN in setting of hypertensive urgency/ somewhat labile blood pressure readings with change in blood pressure that may be outside the range of renal autoregulation. 2) CKD stage IV 3) acute on chronic diastolic heart failure 4) acute hypoxemic respiratory failure 5) possible COPD exacerbation REC: - BMP in am - Strict I&O's - Continue to hold ARB during time course of MIREYA. - Avoidance of NSAIDs, and contrast studies if able - Sympatholytic p.r.n. for additional blood pressure control - Pt currently without urgent indication for HD. Stable eGFR and creat. If pt continues to remain metabolically stable, he will follow up with in clinic upon D/C - Will continue to monitor daily for [employer]ONDENT -Will continue to follow Plan discussed with: Patient My Orders My Orders Orders - ALSTON,TORSTEN [employer] Procedure Category Date Status Time Urine LAB 05/30/25 Logged Protein/Creatinine 04:00 TORSTEN ALSTON [employer] May 30, 2025 16:08
[2025-05-30] MEDS: DOCUSATE SOD 100 MG CAP PO PRN (17:55)
[2025-05-31] VITALS (17 sets, daily range): BP systolic 140–181; BP diastolic 68–106; PULSE 51–69; RESP 16–21; TEMP 97.9–98.6; O2SAT 94–100
[2025-05-31 07:43] LABS: Anion Gap 10 (5-15); Carbon Dioxide 28 mmol/L (20-31); Chloride 101 mmol/L (98-107); Potassium 3.8 mmol/L (3.5-5.1); Sodium 139 mmol/L (136-145)
[2025-05-31 07:49] LABS: BUN/Creatinine Ratio 9.0 (10.0-20.0)
[2025-05-31 07:52] LABS: Blood Urea Nitrogen 37 mg/dL (9-23); Calcium 8.3 mg/dL (8.7-10.4); Glucose 126 mg/dL (74-106)
--- NOTE | 2025-05-31 14:29 | DVHPN2 ---
Subjective The patient is seen and examined at bedside. The patient wanted to go home. Creatinine still elevated . Blood pressure is not controlled well. Reviewed: Care Plan, H&P, Labs, Medications, Previous Orders, Radiology Changes from previous H/P or p: No Changes Eyes: No Pain, No Vision change, No Conjunctivae inflammation, No Eyelid inflammation, No Other, No Redness ENT: No Ear pain, No Ear discharge, No Nose pain, No Nose discharge, No Nose congestion, No Mouth pain, No Mouth swelling, No Throat pain, No Throat swelling, No Other Cardiovascular: No Chest Pain, No Palpitations, No Orthopnea, No Paroxysmal Noc. Dyspnea, No Edema, No Lt Headedness, No Other Respiratory: No Cough, No Dry; Shortness of breath, SOB with excertion, W heezing; No Hemoptysis, No Pleuritic Pain, No Sputum, No Other Gastrointestinal: No Nausea, No Vomiting, No Abdominal Pain, No Diarrhea, No Constipation, No Melena, No Hematochezia, No Other Genitourinary: No Dysuria, No Frequency, No Incontinence, No Hematuria, No Retention, No Other Musculoskeletal: No other, No neck pain, No shoulder pain, No arm pain, No back pain, No hand pain, No leg pain, No foot pain Skin: No Rash, No Lesions, No Jaundice, No Bruising, No Other Objective Vitals Vital Signs Date Time Temp Pulse Resp B/P (MAP) Pulse Ox O2 Delivery O2 Flow Rate FiO2 05/31/25 13:00 98.4 56 20 156/77 (103) 99 98.4 05/31/25 10:00 Nasal Cannula 4.0 05/31/25 10:00 36 Intake/Output Intake and Output 05/31/25 07:00 Intake Total 1435 ml Output Total 600 ml Balance 835 ml Intake Oral 1435 ml Output Urine Total 600 ml General Appearance: Alert, Oriented X3, Cooperative HEENT: Atraumatic, PERRLA, EOMI, Mucous membr. moist/pink Neck: Supple Cardiovascular: Regular rate, Normal S1, Normal S2, No murmurs, Gallops, Rubs Abdomen: Normal bowel sounds, Soft, No tenderness Neuro: Cranial nerves 3-12 NL Psych/Mental Status: Mental status NL Medications Current Medications Medications Dose Ordered Sig/Ricky Route Start Time Stop Time Status Last Admin Dose Admin Ipratropium [place] 0.5 mg Q6HWA NEB 05/26/25 12:00 05/31/25 11:27 0.5 MG Albuterol 2.5 mg Q6HWA NEB 05/26/25 12:00 05/31/25 11:27 2.5 MG Sodium Chloride 10 ml Q8HR IV 05/26/25 14:00 05/31/25 05:48 10 ML Acetaminophen/ Hydrocodone Bitart 1 tab Q4HP PRN PO 05/26/25 07:30 05/29/25 09:57 1 TAB Ondansetron HCl 4 mg Q4HP PRN IV 05/26/25 07:30 Docusate Sodium 100 mg BIDPRN PRN PO 05/26/25 07:30 05/30/25 17:55 100 MG Acetaminophen 650 mg Q6HP PRN PO 05/26/25 07:30 Nitroglycerin 0.4 mg Q5MINP PRN SL 05/26/25 07:30 Morphine Sulfate 2 mg Q30M PRN IV 05/26/25 07:30 Aspirin 81 mg DAILY PO 05/26/25 10:00 05/31/25 08:34 81 MG Metoprolol Succinate 50 mg DAILY PO 05/26/25 10:00 05/31/25 08:35 50 MG Patient Own Medication 1 tab BID PO 05/26/25 10:00 Cancel Patient Own Medication 1 tab DAILY PO 05/26/25 10:00 UNV Patient Own Medication 1 tab DAILY PO 05/26/25 10:00 UNV Levetiracetam 500 mg BID PO 05/26/25 10:00 05/31/25 08:34 500 MG Patient Own Medication 1 tab QPM PO 05/26/25 18:00 UNV Bumetanide 1 mg BIDD IV 05/26/25 18:00 05/31/25 05:47 1 MG Gabapentin 300 mg DAILY PO 05/26/25 10:00 05/31/25 08:34 300 MG Nifedipine 90 mg DAILY PO 05/26/25 10:00 05/31/25 08:35 90 MG Atorvastatin Calcium 40 mg HS PO 05/26/25 22:00 05/30/25 22:09 40 MG Clonidine HCl 0.2 mg Q6HP PRN PO 05/26/25 14:00 05/30/25 05:57 0.2 MG Clonidine HCl 0.2 mg TID PO 05/27/25 17:00 05/31/25 05:48 0.2 MG Laboratory Results Laboratory Tests 05/28/25 05:58 05/31/25 06:00 Chemistry Test 05/31/25 06:00 Calcium Level 8.3 mg/dL (8.7-10.4) L Urinalysis Test 05/28/25 21:30 Urine Color Light-yellow (Yellow) Urine Clarity Clear (Clear) Urine pH 7.0 (5.0-9.0) Urine Specific [place] 1.012 (1.001-1.035) Urine Protein 2+ (Negative) H Urine Ketones Negative (Negative) Urine Blood Trace /uL (Negative) H Urine Nitrite Negative (Negative) Urine Bilirubin Negative (Negative) Urine Urobilinogen Normal mg/dL (Negative) Urine Leukocyte Esterase Negative /uL (Negative) Urine RBC 1 /hpf (0 - 3) Urine Microscopic WBC 3 /HPF (0-3) Urine Squamous Epithelial Cells Few /hpf (<5) Urine Amorphous Crystals Few /hpf (None Seen) Urine Bacteria Few /hpf (None Seen) H Urine Creatinine 86.37 mg/dL (30.0-125.0) Urine Sodium 55 mmol/L (40-220) Urine Glucose Normal mg/dL (Normal) Urine Total Protein 264.0 mg/dL (1-14) H Microbiology Microbiology Date/Time Source Procedure Growth Status 05/26/25 22:00 Nose MRSA Screen - Final Complete Labs and/or images reviewed: Labs reviewed by me Assessment/Plan Assessment/Plan Hypertensive urgency, COPD exacerbation, Probable obesity hypoventilation syndrome Morbid obesity with a BMI 37 Pulmonary edema, Fluid overload, Cardiomegaly, Acute on chronic kidney failure, Hypokalemia, Anemia, Plan: Continuing clonidine to 3 times a day. DC Aldactone given worsening renal function. Continue Bumex and losartan. Continue rest of blood pressure medications. Follow daily BMP for kidney function. Nephrology consultation appreciate. Renal ultrasound for the kidneys showed kidney disease. Given his history of obesity with hypoventilation syndrome, pulmonology consultation was consult. We will get an ABG. Continue oxygen for now. Continue rest of supportive care and treatment. Further clinical management per clinical course. DW patient and his niece at bedside.. Still continue monitor BUN/cr. Continue PRN IV and oral HTN meds. This medical document was created using an electronic medical record system with [employer] direct computerized dictation system. Although this document has been carefully reviewed, there may still be some phonetic and typographical errors. These areas are purely typographical due to imperfections of the software programs, and do not reflect any compromise in the patient's medical care. Plan discussed with: Patient My Orders Orders - JON WRIGHT MD Procedure Category Date Status Time Dietary NOTICE 05/31/25 Transmitted Recommendations 06:18 Date of Service: May 31, 2025 Billing Provider: JON WRIGHT MD Common Visit Codes: [id number] INP/OBS CARE(HIGH) JON WRIGHT MD May 31, 2025 14:29
--- NOTE | 2025-05-31 15:30 | DVHPN2 ---
Progress Note Date Seen: May 31, 2025 Medical Necessity Reason Pt with a Central, PICC or Fol: No Subjective Patient reports: No new complaints, Feels better Objective vital signs Vital Sign Date Time Temp Pulse Resp B/P (MAP) Pulse Ox O2 Delivery O2 Flow Rate FiO2 05/31/25 13:00 98.4 56 20 156/77 (103) 99 98.4 05/31/25 10:00 Nasal Cannula 4.0 05/31/25 10:00 36 Total Intake and Output 05/30/25 05/30/25 05/31/25 15:00 23:00 07:00 Intake Total 1035 ml 400 ml Output Total 400 ml 200 ml Balance 635 ml 200 ml medications Current Medications Medications Dose Ordered Sig/Ricky Route Start Time Stop Time Status Last Admin Dose Admin Ipratropium [place] 0.5 mg Q6HWA NEB 05/26/25 12:00 05/31/25 11:27 0.5 MG Albuterol 2.5 mg Q6HWA NEB 05/26/25 12:00 05/31/25 11:27 2.5 MG Sodium Chloride 10 ml Q8HR IV 05/26/25 14:00 05/31/25 14:00 10 ML Acetaminophen/ Hydrocodone Bitart 1 tab Q4HP PRN PO 05/26/25 07:30 05/29/25 09:57 1 TAB Ondansetron HCl 4 mg Q4HP PRN IV 05/26/25 07:30 Docusate Sodium 100 mg BIDPRN PRN PO 05/26/25 07:30 05/30/25 17:55 100 MG Acetaminophen 650 mg Q6HP PRN PO 05/26/25 07:30 Nitroglycerin 0.4 mg Q5MINP PRN SL 05/26/25 07:30 Morphine Sulfate 2 mg Q30M PRN IV 05/26/25 07:30 Aspirin 81 mg DAILY PO 05/26/25 10:00 05/31/25 08:34 81 MG Metoprolol Succinate 50 mg DAILY PO 05/26/25 10:00 05/31/25 08:35 50 MG Patient Own Medication 1 tab BID PO 05/26/25 10:00 Cancel Patient Own Medication 1 tab DAILY PO 05/26/25 10:00 UNV Patient Own Medication 1 tab DAILY PO 05/26/25 10:00 UNV Levetiracetam 500 mg BID PO 05/26/25 10:00 05/31/25 08:34 500 MG Patient Own Medication 1 tab QPM PO 05/26/25 18:00 UNV Bumetanide 1 mg BIDD IV 05/26/25 18:00 05/31/25 05:47 1 MG Gabapentin 300 mg DAILY PO 05/26/25 10:00 05/31/25 08:34 300 MG Nifedipine 90 mg DAILY PO 05/26/25 10:00 05/31/25 08:35 90 MG Atorvastatin Calcium 40 mg HS PO 05/26/25 22:00 05/30/25 22:09 40 MG Clonidine HCl 0.2 mg Q6HP PRN PO 05/26/25 14:00 05/30/25 05:57 0.2 MG Clonidine HCl 0.2 mg TID PO 05/27/25 17:00 05/31/25 05:48 0.2 MG Examination Gen: Patient appears stated age. NAD Lungs: Bilateral air entry Heart: RRR, normal S1 and S2 Ext:+ edema Neuro: Alert and oriented x 4 laboratory and microbiology Laboratory Tests 05/31/25 06:00 05/28/25 05:58 Test 05/31/25 06:00 Range/Units Serum Glucose 126 H 74-106 mg/dL Microbiology Date/Time Source Procedure Growth Status 05/26/25 22:00 Nose MRSA Screen - Final Complete Labs and/or images reviewed: Labs reviewed by me Problem List/Assessment/Plan Problem List/Assessment/Plan IMP: 1) Hemodynamically mediated MIREYA/VMN in setting of hypertensive urgency/ somewhat labile blood pressure readings with change in blood pressure that may be outside the range of renal autoregulation. 2) CKD stage IV 3) acute on chronic diastolic heart failure 4) acute hypoxemic respiratory failure 5) possible COPD exacerbation REC: - BMP - Strict I&O's - Hold ARB during time course of MIREYA. - Avoidance of NSAIDs, and contrast studies if able - Blood pressure control - Pt clear for D/C from nephrology standpoint - Pt currently without urgent indication for HD. If pt continues to remain metabolically stable, will follow up with at outpt clinic upon D/C - Will continue to follow Case discussed with Dr. Indra Choe Plan discussed with: Patient Dietary Evaluation Review Recommendations by RD: Dietary education by RD Comments: 1) Add 45g CCHO cardiac restriction to cardiac diet 2) Initiate Nepro qd 3) Encourage optimal PO intake 4) Collect HbA1c 5) Refer to outpatient RD for weight management 6) Follow-up with cardiology, pulmonology, nephrology, and neurology 7) Continue to monitor I&O, labs, and skin integrity Expected Outcomes/Goals: 1) appetite and labs to improve 2) gradual wt loss 3) f/u in 3-5 days TORSTEN ALSTON May 31, 2025 15:30
--- NOTE | 2025-05-31 18:56 | DVHINCON2 ---
Date Seen: May 29, [address] Wright Reason for Consultation Acute hypoxic respiratory failure and COPD exacerbation. History of Present Illness A 64-year-old male with past medical history of COPD on home oxygen at 4L N/C, hypertension, hyperlipidemia, chronic kidney disease, and seizures, who came to the hospital on 05/26/25 with c/o shortness of breath. Patient states his shortness of breath began night prior to presentation. Patient states his shortness of breath came on at rest, and that he has been compliant with his medications. There was an ECHO completed here 04/22/25 that showed an EF of 60%, with no significant valvular disease. He states he is supposed to follow with cardiology and nephrology but he cannot remember who he is supposed to see. Patient was admitted for further care. Pulmonary consultation is requested for evaluation and management of acute hypoxic respiratory failure and COPD exac erbation. Review of Systems: 14-point review of systems negative unless otherwise noted above. Past Medical History: COPD, CHF, HTN, hyperlipidemia, CKD, seizures, anemia. Past Surgical History: None Medications: Reviewed. Allergies: Penicillins Family History: No family history of premature CAD. No family history of lung disorders. Social History: Nonsmoker. No alcohol or illicit drug use. Family History: FH: Alzheimers disease FH: HTN (hypertension) G8 MOTHER FH: cancer G8 MOTHER Grandmother Grandfather Allergies: Coded Allergies: Penicillins (Verified Allergy, Unknown, 05/31/24) Home Meds Active Scripts Losartan Potassium (Losartan Potassium) 50 Mg Tab, 1 TAB PO DAILY for 30 Days, #30 TAB 3 Refills Prov:SALSANJAY SOLEROLPH LEAF BINNER 04/18/25 Spironolactone (Spironolactone) 50 Mg Tab, 1 TAB PO DAILY, #30 TAB 5 Refills Prov:SALBINO,MCKEON LEAF BINNER 04/18/25 Metoprolol Succinate (Toprol Xl) 50 Mg Tab, 1 TAB PO DAILY, #30 TAB 5 Refills Prov:SALBINOSANJAYMCKEON LEAF BINNER 04/18/25 Nifedipine (Nifedipine Er) 90 Mg Tab, 1 TAB PO DAILY, #30 TAB 5 Refills Prov:SALBINOMCKEON LEAF BINNER 04/18/25 Potassium Bicarbonate (Effer-K) 25 Meq Tab, 25 MEQ PO DAILY, #30 TAB 5 Refills Prov:JON WRIGHT MD 04/02/25 Bumetanide (Bumex Tablet) 1 Mg Tab, 1 MG PO BID, #60 TAB 5 Refills BLK BX WARNING-CAN LEAD TO PROFOUND DIURESIS WITH FLUID- ELECTROLYTE LOSS Prov:JON WRIGHT MD 04/02/25 Hydralazine Hcl (Hydralazine Hcl) 100 Mg Tab, 1 TAB PO TID, #90 TAB 5 Refills Prov:JON WRIGHT MD 04/02/25 Clonidine Hydrochloride (Clonidine Hcl) 0.2 Mg Tab, 1 TAB PO BID, #120 TAB 5 Refills Prov:JON WRIGHT MD 04/02/25 Gabapentin (Gabapentin) 300 Mg Cap, 1 CAP PO TID, #90 CAP 5 Refills Prov:JON WRIGHT MD 04/02/25 Aspirin (Aspir-81) 81 Mg Tab, 1 TAB PO DAILY, #60 TAB 5 Refills Prov:TEO HEART MD 06/02/24 Reported Medications Atorvastatin Calcium (ATORVASTATIN CALCIUM) 40 Mg Tab, 1 TAB PO QPM, #90 TAB 3 Refills 05/26/25 Levetiracetam (Levetiracetam) 500 Mg Tab, 1 TAB PO BID 05/26/25 Hydrocodone-Acetaminophen (Hydrocodone/Acetaminophen 10-325 mg) 1 Tab Tab, TID 04/23/25 Discontinued Scripts Nifedipine (Nifedipine Er) 60 Mg Tab, 1 TAB PO DAILY, #60 TAB 5 Refills Prov:JON WRIGHT MD 04/02/25 Spironolactone (Spironolactone) 25 Mg Tab, 0.5 TAB PO BID for 30 Days, #30 TAB 5 Refills Prov:JON WRIGHT MD 04/02/25 Vital Signs Vital Signs Date Time Temp Pulse Resp B/P (MAP) Pulse Ox O2 Delivery O2 Flow Rate FiO2 05/31/25 17:39 152/84 05/31/25 16:38 98.4 60 18 100 98.4 05/31/25 10:00 Nasal Cannula 4.0 05/31/25 10:00 36 Physical Exam Gen.: Patient lying in bed in no apparent distress. On BiPAP Head: Normocephalic, atraumatic. Eyes: EOMI/PERRLA. Ears: Normal hearing. Normal anatomy. Neck/trachea: Trachea midline, supple. Nose: Normal external anatomy. Mouth: Moist mucous membranes. Chest: Decreased air entry bilaterally. No wheezing or rhonchi. Cardiovascular: Positive S1, positive S2. Regular rate and rhythm. Abdomen: Positive bowel sounds in all 4 quadrants. Soft, non-tender, non- distended. : Deferred. Rectal: Deferred. Skin: Warm, dry. Intact. Extremities: 2+ radial pulses bilaterally. No lower extremity edema. Neuro: Awake, alert, oriented x3. No gross motor or sensory deficits. Cranial nerves II through XII intact. Gait not assessed. Labs/Diagnostic Data Labs Test 05/31/25 06:00 05/28/25 21:30 05/28/25 07:14 05/28/25 05:58 Range/Units Sodium Level 139 136-145 mmol/L Potassium Level 3.8 3.5-5.1 mmol/L Chloride Level 101 98-107 mmol/L Carbon Dioxide Level 28 20-31 mmol/L Anion Gap 10 5-15 Blood Urea Nitrogen 37 H 9-23 mg/dL Creatinine 4.13 H 0.700-1.30 mg/dL Glomerular Filtration Rate Calc 15 >90 mL/min BUN/Creatinine Ratio 9.0 L 10.0-20.0 Serum Glucose 126 H 74-106 mg/dL Calcium Level 8.3 L 8.7-10.4 mg/dL Urine Color Light-yellow Yellow Urine Clarity Clear Clear Urine pH 7.0 5.0-9.0 Urine Specific [place] 1.012 1.001-1.035 Urine Protein 2+ H Negative Urine Ketones Negative Negative Urine Blood Trace H Negative /uL Urine Nitrite Negative Negative Urine Bilirubin Negative Negative Urine Urobilinogen Normal Negative mg/dL Urine Leukocyte Esterase Negative Negative /uL Urine RBC 1 0 - 3 /hpf Urine Microscopic WBC 3 0-3 /HPF Urine Squamous Epithelial Cells Few <5 /hpf Urine Amorphous Crystals Few None Seen /hpf Urine Bacteria Few H None Seen /hpf Urine Creatinine 86.37 30.0-125.0 mg/dL Urine Sodium 55 40-220 mmol/L Urine Glucose Normal Normal mg/dL Urine Total Protein 264.0 H 1-14 mg/dL Blood Gas Specimen Type Arterial Blood Gas Sample Site Left radial Blood Gas Patient Temperature 37.0 Arterial Blood Date Drawn [id number] Arterial Blood pH 7.475 H 7.350-7.450 Arterial Blood Partial Pressure CO2 38.1 35.0-48.0 mmHg Arterial Blood Partial Pressure O2 71.4 L 83.0-108.0 mmHg Arterial Blood HCO3 27.4 21.0-28.0 mmol/L Arterial Blood Oxygen Saturation 93.2 L 94.0-98.0 % Arterial Blood Base Excess 3.7 H -2.0-3.0 mmol/L Arterial Blood Oxyhemoglobin 92.1 L 94.0-98.0 % Arterial Blood Carboxyhemoglobin 0.3 L 0.5-1.5 % Arterial Blood Methemoglobin 0.9 0.0-1.5 % Bernardo Test Yes Blood Gas Total Hemoglobin 9.50 L 13.5-17.5 g/dL Blood Gas Set Respiration Rate 12.0 Blood Gas Modality Mask - bipap Blood Gas Spontaneous Rate 23 FiO2 % 40.0 Blood Gas Spontaneous Tidal Volume 753 Blood Gas EPAP 5 Blood Gas IPAP 14 Blood Gas Comments I-time 0.80 sec. White Blood Count 8.0 # 4.4-10.8 10^3/uL Red Blood Count 3.87 L 4.5-5.90 10^6/uL Hemoglobin 11.3 #L 13.5-17.5 g/dL Hematocrit 33.9 #L 41.0-53.0 % Mean Corpuscular Volume 87.6 80.0-100.0 fL Mean Corpuscular Hemoglobin 29.2 28.0-32.0 pg Mean Corpuscular Hemoglobin Concent 33.4 32.0-36.0 g/dL Red Cell Distribution Width 16.2 H 11.8-14.3 % Platelet Count 183 140-450 10^3/uL Mean Platelet Volume 9.9 6.9-10.8 fL Neutrophils (%) (Auto) 63.3 37.0-80.0 % Lymphocytes (%) (Auto) 22.9 10.0-50.0 % Monocytes (%) (Auto) 8.9 0.0-12.0 % Eosinophils (%) (Auto) 4.0 0.0-7.0 % Basophils (%) (Auto) 0.9 0.0-2.0 % Neutrophils # (Auto) 5.0 1.6-8.6 10 ^3/uL Lymphocytes # (Auto) 1.8 0.4-5.4 10 ^3/uL Monocytes # (Auto) 0.7 0-1.3 10 ^3/uL Eosinophils # (Auto) 0.3 0-0.8 10 ^3/uL Basophils # (Auto) 0.1 0-0.2 10 ^3/uL Nucleated Red Blood Cells 0.1 % Test 05/28/25 05:56 05/27/25 16:15 05/27/25 10:13 05/26/25 15:19 Range/Units POC Glucose 176 H 70-106 mg/dl Blood Gas Liter Flow 4.00 Total Bilirubin 0.3 0.2-1.0 mg/dL Aspartate Amino Transferase (AST) 11 L 13-40 U/L Alanine Aminotransferase (ALT) 10 7-40 U/L Alkaline Phosphatase 64 46-116 U/L Total Protein 5.6 L 5.7-8.2 g/dL Albumin 3.3 3.2-4.8 g/dL Urine Opiates Screen Neg NEGATIVE Urine Fentanyl Screen Neg NEGATIVE Urine Barbiturates Screen Neg NEGATIVE Urine Phencyclidine Screen Neg NEGATIVE Urine Amphetamines Screen Neg NEGATIVE Urine Benzodiazepines Screen Neg NEGATIVE Urine Cocaine Screen Neg NEGATIVE Urine Cannabinoids Screen Neg NEGATIVE Test 05/26/25 10:06 05/26/25 05:20 05/26/25 03:00 05/26/25 02:10 Range/Units Magnesium Level 1.9 1.6-2.6 mg/dL Troponin I High Sensitivity 26 </=54 ng/L B-Type Natriuretic Peptide 218.77 0-100 pg/mL Prothrombin Time 9.8 9.3-11.8 sec Prothrombin Time INR 0.92 0.9-1.15 Activated Partial Thromboplast Time < 20.0 L 24.5-34.5 SEC Microbiology Date/Time Source Procedure Growth Status 05/26/25 22:00 Nose MRSA Screen - Final Complete Assessment Impression: Acute hypoxic respiratory failure COPD exacerbation Snoring Obesity hypoventilation syndrome Morbid obesity BMI 40.6 Atelectasis Acute kidney injury on chronic kidney disease Acute on chronic diastolic heart failure Plan: Patient is on BiPAP with IPAP 14, EPAP 5, FiO2 50% Titrate to keep O2 sats above 92%. Taper FiO2 as tolerated. Note, pt desaturated overnight. Bronchodilators PRN. Blood pressure control Follow up Cardiology recommendations Antiepileptic medication Follow up Nephrology recommendations Diurese to euvolemia Monitor renal function. Monitor electrolytes. Supplement as necessary. Monitor ins and outs. Strict Is and Os. Physical therapy Recommend outpatient evaluation for obstructive sleep apnea. Diet and lifestyle modifications for weight reduction Obesity complicates all care DVT prophylaxis. Prognosis: Poor given patient's multiple co-morbidities. Rest of plan per hospitalist and other consultants. Thank you, Dr. Wright, for allowing me to participate in this patient's care. Further recommendations will depend on the patient's clinical course. Please do not hesitate to contact me if you have any questions or concerns. This medical document was created using an electronic medical record system with [employer] dictation system. Although these documentations are being carefully reviewed, there may still be some phonetic and typographical changes. The errors are purely typographical, due to imperfection on the software program, and do not reflect any compromise in the patient's medical care. Plan discussed with: Patient, Other (ZEYNEP Lauren/Dr. Wright) Date of Service: May 29, 2025 Billing Provider: SERENA SMITH MD Common Visit Codes: [id number] INP/OBS CARE (HIGH) SERENA SMITH MD May 31, 2025 18:56
--- NOTE | 2025-05-31 22:43 | DVHPN2 ---
Subjective DOS: 05/30/2025 Patient seen and examined at bedside. Currently on supplemental oxygen Overnight events reviewed. Reviewed: Care Plan, H&P, Labs, Medications, Previous Orders, Radiology Changes from previous H/P or p: No Changes Eyes: No Pain, No Vision change, No Conjunctivae inflammation, No Eyelid inflammation, No Other, No Redness ENT: No Ear pain, No Ear discharge, No Nose pain, No Nose discharge, No Nose congestion, No Mouth pain, No Mouth swelling, No Throat pain, No Throat swelling, No Other Cardiovascular: No Chest Pain, No Palpitations, No Orthopnea, No Paroxysmal Noc. Dyspnea, No Edema, No Lt Headedness, No Other Respiratory: No Cough, No Dry; Shortness of breath, SOB with excertion, W heezing; No Hemoptysis, No Pleuritic Pain, No Sputum, No Other Gastrointestinal: No Nausea, No Vomiting, No Abdominal Pain, No Diarrhea, No Constipation, No Melena, No Hematochezia, No Other Genitourinary: No Dysuria, No Frequency, No Incontinence, No Hematuria, No Retention, No Other Musculoskeletal: No other, No neck pain, No shoulder pain, No arm pain, No back pain, No hand pain, No leg pain, No foot pain Skin: No Rash, No Lesions, No Jaundice, No Bruising, No Other Objective Vitals Vital Signs Date Time Temp Pulse Resp B/P (MAP) Pulse Ox O2 Delivery O2 Flow Rate FiO2 05/31/25 21:50 62 94 Facial BiPAP Mask 40 05/31/25 21:27 141/90 05/31/25 21:00 98.6 18 98.6 05/31/25 20:00 5 Intake/Output Intake and Output 05/31/25 07:00 Intake Total 1435 ml Output Total 600 ml Balance 835 ml Intake Oral 1435 ml Output Urine Total 600 ml General Appearance: Alert, Oriented X3, Cooperative HEENT: Atraumatic, PERRLA, EOMI, Mucous membr. moist/pink Neck: Supple Lungs: Clear to auscultation, Other (Decreased air entry bilaterally) Cardiovascular: Regular rate, Normal S1, Normal S2, No murmurs, Gallops, Rubs Abdomen: Normal bowel sounds, Soft, No tenderness Neuro: Cranial nerves 3-12 NL Psych/Mental Status: Mental status NL Medications Current Medications Medications Dose Ordered Sig/Ricky Route Start Time Stop Time Status Last Admin Dose Admin Ipratropium [place] 0.5 mg Q6HWA NEB 05/26/25 12:00 05/31/25 18:52 0.5 MG Albuterol 2.5 mg Q6HWA NEB 05/26/25 12:00 05/31/25 18:52 2.5 MG Sodium Chloride 10 ml Q8HR IV 05/26/25 14:00 05/31/25 21:31 10 ML Acetaminophen/ Hydrocodone Bitart 1 tab Q4HP PRN PO 05/26/25 07:30 05/31/25 21:29 1 TAB Ondansetron HCl 4 mg Q4HP PRN IV 05/26/25 07:30 Docusate Sodium 100 mg BIDPRN PRN PO 05/26/25 07:30 05/30/25 17:55 100 MG Acetaminophen 650 mg Q6HP PRN PO 05/26/25 07:30 Nitroglycerin 0.4 mg Q5MINP PRN SL 05/26/25 07:30 Morphine Sulfate 2 mg Q30M PRN IV 05/26/25 07:30 Aspirin 81 mg DAILY PO 05/26/25 10:00 05/31/25 08:34 81 MG Metoprolol Succinate 50 mg DAILY PO 05/26/25 10:00 05/31/25 08:35 50 MG Patient Own Medication 1 tab BID PO 05/26/25 10:00 Cancel Patient Own Medication 1 tab DAILY PO 05/26/25 10:00 UNV Patient Own Medication 1 tab DAILY PO 05/26/25 10:00 UNV Levetiracetam 500 mg BID PO 05/26/25 10:00 05/31/25 21:25 500 MG Patient Own Medication 1 tab QPM PO 05/26/25 18:00 UNV Bumetanide 1 mg BIDD IV 05/26/25 18:00 05/31/25 17:39 1 MG Gabapentin 300 mg DAILY PO 05/26/25 10:00 05/31/25 08:34 300 MG Nifedipine 90 mg DAILY PO 05/26/25 10:00 05/31/25 08:35 90 MG Atorvastatin Calcium 40 mg HS PO 05/26/25 22:00 05/31/25 21:27 40 MG Clonidine HCl 0.2 mg Q6HP PRN PO 05/26/25 14:00 05/30/25 05:57 0.2 MG Clonidine HCl 0.2 mg TID PO 05/27/25 17:00 05/31/25 21:27 0.2 MG Laboratory Results Laboratory Tests 05/28/25 05:58 05/31/25 06:00 Chemistry Test 05/31/25 06:00 Calcium Level 8.3 mg/dL (8.7-10.4) L Urinalysis Test 05/28/25 21:30 Urine Color Light-yellow (Yellow) Urine Clarity Clear (Clear) Urine pH 7.0 (5.0-9.0) Urine Specific [place] 1.012 (1.001-1.035) Urine Protein 2+ (Negative) H Urine Ketones Negative (Negative) Urine Blood Trace /uL (Negative) H Urine Nitrite Negative (Negative) Urine Bilirubin Negative (Negative) Urine Urobilinogen Normal mg/dL (Negative) Urine Leukocyte Esterase Negative /uL (Negative) Urine RBC 1 /hpf (0 - 3) Urine Microscopic WBC 3 /HPF (0-3) Urine Squamous Epithelial Cells Few /hpf (<5) Urine Amorphous Crystals Few /hpf (None Seen) Urine Bacteria Few /hpf (None Seen) H Urine Creatinine 86.37 mg/dL (30.0-125.0) Urine Sodium 55 mmol/L (40-220) Urine Glucose Normal mg/dL (Normal) Urine Total Protein 264.0 mg/dL (1-14) H Microbiology Microbiology Date/Time Source Procedure Growth Status 05/26/25 22:00 Nose MRSA Screen - Final Complete Assessment/Plan Assessment/Plan Impression: Acute hypoxic respiratory failure COPD exacerbation Snoring Obesity hypoventilation syndrome Morbid obesity Atelectasis Acute kidney injury on chronic kidney disease Acute on chronic diastolic heart failure Events: Currently on supplemental oxygen Taper O2 as tolerated On BiPAP while sleeping Continue bronchodilators Incentive spirometry Diurese as tolerated w/ Bumex Monitor renal function Labs and imaging reviewed. Rest of plan as noted below. Plan: Continue supplemental oxygen Titrate to keep O2 sats above 92%. Taper O2 as tolerated BiPAP PRN while sleeping Bronchodilators PRN. Blood pressure control Follow up Cardiology recommendations Antiepileptic medication Follow up Nephrology recommendations Diurese to euvolemia Monitor renal function. Monitor electrolytes. Supplement as necessary. Monitor ins and outs. Strict Is and Os. Physical therapy Recommend outpatient evaluation for obstructive sleep apnea. Diet and lifestyle modifications for weight reduction Obesity complicates all care DVT prophylaxis. Prognosis: Poor given patient's multiple co-morbidities. Rest of plan per hospitalist and other consultants. Thank you, Dr. Lopez, for allowing me to participate in this patient's care. Further recommendations will depend on the patient's clinical course. Please do not hesitate to contact me if you have any questions or concerns. This medical document was created using an electronic medical record system with [employer] dictation system. Although these documentations are being carefully reviewed, there may still be some phonetic and typographical changes. The errors are purely typographical, due to imperfection on the software program, and do not reflect any compromise in the patient's medical care. Plan discussed with: Patient, Other (RN) Date of Service: May 30, 2025 Billing Provider: SERENA SMITH MD Common Visit Codes: [id number] INP/OBS CARE(HIGH) SERENA SMITH MD May 31, 2025 22:43
--- NOTE | 2025-05-31 23:31 | DVHPN2 ---
Subjective DOS: 05/31/2025 Patient seen and examined at bedside. Currently on supplemental oxygen Overnight events reviewed. Reviewed: Care Plan, H&P, Labs, Medications, Previous Orders, Radiology Changes from previous H/P or p: No Changes Eyes: No Pain, No Vision change, No Conjunctivae inflammation, No Eyelid inflammation, No Other, No Redness ENT: No Ear pain, No Ear discharge, No Nose pain, No Nose discharge, No Nose congestion, No Mouth pain, No Mouth swelling, No Throat pain, No Throat swelling, No Other Cardiovascular: No Chest Pain, No Palpitations, No Orthopnea, No Paroxysmal Noc. Dyspnea, No Edema, No Lt Headedness, No Other Respiratory: No Cough, No Dry; Shortness of breath, SOB with excertion, W heezing; No Hemoptysis, No Pleuritic Pain, No Sputum, No Other Gastrointestinal: No Nausea, No Vomiting, No Abdominal Pain, No Diarrhea, No Constipation, No Melena, No Hematochezia, No Other Genitourinary: No Dysuria, No Frequency, No Incontinence, No Hematuria, No Retention, No Other Musculoskeletal: No other, No neck pain, No shoulder pain, No arm pain, No back pain, No hand pain, No leg pain, No foot pain Skin: No Rash, No Lesions, No Jaundice, No Bruising, No Other Objective Vitals Vital Signs Date Time Temp Pulse Resp B/P (MAP) Pulse Ox O2 Delivery O2 Flow Rate FiO2 05/31/25 21:50 62 94 Facial BiPAP Mask 40 05/31/25 21:27 141/90 05/31/25 21:00 98.6 18 98.6 05/31/25 20:00 5 Intake/Output Intake and Output 05/31/25 07:00 Intake Total 1435 ml Output Total 600 ml Balance 835 ml Intake Oral 1435 ml Output Urine Total 600 ml General Appearance: Alert, Oriented X3, Cooperative HEENT: Atraumatic, PERRLA, EOMI, Mucous membr. moist/pink Neck: Supple Lungs: Clear to auscultation, Other (Decreased air entry bilaterally) Cardiovascular: Regular rate, Normal S1, Normal S2, No murmurs, Gallops, Rubs Abdomen: Normal bowel sounds, Soft, No tenderness Neuro: Cranial nerves 3-12 NL Psych/Mental Status: Mental status NL Medications Current Medications Medications Dose Ordered Sig/Ricky Route Start Time Stop Time Status Last Admin Dose Admin Ipratropium [place] 0.5 mg Q6HWA NEB 05/26/25 12:00 05/31/25 18:52 0.5 MG Albuterol 2.5 mg Q6HWA NEB 05/26/25 12:00 05/31/25 18:52 2.5 MG Sodium Chloride 10 ml Q8HR IV 05/26/25 14:00 05/31/25 21:31 10 ML Acetaminophen/ Hydrocodone Bitart 1 tab Q4HP PRN PO 05/26/25 07:30 05/31/25 21:29 1 TAB Ondansetron HCl 4 mg Q4HP PRN IV 05/26/25 07:30 Docusate Sodium 100 mg BIDPRN PRN PO 05/26/25 07:30 05/30/25 17:55 100 MG Acetaminophen 650 mg Q6HP PRN PO 05/26/25 07:30 Nitroglycerin 0.4 mg Q5MINP PRN SL 05/26/25 07:30 Morphine Sulfate 2 mg Q30M PRN IV 05/26/25 07:30 Aspirin 81 mg DAILY PO 05/26/25 10:00 05/31/25 08:34 81 MG Metoprolol Succinate 50 mg DAILY PO 05/26/25 10:00 05/31/25 08:35 50 MG Patient Own Medication 1 tab BID PO 05/26/25 10:00 Cancel Patient Own Medication 1 tab DAILY PO 05/26/25 10:00 UNV Patient Own Medication 1 tab DAILY PO 05/26/25 10:00 UNV Levetiracetam 500 mg BID PO 05/26/25 10:00 05/31/25 21:25 500 MG Patient Own Medication 1 tab QPM PO 05/26/25 18:00 UNV Bumetanide 1 mg BIDD IV 05/26/25 18:00 05/31/25 17:39 1 MG Gabapentin 300 mg DAILY PO 05/26/25 10:00 05/31/25 08:34 300 MG Nifedipine 90 mg DAILY PO 05/26/25 10:00 05/31/25 08:35 90 MG Atorvastatin Calcium 40 mg HS PO 05/26/25 22:00 05/31/25 21:27 40 MG Clonidine HCl 0.2 mg Q6HP PRN PO 05/26/25 14:00 05/30/25 05:57 0.2 MG Clonidine HCl 0.2 mg TID PO 05/27/25 17:00 05/31/25 21:27 0.2 MG Laboratory Results Laboratory Tests 05/28/25 05:58 05/31/25 06:00 Chemistry Test 05/31/25 06:00 Calcium Level 8.3 mg/dL (8.7-10.4) L Urinalysis Test 05/28/25 21:30 Urine Color Light-yellow (Yellow) Urine Clarity Clear (Clear) Urine pH 7.0 (5.0-9.0) Urine Specific [place] 1.012 (1.001-1.035) Urine Protein 2+ (Negative) H Urine Ketones Negative (Negative) Urine Blood Trace /uL (Negative) H Urine Nitrite Negative (Negative) Urine Bilirubin Negative (Negative) Urine Urobilinogen Normal mg/dL (Negative) Urine Leukocyte Esterase Negative /uL (Negative) Urine RBC 1 /hpf (0 - 3) Urine Microscopic WBC 3 /HPF (0-3) Urine Squamous Epithelial Cells Few /hpf (<5) Urine Amorphous Crystals Few /hpf (None Seen) Urine Bacteria Few /hpf (None Seen) H Urine Creatinine 86.37 mg/dL (30.0-125.0) Urine Sodium 55 mmol/L (40-220) Urine Glucose Normal mg/dL (Normal) Urine Total Protein 264.0 mg/dL (1-14) H Microbiology Microbiology Date/Time Source Procedure Growth Status 05/26/25 22:00 Nose MRSA Screen - Final Complete Assessment/Plan Assessment/Plan Impression: Acute hypoxic respiratory failure COPD exacerbation Snoring Obesity hypoventilation syndrome Morbid obesity Atelectasis Acute kidney injury on chronic kidney disease Acute on chronic diastolic heart failure Events: Currently on supplemental oxygen 4 LPM NC Taper O2 as tolerated On BiPAP while sleeping Continue bronchodilators Incentive spirometry Diurese as tolerated w/ Bumex Monitor renal function Monitor electrolytes. Supplement as necessary. Monitor ins and outs Labs and imaging reviewed. Rest of plan as noted below. Plan: Continue supplemental oxygen Titrate to keep O2 sats above 92%. Taper O2 as tolerated BiPAP PRN while sleeping Bronchodilators PRN. Blood pressure control Follow up Cardiology recommendations Antiepileptic medication Follow up Nephrology recommendations Diurese to euvolemia Monitor renal function. Monitor electrolytes. Supplement as necessary. Monitor ins and outs. Strict Is and Os. Physical therapy Recommend outpatient evaluation for obstructive sleep apnea. Diet and lifestyle modifications for weight reduction Obesity complicates all care DVT prophylaxis. Prognosis: Poor given patient's multiple co-morbidities. Rest of plan per hospitalist and other consultants. Thank you, Dr. Lopez, for allowing me to participate in this patient's care. Further recommendations will depend on the patient's clinical course. Please do not hesitate to contact me if you have any questions or concerns. This medical document was created using an electronic medical record system with [employer] dictation system. Although these documentations are being carefully reviewed, there may still be some phonetic and typographical changes. The errors are purely typographical, due to imperfection on the software program, and do not reflect any compromise in the patient's medical care. Plan discussed with: Patient, Other (ZEYNEP Roa) Date of Service: May 31, 2025 Billing Provider: SERENA SMITH MD Common Visit Codes: [id number] INP/OBS CARE(HIGH) SERENA SMITH MD May 31, 2025 23:30
[2025-06-01] VITALS (18 sets, daily range): BP systolic 140–168; BP diastolic 76–101; PULSE 49–60; RESP 14–20; TEMP 97.1–98.1; O2SAT 96–100
[2025-06-01 06:59] LABS: Anion Gap 9 (5-15); Carbon Dioxide 29 mmol/L (20-31); Chloride 102 mmol/L (98-107); Potassium 3.5 mmol/L (3.5-5.1); Sodium 140 mmol/L (136-145)
[2025-06-01 07:00] LABS: Calcium 8.2 mg/dL (8.7-10.4)
[2025-06-01 07:05] LABS: BUN/Creatinine Ratio 9.7 (10.0-20.0)
[2025-06-01 07:06] LABS: Blood Urea Nitrogen 38 mg/dL (9-23); Glucose 132 mg/dL (74-106)
--- NOTE | 2025-06-01 11:39 | DVHPN2 ---
Subjective The patient is seen and examined at bedside. The patient wanted to go home. Creatinine improved today. . Blood pressure is not controlled well. Reviewed: Care Plan, H&P, Labs, Medications, Previous Orders, Radiology Changes from previous H/P or p: No Changes Eyes: No Pain, No Vision change, No Conjunctivae inflammation, No Eyelid inflammation, No Other, No Redness ENT: No Ear pain, No Ear discharge, No Nose pain, No Nose discharge, No Nose congestion, No Mouth pain, No Mouth swelling, No Throat pain, No Throat swelling, No Other Cardiovascular: No Chest Pain, No Palpitations, No Orthopnea, No Paroxysmal Noc. Dyspnea, No Edema, No Lt Headedness, No Other Respiratory: No Cough, No Dry; Shortness of breath, SOB with excertion, W heezing; No Hemoptysis, No Pleuritic Pain, No Sputum, No Other Gastrointestinal: No Nausea, No Vomiting, No Abdominal Pain, No Diarrhea, No Constipation, No Melena, No Hematochezia, No Other Genitourinary: No Dysuria, No Frequency, No Incontinence, No Hematuria, No Retention, No Other Musculoskeletal: No other, No neck pain, No shoulder pain, No arm pain, No back pain, No hand pain, No leg pain, No foot pain Skin: No Rash, No Lesions, No Jaundice, No Bruising, No Other Objective Vitals Vital Signs Date Time Temp Pulse Resp B/P (MAP) Pulse Ox O2 Delivery O2 Flow Rate FiO2 06/01/25 11:12 55 14 100 06/01/25 11:06 Nasal Cannula* 5 40 06/01/25 09:49 160/98 06/01/25 09:00 97.1 97.1 Intake/Output Intake and Output 06/01/25 07:00 Intake Total 1680 ml Output Total 2040 ml Balance -360 ml Intake Oral 1680 ml Output Urine Total 2040 ml General Appearance: Alert, Oriented X3, Cooperative HEENT: Atraumatic, PERRLA, EOMI, Mucous membr. moist/pink Neck: Supple Lungs: Clear to auscultation, Other (Decreased air entry bilaterally) Cardiovascular: Regular rate, Normal S1, Normal S2, No murmurs, Gallops, Rubs Abdomen: Normal bowel sounds, Soft, No tenderness Neuro: Cranial nerves 3-12 NL Psych/Mental Status: Mental status NL Medications Current Medications Medications Dose Ordered Sig/Ricky Route Start Time Stop Time Status Last Admin Dose Admin Ipratropium [place] 0.5 mg Q6HWA NEB 05/26/25 12:00 06/01/25 11:06 0.5 MG Albuterol 2.5 mg Q6HWA [facility] 05/26/25 12:00 06/01/25 11:06 2.5 MG Sodium Chloride 10 ml Q8HR IV 05/26/25 14:00 06/01/25 05:31 10 ML Acetaminophen/ Hydrocodone Bitart 1 tab Q4HP PRN PO 05/26/25 07:30 05/31/25 21:29 1 TAB Ondansetron HCl 4 mg Q4HP PRN IV 05/26/25 07:30 Docusate Sodium 100 mg BIDPRN PRN PO 05/26/25 07:30 06/01/25 09:47 100 MG Acetaminophen 650 mg Q6HP PRN PO 05/26/25 07:30 Nitroglycerin 0.4 mg Q5MINP PRN SL 05/26/25 07:30 Morphine Sulfate 2 mg Q30M PRN IV 05/26/25 07:30 Aspirin 81 mg DAILY PO 05/26/25 10:00 06/01/25 09:47 81 MG Metoprolol Succinate 50 mg DAILY PO 05/26/25 10:00 06/01/25 09:49 50 MG Patient Own Medication 1 tab BID PO 05/26/25 10:00 Cancel Patient Own Medication 1 tab DAILY PO 05/26/25 10:00 UNV Patient Own Medication 1 tab DAILY PO 05/26/25 10:00 UNV Levetiracetam 500 mg BID PO 05/26/25 10:00 06/01/25 09:47 500 MG Patient Own Medication 1 tab QPM PO 05/26/25 18:00 UNV Bumetanide 1 mg BIDD IV 05/26/25 18:00 06/01/25 05:31 1 MG Gabapentin 300 mg DAILY PO 05/26/25 10:00 06/01/25 09:47 300 MG Nifedipine 90 mg DAILY PO 05/26/25 10:00 06/01/25 09:48 90 MG Atorvastatin Calcium 40 mg HS PO 05/26/25 22:00 05/31/25 21:27 40 MG Clonidine HCl 0.2 mg Q6HP PRN PO 05/26/25 14:00 05/30/25 05:57 0.2 MG Clonidine HCl 0.2 mg TID PO 05/27/25 17:00 06/01/25 05:31 0.2 MG Laboratory Results Laboratory Tests 05/28/25 05:58 06/01/25 06:08 Chemistry Test 06/01/25 06:08 Calcium Level 8.2 mg/dL (8.7-10.4) L Urinalysis Test 05/28/25 21:30 Urine Color Light-yellow (Yellow) Urine Clarity Clear (Clear) Urine pH 7.0 (5.0-9.0) Urine Specific [place] 1.012 (1.001-1.035) Urine Protein 2+ (Negative) H Urine Ketones Negative (Negative) Urine Blood Trace /uL (Negative) H Urine Nitrite Negative (Negative) Urine Bilirubin Negative (Negative) Urine Urobilinogen Normal mg/dL (Negative) Urine Leukocyte Esterase Negative /uL (Negative) Urine RBC 1 /hpf (0 - 3) Urine Microscopic WBC 3 /HPF (0-3) Urine Squamous Epithelial Cells Few /hpf (<5) Urine Amorphous Crystals Few /hpf (None Seen) Urine Bacteria Few /hpf (None Seen) H Urine Creatinine 86.37 mg/dL (30.0-125.0) Urine Sodium 55 mmol/L (40-220) Urine Glucose Normal mg/dL (Normal) Urine Total Protein 264.0 mg/dL (1-14) H Microbiology Microbiology Date/Time Source Procedure Growth Status 05/26/25 22:00 Nose MRSA Screen - Final Complete Labs and/or images reviewed: Labs reviewed by me Assessment/Plan Assessment/Plan Hypertensive urgency, COPD exacerbation, Probable obesity hypoventilation syndrome Morbid obesity with a BMI 37 Pulmonary edema, Fluid overload, Cardiomegaly, Acute on chronic kidney failure, Hypokalemia, Anemia, Plan: Continuing clonidine to 3 times a day. DC Aldactone given worsening renal function. Continue Bumex and losartan. Continue rest of blood pressure medications. Follow daily BMP for kidney function. Nephrology consultation appreciate. Renal ultrasound for the kidneys showed kidney disease. Given his history of obesity with hypoventilation syndrome, pulmonology consultation was consult. We will get an ABG. Continue oxygen for now. Continue rest of supportive care and treatment. Further clinical management per clinical course. DW patient and his niece at bedside.. Still continue monitor BUN/cr. Continue PRN IV and oral HTN meds. This medical document was created using an electronic medical record system with [employer] direct computerized dictation system. Although this document has been carefully reviewed, there may still be some phonetic and typographical errors. These areas are purely typographical due to imperfections of the software programs, and do not reflect any compromise in the patient's medical care. Plan discussed with: Patient Date of Service: Jun 01, 2025 Billing Provider: JON WRIGHT MD Common Visit Codes: [id number] INP/OBS CARE(HIGH) JON WRIGHT MD Jun 01, 2025 11:39
--- NOTE | 2025-06-01 12:26 | DVH ---
EXAM: XY CHEST PORTABLE Indication: edema eval Technique: Single frontal view of the chest was obtained Comparison: XY CHEST XRAY 1 VIEW on DOS: 05/28/25, XY CHEST PORTABLE on DOS: 05/26/25, US CHEST ULTRASO UND on DOS: 04/22/25, XY CHEST PORTABLE on DOS: 04/22/25, XY CHEST PORTABLE on DOS: 03/31/25 FINDINGS: Lines and Tubes: None Lungs: No focal consolidation. Pulmonary vascular congestion. Pleura: Trace bilateral pleural effusions. No pneumothorax. Cardiomediastinal contours: Cardiomegaly. Bones: No acute osseous abnormality. IMPRESSION: Pulmonary vascular congestion. Cardiomegaly. Trace bilateral pleural effusions.
--- NOTE | 2025-06-01 21:58 | DVHPN2 ---
Progress Note Date Seen: Jun 01, 2025 Medical Necessity Reason Pt with a Central, PICC or Fol: No Subjective Patient reports: No new complaints Review of Systems: RESPIRATORY:Abnormal Objective vital signs Vital Sign Date Time Temp Pulse Resp B/P (MAP) Pulse Ox O2 Delivery O2 Flow Rate FiO2 06/01/25 21:24 56 100 Facial BiPAP Mask 40 06/01/25 20:59 168/84 06/01/25 20:55 97.9 18 97.9 06/01/25 18:17 4 Total Intake and Output 05/31/25 05/31/25 06/01/25 15:00 23:00 07:00 Intake Total 880 ml 800 ml Output Total 1040 ml 1000 ml Balance -160 ml -200 ml medications Current Medications Medications Dose Ordered Sig/Ricky Route Start Time Stop Time Status Last Admin Dose Admin Ipratropium [place] 0.5 mg Q6HWA NEB 05/26/25 12:00 06/01/25 18:47 0.5 MG Albuterol 2.5 mg Q6HWA NEB 05/26/25 12:00 06/01/25 18:47 2.5 MG Sodium Chloride 10 ml Q8HR IV 05/26/25 14:00 06/01/25 20:56 10 ML Acetaminophen/ Hydrocodone Bitart 1 tab Q4HP PRN PO 05/26/25 07:30 06/01/25 19:30 1 TAB Ondansetron HCl 4 mg Q4HP PRN IV 05/26/25 07:30 Docusate Sodium 100 mg BIDPRN PRN PO 05/26/25 07:30 06/01/25 09:47 100 MG Acetaminophen 650 mg Q6HP PRN PO 05/26/25 07:30 Nitroglycerin 0.4 mg Q5MINP PRN SL 05/26/25 07:30 Morphine Sulfate 2 mg Q30M PRN IV 05/26/25 07:30 Aspirin 81 mg DAILY PO 05/26/25 10:00 06/01/25 09:47 81 MG Metoprolol Succinate 50 mg DAILY PO 05/26/25 10:00 06/01/25 09:49 50 MG Patient Own Medication 1 tab BID PO 05/26/25 10:00 Cancel Patient Own Medication 1 tab DAILY PO 05/26/25 10:00 UNV Patient Own Medication 1 tab DAILY PO 05/26/25 10:00 UNV Levetiracetam 500 mg BID PO 05/26/25 10:00 06/01/25 20:56 500 MG Patient Own Medication 1 tab QPM PO 05/26/25 18:00 UNV Bumetanide 1 mg BIDD IV 05/26/25 18:00 06/01/25 17:52 1 MG Gabapentin 300 mg DAILY PO 05/26/25 10:00 06/01/25 09:47 300 MG Nifedipine 90 mg DAILY PO 05/26/25 10:00 06/01/25 09:48 90 MG Atorvastatin Calcium 40 mg HS PO 05/26/25 22:00 06/01/25 20:56 40 MG Clonidine HCl 0.2 mg Q6HP PRN PO 05/26/25 14:00 05/30/25 05:57 0.2 MG Clonidine HCl 0.2 mg TID PO 05/27/25 17:00 06/01/25 20:59 0.2 MG Examination: LUNGS:Abnormal, MSK:Abnormal laboratory and microbiology Laboratory Tests 06/01/25 06:08 05/28/25 05:58 Test 06/01/25 06:08 Range/Units Serum Glucose 132 H 74-106 mg/dL Microbiology Date/Time Source Procedure Growth Status 05/26/25 22:00 Nose MRSA Screen - Final Complete Problem List/Assessment/Plan Problem List/Assessment/Plan ) Hemodynamically mediated MIREYA/VMN in setting of hypertensive urgency/ somewhat labile blood pressure readings with change in blood pressure that may be outside the range of renal autoregulation. 2) CKD stage IV 3) acute on chronic diastolic heart failure 4) acute hypoxemic respiratory failure 5) possible COPD exacerbation REC: -bumex iv bid - Hold ARB during time course of MIREYA. - Avoidance of NSAIDs, and contrast studies if able - Blood pressure control Plan discussed with: Patient My Orders My Orders Orders - JUDITH SÁNCHEZ MD Procedure Category Date Status Time Chest Portable XY 06/01/25 Resulted 10:48 Dietary Evaluation Review Recommendations by RD: Dietary education by RD Comments: 1) Add 45g CCHO cardiac restriction to cardiac diet 2) Initiate Nepro qd 3) Encourage optimal PO intake 4) Collect HbA1c 5) Refer to outpatient RD for weight management 6) Follow-up with cardiology, pulmonology, nephrology, and neurology 7) Continue to monitor I&O, labs, and skin integrity Expected Outcomes/Goals: 1) appetite and labs to improve 2) gradual wt loss 3) f/u in 3-5 days JUDITH SÁNCHEZ MD Jun 01, 2025 21:58
--- NOTE | 2025-06-01 22:21 | DVHPN2 ---
Subjective DOS: 06/01/2025 Patient seen and examined at bedside. Currently on supplemental oxygen Overnight events reviewed. Reviewed: Care Plan, H&P, Labs, Medications, Previous Orders, Radiology Changes from previous H/P or p: No Changes Eyes: No Pain, No Vision change, No Conjunctivae inflammation, No Eyelid inflammation, No Other, No Redness ENT: No Ear pain, No Ear discharge, No Nose pain, No Nose discharge, No Nose congestion, No Mouth pain, No Mouth swelling, No Throat pain, No Throat swelling, No Other Cardiovascular: No Chest Pain, No Palpitations, No Orthopnea, No Paroxysmal Noc. Dyspnea, No Edema, No Lt Headedness, No Other Respiratory: No Cough, No Dry; Shortness of breath, SOB with excertion, W heezing; No Hemoptysis, No Pleuritic Pain, No Sputum, No Other Gastrointestinal: No Nausea, No Vomiting, No Abdominal Pain, No Diarrhea, No Constipation, No Melena, No Hematochezia, No Other Genitourinary: No Dysuria, No Frequency, No Incontinence, No Hematuria, No Retention, No Other Musculoskeletal: No other, No neck pain, No shoulder pain, No arm pain, No back pain, No hand pain, No leg pain, No foot pain Skin: No Rash, No Lesions, No Jaundice, No Bruising, No Other Objective Vitals Vital Signs Date Time Temp Pulse Resp B/P (MAP) Pulse Ox O2 Delivery O2 Flow Rate FiO2 06/01/25 21:24 56 100 Facial BiPAP Mask 40 06/01/25 20:59 168/84 06/01/25 20:55 97.9 18 97.9 06/01/25 18:17 4 Intake/Output Intake and Output 06/01/25 07:00 Intake Total 1680 ml Output Total 2040 ml Balance -360 ml Intake Oral 1680 ml Output Urine Total 2040 ml General Appearance: Alert, Oriented X3, Cooperative HEENT: Atraumatic, PERRLA, EOMI, Mucous membr. moist/pink Neck: Supple Lungs: Clear to auscultation, Other (Decreased air entry bilaterally) Cardiovascular: Regular rate, Normal S1, Normal S2, No murmurs, Gallops, Rubs Abdomen: Normal bowel sounds, Soft, No tenderness Neuro: Cranial nerves 3-12 NL Psych/Mental Status: Mental status NL Medications Current Medications Medications Dose Ordered Sig/Ricky Route Start Time Stop Time Status Last Admin Dose Admin Ipratropium [place] 0.5 mg Q6HWA NEB 05/26/25 12:00 06/01/25 18:47 0.5 MG Albuterol 2.5 mg Q6HWA NEB 05/26/25 12:00 06/01/25 18:47 2.5 MG Sodium Chloride 10 ml Q8HR IV 05/26/25 14:00 06/01/25 20:56 10 ML Acetaminophen/ Hydrocodone Bitart 1 tab Q4HP PRN PO 05/26/25 07:30 06/01/25 19:30 1 TAB Ondansetron HCl 4 mg Q4HP PRN IV 05/26/25 07:30 Docusate Sodium 100 mg BIDPRN PRN PO 05/26/25 07:30 06/01/25 09:47 100 MG Acetaminophen 650 mg Q6HP PRN PO 05/26/25 07:30 Nitroglycerin 0.4 mg Q5MINP PRN SL 05/26/25 07:30 Morphine Sulfate 2 mg Q30M PRN IV 05/26/25 07:30 Aspirin 81 mg DAILY PO 05/26/25 10:00 06/01/25 09:47 81 MG Metoprolol Succinate 50 mg DAILY PO 05/26/25 10:00 06/01/25 09:49 50 MG Patient Own Medication 1 tab BID PO 05/26/25 10:00 Cancel Patient Own Medication 1 tab DAILY PO 05/26/25 10:00 UNV Patient Own Medication 1 tab DAILY PO 05/26/25 10:00 UNV Levetiracetam 500 mg BID PO 05/26/25 10:00 06/01/25 20:56 500 MG Patient Own Medication 1 tab QPM PO 05/26/25 18:00 UNV Bumetanide 1 mg BIDD IV 05/26/25 18:00 06/01/25 17:52 1 MG Gabapentin 300 mg DAILY PO 05/26/25 10:00 06/01/25 09:47 300 MG Nifedipine 90 mg DAILY PO 05/26/25 10:00 06/01/25 09:48 90 MG Atorvastatin Calcium 40 mg HS PO 05/26/25 22:00 06/01/25 20:56 40 MG Clonidine HCl 0.2 mg Q6HP PRN PO 05/26/25 14:00 05/30/25 05:57 0.2 MG Clonidine HCl 0.2 mg TID PO 05/27/25 17:00 06/01/25 20:59 0.2 MG Laboratory Results Laboratory Tests 05/28/25 05:58 06/01/25 06:08 Chemistry Test 06/01/25 06:08 Calcium Level 8.2 mg/dL (8.7-10.4) L Urinalysis Test 05/28/25 21:30 Urine Color Light-yellow (Yellow) Urine Clarity Clear (Clear) Urine pH 7.0 (5.0-9.0) Urine Specific [place] 1.012 (1.001-1.035) Urine Protein 2+ (Negative) H Urine Ketones Negative (Negative) Urine Blood Trace /uL (Negative) H Urine Nitrite Negative (Negative) Urine Bilirubin Negative (Negative) Urine Urobilinogen Normal mg/dL (Negative) Urine Leukocyte Esterase Negative /uL (Negative) Urine RBC 1 /hpf (0 - 3) Urine Microscopic WBC 3 /HPF (0-3) Urine Squamous Epithelial Cells Few /hpf (<5) Urine Amorphous Crystals Few /hpf (None Seen) Urine Bacteria Few /hpf (None Seen) H Urine Creatinine 86.37 mg/dL (30.0-125.0) Urine Sodium 55 mmol/L (40-220) Urine Glucose Normal mg/dL (Normal) Urine Total Protein 264.0 mg/dL (1-14) H Microbiology Microbiology Date/Time Source Procedure Growth Status 05/26/25 22:00 Nose MRSA Screen - Final Complete Assessment/Plan Assessment/Plan Impression: Acute hypoxic respiratory failure COPD exacerbation Snoring Obesity hypoventilation syndrome Morbid obesity Atelectasis Acute kidney injury on chronic kidney disease Acute on chronic diastolic heart failure Events: Currently on supplemental oxygen 4 LPM NC Taper O2 as tolerated On BiPAP while sleeping Chest x-ray reviewed; shows pulmonary vascular congestion and trace pleural effusions. Continue bronchodilators Incentive spirometry Diurese as tolerated w/ Bumex Nephrology recommendations appreciated Monitor renal function Monitor electrolytes. Supplement as necessary. Monitor ins and outs Labs and imaging reviewed. Rest of plan as noted below. Plan: Continue supplemental oxygen Titrate to keep O2 sats above 92%. Taper O2 as tolerated BiPAP PRN while sleeping Bronchodilators PRN. Blood pressure control Follow up Cardiology recommendations Antiepileptic medication Follow up Nephrology recommendations Diurese to euvolemia Monitor renal function. Monitor electrolytes. Supplement as necessary. Monitor ins and outs. Strict Is and Os. Physical therapy Recommend outpatient evaluation for obstructive sleep apnea. Diet and lifestyle modifications for weight reduction Obesity complicates all care DVT prophylaxis. Prognosis: Poor given patient's multiple co-morbidities. Rest of plan per hospitalist and other consultants. Thank you, Dr. Lopez, for allowing me to participate in this patient's care. Further recommendations will depend on the patient's clinical course. Please do not hesitate to contact me if you have any questions or concerns. This medical document was created using an electronic medical record system with [employer] dictation system. Although these documentations are being carefully reviewed, there may still be some phonetic and typographical changes. The errors are purely typographical, due to imperfection on the software program, and do not reflect any compromise in the patient's medical care. Plan discussed with: Other (ZEYNEP Roa) Date of Service: Jun 01, 2025 Billing Provider: SERENA SMITH MD Common Visit Codes: [id number] INP/OBS CARE(HIGH) SERENA SMITH MD Jun 01, 2025 22:21
[2025-06-02] VITALS (12 sets, daily range): BP systolic 162–184; BP diastolic 89–103; PULSE 47–69; RESP 16–26; TEMP 97.9–98.8; O2SAT 93–100
[2025-06-02] MEDS: hydrALAZINE HCL 20 MG/ML VL IV PRN (07:10)
--- NOTE | 2025-06-02 11:27 | DVHPN2 ---
Subjective The patient is seen and examined at bedside. The patient wanted to go home. Creatinine improved today. . Blood pressure is not controlled well. Reviewed: Care Plan, H&P, Labs, Medications, Previous Orders, Radiology Eyes: No Pain, No Vision change, No Conjunctivae inflammation, No Eyelid inflammation, No Other, No Redness ENT: No Ear pain, No Ear discharge, No Nose pain, No Nose discharge, No Nose congestion, No Mouth pain, No Mouth swelling, No Throat pain, No Throat swelling, No Other Cardiovascular: No Chest Pain, No Palpitations, No Orthopnea, No Paroxysmal Noc. Dyspnea, No Edema, No Lt Headedness, No Other Respiratory: No Cough, No Dry; Shortness of breath, SOB with excertion, W heezing; No Hemoptysis, No Pleuritic Pain, No Sputum, No Other Gastrointestinal: No Nausea, No Vomiting, No Abdominal Pain, No Diarrhea, No Constipation, No Melena, No Hematochezia, No Other Genitourinary: No Dysuria, No Frequency, No Incontinence, No Hematuria, No Retention, No Other Musculoskeletal: No other, No neck pain, No shoulder pain, No arm pain, No back pain, No hand pain, No leg pain, No foot pain Skin: No Rash, No Lesions, No Jaundice, No Bruising, No Other Objective Vitals Vital Signs Date Time Temp Pulse Resp B/P (MAP) Pulse Ox O2 Delivery O2 Flow Rate FiO2 06/02/25 09:04 60 161/91 06/02/25 08:00 20 97 Nasal Cannula* 5 40 06/02/25 05:00 98.6 98.6 Intake/Output Intake and Output 06/02/25 07:00 Intake Total 1100 ml Output Total 1600 ml Balance -500 ml Intake Oral 1100 ml Output Urine Total 1600 ml General Appearance: Alert, Oriented X3, Cooperative HEENT: Atraumatic, PERRLA, EOMI, Mucous membr. moist/pink Neck: Supple Lungs: Clear to auscultation, Other (Decreased air entry bilaterally) Cardiovascular: Regular rate, Normal S1, Normal S2, No murmurs, Gallops, Rubs Abdomen: Normal bowel sounds, Soft, No tenderness Neuro: Cranial nerves 3-12 NL Psych/Mental Status: Mental status NL Medications Current Medications Medications Dose Ordered Sig/Ricky Route Start Time Stop Time Status Last Admin Dose Admin Ipratropium [place] 0.5 mg Q6HWA NEB 05/26/25 12:00 06/02/25 07:15 0.5 MG Albuterol 2.5 mg Q6HWA NEB 05/26/25 12:00 06/02/25 07:15 2.5 MG Sodium Chloride 10 ml Q8HR IV 05/26/25 14:00 06/02/25 06:00 10 ML Acetaminophen/ Hydrocodone Bitart 1 tab Q4HP PRN PO 05/26/25 07:30 06/02/25 06:02 1 TAB Ondansetron HCl 4 mg Q4HP PRN IV 05/26/25 07:30 Docusate Sodium 100 mg BIDPRN PRN PO 05/26/25 07:30 06/02/25 09:03 100 MG Acetaminophen 650 mg Q6HP PRN PO 05/26/25 07:30 Nitroglycerin 0.4 mg Q5MINP PRN SL 05/26/25 07:30 Morphine Sulfate 2 mg Q30M PRN IV 05/26/25 07:30 Aspirin 81 mg DAILY PO 05/26/25 10:00 06/02/25 09:03 81 MG Metoprolol Succinate 50 mg DAILY PO 05/26/25 10:00 06/02/25 09:04 50 MG Patient Own Medication 1 tab BID PO 05/26/25 10:00 Cancel Patient Own Medication 1 tab DAILY PO 05/26/25 10:00 UNV Patient Own Medication 1 tab DAILY PO 05/26/25 10:00 UNV Levetiracetam 500 mg BID PO 05/26/25 10:00 06/02/25 09:03 500 MG Patient Own Medication 1 tab QPM PO 05/26/25 18:00 UNV Bumetanide 1 mg BIDD IV 05/26/25 18:00 06/02/25 05:57 1 MG Gabapentin 300 mg DAILY PO 05/26/25 10:00 06/02/25 09:02 300 MG Nifedipine 90 mg DAILY PO 05/26/25 10:00 06/02/25 09:03 90 MG Atorvastatin Calcium 40 mg HS PO 05/26/25 22:00 06/01/25 20:56 40 MG Clonidine HCl 0.2 mg Q6HP PRN PO 05/26/25 14:00 06/02/25 04:40 0.2 MG Clonidine HCl 0.2 mg TID PO 05/27/25 17:00 06/02/25 05:56 0.2 MG Hydralazine HCl 10 mg Q6HP PRN IV 06/02/25 07:00 06/02/25 07:10 10 MG Laboratory Results Laboratory Tests 05/28/25 05:58 06/01/25 06:08 Urinalysis Test 05/28/25 21:30 Urine Color Light-yellow (Yellow) Urine Clarity Clear (Clear) Urine pH 7.0 (5.0-9.0) Urine Specific [place] 1.012 (1.001-1.035) Urine Protein 2+ (Negative) H Urine Ketones Negative (Negative) Urine Blood Trace /uL (Negative) H Urine Nitrite Negative (Negative) Urine Bilirubin Negative (Negative) Urine Urobilinogen Normal mg/dL (Negative) Urine Leukocyte Esterase Negative /uL (Negative) Urine RBC 1 /hpf (0 - 3) Urine Microscopic WBC 3 /HPF (0-3) Urine Squamous Epithelial Cells Few /hpf (<5) Urine Amorphous Crystals Few /hpf (None Seen) Urine Bacteria Few /hpf (None Seen) H Urine Creatinine 86.37 mg/dL (30.0-125.0) Urine Sodium 55 mmol/L (40-220) Urine Glucose Normal mg/dL (Normal) Urine Total Protein 264.0 mg/dL (1-14) H Microbiology Microbiology Date/Time Source Procedure Growth Status 05/26/25 22:00 Nose MRSA Screen - Final Complete Assessment/Plan Assessment/Plan Hypertensive urgency, COPD exacerbation, Probable obesity hypoventilation syndrome Morbid obesity with a BMI 37 Pulmonary edema, Fluid overload, Cardiomegaly, Acute on chronic kidney failure, Hypokalemia, Anemia, Plan: Continuing clonidine to 3 times a day. DC Aldactone given worsening renal function. Continue Bumex and losartan. Continue rest of blood pressure medications. Follow daily BMP for kidney function. Nephrology consultation appreciate. Renal ultrasound for the kidneys showed kidney disease. Given his history of obesity with hypoventilation syndrome, pulmonology consultation was consult. We will get an ABG. Continue oxygen for now. Continue rest of supportive care and treatment. Further clinical management per clinical course. DW patient and his niece at bedside.. Still continue monitor BUN/cr. Continue PRN IV and oral HTN meds. This medical document was created using an electronic medical record system with [employer] computerized dictation system. Although this document has been carefully reviewed, there may still be some phonetic and typographical errors. These areas are purely typographical due to imperfections of the software programs, and do not reflect any compromise in the patient's medical care. My Orders Orders - JON WRIGHT MD Procedure Category Date Status Time Basic Metabolic Panel LAB 06/02/25 Verified 11:26 JON WRIGHT MD Jun 02, 2025 11:27
[2025-06-02 12:19] LABS: Chloride 103 mmol/L (98-107); Sodium 144 mmol/L (136-145)
[2025-06-02 12:20] LABS: Anion Gap 12 (5-15); Carbon Dioxide 29 mmol/L (20-31)
[2025-06-02 12:21] LABS: Calcium 8.5 mg/dL (8.7-10.4); Potassium 3.2 mmol/L (3.5-5.1)
[2025-06-02 12:25] LABS: BUN/Creatinine Ratio 11.0 (10.0-20.0)
[2025-06-02 12:26] LABS: Blood Urea Nitrogen 38 mg/dL (9-23); Glucose 161 mg/dL (74-106)
--- NOTE | 2025-06-02 12:56 | DVHDS2 ---
Discharge Summary Date of Admission May 26, 2025 at 07:24 Date of Discharge: Jun 02, 2025 Admitting Diagnosis Hypertensive urgency, COPD exacerbation, Probable obesity hypoventilation syndrome Morbid obesity with a BMI 37 Pulmonary edema, Fluid overload, Cardiomegaly, Acute on chronic kidney failure, Hypokalemia, Anemia, Labs/Diagnostic Data: Laboratory Results Test 06/02/25 12:00 05/28/25 21:30 05/28/25 07:14 05/28/25 05:58 Sodium Level 144 mmol/L (136-145) Potassium Level 3.2 mmol/L (3.5-5.1) Chloride Level 103 mmol/L (98-107) Carbon Dioxide Level 29 mmol/L (20-31) Anion Gap 12 (5-15) Blood Urea Nitrogen 38 mg/dL (9-23) Creatinine 3.44 mg/dL (0.700-1.30) Glomerular Filtration Rate Calc 19 mL/min (>90) BUN/Creatinine Ratio 11.0 (10.0-20.0) Serum Glucose 161 mg/dL (74-106) Calcium Level 8.5 mg/dL (8.7-10.4) Urine Color Light-yellow (Yellow) Urine Clarity Clear (Clear) Urine pH 7.0 (5.0-9.0) Urine Specific [place] 1.012 (1.001-1.035) Urine Protein 2+ (Negative) Urine Ketones Negative (Negative) Urine Blood Trace /uL (Negative) Urine Nitrite Negative (Negative) Urine Bilirubin Negative (Negative) Urine Urobilinogen Normal mg/dL (Negative) Urine Leukocyte Esterase Negative /uL (Negative) Urine RBC 1 /hpf (0 - 3) Urine Microscopic WBC 3 /HPF (0-3) Urine Squamous Epithelial Cells Few /hpf (<5) Urine Amorphous Crystals Few /hpf (None Seen) Urine Bacteria Few /hpf (None Seen) Urine Creatinine 86.37 mg/dL (30.0-125.0) Urine Sodium 55 mmol/L (40-220) Urine Glucose Normal mg/dL (Normal) Urine Total Protein 264.0 mg/dL (1-14) Blood Gas Specimen Type Arterial Blood Gas Sample Site Left radial Blood Gas Patient Temperature 37.0 Arterial Blood Date Drawn [id number] Arterial Blood pH 7.475 (7.350-7.450) Arterial Blood Partial Pressure CO2 38.1 mmHg (35.0-48.0) Arterial Blood Partial Pressure O2 71.4 mmHg (83.0-108.0) Arterial Blood HCO3 27.4 mmol/L (21.0-28.0) Arterial Blood Oxygen Saturation 93.2 % (94.0-98.0) Arterial Blood Base Excess 3.7 mmol/L (-2.0-3.0) Arterial Blood Oxyhemoglobin 92.1 % (94.0-98.0) Arterial Blood Carboxyhemoglobin 0.3 % (0.5-1.5) Arterial Blood Methemoglobin 0.9 % (0.0-1.5) Bernardo Test Yes Blood Gas Total Hemoglobin 9.50 g/dL (13.5-17.5) Blood Gas Set Respiration Rate 12.0 Blood Gas Modality Mask - bipap Blood Gas Spontaneous Rate 23 FiO2 % 40.0 Blood Gas Spontaneous Tidal Volume 753 Blood Gas EPAP 5 Blood Gas IPAP 14 Blood Gas Comments I-time 0.80 sec. White Blood Count 8.0 10^3/uL (4.4-10.8) Red Blood Count 3.87 10^6/uL (4.5-5.90) Hemoglobin 11.3 g/dL (13.5-17.5) Hematocrit 33.9 % (41.0-53.0) Mean Corpuscular Volume 87.6 fL (80.0-100.0) Mean Corpuscular Hemoglobin 29.2 pg (28.0-32.0) Mean Corpuscular Hemoglobin Concent 33.4 g/dL (32.0-36.0) Red Cell Distribution Width 16.2 % (11.8-14.3) Platelet Count 183 10^3/uL (140-450) Mean Platelet Volume 9.9 fL (6.9-10.8) Neutrophils (%) (Auto) 63.3 % (37.0-80.0) Lymphocytes (%) (Auto) 22.9 % (10.0-50.0) Monocytes (%) (Auto) 8.9 % (0.0-12.0) Eosinophils (%) (Auto) 4.0 % (0.0-7.0) Basophils (%) (Auto) 0.9 % (0.0-2.0) Neutrophils # (Auto) 5.0 10 ^3/uL (1.6-8.6) Lymphocytes # (Auto) 1.8 10 ^3/uL (0.4-5.4) Monocytes # (Auto) 0.7 10 ^3/uL (0-1.3) Eosinophils # (Auto) 0.3 10 ^3/uL (0-0.8) Basophils # (Auto) 0.1 10 ^3/uL (0-0.2) Nucleated Red Blood Cells 0.1 % Test 05/28/25 05:56 05/27/25 16:15 05/27/25 10:13 05/26/25 15:19 POC Glucose 176 mg/dl (70-106) Blood Gas Liter Flow 4.00 Total Bilirubin 0.3 mg/dL (0.2-1.0) Aspartate Amino Transferase (AST) 11 U/L (13-40) Alanine Aminotransferase (ALT) 10 U/L (7-40) Alkaline Phosphatase 64 U/L (46-116) Total Protein 5.6 g/dL (5.7-8.2) Albumin 3.3 g/dL (3.2-4.8) Urine Opiates Screen Neg (NEGATIVE) Urine Fentanyl Screen Neg (NEGATIVE) Urine Barbiturates Screen Neg (NEGATIVE) Urine Phencyclidine Screen Neg (NEGATIVE) Urine Amphetamines Screen Neg (NEGATIVE) Urine Benzodiazepines Screen Neg (NEGATIVE) Urine Cocaine Screen Neg (NEGATIVE) Urine Cannabinoids Screen Neg (NEGATIVE) Test 05/26/25 10:06 05/26/25 05:20 05/26/25 03:00 05/26/25 02:10 Magnesium Level 1.9 mg/dL (1.6-2.6) Troponin I High Sensitivity 26 ng/L (</=54) B-Type Natriuretic Peptide 218.77 pg/mL (0-100) Prothrombin Time 9.8 sec (9.3-11.8) Prothrombin Time INR 0.92 (0.9-1.15) Activated Partial Thromboplast Time < 20.0 SEC (24.5-34.5) Other Laboratory Tests 06/02/25 12:00 05/28/25 05:58 Brief Hx & Hospital Course: This is a 64 years old male with past medical history of congestive heart failure, chronic kidney disease stage 4, COPD with home oxygen 4 L nasal cannula, chronic respiratory failure, hyperlipidemia, hypertension, non ST- elevation [place] type 2, and former tobacco abuse come to emergency department with chief complaint of shortness for breath. The patient had one week of difficulty of breathing. Patient could not catch his breath and decided to come to the hospital for further evaluation. The patient was found to have hypertensive urgency with systolic blood pressure in the 190. Patient does have bilateral pedal edema. The patient was admitted. The patient was given Bumex IV. His edema improved. Kidney function trending up but now trending downward in almost baseline. The patient had being ambulate. The patient was seen by tape calender. Recommend continuing to monitor and follow up with tape calender as outpatient. I am going to discharge him today. Advised him to follow up with primary care physician 1-2 weeks. Follow up with tape calender per schedule. Activity as tolerated. Diet low-salt low-cholesterol carb controlled diet. Physical exam: HEENT: Normocephalic atraumatic pupils equal react to light and accommodation. Extraocular muscles intact, conjunctiva pink, oropharynx moist, no thrush, no exudate. Lymphatic: No lymphadenopathy Cardiovascular exam: S1, S2 was heard. No murmurs, rubs, gallops Lung: Clear on auscultation bilaterally, no wheeze, rale, rhonchi. GI: Abdominal soft, nondistended, nontenderness, positive bowel sounds. Extremity: No crepitus, cyanosis, edema. Pedal pulses present bilateral. Full range of motion. Skin: Normal turgor, no rash. Psych: Alert, oriented x3. Neurology: No focal deficits, cranial nerve II to XII grossly intact. This medical document was created using an electronic medical record system with [address] direct computerized dictation system. Although this document has been carefully reviewed, there may still be some phonetic and typographical errors. These areas are purely typographical due to imperfections of the software programs, and do not reflect any compromise in the patient's medical care. Condition at Discharge: Stable Final Diagnosis/Problems List Hypertensive urgency, COPD exacerbation, Probable obesity hypoventilation syndrome Morbid obesity with a BMI 37 Pulmonary edema, Fluid overload, Cardiomegaly, Acute on chronic kidney failure, Hypokalemia, Anemia, Discharge Disposition: Home Discharge Instruct/Medications Diet: Renal Activity: No Restrictions, As Tolerated Follow Up/Referral: pcp 1-2 WEEKS neprhologist per schedule Medications: see med list Scheduled Aspirin (Aspir-81), 1 TAB PO DAILY Atorvastatin Calcium (Atorvastatin Calcium), 1 TAB PO QPM, (Reported) Bumetanide (Bumex Tablet), 1 MG PO BID Clonidine Hydrochloride (Clonidine Hcl), 1 TAB PO BID Gabapentin (Gabapentin), 1 CAP PO TID Hydralazine Hcl (Hydralazine Hcl), 1 TAB PO TID Hydrocodone-Acetaminophen (Hydrocodone/Acetaminophen 10-325 mg), TID, (Reported) Levetiracetam (Levetiracetam), 1 TAB PO BID, (Reported) Losartan Potassium (Losartan Potassium), 1 TAB PO DAILY Metoprolol Succinate (Toprol Xl), 1 TAB PO DAILY Nifedipine (Nifedipine Er), 1 TAB PO DAILY Potassium Bicarbonate (Effer-K), 25 MEQ PO DAILY Spironolactone (Spironolactone), 1 TAB PO DAILY Discharge Statement: "Patient was advised to return to the ER or call 911 if any headaches, dizziness, shortness of breath, chest pain, abdominal pain, bleeding, fevers, or worsening of medical condition. Patient was counseled about treatment plan, medications, possible side effects, patientverbalized understanding. All questions were answered to the best of my ability. This discharge took greater then 30 minutes in planning, reviewing documentation, counseling the patient, and discussing with other team members." ASSESSMENT ASSESSMENT Assessment Valentino/ckd Date of Service: Jun 02, 2025 Billing Provider: JON WRIGHT MD Common Visit Codes: 23178-BRU/OBS DISCH DAY >30min JON WRIGHT MD Jun 02, 2025 12:56
[2025-06-02] MEDS: POTASSIUM CHL 20 Meq TABLET PO ONE (14:11)
--- NOTE | 2025-06-02 19:53 | DVHPN2 ---
Subjective DOS: 06/02/2025 Patient seen and examined at bedside. Currently on supplemental oxygen Overnight events reviewed. Reviewed: Care Plan, H&P, Labs, Medications, Previous Orders, Radiology Changes from previous H/P or p: No Changes Eyes: No Pain, No Vision change, No Conjunctivae inflammation, No Eyelid inflammation, No Other, No Redness ENT: No Ear pain, No Ear discharge, No Nose pain, No Nose discharge, No Nose congestion, No Mouth pain, No Mouth swelling, No Throat pain, No Throat swelling, No Other Cardiovascular: No Chest Pain, No Palpitations, No Orthopnea, No Paroxysmal Noc. Dyspnea, No Edema, No Lt Headedness, No Other Respiratory: No Cough, No Dry; Shortness of breath, SOB with excertion, W heezing; No Hemoptysis, No Pleuritic Pain, No Sputum, No Other Gastrointestinal: No Nausea, No Vomiting, No Abdominal Pain, No Diarrhea, No Constipation, No Melena, No Hematochezia, No Other Genitourinary: No Dysuria, No Frequency, No Incontinence, No Hematuria, No Retention, No Other Musculoskeletal: No other, No neck pain, No shoulder pain, No arm pain, No back pain, No hand pain, No leg pain, No foot pain Skin: No Rash, No Lesions, No Jaundice, No Bruising, No Other Objective Vitals Vital Signs Date Time Temp Pulse Resp B/P (MAP) Pulse Ox O2 Delivery O2 Flow Rate FiO2 06/02/25 14:59 98.8 60 26 96 06/02/25 14:34 148/86 06/02/25 12:29 Nasal Cannula* 5 40 Intake/Output Intake and Output 06/02/25 07:00 Intake Total 1100 ml Output Total 1600 ml Balance -500 ml Intake Oral 1100 ml Output Urine Total 1600 ml General Appearance: Alert, Oriented X3, Cooperative HEENT: Atraumatic, PERRLA, EOMI, Mucous membr. moist/pink Neck: Supple Lungs: Clear to auscultation, Other (Decreased air entry bilaterally) Cardiovascular: Regular rate, Normal S1, Normal S2, No murmurs, Gallops, Rubs Abdomen: Normal bowel sounds, Soft, No tenderness Neuro: Cranial nerves 3-12 NL Psych/Mental Status: Mental status NL Medications Current Medications Medications Dose Ordered Sig/Ricky Route Start Time Stop Time Status Last Admin Dose Admin Patient Own Medication 1 tab BID PO 9/23/25 10:00 Cancel Patient Own Medication 1 tab DAILY PO 05/26/25 10:00 UNV Patient Own Medication 1 tab DAILY PO 05/26/25 10:00 UNV Patient Own Medication 1 tab QPM PO 05/26/25 18:00 UNV Laboratory Results Laboratory Tests 05/28/25 05:58 06/02/25 12:00 Chemistry Test 06/02/25 12:00 Calcium Level 8.5 mg/dL (8.7-10.4) L Urinalysis Test 05/28/25 21:30 Urine Color Light-yellow (Yellow) Urine Clarity Clear (Clear) Urine pH 7.0 (5.0-9.0) Urine Specific [place] 1.012 (1.001-1.035) Urine Protein 2+ (Negative) H Urine Ketones Negative (Negative) Urine Blood Trace /uL (Negative) H Urine Nitrite Negative (Negative) Urine Bilirubin Negative (Negative) Urine Urobilinogen Normal mg/dL (Negative) Urine Leukocyte Esterase Negative /uL (Negative) Urine RBC 1 /hpf (0 - 3) Urine Microscopic WBC 3 /HPF (0-3) Urine Squamous Epithelial Cells Few /hpf (<5) Urine Amorphous Crystals Few /hpf (None Seen) Urine Bacteria Few /hpf (None Seen) H Urine Creatinine 86.37 mg/dL (30.0-125.0) Urine Sodium 55 mmol/L (40-220) Urine Glucose Normal mg/dL (Normal) Urine Total Protein 264.0 mg/dL (1-14) H Microbiology Microbiology Date/Time Source Procedure Growth Status 05/26/25 22:00 Nose MRSA Screen - Final Complete Assessment/Plan Assessment/Plan Impression: Acute hypoxic respiratory failure COPD exacerbation Snoring Obesity hypoventilation syndrome Morbid obesity Atelectasis Acute kidney injury on chronic kidney disease Acute on chronic diastolic heart failure Events: Currently on supplemental oxygen 5 LPM NC Taper O2 as tolerated On BiPAP while sleeping Chest x-ray on 06/01/25 shows pulmonary vascular congestion, cardiomegaly and trace bilateral pleural effusions. Continue bronchodilators Incentive spirometry Diurese as tolerated w/ Bumex Nephrology recommendations appreciated Monitor renal function Monitor electrolytes. Supplement as necessary. Monitor ins and outs Nephrology recommendations appreciated. Monitor renal function Monitor electrolytes; supplement as necessary Recommend outpatient followup in [facility] for referral for sleep study vs. home sleep study. Labs and imaging reviewed. Rest of plan as noted below. Plan: Continue supplemental oxygen Titrate to keep O2 sats above 92%. Taper O2 as tolerated BiPAP PRN while sleeping Bronchodilators PRN. Blood pressure control Follow up Cardiology recommendations Antiepileptic medication Follow up Nephrology recommendations Diurese to euvolemia Monitor renal function. Monitor electrolytes. Supplement as necessary. Monitor ins and outs. Strict Is and Os. Physical therapy Recommend outpatient evaluation for obstructive sleep apnea. Diet and lifestyle modifications for weight reduction Obesity complicates all care DVT prophylaxis. Prognosis: Poor given patient's multiple co-morbidities. Rest of plan per hospitalist and other consultants. Thank you, Dr. Lopez, for allowing me to participate in this patient's care. Further recommendations will depend on the patient's clinical course. Please do not hesitate to contact me if you have any questions or concerns. This medical document was created using an electronic medical record system with [employer] dictation system. Although these documentations are being carefully reviewed, there may still be some phonetic and typographical changes. The errors are purely typographical, due to imperfection on the software program, and do not reflect any compromise in the patient's medical care. Plan discussed with: Patient, Other (ZEYNEP Roa) Visit Coding Pulmonary Billing Provider: SERENA SMITH MD Date of Service if different f: Jun 02, 2025 Common Visit Codes: 32810-[id number] INP/OBS CARE(HIGH) SERENA SMITH MD Jun 02, 2025 19:53
== END 2025-06-02 16:45 | disposition home or self-care (01) | DRG 133 ==
LOC: EDBD 00:46 → ER 00:53 → OVERFLOW 07:24 → TELE-WESTW 16:25
PROVIDERS: ADMIT Internal Medicine; ATTEND Internal Medicine
PROC: 5A09357 Assistance with Respiratory Ventilation, Less than 24 Consecutive Hours, Continuous Positive Airway Pressure (ICD-10-PCS; principal; 2025-05-28)
PROC: 5A09357 Assistance with Respiratory Ventilation, Less than 24 Consecutive Hours, Continuous Positive Airway Pressure (ICD-10-PCS; 2025-05-29)
PROC: 5A09357 Assistance with Respiratory Ventilation, Less than 24 Consecutive Hours, Continuous Positive Airway Pressure (ICD-10-PCS; 2025-05-30)
PROC: 5A09357 Assistance with Respiratory Ventilation, Less than 24 Consecutive Hours, Continuous Positive Airway Pressure (ICD-10-PCS; 2025-05-31)
PROC: 5A09357 Assistance with Respiratory Ventilation, Less than 24 Consecutive Hours, Continuous Positive Airway Pressure (ICD-10-PCS; 2025-06-01)
PROC: 5A09357 Assistance with Respiratory Ventilation, Less than 24 Consecutive Hours, Continuous Positive Airway Pressure (ICD-10-PCS; 2025-06-02)
DX: J96.21 Acute and chronic respiratory failure with hypoxia (principal); N17.0 Acute kidney failure with tubular necrosis; I50.33 Acute on chronic diastolic (congestive) heart failure; E66.2 Morbid (severe) obesity with alveolar hypoventilation; I16.0 Hypertensive urgency; I13.0 Hypertensive heart and chronic kidney disease with heart failure and stage 1 through stage 4 chronic kidney disease, or unspecified chronic kidney disease; D64.9 Anemia, unspecified; E11.22 Type 2 diabetes mellitus with diabetic chronic kidney disease; J44.1 Chronic obstructive pulmonary disease with (acute) exacerbation; E87.6 Hypokalemia; E78.5 Hyperlipidemia, unspecified; N18.4 Chronic kidney disease, stage 4 (severe); J98.11 Atelectasis; F41.0 Panic disorder [episodic paroxysmal anxiety]; I25.2 Old myocardial infarction; Z88.0 Allergy status to penicillin; Z79.82 Long term (current) use of aspirin; Z79.899 Other long term (current) drug therapy; Z87.891 Personal history of nicotine dependence; Z68.41 Body mass index [BMI] 40.0-44.9, adult; Z82.0 Family history of epilepsy and other diseases of the nervous system; Z82.49 Family history of ischemic heart disease and other diseases of the circulatory system
CPT/HCPCS: 36415; 36600; 70450; 71045; 76775; 80048; 80053; 80307; 81001; 82570; 82805; 82962; 83735; 83880; 84132; 84156; 84300; 84484; 85025; 85610; 85730; 87081; 93005; 93971; 94640; 94660; 96374; 97110; 97116; 97163; 97530; G0378

== ENCOUNTER 2025-08-03 15:42 | Inpatient (IN) | payer MEDICAID ==
[~2025-08-03] VITALS: Ht 175.3 cm; Wt 100.0 kg
[~2025-08-03 15:42] MED LIST changes: +ATOR40TA52 PO; +LEVE500T3 PO; -NIFE1TAB30 PO; -SPIR25TA8 PO
--- NOTE | 2025-08-03 15:58 | ED.PDOC ---
SOB-HPI HPI Comments 64y M who presents to the ED via EMS for chief complaint of shortness of breath. EMS arrived on scene after family called due to pt being short of breath and states he has not been acting like himself. EMS arrived on scene and noted pt states he was short of breath since 1000 this morning and has been dealing with dry cough. EMS noted pt had 02 sat of 88% on room air and pt was placed on 4 L via nc and 02 saturation went to 100% and pt was brought to the ED for further evaluation. Pt otherwise denies any other symptoms at this time. Chief Complaint: Shortness of Breath Time Seen by MD: 15:55 Primary Care Provider: TIKA Reviewed notes: Medications, Allergies Information Source: Patient Mode of Arrival: Ambulatory Brought in by: EMS Severity: Moderate Timing: Hours Duration: Since onset Context: At Rest PE Risk Factors: None History of: COPD, CHF Prehospital treatment: Oxygen (4 L via nasal canula) Modifying Factors: Nothing Associated Signs and Symptoms: Cough If cough with SOB: Clear Past Medical History PAST MEDICAL HISTORY: CHF, CKF, COPD, DM, High Lipids, HTN, VA, Seizures Surgical History: Denies all surgeries Family History Family History: Family hx of DM Social History Smoker: Quit Greater Than 1 Year Alcohol: Denies ETOH Use Drugs: Denies Drug Use Lives In: Home Constitutional: denies: chills, diaphoresis, fatigue, fever, malaise, sweats, weakness, others EENTM: denies: blurred vision, double vision, ear bleeding, ear discharge, ear drainage, ear pain, ear ringing, eye pain, eye redness, hearing loss, mouth pain, mouth swelling, nasal discharge, nose bleeding, nose congestion, nose pain, photophobia, tearing, throat pain, throat swelling, voice changes, others Respiratory: reports: cough, shortness of breath; denies: hemoptysis, orthopnea, SOB at rest, SOB with excertion, stridor, wheezing, others Cardiovascular: denies: chest pain, dizzy spells, diaphoresis, Dyspnea on exertion, edema, irregular heart beat, left arm pain, lightheadedness, palpitations, PND, syncope, others Gastrointestinal: denies: abdomen distended, abdominal pain, blood streaked bowels, constipated, diarrhea, dysphagia, difficulty swallowing, hematemesis, melena, nausea, poor appetite, poor fluid intake, rectal bleeding, rectal pain, vomiting, others Genitourinary: denies: burning, dysuria, flank pain, frequency, hematuria, incontinence, penile discharge, penile sore, pain, testicle pain, testicle swelling, urgency, others Neurological: denies: dizziness, fainting, headache, left sided numbness, left sided weakness, numbness, paresthesia, pre-existing deficit, right sided numbness, right sided weakness, seizure, speech problems, tingling, tremors, weakness, others Musculoskeletal: denies: back pain, gout, joint pain, joint swelling, muscle pain, muscle stiffness, neck pain, others Integumetry: denies: bruises, change in color, change in hair/nails, dryness, laceration, lesions, lumps, rash, wounds, others Allergic/Immunocompromised: denies: Difficulty Healing, Frequent Infections, Hives, Itching, others Hematologic/Lymphatic: denies: anemia, blood clots, easy bleeding, easy bruising, swollen glands, others Endocrine: denies: excessive hunger, excessive sweating, excessive thirst, excessive urination, flushing, intolerance to cold, intolerance to heat, unexplained weight gain, unexplained weight loss, others Psychiatric: denies: anxiety, bipolar disorder, depression, hopeless, panic dis order, schizophrenia, sleepless, suicidal, others All Other Systems: Reviewed and Negative Physical Exam General Appearance: Moderate Distress HEENT: Pale Conjuntivae (L), Pale Conjuntivae (R), Pharynx Normal, TMs Normal Neck: Full Range of Motion, Non-Tender, Normal, Normal Inspection Respiratory: Chest Non-Tender, Decreased Breath Sounds, No Accessory Muscle Use, Rales, Respiratory Distress Cardiovascular: No Edema, No JVD, No Murmur, No Gallop, Normal Peripheral Pulses, Regular Rate/Rhythm Breast Exam: Deferred Gastrointestinal: No Organomegaly, Non Tender, No Pulsatile Mass, Normal Bowel Sounds, Soft Genitalia: Deferred Pelvic: Deferred Rectal: Deferred Extremities: No calf tenderness, Normal capillary refill, Pedal edema Musculoskeletal : Apperance: Normal Neurologic: Alert, 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 Was a procedure done?: No Differential Dx Differential Diagnosis: CHF, COPD, Myocardial infarction, Pneumonia, Pulmonary Embolism, Respiratory Distress X-Ray, Labs, Meds, VS Vital Signs Date Time Temp Pulse Resp B/P (MAP) Pulse Ox O2 Delivery O2 Flow Rate FiO2 08/03/25 15:50 98.2 78 15 216/104 100 98.2 08/03/25 15:50 100 Nasal Cannula* 4 36 08/03/25 15:49 78 Lab Test 08/03/25 16:09 Range/Units White Blood Count 5.5 4.4-10.8 10^3/uL Red Blood Count 3.18 L 4.5-5.90 10^6/uL Hemoglobin 8.9 L 13.5-17.5 g/dL Hematocrit 27.0 L 41.0-53.0 % Mean Corpuscular Volume 84.8 80.0-100.0 fL Mean Corpuscular Hemoglobin 28.1 28.0-32.0 pg Mean Corpuscular Hemoglobin Concent 33.1 32.0-36.0 g/dL Red Cell Distribution Width 17.7 H 11.8-14.3 % Platelet Count 137 L 140-450 10^3/uL Mean Platelet Volume 9.4 6.9-10.8 fL Neutrophils (%) (Auto) 84.1 H 37.0-80.0 % Lymphocytes (%) (Auto) 7.0 L 10.0-50.0 % Monocytes (%) (Auto) 6.9 0.0-12.0 % Eosinophils (%) (Auto) 1.3 0.0-7.0 % Basophils (%) (Auto) 0.7 0.0-2.0 % Neutrophils # (Auto) 4.6 1.6-8.6 10 ^3/uL Lymphocytes # (Auto) 0.4 0.4-5.4 10 ^3/uL Monocytes # (Auto) 0.4 0-1.3 10 ^3/uL Eosinophils # (Auto) 0.1 0-0.8 10 ^3/uL Basophils # (Auto) 0 0-0.2 10 ^3/uL Nucleated Red Blood Cells 0.2 % Sodium Level 145 136-145 mmol/L Potassium Level 3.9 3.5-5.1 mmol/L Chloride Level 105 98-107 mmol/L Carbon Dioxide Level 29 20-31 mmol/L Anion Gap 11 5-15 Blood Urea Nitrogen 48 H 9-23 mg/dL Creatinine 4.67 H 0.700-1.30 mg/dL Glomerular Filtration Rate Calc 13 >90 mL/min BUN/Creatinine Ratio 10.3 10.0-20.0 Serum Glucose 171 H 74-106 mg/dL Calcium Level 9.2 8.7-10.4 mg/dL Troponin I High Sensitivity 34 </=54 ng/L B-Type Natriuretic Peptide 712.90 0-100 pg/mL PROCEDURE(s): CXRP - CHEST PORTABLE = IMPRESSION: 1. Persistent unimproved right lower lobe airspace disease with slight increase in the pleural effusion. The patient had an IV Hep-Lock established. The patient has an increase in the pleural effusion on the right The CBC shows anemia with a hemoglobin of 8.9 and hematocrit of 27 The chemistry panel shows a BUN of 48 and a creatinine of 4.67 with a BNP of 712 At this time, the patient is being admitted to the hospitalist. Images Reviewed?: Images reviewed and evaluated by me Time of 1ST Reevaluation: 16:30 Reevaluation 1ST: Unchanged Patient Education/Counseling: Diagnosis, Treatment Family Education/Counseling: No Family Present SEPSIS Sepsis Screen Physician Orders Urinalysis (08/03/25 15:49) Chest Portable (08/03/25 15:49) Heplock Iv (08/03/25 15:49) Pulse Oximetry (08/03/25 15:49) Oxygen (08/03/25 15:49) Airline Operations Agent (08/03/25 15:49) Blood Pressure (08/03/25 15:49) Electrocardigram (08/03/25 15:49) Troponin-I Hs (08/03/25 16:49) Troponin-I Hs (08/03/25 18:49) Electrocardigram (08/03/25 16:49) Electrocardigram (08/03/25 18:49) Vital Signs Date Time Temp Pulse Resp B/P (MAP) Pulse Ox O2 Delivery O2 Flow Rate FiO2 08/03/25 15:50 98.2 78 15 216/104 100 98.2 08/03/25 15:50 100 Nasal Cannula* 4 36 08/03/25 15:49 78 Laboratory Tests Test 08/03/25 16:09 White Blood Count 5.5 10^3/uL (4.4-10.8) Departure 1 Departure Time of Disposition: 17:09 Impression: Primary Impression: Recurrent right pleural effusion Disposition: ADMITTED INPATIENT Admit to: Tele Condition: Fair Critical Care Note Critical Care Time?: Yes (45 min-critical care time only) Stability Stability form required: Yes Unstable for transfer: Telemetry monitoring (Telemetry monitoring required), ED Physician Assesment (Clinical assesment) Heart Score Heart Score: Heart Score Response (Comments) Value History N/A 0 EKG N/A 0 Age N/A 0 Risk Factors N/A 0 Troponin N/A 0 Total 0 I personally scribed for ANDRES SLAUGHTER MD ([email or web address]) on 08/03/25 at 15:58. Electronically submitted by Jame Devine ([email or web address]). I personally scribed for ANDRES SLAUGHTER MD ([email or web address]) on 08/03/25 at 16:36. Electronically submitted by Jame Devine [email or web address]). ANDRES SLAUGHTER MD Aug 03, 2025 15:58
[2025-08-03 16:21] LABS: Hematocrit 27.0 % (41.0-53.0); Hemoglobin 8.9 g/dL (13.5-17.5); Mean Corpuscular Hemoglobin 28.1 pg (28.0-32.0); Mean Corpuscular Volume 84.8 fL (80.0-100.0); Nucleated Red Blood Cells % 0.2 %
[2025-08-03 16:28] LABS: Chloride 105 mmol/L (98-107); Potassium 3.9 mmol/L (3.5-5.1); Sodium 145 mmol/L (136-145)
[2025-08-03 16:29] LABS: Anion Gap 11 (5-15); Carbon Dioxide 29 mmol/L (20-31)
[2025-08-03 16:30] LABS: Calcium 9.2 mg/dL (8.7-10.4)
--- NOTE | 2025-08-03 16:30 | DVH ---
CHEST RADIOGRAPH Indication: sob Technique: Single frontal view of the chest was obtained Comparison: XY CHEST PORTABLE on DOS: 06/01/25, XY CHEST XRAY 1 VIEW on DOS: 05/28/25, XY CHEST PORTABLE on DOS: 05/26/25 FINDINGS: Lines and Tubes: None Lungs: Increased tissue density over the lower right chest. May represent worsening airspace disease and pleural effusion or overlying breast tissue. Pleura: Possible small right pleural effusion No pneumothorax. Cardiomediastinal contours: Unremarkable Bones: No acute osseous abnormality. IMPRESSION: 1. Persistent unimproved right lower lobe airspace disease with slight increase in the pleural effusion.
[2025-08-03 16:35] LABS: BUN/Creatinine Ratio 10.3 (10.0-20.0)
[2025-08-03 16:56] LABS: Blood Urea Nitrogen 48 mg/dL (9-23); Glucose 171 mg/dL (74-106)
[2025-08-03 18:07] LABS: Urine Protein, UAD 3+ (Negative)
[2025-08-03] MEDS: FUROSEMIDE 40 MG/4 ML VIAL IV ONE (18:08)
[2025-08-03 18:14] LABS: COVID19 ANTIGEN SOFIA FIA NEGATIVE (NEGATIVE)
--- NOTE | 2025-08-03 18:53 | ECG ---
[facility] Test Date: 2025-08-03 Test Time: 15:49:04 Pat Name: RADHA ROJO Department: ED Room: [address] [place] [address] Gender: M Clerk Manager: kannan : 1960 Requested By: ANDRES SLAUGHTER Order Number: [id number] Reading MD: Clayton Gerard Measurements Intervals [place] Rate: 78 P: 45 ID: [id number] QRS: -30 QRSD: 96 T: 127 QT: 396 QTc: 452 Interpretive Statements Sinus rhythm LVH with secondary repolarization abnormality Electronically Signed On 08-04-2025 15:07:52 PST by Clayton Gerard Please click the below link to view image of tracing.
[2025-08-03] MEDS: hydrALAZINE HCL 20 MG/ML VL IV ONE (18:57)
[2025-08-03 19:20] VITALS: PULSE 75; RESP 17; O2SAT 89
[2025-08-03] MEDS ORDERED: DEXTROSE (50%) 50ML SYRG IV PRN (19:45)
[2025-08-03] MEDS ORDERED: ONDANSETRON HCL 4 MG/2 ML VIAL IV PRN (19:45)
[2025-08-03 20:23] LABS: Chloride 107 mmol/L (98-107); Potassium 3.9 mmol/L (3.5-5.1)
[2025-08-03 20:24] LABS: Anion Gap 11 (5-15); Calcium 8.9 mg/dL (8.7-10.4); Carbon Dioxide 27 mmol/L (20-31)
[2025-08-03 20:25] VITALS: PULSE 80; RESP 18; O2SAT 96
[2025-08-03] MEDS: IPRATROPIUM BROM 0.5 MG/2.5ML INH SOL NEB PRN (20:25)
[2025-08-03] MEDS: ALBUTEROL SULF 2.5 MG/0.5ML(0.5%) NEB SOLN NEB PRN (20:25)
[2025-08-03 20:29] LABS: BUN/Creatinine Ratio 10.0 (10.0-20.0); Glucose 94 mg/dL (74-106)
[2025-08-03 20:31] VITALS: PULSE 83; RESP 20; O2SAT 98
--- NOTE | 2025-08-03 20:31 | DVH ---
EXAM: CT CHEST WITHOUT CONTRAST History: sob Comparison Study: XY CHEST PORTABLE on DOS: 08/03/25, XY CHEST PORTABLE on DOS: 06/01/25, XY CHEST XRAY 1 VIEW on DOS: 05/28/25, XY CHEST PORTABLE on DOS: 05/26/25, US CHEST ULTRASOUND on DOS: 04/22/25 TECHNIQUE: Multidetector CT of the chest was performed. Imaging was performed without IV contrast. Axial, coronal, and sagittal multiplanar reformats were obtained from the axial data set by the technologist. Radiation Dose : CTDI vol 27.6 mGy, DLP 1120.4 mGy*cm. Findings: Evaluation is degraded by respiratory motion. Lungs/pleura: There is emphysema. Small loculated right pleural effusion. Trace left pleural effusion. Ground-glass and dense opacities most pronounced within the lower lobes. Heart/Great vessels: There is mild cardiomegaly. Trace pericardial effusion. Mild coronary artery calcifications. Mild atherosclerotic calcifications of the aorta. Mediastinum: Mediastinal adenopathy measuring up to 15 mm short axis. Moderate debris throughout the esophagus. Soft tissues/Bones: Unremarkable Upper abdomen: The partially visualized upper abdomen is within normal limits. Impression: 1. Small loculated right and trace left pleural effusion with adjacent opacities., possibly reflecting atelectasis, though superimposed infectious / inflammatory process cannot be excluded in the appropriate clinical setting. Posttreatment follow-up is suggested to ensure appropriate resolution. 2. Mediastinal adenopathy, possibly reactive. Attention on follow-up is suggested. 3. Emphysema. 4. Debris throughout the esophagus places patient at risk for aspiration. 5. Additional findings as detailed.
[2025-08-03] MEDS: AZITHROMYCIN 500MG/250ML 250 ML IV ONE (20:44)
[2025-08-03 20:54] LABS: Blood Urea Nitrogen 46 mg/dL (9-23); Sodium 145 mmol/L (136-145)
[2025-08-03 21:17] VITALS: BP 222/96; PULSE 80; RESP 18; TEMP 98.2; O2SAT 95
[2025-08-03] MEDS: GABAPENTIN 300 MG CAP PO SCH (21:36)
[2025-08-03] MEDS: levETIRAcetam 500 MG TAB PO SCH (21:36)
[2025-08-03] MEDS: ATORVASTATIN 20 MG TAB PO SCH (21:38)
[2025-08-03] MEDS: ACCU-CHEK COMFORT CURVE STRIP VI SCH (21:39)
[2025-08-03] MEDS: InsuLIN REG 1unit/0.01ml Soln (100units/ml) SC SCH (21:40)
[2025-08-04] VITALS (35 sets, daily range): BP systolic 102–196; BP diastolic 26–87; PULSE 62–97; RESP 9–18; TEMP 98.4–98.7; O2SAT 85–98
[2025-08-04] MEDS: hydrALAZINE HCL 20 MG/ML VL IV PRN (00:20)
[2025-08-04] MEDS: ENALAPRILAT 1.25 MG/ML-1ML VIAL IV ONE (01:58)
[2025-08-04 03:43] LABS: Hematocrit 26.2 % (41.0-53.0); Hemoglobin 8.7 g/dL (13.5-17.5); Mean Corpuscular Hemoglobin 28.3 pg (28.0-32.0); Mean Corpuscular Volume 84.8 fL (80.0-100.0); Nucleated Red Blood Cells % 0.0 %
--- NOTE | 2025-08-04 04:48 | DVHHP2 ---
History of Present Illness Reason for Visit: Shortness for breath History of Present Illness 64-year-old male presents for evaluation of shortness for breath. Patient reports a three day history of worsening shortness for breath. On arrival patient's blood pressure was noted to be in the 200s. Denies chest pain or palpitations. States having a nonproductive cough. Also reports lower extremity swelling Past Medical History COPD, CHF, chronic kidney disease, hypertension, mi, seizures Past Surgical History Denies Family History Diabetes mellitus Smoke: Quit ALCOHOL: none Drugs: None Lives: with Family Review of Systems Review of Systems Review of systems are currently negative otherwise addressed in HPI. Allergies: Coded Allergies: [place] (Verified Allergy, Severe, 08/03/25) Penicillins (Verified Allergy, Unknown, 05/31/24) Medications Current Medications Medications Dose Ordered Sig/Ricky Route Start Time Stop Time Status Last Admin Dose Admin Hydralazine HCl 10 mg Q6HP PRN IV 08/03/25 19:45 08/04/25 00:20 10 MG Aspirin 81 mg DAILY PO 08/04/25 10:00 Atorvastatin Calcium 40 mg HS PO 08/03/25 22:00 08/03/25 21:38 40 MG Clonidine HCl 0.2 mg BID PO 08/03/25 22:00 08/03/25 21:35 0.2 MG Gabapentin 300 mg BID PO 08/03/25 22:00 08/03/25 21:36 300 MG Hydralazine HCl 100 mg BID PO 08/03/25 22:00 08/03/25 21:36 100 MG Levetiracetam 500 mg BID PO 08/03/25 22:00 08/03/25 21:36 500 MG Metoprolol Succinate 50 mg DAILY PO 08/04/25 10:00 Nifedipine 90 mg DAILY PO 08/04/25 10:00 Potassium Chloride 20 meq DAILY PO 08/04/25 10:00 Spironolactone 50 mg DAILY PO 08/04/25 10:00 Azithromycin 250 ml @ 125 mls/hr DAILY IV 08/04/25 10:00 Albuterol 2.5 mg Q6HPRN PRN NEB 08/03/25 19:45 08/03/25 20:25 2.5 MG Ipratropium Aniwa 0.5 mg Q6HPRN PRN NEB 08/03/25 19:45 08/03/25 20:25 0.5 MG Diagnostic Test (Pha) 1 strip ACHS 08/03/25 22:00 08/03/25 21:39 1 STRIP Insulin Human Regular ACHS SC 08/03/25 22:00 08/03/25 21:40 2 UNITS Dextrose 50 ml UD PRN IV 08/03/25 19:45 Ondansetron HCl 4 mg Q4HP PRN IV 08/03/25 19:45 Enoxaparin Sodium 40 mg DAILY SC 08/04/25 10:00 Acetaminophen 650 mg Q6HP PRN PO 08/03/25 19:45 Furosemide 40 mg DAILY IV 08/04/25 10:00 Nicardipine/ Sodium Chloride 200 ml @ 50 mls/hr Q4H IV 08/04/25 04:45 Exam Vital Signs Vital Signs Date Time Temp Pulse Resp B/P (MAP) Pulse Ox O2 Delivery O2 Flow Rate FiO2 08/04/25 02:46 207/88 08/04/25 01:00 69 17 91 08/03/25 21:17 98.2 5.0 40 98.2 08/03/25 20:25 Nasal Cannula Exam Gen: 64-year-old male in mild distress Skin: Warm, dry, normal color and texture, no rash. HEENT: Normocephalic atraumatic, mucous membranes moist and pink. Neck: Cervical and supraclavicular nodes normal without enlargement, trachea is midline, thyroid gland is normal without masses. Pulmonary: Clear to auscultation and percussion bilaterally. Cardiac: Regular rate and rhythm. No murmur Abdomen: Soft, nontender, nondistended, bowel sounds present all 4 quadrants, no guarding, no rigidity, no organomegaly. Extremities: No cyanosis, clubbing, plus two bilateral lower extremity edema Neuro: Cranial nerves II through XII grossly intact, normal affect and speech, no focal motor deficits. Labs/Xrays AGE / SEX: 64 / M ADM STATUS: ADM IN SERVICE 38 ORDERING PHYSICIAN: YUNIER CABALLERO PROCEDURE(s): CX2CT - CHEST WITHOUT CONTRAST REASON: sob ORDER NUMBER(s): [id number], ACCESSION NUMBER(s): [id number] EXAM: CT CHEST WITHOUT CONTRAST History: sob Comparison Study: XY CHEST PORTABLE on DOS: 08/03/25, XY CHEST PORTABLE on DOS: 06/01/25, XY CHEST XRAY 1 VIEW on DOS: 05/28/25, XY CHEST PORTABLE on DOS: 05/26/25, US CHEST ULTRASOUND on DOS: 04/22/25 TECHNIQUE: Multidetector CT of the chest was performed. Imaging was performed without IV contrast. Axial, coronal, and sagittal multiplanar reformats were obtained from the axial data set by the technologist. Radiation Dose : CTDI vol 27.6 mGy, DLP 1120.4 mGy*cm. Findings: Evaluation is degraded by respiratory motion. Lungs/pleura: There is emphysema. Small loculated right pleural effusion. Trace left pleural effusion. Ground-glass and dense opacities most pronounced within the lower lobes. Heart/Great vessels: There is mild cardiomegaly. Trace pericardial effusion. Mild coronary artery calcifications. Mild atherosclerotic calcifications of the aorta. Mediastinum: Mediastinal adenopathy measuring up to 15 mm short axis. Moderate debris throughout the esophagus. Soft tissues/Bones: Unremarkable Upper abdomen: The partially visualized upper abdomen is within normal limits. Impression: 1. Small loculated right and trace left pleural effusion with adjacent opacities., possibly reflecting atelectasis, though superimposed infectious / inflammatory process cannot be excluded in the appropriate clinical setting. Posttreatment follow-up is suggested to ensure appropriate resolution. 2. Mediastinal adenopathy, possibly reactive. Attention on follow-up is suggested. 3. Emphysema. 4. Debris throughout the esophagus places patient at risk for aspiration. 5. Additional findings as detailed. RING PHYSICIAN: KAREEM RYNA MD PROCEDURE(s): ECIDC - ECHO 2D MODE CARDIAC DOP REASON: elevated trop, chf r/o acs ORDER NUMBER(s): [id number], ACCESSION NUMBER(s): [id number] APPROVED REPORT EXAM: LIMITED Two-dimensional and M-mode echocardiogram with Doppler and color Doppler. Blood Pressure: 214/94 mmHg INDICATION Elevated Trops CHF r/o acs RISK FACTORS Obesity: Height: 5' 9", Weight: 251 DIMENSIONS LVDd 5.0 (3.8-5.7cm) LA (2D) 4.3 (1.9-4.0cm) Aortic Root 3.8 (2.0- 3.7cm) LVDs 3.5 (2.5-4.0cm) LA (MM) (1.9-4.0cm) Aortic Cusp Exc 1.6 (1.5- 2.0cm) EF (%) 57.0 (55-70%) Rt. Atrium 4.3 (1.9-4.0cm) Asc. Aorta cm IVSd 1.7 (0.7-1.1cm) RV (D) (1.8-2.4cm) PWd 1.5 (0.7-1.1cm) Mitral Valve Mitral Mitral Stenosis E wave 1.10m/s MV Mean GR. mmHg A wave 0.80m/s MV Peak GR. mmHg E/A ratio 1.4 2D MVA cm2 Aortic Valve Aortic Valve Aortic Stenosis V1 1.10m/s AO Mean GR. 6mmHg V2 1.70m/s AO Peak GR. 12mmHg LVOT Diameter 2.1 (1.8-2.4cm) Doppler EASTON 2.24cm2 AI P / Time 926.97ms Pulmonic Valve V2 0.80m/s Other Information Quality : Technically Limited Rhythm : Technically limited study due to body habitus. Conclusion Sinus rhythm. Concentric LVH. Biatrial enlargement. Normal valves. EF of 60% with normal RV function. Mild TR. Mild aortic insufficiency. No pericardial effusion masses or vegetations discernible. SIGNED BY: MARCELLA ABDUL Sr., MD SIGNED DATE/TIME: 04/25/25 8547 Labs Test 08/04/25 03:10 08/03/25 19:50 08/03/25 17:20 08/03/25 17:17 Range/Units White Blood Count 5.1 4.4-10.8 10^3/uL Red Blood Count 3.09 L 4.5-5.90 10^6/uL Hemoglobin 8.7 L 13.5-17.5 g/dL Hematocrit 26.2 L 41.0-53.0 % Mean Corpuscular Volume 84.8 80.0-100.0 fL Mean Corpuscular Hemoglobin 28.3 28.0-32.0 pg Mean Corpuscular Hemoglobin Concent 33.3 32.0-36.0 g/dL Red Cell Distribution Width 17.5 H 11.8-14.3 % Platelet Count 122 L 140-450 10^3/uL Mean Platelet Volume 9.8 6.9-10.8 fL Neutrophils (%) (Auto) 80.1 H 37.0-80.0 % Lymphocytes (%) (Auto) 8.7 L 10.0-50.0 % Monocytes (%) (Auto) 8.9 0.0-12.0 % Eosinophils (%) (Auto) 1.6 0.0-7.0 % Basophils (%) (Auto) 0.7 0.0-2.0 % Neutrophils # (Auto) 4.1 1.6-8.6 10 ^3/uL Lymphocytes # (Auto) 0.4 0.4-5.4 10 ^3/uL Monocytes # (Auto) 0.4 0-1.3 10 ^3/uL Eosinophils # (Auto) 0.1 0-0.8 10 ^3/uL Basophils # (Auto) 0 0-0.2 10 ^3/uL Nucleated Red Blood Cells 0.0 % Sodium Level 145 136-145 mmol/L Potassium Level 3.9 3.5-5.1 mmol/L Chloride Level 107 98-107 mmol/L Carbon Dioxide Level 27 20-31 mmol/L Anion Gap 11 5-15 Blood Urea Nitrogen 46 H 9-23 mg/dL Creatinine 4.62 H 0.700-1.30 mg/dL Glomerular Filtration Rate Calc 13 >90 mL/min BUN/Creatinine Ratio 10.0 10.0-20.0 Serum Glucose 94 74-106 mg/dL Calcium Level 8.9 8.7-10.4 mg/dL Troponin I High Sensitivity 36 </=54 ng/L Urine Color Light-yellow Yellow Urine Clarity Clear Clear Urine pH 7.0 5.0-9.0 Urine Specific Chrisman 1.011 1.001-1.035 Urine Protein 3+ H Negative Urine Ketones Negative Negative Urine Blood Trace H Negative /uL Urine Nitrite Negative Negative Urine Bilirubin Negative Negative Urine Urobilinogen Normal Negative mg/dL Urine Leukocyte Esterase Negative Negative /uL Urine RBC 2 0 - 3 /hpf Urine Microscopic WBC 1 0-3 /HPF Urine Squamous Epithelial Cells Few <5 /hpf Urine Bacteria None seen None Seen /hpf Urine Glucose Trace Normal mg/dL Influenza Type A Antigen Negative Negative Influenza Type B Antigen Negative Negative SARS-CoV-2 Antigen (Rapid) Negative NEGATIVE Test 08/03/25 16:09 Range/Units B-Type Natriuretic Peptide 712.90 0-100 pg/mL SEPSIS Sepsis Screen Date sepsis recognized/suspect: Aug 03, 2025 Time Sepsis recognized/suspect: 1919 Recent Procedure: No On Antibiotic Therapy: No Respiratory Rate >20: No Heart Rate >90: No Temp<36 C (96.8 F) or >38.3 C: No SBP <90 or MAP <65 mmHG: No New Acute Mental Status Change: No Is the patient on CPAP, BIPAP,: No Physician Orders Nicardipine 20mg/200ml (Cardene Iv) (08/04/25 04:45) Transfer Orders (08/04/25 04:42) Vital Signs Date Time Temp Pulse Resp B/P (MAP) Pulse Ox O2 Delivery O2 Flow Rate FiO2 08/04/25 02:46 207/88 08/04/25 01:00 69 17 203/92 (129) 91 08/04/25 00:20 193/97 08/04/25 00:00 64 10 193/97 (129) 98 08/03/25 23:00 68 16 182/86 (118) 96 08/03/25 22:35 207/98 08/03/25 22:00 8 15 207/98 (134) 91 08/03/25 21:36 228/103 08/03/25 21:35 228/104 08/03/25 21:17 98.2 80 18 222/96 95 5.0 40 98.2 08/03/25 21:00 77 15 228/104 (145) 93 Laboratory Tests Test 08/04/25 03:10 White Blood Count 5.1 10^3/uL (4.4-10.8) Medications Medications Dose Ordered Sig/Ricky Route Start Time Stop Time Status Last Admin Dose Admin Albuterol 2.5 mg Q6HPRN PRN NEB 08/03/25 19:45 08/03/25 20:25 2.5 MG Atorvastatin Calcium 40 mg HS PO 08/03/25 22:00 08/03/25 21:38 40 MG Azithromycin 250 ml @ 125 mls/hr ONCE ONCE IV 08/03/25 19:45 08/03/25 21:44 DC 08/03/25 20:44 125 MLS/HR Clonidine HCl 0.2 mg BID PO 08/03/25 22:00 08/03/25 21:35 0.2 MG Diagnostic Test (Pha) 1 strip ACHS 08/03/25 22:00 08/03/25 21:39 1 STRIP Enalaprilat 2.5 mg ONCE ONCE IV 08/04/25 01:45 08/04/25 01:46 DC 08/04/25 02:46 2.5 MG Gabapentin 300 mg BID PO 08/03/25 22:00 08/03/25 21:36 300 MG Hydralazine HCl 10 mg Q6HP PRN IV 08/03/25 19:45 08/04/25 00:20 10 MG Hydralazine HCl 20 mg ONCE ONCE IV 08/03/25 18:45 08/03/25 18:46 DC 08/03/25 18:57 20 MG Hydralazine HCl 100 mg BID PO 08/03/25 22:00 08/03/25 21:36 100 MG Insulin Human Regular ACHS SC 08/03/25 22:00 08/03/25 21:40 2 UNITS Ipratropium Aniwa 0.5 mg Q6HPRN PRN NEB 08/03/25 19:45 08/03/25 20:25 0.5 MG Levetiracetam 500 mg BID PO 08/03/25 22:00 08/03/25 21:36 500 MG Assessment/Plan Assessment/Plan Assessment Acute on chronic respiratory failure COPD Diabetes mellitus Questionable pneumonia Hypertensive urgency Acute on chronic renal failure Plan Admit the patient to telemetry to ICU to the hospitalist Continue nicardipine drip Nephrology consultation IV Lasix Resume home medications Continue treatment per orders. Plan discussed with: Patient My Orders Orders - YUNIER CABALLERO AGACNP Procedure Category Date Status Time Chest Without Contrast CT 08/03/25 Resulted 19:39 Hydralazine Injection PHA 08/03/25 In Process (Apresoline Inject 19:45 Aspirin Tablet PHA 08/04/25 In Process 10:00 Atorvastatin (Lipitor) PHA 08/03/25 In Process 22:00 Clonidine Hcl Tablet PHA 08/03/25 In Process (Catapres Tablet) 22:00 Gabapentin Capsule PHA 08/03/25 In Process (Neurontin Capsule) 22:00 Hydralazine Hcl PHA 08/03/25 In Process Tablet (Apresoline 22:00 Levetiracetam Tablet PHA 08/03/25 In Process (Keppra Tablet) 22:00 Metoprolol Xl PHA 08/04/25 In Process Succinate (Toprol Xl) 10:00 Nifedipine Er PHA 08/04/25 In Process (Procardia Xl 10:00 Potassium Er Tablet PHA 08/04/25 In Process (Klor-Con Tablet) 10:00 Spironolactone PHA 08/04/25 In Process (Aldactone) 10:00 Azithromycin PHA 08/04/25 In Process 500mg/250ml 10:00 Albuterol Medneb PHA 08/03/25 In Process (Ventolin Medneb) 19:45 Ipratropium Medneb PHA 08/03/25 In Process (Atrovent Medneb) 19:45 Glucose Blood PHA 08/03/25 In Process (Accu-Chek Comfort 22:00 Insulin R (Human) PHA 08/03/25 In Process (Insulin R) 22:00 Dextrose 50% Syringe PHA 08/03/25 In Process 19:45 Admit ADMIT 08/03/25 Transmitted 19:39 Ondansetron Hcl PHA 08/03/25 In Process (Zofran) 19:45 Enoxaparin Sodium PHA 08/04/25 In Process (Lovenox) 10:00 Cardiac DIET 08/04/25 Transmitted Diet-2gna,Lofat,Lochol Breakfast Condition: Stable VICKIE 08/03/25 In Process 19:39 Acetaminophen Tablet PHA 08/03/25 In Process (Tylenol Tablet) 19:45 Bedrest With Bathroom VICKIE 08/03/25 In Process Privileg 19:39 Furosemide Injection PHA 08/04/25 In Process (Lasix Injection) 10:00 Nicardipine PHA 08/04/25 In Process 20mg/200ml (Cardene 04:45 Transfer Orders XFER 08/04/25 Transmitted 04:42 Date of Service: Aug 03, 2025 Billing Provider: YUNIER CABALLERO Common Visit Codes: [id number] CARE 30-74 MIN YUNIER CABALLERO Aug 04, 2025 04:48
[2025-08-04] MEDS: ACETAMINOPHEN 325 MG TAB PO PRN (08:18)
--- NOTE | 2025-08-04 09:06 | DVHINCON2 ---
Date of service: Aug 04, 2025 Referring Physician Bubba Miller, nurse practitioner Reason for Consultation Acute kidney injury History of Present Illness Patient is a 64-year-old obese male with past medical history significant for diabetes mellitus type 2 CHF, CKD stage IV, COPD, High Lipids, HTN, ND, and Seizures is admitted for shortness of breath and hypoxemia. On admission patient found to have elevated BUN creatinine nephrology is consulted for acute kidney injury Past Medical History CHF, CKD 4, COPD, DM, High Lipids, HTN, ND, Seizures Past Surgical History Patient denied Allergies: Coded Allergies: Mcintosh (Verified Allergy, Severe, 08/03/25) Penicillins (Verified Allergy, Unknown, 05/31/24) Home Meds Active Scripts Losartan Potassium (Losartan Potassium) 50 Mg Tab, 1 TAB PO DAILY for 30 Days, #30 TAB 3 Refills Prov:LINDA NUGENT NP 04/18/25 Spironolactone (Spironolactone) 50 Mg Tab, 1 TAB PO DAILY, #30 TAB 5 Refills Prov:LINDA NUGENT NP 04/18/25 Metoprolol Succinate (Toprol Xl) 50 Mg Tab, 1 TAB PO DAILY, #30 TAB 5 Refills Prov:LINDA NUGENT NP 04/18/25 Nifedipine (Nifedipine Er) 90 Mg Tab, 1 TAB PO DAILY, #30 TAB 5 Refills Prov:LINDA NUGENT NP 04/18/25 Potassium Bicarbonate (Effer-K) 25 Meq Tab, 25 MEQ PO DAILY, #30 TAB 5 Refills Prov:JON WRIGHT MD 04/02/25 Bumetanide (Bumex Tablet) 1 Mg Tab, 1 MG PO BID, #60 TAB 5 Refills BLK BX WARNING-CAN LEAD TO PROFOUND DIURESIS WITH FLUID- ELECTROLYTE LOSS Prov:JON WRIGHT MD 04/02/25 Hydralazine Hcl (Hydralazine Hcl) 100 Mg Tab, 1 TAB PO TID, #90 TAB 5 Refills Prov:JON WRIGHT MD 04/02/25 Clonidine Hydrochloride (Clonidine Hcl) 0.2 Mg Tab, 1 TAB PO BID, #120 TAB 5 Refills Prov:JON WRIGHT MD 04/02/25 Gabapentin (Gabapentin) 300 Mg Cap, 1 CAP PO TID, #90 CAP 5 Refills Prov:JON WRIGHT MD 04/02/25 Aspirin (Aspir-81) 81 Mg Tab, 1 TAB PO DAILY, #60 TAB 5 Refills Prov:TEO HEART MD 06/02/24 Reported Medications Atorvastatin Calcium (ATORVASTATIN CALCIUM) 40 Mg Tab, 1 TAB PO QPM, #90 TAB 3 Refills 05/26/25 Levetiracetam (Levetiracetam) 500 Mg Tab, 1 TAB PO BID 05/26/25 Hydrocodone-Acetaminophen (Hydrocodone/Acetaminophen 10-325 mg) 1 Tab Tab, TID 04/23/25 Current Medications Current Medications Medications (Trade) Dose Ordered Sig/Ricky Route PRN Reason Start Time Stop Time Status Last Admin Hydralazine HCl (Apresoline Injection) 10 mg Q6HP PRN IV SBP>150 08/03/25 19:45 08/04/25 00:20 Aspirin 81 mg DAILY PO 08/04/25 10:00 08/04/25 11:01 Atorvastatin Calcium (Lipitor) 40 mg HS PO 08/03/25 22:00 08/03/25 21:38 Clonidine HCl (Catapres Tablet) 0.2 mg BID PO 08/03/25 22:00 08/04/25 10:58 Gabapentin (Neurontin Capsule) 300 mg BID PO 08/03/25 22:00 08/04/25 10:58 Hydralazine HCl (Apresoline Tablet) 100 mg BID PO 08/03/25 22:00 08/03/25 21:36 Levetiracetam (Keppra Tablet) 500 mg BID PO 08/03/25 22:00 08/04/25 10:58 Metoprolol Succinate (Toprol Xl) 50 mg DAILY PO 08/04/25 10:00 08/04/25 10:57 Nifedipine (Procardia Xl (Time-Release)) 90 mg DAILY PO 08/04/25 10:00 08/04/25 10:58 Potassium Chloride (Klor-Con Tablet) 20 meq DAILY PO 08/04/25 10:00 08/04/25 10:59 Spironolactone (Aldactone) 50 mg DAILY PO 08/04/25 10:00 08/04/25 10:58 DC Azithromycin 250 ml @ 125 mls/hr DAILY IV 08/04/25 10:00 08/04/25 10:59 Albuterol (Ventolin Medneb) 2.5 mg Q6HPRN PRN NEB SHORTNESS OF BREATH 08/03/25 19:45 08/03/25 20:25 Ipratropium [place] (Atrovent Medneb) 0.5 mg Q6HPRN PRN NEB SHORTNESS OF BREATH 08/03/25 19:45 08/03/25 20:25 Diagnostic Test (Pha) (Accu-Chek Comfort Curve T) 1 strip ACHS 08/03/25 22:00 08/04/25 11:52 Insulin Human Regular (InsuLIN R) ACHS SC 08/03/25 22:00 08/04/25 11:59 Dextrose 50 ml UD PRN IV Blood Sugar LESS THAN 60 08/03/25 19:45 Ondansetron HCl (Zofran) 4 mg Q4HP PRN IV NAUSEA / VOMITING 08/03/25 19:45 Enoxaparin Sodium (Lovenox) 40 mg DAILY SC 08/04/25 10:00 08/04/25 10:00 Acetaminophen (Tylenol Tablet) 650 mg Q6HP PRN PO PAIN SCALE 1-3 OR TEMP>100.4 08/03/25 19:45 08/04/25 08:18 Furosemide (Lasix Injection) 40 mg DAILY IV 08/04/25 10:00 08/04/25 10:58 DC Nicardipine/ Sodium Chloride 200 ml @ 50 mls/hr Q4H IV 08/04/25 04:45 08/04/25 15:02 Furosemide (Lasix Injection) 40 mg BID IV 08/04/25 11:00 Family History: FH: Alzheimers disease FH: HTN (hypertension) G8 MOTHER FH: cancer G8 MOTHER Grandmother Grandfather Review of Systems All 12 item review of systems reviewed with the patient nonsignificant except what is mentioned in the history of present illness H&P Exam Vital Signs/I&O Vital Sign Date Time Temp Pulse Resp B/P (MAP) Pulse Ox O2 Delivery O2 Flow Rate FiO2 08/04/25 15:02 139/75 08/04/25 14:15 67 14 97 08/04/25 08:22 98.7 98.7 08/04/25 07:30 Nasal Cannula* 6 44 Intake and Output 08/03/25 08/04/25 19:00 07:00 Intake Total 500 ml Output Total 200 ml 1725 ml Balance -200 ml -1225 ml Intake Oral 0 ml IV Total 500 ml Output Urine Total 200 ml 1725 ml Physical Exam Moderate respiratory distress, high flow oxygen lungs decreased breath sounds at the right base cardiac exam regular rate and rhythm GI obese bowel sounds present was normal Extremity 1+ edema Neuro nonfocal Labs/Diagnostic Data Labs/Diagnostic Data Laboratory Tests Test 08/04/25 13:42 08/04/25 09:47 08/04/25 06:33 08/04/25 03:10 Range/Units Hemoglobin A1c 5.4 <5.7 % A1C Phosphorus Level 2.8 2.4-5.1 mg/dL Magnesium Level 2.1 1.6-2.6 mg/dL Vitamin D 25-Hydroxy 29.6 L 30.0-100 ng/mL POC Glucose 191 H 70-106 mg/dl White Blood Count 5.1 4.4-10.8 10^3/uL Red Blood Count 3.09 L 4.5-5.90 10^6/uL Hemoglobin 8.7 L 13.5-17.5 g/dL Hematocrit 26.2 L 41.0-53.0 % Mean Corpuscular Volume 84.8 80.0-100.0 fL Mean Corpuscular Hemoglobin 28.3 28.0-32.0 pg Mean Corpuscular Hemoglobin Concent 33.3 32.0-36.0 g/dL Red Cell Distribution Width 17.5 H 11.8-14.3 % Platelet Count 122 L 140-450 10^3/uL Mean Platelet Volume 9.8 6.9-10.8 fL Neutrophils (%) (Auto) 80.1 H 37.0-80.0 % Lymphocytes (%) (Auto) 8.7 L 10.0-50.0 % Monocytes (%) (Auto) 8.9 0.0-12.0 % Eosinophils (%) (Auto) 1.6 0.0-7.0 % Basophils (%) (Auto) 0.7 0.0-2.0 % Neutrophils # (Auto) 4.1 1.6-8.6 10 ^3/uL Lymphocytes # (Auto) 0.4 0.4-5.4 10 ^3/uL Monocytes # (Auto) 0.4 0-1.3 10 ^3/uL Eosinophils # (Auto) 0.1 0-0.8 10 ^3/uL Basophils # (Auto) 0 0-0.2 10 ^3/uL Nucleated Red Blood Cells 0.0 % Parathyroid Hormone (Intact) 598.3 H 18.4-80.1 pg/mL Test 08/03/25 19:50 08/03/25 17:20 08/03/25 17:17 08/03/25 17:05 Range/Units Sodium Level 145 136-145 mmol/L Potassium Level 3.9 3.5-5.1 mmol/L Chloride Level 107 98-107 mmol/L Carbon Dioxide Level 27 20-31 mmol/L Anion Gap 11 5-15 Blood Urea Nitrogen 46 H 9-23 mg/dL Creatinine 4.62 H 0.700-1.30 mg/dL Glomerular Filtration Rate Calc 13 >90 mL/min BUN/Creatinine Ratio 10.0 10.0-20.0 Serum Glucose 94 74-106 mg/dL Calcium Level 8.9 8.7-10.4 mg/dL Troponin I High Sensitivity 36 35 </=54 ng/L Urine Color Light-yellow Yellow Urine Clarity Clear Clear Urine pH 7.0 5.0-9.0 Urine Specific [place] 1.011 1.001-1.035 Urine Protein 3+ H Negative Urine Ketones Negative Negative Urine Blood Trace H Negative /uL Urine Nitrite Negative Negative Urine Bilirubin Negative Negative Urine Urobilinogen Normal Negative mg/dL Urine Leukocyte Esterase Negative Negative /uL Urine RBC 2 0 - 3 /hpf Urine Microscopic WBC 1 0-3 /HPF Urine Squamous Epithelial Cells Few <5 /hpf Urine Bacteria None seen None Seen /hpf Urine Glucose Trace Normal mg/dL Influenza Type A Antigen Negative Negative Influenza Type B Antigen Negative Negative SARS-CoV-2 Antigen (Rapid) Negative NEGATIVE Test 08/03/25 16:09 Range/Units White Blood Count 5.5 4.4-10.8 10^3/uL Red Blood Count 3.18 L 4.5-5.90 10^6/uL Hemoglobin 8.9 L 13.5-17.5 g/dL Hematocrit 27.0 L 41.0-53.0 % Mean Corpuscular Volume 84.8 80.0-100.0 fL Mean Corpuscular Hemoglobin 28.1 28.0-32.0 pg Mean Corpuscular Hemoglobin Concent 33.1 32.0-36.0 g/dL Red Cell Distribution Width 17.7 H 11.8-14.3 % Platelet Count 137 L 140-450 10^3/uL Mean Platelet Volume 9.4 6.9-10.8 fL Neutrophils (%) (Auto) 84.1 H 37.0-80.0 % Lymphocytes (%) (Auto) 7.0 L 10.0-50.0 % Monocytes (%) (Auto) 6.9 0.0-12.0 % Eosinophils (%) (Auto) 1.3 0.0-7.0 % Basophils (%) (Auto) 0.7 0.0-2.0 % Neutrophils # (Auto) 4.6 1.6-8.6 10 ^3/uL Lymphocytes # (Auto) 0.4 0.4-5.4 10 ^3/uL Monocytes # (Auto) 0.4 0-1.3 10 ^3/uL Eosinophils # (Auto) 0.1 0-0.8 10 ^3/uL Basophils # (Auto) 0 0-0.2 10 ^3/uL Nucleated Red Blood Cells 0.2 % Sodium Level 145 136-145 mmol/L Potassium Level 3.9 3.5-5.1 mmol/L Chloride Level 105 98-107 mmol/L Carbon Dioxide Level 29 20-31 mmol/L Anion Gap 11 5-15 Blood Urea Nitrogen 48 H 9-23 mg/dL Creatinine 4.67 H 0.700-1.30 mg/dL Glomerular Filtration Rate Calc 13 >90 mL/min BUN/Creatinine Ratio 10.3 10.0-20.0 Serum Glucose 171 H 74-106 mg/dL Calcium Level 9.2 8.7-10.4 mg/dL Troponin I High Sensitivity 34 </=54 ng/L B-Type Natriuretic Peptide 712.90 0-100 pg/mL Assessment Acute kidney injury superimposed on advanced Chronic Kidney Disease stage 4 secondary hemodynamic mediated Chronic kidney disease stage [address] Bergeron Acute hypoxic respiratory failure COPD exacerbation Pneumonia Chronic diastolic Congestive heart failure Diabetes mellitus type 2 Anemia of chronic kidney disease Recommendations Closely monitor fluid and electrolytes Avoid nephrotoxic medications Strict I&Os Check urine electrolytes and protein excretion Check kidney ultrasound IV antibiotics I agree with diuresis We will continue to follow Patient seen and examined by myself in the ER. I discussed my plan of care with the patient and primary nurse at the bedside I would like to thank Bubba for the consult, will follow up Plan discussed with: Patient FLAVIA BROWN MD Aug 04, 2025 09:06
[2025-08-04] MEDS ORDERED: SPIRONOLACTONE 25 MG TAB PO SCH (10:00)
[2025-08-04] MEDS: ENOXAPARIN SOD 40 MG/0.4 ML SYRINGE SC SCH (10:00)
[2025-08-04] MEDS ORDERED: FUROSEMIDE 40 MG/4 ML VIAL IV SCH (10:00)
[2025-08-04 10:34] LABS: Magnesium 2.1 mg/dL (1.6-2.6)
[2025-08-04] MEDS: METOPROLOL SUCCINATE XL 50 MG TAB PO SCH (10:57)
[2025-08-04] MEDS: AZITHROMYCIN 500MG/250ML 250 ML IV SCH (10:59)
[2025-08-04] MEDS: POTASSIUM CHL 20 Meq TABLET PO SCH (10:59)
[2025-08-04] MEDS: FUROSEMIDE 40 MG/4 ML VIAL IV SCH (11:00)
[2025-08-04 16:30] LABS: Urine Amorphous Crystal FEW /hpf (None Seen); Urine Protein, UAD 2+ (Negative)
[2025-08-04 16:46] LABS: Protein, Urine 287.2 mg/dL (1-14)
[2025-08-05] VITALS (38 sets, daily range): BP systolic 116–190; BP diastolic 56–104; PULSE 65–98; RESP 13–21; TEMP 97.3–98.4; O2SAT 79–99
[2025-08-05 08:11] LABS: Hematocrit 24.2 % (41.0-53.0); Hemoglobin 8.0 g/dL (13.5-17.5); Mean Corpuscular Hemoglobin 28.0 pg (28.0-32.0); Mean Corpuscular Volume 84.9 fL (80.0-100.0); Nucleated Red Blood Cells % 0.1 %
[2025-08-05 08:15] LABS: Chloride 106 mmol/L (98-107); Potassium 3.9 mmol/L (3.5-5.1); Sodium 143 mmol/L (136-145)
[2025-08-05 08:16] LABS: Anion Gap 12 (5-15); Calcium 8.9 mg/dL (8.7-10.4); Carbon Dioxide 25 mmol/L (20-31)
[2025-08-05 08:21] LABS: BUN/Creatinine Ratio 9.5 (10.0-20.0)
[2025-08-05 08:44] LABS: Blood Urea Nitrogen 46 mg/dL (9-23); Glucose 128 mg/dL (74-106)
[2025-08-05 09:02] LABS: Base Excess 2.4 mmol/L (-2.0-3.0)
[2025-08-05 11:17] LABS: Hepatitis B Surface Antigen Negative (Negative); Hepatitis C Antibody Negative (Negative)
--- NOTE | 2025-08-05 12:21 | DVHPN2 ---
Subjective SOB Reviewed: H&P Changes from previous H/P or p: No Changes Objective Vitals Vital Signs Date Time Temp Pulse Resp B/P (MAP) Pulse Ox O2 Delivery O2 Flow Rate FiO2 08/05/25 11:30 154/76 08/05/25 11:00 71 18 96 08/05/25 07:30 Nasal Cannula* 5 40 08/05/25 07:30 97.6 97.6 Intake/Output Intake and Output 08/05/25 05:00 Intake Total 2240 ml Output Total 1725 ml Balance 515 ml Intake Oral 740 ml IV Total 1500 ml Output Urine Total 1725 ml # Bowel Movements 1 General Appearance: Alert, Oriented X3 Lungs: Clear to auscultation Cardiovascular: Regular rate, Normal S1, Normal S2 Abdomen: Normal bowel sounds Medications Current Medications Medications Dose Ordered Sig/Ricky Route Start Time Stop Time Status Last Admin Dose Admin Hydralazine HCl 10 mg Q6HP PRN IV 08/03/25 19:45 08/05/25 05:07 10 MG Aspirin 81 mg DAILY PO 08/04/25 10:00 08/04/25 11:01 81 MG Atorvastatin Calcium 40 mg HS PO 08/03/25 22:00 08/04/25 22:39 40 MG Clonidine HCl 0.2 mg BID PO 08/03/25 22:00 08/05/25 10:29 0.2 MG Gabapentin 300 mg BID PO 08/03/25 22:00 08/05/25 10:28 300 MG Hydralazine HCl 100 mg BID PO 08/03/25 22:00 08/05/25 10:28 100 MG Levetiracetam 500 mg BID PO 08/03/25 22:00 08/05/25 10:28 500 MG Metoprolol Succinate 50 mg DAILY PO 08/04/25 10:00 08/05/25 10:28 50 MG Nifedipine 90 mg DAILY PO 08/04/25 10:00 08/05/25 10:25 90 MG Potassium Chloride 20 meq DAILY PO 08/04/25 10:00 08/05/25 10:25 20 MEQ Azithromycin 250 ml @ 125 mls/hr DAILY IV 08/04/25 10:00 08/05/25 10:32 125 MLS/HR Albuterol 2.5 mg Q6HPRN PRN NEB 08/03/25 19:45 08/05/25 04:39 2.5 MG Ipratropium [place] 0.5 mg Q6HPRN PRN NEB 08/03/25 19:45 08/05/25 04:39 0.5 MG Diagnostic Test (Pha) 1 strip ACHS 08/03/25 22:00 08/05/25 11:43 1 STRIP Insulin Human Regular ACHS SC 08/03/25 22:00 08/05/25 11:44 3 UNITS Dextrose 50 ml UD PRN IV 08/03/25 19:45 Ondansetron HCl 4 mg Q4HP PRN IV 08/03/25 19:45 Enoxaparin Sodium 40 mg DAILY SC 08/04/25 10:00 08/04/25 10:00 40 MG Acetaminophen 650 mg Q6HP PRN PO 08/03/25 19:45 08/04/25 17:39 650 MG Furosemide 40 mg BID IV 08/04/25 11:00 08/05/25 10:25 40 MG Laboratory Results Laboratory Tests 08/05/25 07:51 Chemistry Test 08/05/25 07:51 Calcium Level 8.9 mg/dL (8.7-10.4) HgA1c, TSH Test 08/04/25 13:42 Hemoglobin A1c 5.4 % A1C (<5.7) Urinalysis Test 08/04/25 16:15 08/04/25 16:16 Urine Color Light-yellow (Yellow) Urine Clarity Clear (Clear) Urine pH 6.0 (5.0-9.0) Urine Specific [place] 1.012 (1.001-1.035) Urine Protein 2+ (Negative) H Urine Ketones Negative (Negative) Urine Blood Trace /uL (Negative) H Urine Nitrite Negative (Negative) Urine Bilirubin Negative (Negative) Urine Urobilinogen Normal mg/dL (Negative) Urine Leukocyte Esterase Negative /uL (Negative) Urine RBC 1 /hpf (0 - 3) Urine Microscopic WBC 2 /HPF (0-3) Urine Squamous Epithelial Cells Few /hpf (<5) Urine Amorphous Crystals Few /hpf (None Seen) Urine Bacteria Few /hpf (None Seen) H Urine Glucose Normal mg/dL (Normal) Urine Creatinine 96.16 mg/dL (30.0-125.0) Urine Protein/Creatinine Ratio 2.99 Urine Sodium 50 mmol/L (40-220) Urine Total Protein 287.2 mg/dL (1-14) H Blood Gas Results Test 08/05/25 08:56 Arterial Blood pH 7.476 (7.350-7.450) FiO2 % 40.0 Assessment/Plan Assessment/Plan Acute on chronic respiratory failure COPD Diabetes mellitus Questionable pneumonia Hypertensive urgency Acute on chronic renal failure Continue IV abx started oral antihypertensives Duonebs monitor bmp Plan discussed with: Patient My Orders Orders - YANG FOUNTAIN MD Procedure Category Date Status Time Abg W/ Co-Ox RT 08/05/25 Logged 08:40 Transfer Orders XFER 08/05/25 Transmitted 11:17 Date of Service: Aug 05, 2025 Billing Provider: YANG FOUNTAIN MD Common Visit Codes: [id number] INP/OBS CARE(HIGH) YANG FOUNTAIN MD Aug 05, 2025 12:20
--- NOTE | 2025-08-05 16:02 | DVHPN2 ---
Progress Note Date Seen: Aug 05, 2025 Medical Necessity Reason Pt with a Central, PICC or Fol: No Subjective Review of Systems: RESPIRATORY:Abnormal Other Systems: Patient seen and examined by myself today in f/u Objective vital signs Vital Sign Date Time Temp Pulse Resp B/P (MAP) Pulse Ox O2 Delivery O2 Flow Rate FiO2 08/05/25 15:00 75 14 143/74 (97) 92 08/05/25 07:30 Nasal Cannula* 5 40 08/05/25 07:30 97.6 97.6 Total Intake and Output 08/04/25 08/04/25 08/05/25 15:00 23:00 07:00 Intake Total 1250 ml 365 ml 500 ml Output Total 1300 ml Balance 1250 ml 365 ml -800 ml medications Current Medications Medications Dose Ordered Sig/Ricky Route Start Time Stop Time Status Last Admin Dose Admin Hydralazine HCl 10 mg Q6HP PRN IV 08/03/25 19:45 08/05/25 05:07 10 MG Aspirin 81 mg DAILY PO 08/04/25 10:00 08/04/25 11:01 81 MG Atorvastatin Calcium 40 mg HS PO 08/03/25 22:00 08/04/25 22:39 40 MG Clonidine HCl 0.2 mg BID PO 08/03/25 22:00 08/05/25 10:29 0.2 MG Gabapentin 300 mg BID PO 08/03/25 22:00 08/05/25 10:28 300 MG Hydralazine HCl 100 mg BID PO 08/03/25 22:00 08/05/25 10:28 100 MG Levetiracetam 500 mg BID PO 08/03/25 22:00 08/05/25 10:28 500 MG Metoprolol Succinate 50 mg DAILY PO 08/04/25 10:00 08/05/25 10:28 50 MG Nifedipine 90 mg DAILY PO 08/04/25 10:00 08/05/25 10:25 90 MG Potassium Chloride 20 meq DAILY PO 08/04/25 10:00 08/05/25 10:25 20 MEQ Azithromycin 250 ml @ 125 mls/hr DAILY IV 08/04/25 10:00 08/05/25 10:32 125 MLS/HR Albuterol 2.5 mg Q6HPRN PRN NEB 08/03/25 19:45 08/05/25 04:39 2.5 MG Ipratropium [place] 0.5 mg Q6HPRN PRN NEB 08/03/25 19:45 08/05/25 04:39 0.5 MG Diagnostic Test (Pha) 1 strip ACHS 08/03/25 22:00 08/05/25 11:43 1 STRIP Insulin Human Regular ACHS SC 08/03/25 22:00 08/05/25 11:44 3 UNITS Dextrose 50 ml UD PRN IV 08/03/25 19:45 Ondansetron HCl 4 mg Q4HP PRN IV 08/03/25 19:45 Enoxaparin Sodium 40 mg DAILY SC 08/04/25 10:00 08/04/25 10:00 40 MG Acetaminophen 650 mg Q6HP PRN PO 08/03/25 19:45 08/04/25 17:39 650 MG Furosemide 40 mg BID IV 08/04/25 11:00 08/05/25 10:25 40 MG Examination: LUNGS:Normal, CVS:Normal, MSK:Normal laboratory and microbiology Laboratory Tests 08/05/25 07:51 Test 08/05/25 07:51 Range/Units Serum Glucose 128 H 74-106 mg/dL Problem List/Assessment/Plan Problem List/Assessment/Plan Acute kidney injury superimposed on advanced Chronic Kidney Disease stage 4/5 secondary hemodynamic mediated, FeNa > 2% Chronic kidney disease stage [address] Bergeron Acute hypoxic respiratory failure COPD exacerbation Pneumonia Chronic diastolic Congestive heart failure Diabetes mellitus type 2 Anemia of chronic kidney disease Recommendations Kidney function stable CKD 5 Increased UOP Strict I&Os Check urine electrolytes and protein excretion kidney ultrasound reported b/l echogenic kidney IV antibiotics I agree with diuresis We will continue to follow Plan discussed with: Patient FLAVIA BROWN MD Aug 05, 2025 16:02
[2025-08-05] MEDS: BUMETANIDE 1mg/4ml VIAL (0.25mg/ml) IV SCH (17:15)
[2025-08-06] VITALS (9 sets, daily range): BP systolic 154–165; BP diastolic 81–101; PULSE 74–103; RESP 17–20; TEMP 97.1–98.1; O2SAT 95–100
[2025-08-06] MEDS: ALBUTEROL SULF 2.5 MG/0.5ML(0.5%) NEB SOLN NEB SCH (05:36)
[2025-08-06] MEDS: IPRATROPIUM BROM 0.5 MG/2.5ML INH SOL NEB SCH (05:36)
--- NOTE | 2025-08-06 09:45 | DVHPN2 ---
Progress Note Date Seen: Aug 06, 2025 Medical Necessity Reason Pt with a Central, PICC or Fol: No Subjective Patient reports: No new complaints Other Systems: Patient seen and examined by myself today in follow-up Objective vital signs Vital Sign Date Time Temp Pulse Resp B/P (MAP) Pulse Ox O2 Delivery O2 Flow Rate FiO2 08/06/25 09:10 79 18 100 08/06/25 09:02 Nasal Cannula 5.0 08/06/25 09:02 40 08/06/25 06:54 148/71 08/06/25 05:00 98.1 98.1 Total Intake and Output 08/05/25 08/05/25 08/06/25 15:00 23:00 07:00 Intake Total 0 ml 300 ml Output Total 150 ml 700 ml Balance -150 ml 0 ml -400 ml medications Current Medications Medications Dose Ordered Sig/Ricky Route Start Time Stop Time Status Last Admin Dose Admin Hydralazine HCl 10 mg Q6HP PRN IV 08/03/25 19:45 08/06/25 04:26 10 MG Aspirin 81 mg DAILY PO 08/04/25 10:00 08/04/25 11:01 81 MG Atorvastatin Calcium 40 mg HS PO 08/03/25 22:00 08/05/25 21:43 40 MG Clonidine HCl 0.2 mg BID PO 08/03/25 22:00 08/05/25 21:44 0.2 MG Gabapentin 300 mg BID PO 08/03/25 22:00 08/05/25 21:44 300 MG Hydralazine HCl 100 mg BID PO 08/03/25 22:00 08/05/25 21:43 100 MG Levetiracetam 500 mg BID PO 08/03/25 22:00 08/05/25 21:44 500 MG Metoprolol Succinate 50 mg DAILY PO 08/04/25 10:00 08/05/25 10:28 50 MG Nifedipine 90 mg DAILY PO 08/04/25 10:00 08/05/25 10:25 90 MG Potassium Chloride 20 meq DAILY PO 08/04/25 10:00 08/05/25 10:25 20 MEQ Azithromycin 250 ml @ 125 mls/hr DAILY IV 08/04/25 10:00 08/05/25 10:32 125 MLS/HR Diagnostic Test (Pha) 1 strip ACHS 08/03/25 22:00 08/06/25 06:26 1 STRIP Insulin Human Regular ACHS SC 08/03/25 22:00 08/06/25 06:22 2 UNITS Dextrose 50 ml UD PRN IV 08/03/25 19:45 Ondansetron HCl 4 mg Q4HP PRN IV 08/03/25 19:45 Enoxaparin Sodium 40 mg DAILY SC 08/04/25 10:00 08/04/25 10:00 40 MG Acetaminophen 650 mg Q6HP PRN PO 08/03/25 19:45 08/04/25 17:39 650 MG Bumetanide 2 mg BIDD IV 08/05/25 18:00 08/06/25 06:54 2 MG Calcitriol 0.25 mcg DAILY PO 08/06/25 10:00 Albuterol 2.5 mg Q4HR NEB 08/06/25 06:00 08/06/25 09:02 2.5 MG Ipratropium [place] 0.5 mg Q4HR NEB 08/06/25 06:00 08/06/25 09:02 0.5 MG Examination: LUNGS:Normal, CVS:Normal, MSK:Normal laboratory and microbiology Laboratory Tests 08/05/25 07:51 Test 08/05/25 07:51 Range/Units Serum Glucose 128 H 74-106 mg/dL Problem List/Assessment/Plan Problem List/Assessment/Plan Acute kidney injury superimposed on advanced Chronic Kidney Disease stage 4/5 secondary hemodynamic mediated, FeNa > 2% Chronic kidney disease stage [address] Bergeron Acute hypoxic respiratory failure COPD exacerbation Pneumonia Chronic diastolic Congestive heart failure Diabetes mellitus type 2 Nephrotic range proteinuria likely diabetic nephropathy Anemia of chronic kidney disease Recommendations Kidney function stable CKD 5 Increased UOP Strict I&Os patient does past kidney ultrasound reported b/l echogenic kidney IV antibiotics Renal diet Adjust medicine for creatinine clearance No indication for acute hemodialysis I agree with diuresis We will continue to follow Plan discussed with: Patient My Orders My Orders Orders - FLAVIA BROWN MD Procedure Category Date Status Time Bumetanide Injection PHA 08/05/25 In Process (Bumex Injection) 18:00 Calcitriol Capsule PHA 08/06/25 In Process (Rocaltrol Capsule) 10:00 FLAVIA BROWN MD Aug 06, 2025 09:45
[2025-08-06] MEDS ORDERED: CALCITRIOL 0.25 MCG CAP PO SCH (10:00)
--- NOTE | 2025-08-06 12:05 | DVHDS2 ---
Discharge Summary Date of Admission Aug 03, 2025 at 19:39 Date of Discharge: Aug 06, 2025 Labs/Diagnostic Data: Laboratory Results Test 08/06/25 06:02 08/05/25 08:56 08/05/25 07:51 08/04/25 16:16 POC Glucose 138 mg/dl (70-106) Blood Gas Specimen Type Arterial Blood Gas Sample Site Right radial Blood Gas Patient Temperature 37.0 Arterial Blood Date Drawn [id number] Arterial Blood pH 7.476 (7.350-7.450) Arterial Blood Partial Pressure CO2 36.0 mmHg (35.0-48.0) Arterial Blood Partial Pressure O2 67.3 mmHg (83.0-108.0) Arterial Blood HCO3 26.0 mmol/L (21.0-28.0) Arterial Blood Oxygen Saturation 92.0 % (94.0-98.0) Arterial Blood Base Excess 2.4 mmol/L (-2.0-3.0) Arterial Blood Oxyhemoglobin 90.7 % (94.0-98.0) Arterial Blood Carboxyhemoglobin 0.5 % (0.5-1.5) Arterial Blood Methemoglobin 0.9 % (0.0-1.5) Arterial Blood Deoxyhemoglobin 7.9 % (0.0-5.0) Bernardo Test Yes Blood Gas Total Hemoglobin 8.80 g/dL (13.5-17.5) Blood Gas Liter Flow 5.00 Blood Gas Modality Nasal cannula FiO2 % 40.0 White Blood Count 6.0 10^3/uL (4.4-10.8) Red Blood Count 2.85 10^6/uL (4.5-5.90) Hemoglobin 8.0 g/dL (13.5-17.5) Hematocrit 24.2 % (41.0-53.0) Mean Corpuscular Volume 84.9 fL (80.0-100.0) Mean Corpuscular Hemoglobin 28.0 pg (28.0-32.0) Mean Corpuscular Hemoglobin Concent 33.0 g/dL (32.0-36.0) Red Cell Distribution Width 17.3 % (11.8-14.3) Platelet Count 126 10^3/uL (140-450) Mean Platelet Volume 9.7 fL (6.9-10.8) Neutrophils (%) (Auto) 81.5 % (37.0-80.0) Lymphocytes (%) (Auto) 8.4 % (10.0-50.0) Monocytes (%) (Auto) 8.0 % (0.0-12.0) Eosinophils (%) (Auto) 1.3 % (0.0-7.0) Basophils (%) (Auto) 0.8 % (0.0-2.0) Neutrophils # (Auto) 4.9 10 ^3/uL (1.6-8.6) Lymphocytes # (Auto) 0.5 10 ^3/uL (0.4-5.4) Monocytes # (Auto) 0.5 10 ^3/uL (0-1.3) Eosinophils # (Auto) 0.1 10 ^3/uL (0-0.8) Basophils # (Auto) 0 10 ^3/uL (0-0.2) Nucleated Red Blood Cells 0.1 % Sodium Level 143 mmol/L (136-145) Potassium Level 3.9 mmol/L (3.5-5.1) Chloride Level 106 mmol/L (98-107) Carbon Dioxide Level 25 mmol/L (20-31) Anion Gap 12 (5-15) Blood Urea Nitrogen 46 mg/dL (9-23) Creatinine 4.83 mg/dL (0.700-1.30) Glomerular Filtration Rate Calc 13 mL/min (>90) BUN/Creatinine Ratio 9.5 (10.0-20.0) Serum Glucose 128 mg/dL (74-106) Calcium Level 8.9 mg/dL (8.7-10.4) Urine Creatinine 96.16 mg/dL (30.0-125.0) Urine Protein/Creatinine Ratio 2.99 Urine Sodium 50 mmol/L (40-220) Urine Total Protein 287.2 mg/dL (1-14) Test 08/04/25 16:15 08/04/25 13:42 08/04/25 09:47 08/04/25 03:10 Urine Color Light-yellow (Yellow) Urine Clarity Clear (Clear) Urine pH 6.0 (5.0-9.0) Urine Specific [place] 1.012 (1.001-1.035) Urine Protein 2+ (Negative) Urine Ketones Negative (Negative) Urine Blood Trace /uL (Negative) Urine Nitrite Negative (Negative) Urine Bilirubin Negative (Negative) Urine Urobilinogen Normal mg/dL (Negative) Urine Leukocyte Esterase Negative /uL (Negative) Urine RBC 1 /hpf (0 - 3) Urine Microscopic WBC 2 /HPF (0-3) Urine Squamous Epithelial Cells Few /hpf (<5) Urine Amorphous Crystals Few /hpf (None Seen) Urine Bacteria Few /hpf (None Seen) Urine Glucose Normal mg/dL (Normal) Hemoglobin A1c 5.4 % A1C (<5.7) Phosphorus Level 2.8 mg/dL (2.4-5.1) Magnesium Level 2.1 mg/dL (1.6-2.6) Vitamin D 25-Hydroxy 29.6 ng/mL (30.0-100) Hepatitis B Surface Antigen Negative (Negative) Hepatitis C Antibody Negative (Negative) Parathyroid Hormone (Intact) 598.3 pg/mL (18.4-80.1) Test 08/03/25 19:50 08/03/25 17:17 08/03/25 16:09 Troponin I High Sensitivity 36 ng/L (</=54) Influenza Type A Antigen Negative (Negative) Influenza Type B Antigen Negative (Negative) SARS-CoV-2 Antigen (Rapid) Negative (NEGATIVE) B-Type Natriuretic Peptide 712.90 pg/mL (0-100) Other Laboratory Tests 08/05/25 07:51 Brief Hx & Hospital Course: 64-year-old male presents for evaluation of shortness for breath. Patient reports a three day history of worsening shortness for breath. On arrival patient's blood pressure was noted to be in the 200s. Denies chest pain or palpitations. States having a nonproductive cough. Also reports lower extremity swelling Came with hypoxia and respiratory failure and also jennifer during hospital stay on IV abx, duonebs and high oxygen He signed ama Condition at Discharge: Good Final Diagnosis/Problems List Acute on chronic kidney injury CKD stage 4 acute hypoxic respiratory failure acute COPD exacerbation Discharge Disposition: AMA Discharge Instruct/Medications Scheduled Aspirin (Aspir-81), 1 TAB PO DAILY Atorvastatin Calcium (Atorvastatin Calcium), 1 TAB PO QPM, (Reported) Bumetanide (Bumex Tablet), 1 MG PO BID Clonidine Hydrochloride (Clonidine Hcl), 1 TAB PO BID Gabapentin (Gabapentin), 1 CAP PO TID Hydralazine Hcl (Hydralazine Hcl), 1 TAB PO TID Hydrocodone-Acetaminophen (Hydrocodone/Acetaminophen 10-325 mg), TID, (Reported) Levetiracetam (Levetiracetam), 1 TAB PO BID, (Reported) Losartan Potassium (Losartan Potassium), 1 TAB PO DAILY Metoprolol Succinate (Toprol Xl), 1 TAB PO DAILY Nifedipine (Nifedipine Er), 1 TAB PO DAILY Potassium Bicarbonate (Effer-K), 25 MEQ PO DAILY Spironolactone (Spironolactone), 1 TAB PO DAILY Discharge Statement: "Patient was advised to return to the ER or call 911 if any headaches, dizziness, shortness of breath, chest pain, abdominal pain, bleeding, fevers, or worsening of medical condition. Patient was counseled about treatment plan, medications, possible side effects, patientverbalized understanding. All questions were answered to the best of my ability. This discharge took greater then 30 minutes in planning, reviewing documentation, counseling the patient, and discussing with other team members." ASSESSMENT ASSESSMENT Assessment Date of Service: Aug 06, 2025 Billing Provider: YANG FOUNTAIN MD Common Visit Codes: 05284-TOL/OBS DISCH DAY >30min YANG FOUNTAIN MD Aug 06, 2025 12:05
[2025-08-13] MEDS ORDERED: B-CO1TAB60 OR (13:38)
[2025-08-13] MEDS ORDERED: CAL025T PO (13:38)
[2025-08-13] MEDS ORDERED: ISOS1TAB29 PO (13:40)
== END 2025-08-06 11:20 | disposition left against medical advice (07) | DRG 133 ==
LOC: EDUNIT# 15:42 → EDBD 15:42 → ER 15:42 → OVERFLOW 19:39 → CENTRAL 08-05 16:41
PROVIDERS: ADMIT Hospitalist; ATTEND Hospitalist
DX: J96.21 Acute and chronic respiratory failure with hypoxia (principal); J15.69 Pneumonia due to other Gram-negative bacteria; I13.0 Hypertensive heart and chronic kidney disease with heart failure and stage 1 through stage 4 chronic kidney disease, or unspecified chronic kidney disease; D63.1 Anemia in chronic kidney disease; N18.4 Chronic kidney disease, stage 4 (severe); I50.32 Chronic diastolic (congestive) heart failure; I16.0 Hypertensive urgency; J44.0 Chronic obstructive pulmonary disease with (acute) lower respiratory infection; N17.9 Acute kidney failure, unspecified; E11.22 Type 2 diabetes mellitus with diabetic chronic kidney disease; J44.1 Chronic obstructive pulmonary disease with (acute) exacerbation; Z20.822 Contact with and (suspected) exposure to COVID-19; Z53.29 Procedure and treatment not carried out because of patient's decision for other reasons; E78.5 Hyperlipidemia, unspecified; I25.2 Old myocardial infarction; Z88.0 Allergy status to penicillin; Z83.3 Family history of diabetes mellitus; Z87.891 Personal history of nicotine dependence; Z82.49 Family history of ischemic heart disease and other diseases of the circulatory system; Z82.0 Family history of epilepsy and other diseases of the nervous system
CPT/HCPCS: 36415; 36600; 71045; 71250; 80048; 81001; 82306; 82570; 82805; 82962; 83036; 83735; 83880; 83970; 84100; 84156; 84300; 84484; 85025; 86803; 87340; 87426; 87804; 93005; 94640; 96365; 96375; 99291; G0378; J1815

== ENCOUNTER 2025-08-07 11:31 | Inpatient (IN) | payer MEDICAID ==
[~2025-08-07] VITALS: Ht 170.2 cm; Wt 107.5 kg
[2025-08-07 11:51] VITALS: PULSE 82; RESP 13; O2SAT 94
--- NOTE | 2025-08-07 11:59 | ED.PDOC ---
SOB-HPI HPI Comments This is a 64 year old male presenting to the ED with chief complaint of SOB. Patient reports that he has been experiencing worsening SOB with associated nasal congestion, cough, and chills for the past 2 days. Patient relays that he is normally on 4L of O2, but needed to be raised up to 6L now. Patient notes he was just discharged yesterday from [facility] for the same symptoms he is experiencing now. Patient denies any chest pain, dizziness, syncope, fever, or hemoptysis. Chief Complaint: Shortness of Breath Time Seen by MD: 11:57 Primary Care Provider: TIKA Reviewed notes: Nurses Notes, Medications, Allergies Information Source: Patient Mode of Arrival: Wheelchair Severity: Moderate Timing: Days Duration: Since onset Context: At Rest PE Risk Factors: None History of: COPD Prehospital treatment: Breathing Tx, Oxygen Modifying Factors: Nothing Associated Signs and Symptoms: Cough, Nasal Congestion If cough with SOB: Non-Productive Past Medical History PAST MEDICAL HISTORY: CHF, CKF, COPD, DM, High Lipids, HTN, AR, Seizures Surgical History: Denies all surgeries Family History Family History: Reviewed,noncontributory to illness, Family hx of DM Social History Smoker: Quit Greater Than 1 Year Alcohol: Denies ETOH Use Drugs: Denies Drug Use Lives In: Home Constitutional: reports: chills; denies: diaphoresis, fatigue, fever, malaise, sweats, weakness, others EENTM: reports: nose congestion; denies: blurred vision, double vision, ear bleeding, ear discharge, ear drainage, ear pain, ear ringing, eye pain, eye redness, hearing loss, mouth pain, mouth swelling, nasal discharge, nose bleeding, nose pain, photophobia, tearing, throat pain, throat swelling, voice changes, others Respiratory: reports: cough, shortness of breath, wheezing; denies: hemoptysis, orthopnea, SOB at rest, SOB with excertion, stridor, others Cardiovascular: denies: chest pain, dizzy spells, diaphoresis, Dyspnea on exertion, edema, irregular heart beat, left arm pain, lightheadedness, palpitations, PND, syncope, others Gastrointestinal: denies: abdomen distended, abdominal pain, blood streaked bowels, constipated, diarrhea, dysphagia, difficulty swallowing, hematemesis, melena, nausea, poor appetite, poor fluid intake, rectal bleeding, rectal pain, vomiting, others Genitourinary: denies: burning, dysuria, flank pain, frequency, hematuria, incontinence, penile discharge, penile sore, pain, testicle pain, testicle swelling, urgency, others Neurological: denies: dizziness, fainting, headache, left sided numbness, left sided weakness, numbness, paresthesia, pre-existing deficit, right sided numbness, right sided weakness, seizure, speech problems, tingling, tremors, weakness, others Musculoskeletal: denies: back pain, gout, joint pain, joint swelling, muscle pain, muscle stiffness, neck pain, others Integumetry: denies: bruises, change in color, change in hair/nails, dryness, laceration, lesions, lumps, rash, wounds, others Allergic/Immunocompromised: denies: Difficulty Healing, Frequent Infections, Hives, Itching, others Hematologic/Lymphatic: denies: anemia, blood clots, easy bleeding, easy bruising, swollen glands, others Endocrine: denies: excessive hunger, excessive sweating, excessive thirst, excessive urination, flushing, intolerance to cold, intolerance to heat, unexplained weight gain, unexplained weight loss, others Psychiatric: denies: anxiety, bipolar disorder, depression, hopeless, panic disorder, schizophrenia, sleepless, suicidal, others All Other Systems: Reviewed and Negative Physical Exam General Appearance: No Apparent Distress, Normal HEENT: Normal ENT Inspection, Pharynx Normal, TMs Normal Neck: Full Range of Motion, Non-Tender, Normal, Normal Inspection Respiratory: Chest Non-Tender, No Accessory Muscle Use, Wheezing, Other (Tachy pneic) Cardiovascular: No Edema, No JVD, No Murmur, No Gallop, Normal Peripheral Pulses, Tachycardia Breast Exam: Deferred Gastrointestinal: No Organomegaly, Non Tender, No Pulsatile Mass, Normal Bowel Sounds, Soft Genitalia: Deferred Pelvic: Deferred Rectal: Deferred Extremities: No calf tenderness, Normal capillary refill, Normal inspection, Normal range of motion, Non-tender, No pedal edema Musculoskeletal : Apperance: Normal Neurologic: Alert, nuclear radiation engineer 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 Was a procedure done?: No Differential Dx Differential Diagnosis: COPD, Pneumonia, Respiratory Distress X-Ray, Labs, Meds, VS Vital Signs Date Time Temp Pulse Resp B/P (MAP) Pulse Ox O2 Delivery O2 Flow Rate FiO2 08/07/25 12:52 14 98 Nasal Cannula* 5 40 08/07/25 12:09 74 12 158/78 (104) 97 08/07/25 12:00 80 17 179/80 (113) 95 08/07/25 11:51 82 13 94 Nasal Cannula* 4 36 08/07/25 11:51 98.0 82 13 187/89 (121) 94 98.0 08/07/25 11:51 84 08/07/25 11:34 97.9 80 22 178/69 97 97.9 Lab Test 08/07/25 14:09 08/07/25 13:57 08/07/25 13:18 Range/Units Troponin I High Sensitivity Pending 26 </=54 ng/L Urine Color Light-yellow Yellow Urine Clarity Clear Clear Urine pH 6.5 5.0-9.0 Urine Specific [place] 1.012 1.001-1.035 Urine Protein 2+ H Negative Urine Ketones Negative Negative Urine Blood Negative Negative /uL Urine Nitrite Negative Negative Urine Bilirubin Negative Negative Urine Urobilinogen Normal Negative mg/dL Urine Leukocyte Esterase Negative Negative /uL Urine RBC 1 0 - 3 /hpf Urine Microscopic WBC 2 0-3 /HPF Urine Squamous Epithelial Cells Few <5 /hpf Urine Bacteria None seen None Seen /hpf Urine Glucose Normal Normal mg/dL White Blood Count 4.6 4.4-10.8 10^3/uL Red Blood Count 2.77 L 4.5-5.90 10^6/uL Hemoglobin 7.7 L 13.5-17.5 g/dL Hematocrit 24.1 L 41.0-53.0 % Mean Corpuscular Volume 87.0 80.0-100.0 fL Mean Corpuscular Hemoglobin 27.9 L 28.0-32.0 pg Mean Corpuscular Hemoglobin Concent 32.1 32.0-36.0 g/dL Red Cell Distribution Width 17.4 H 11.8-14.3 % Platelet Count 125 L 140-450 10^3/uL Mean Platelet Volume 9.8 6.9-10.8 fL Neutrophils (%) (Auto) 79.6 37.0-80.0 % Lymphocytes (%) (Auto) 11.3 10.0-50.0 % Monocytes (%) (Auto) 6.6 0.0-12.0 % Eosinophils (%) (Auto) 1.8 0.0-7.0 % Basophils (%) (Auto) 0.7 0.0-2.0 % Neutrophils # (Auto) 3.7 1.6-8.6 10 ^3/uL Lymphocytes # (Auto) 0.5 0.4-5.4 10 ^3/uL Monocytes # (Auto) 0.3 0-1.3 10 ^3/uL Eosinophils # (Auto) 0.1 0-0.8 10 ^3/uL Basophils # (Auto) 0 0-0.2 10 ^3/uL Nucleated Red Blood Cells 0.1 % Sodium Level 145 136-145 mmol/L Potassium Level 3.8 3.5-5.1 mmol/L Chloride Level 106 98-107 mmol/L Carbon Dioxide Level 25 20-31 mmol/L Anion Gap 14 5-15 Blood Urea Nitrogen 54 H 9-23 mg/dL Creatinine 5.13 H 0.700-1.30 mg/dL Glomerular Filtration Rate Calc 12 >90 mL/min BUN/Creatinine Ratio 10.5 10.0-20.0 Serum Glucose 115 H 74-106 mg/dL Lactic Acid Level 0.9 0.4-2.0 mmol/L Calcium Level 9.0 8.7-10.4 mg/dL B-Type Natriuretic Peptide 444.40 0-100 pg/mL Current Medications Medications (Trade) Dose Ordered Sig/Ricky Route Start Time Stop Time Status Last Admin Albuterol (Ventolin Medneb) 5 mg ONCE ONCE NEB 08/07/25 12:00 08/07/25 12:20 DC 08/07/25 12:52 Ipratropium [place] (Atrovent Medneb) 0.5 mg ONCE ONCE NEB 08/07/25 12:00 08/07/25 12:20 DC 08/07/25 12:51 Azithromycin (Zithromax Tablet) 500 mg ONCE ONCE PO 08/07/25 12:00 08/07/25 12:20 DC 08/07/25 13:27 Methylprednisolone Sodium Succinate (Solu Medrol) 62.5 mg ONCE ONCE IV 08/07/25 12:00 125/25 12:20 DC 08/07/25 13:33 Time of 1ST Reevaluation: 12:56 Reevaluation 1ST: Unchanged Patient Education/Counseling: Diagnosis, Treatment Family Education/Counseling: No Family Present SEPSIS Sepsis Screen Date sepsis recognized/suspect: Aug 07, 2025 Time Sepsis recognized/suspect: 1135 Recent Procedure: No On Antibiotic Therapy: No Respiratory Rate >20: Yes Heart Rate >90: No Temp<36 C (96.8 F) or >38.3 C: No SBP <90 or MAP <65 mmHG: No New Acute Mental Status Change: No Is the patient on CPAP, BIPAP,: No Physician Orders Blood Culture (08/07/25 11:50) Electrocardigram (08/07/25 11:50) Chest Portable (08/07/25 11:50) Troponin-I Hs (08/07/25 12:50) Troponin-I Hs (08/07/25 14:50) Electrocardigram (08/07/25 12:50) Electrocardigram (08/07/25 14:50) Nitroglycerin Sublingual (Ntrostat Subli (08/07/25 14:45) Hydralazine Injection (Apresoline Inject (08/07/25 14:45) Furosemide Injection (Lasix Injection) (08/07/25 14:45) Vital Signs Date Time Temp Pulse Resp B/P (MAP) Pulse Ox O2 Delivery O2 Flow Rate FiO2 08/07/25 12:52 14 98 Nasal Cannula* 5 40 08/07/25 12:09 74 12 158/78 (104) 97 08/07/25 12:00 80 17 179/80 (113) 95 08/07/25 11:51 82 13 94 Nasal Cannula* 4 36 08/07/25 11:51 98.0 82 13 187/89 (121) 94 98.0 08/07/25 11:51 84 08/07/25 11:34 97.9 80 22 178/69 97 97.9 Laboratory Tests Test 08/07/25 13:18 Lactic Acid Level 0.9 mmol/L (0.4-2.0) White Blood Count 4.6 10^3/uL (4.4-10.8) Medications Medications Dose Ordered Sig/Ricky Route Start Time Stop Time Status Last Admin Dose Admin Albuterol 5 mg ONCE ONCE NEB 08/07/25 12:00 08/07/25 12:20 DC 08/07/25 12:52 Azithromycin 500 mg ONCE ONCE PO 08/07/25 12:00 08/07/25 12:20 DC 08/07/25 13:27 Ipratropium [place] 0.5 mg ONCE ONCE NEB 08/07/25 12:00 08/07/25 12:20 DC 08/07/25 12:51 Methylprednisolone Sodium Succinate 62.5 mg ONCE ONCE IV 08/07/25 12:00 08/07/25 12:20 DC 08/07/25 13:33 Departure 1 Departure Time of Disposition: 14:44 (Patient presented with shortness of breath that was concerning for possible STEMI, ACS, PE, Pneumonia, Muscle Strain, COPD, Dissection, Acute on Chronic systolic and Diastolic dysfunction. Data: 1. I ordered and reviewed the result of at least 3 labs including a CBC, BMP, and Troponin. 2. I independently interpreted the following tests: EKG which shows sinus arrhthmia and Chest X-ray which shows cardiomegaly.Risk:This patient has a high risk of morbidity due to further diagnostic testing or treatment and may suffer from an acute cardiac or respiratory disorder but is most consitent with an acute chf exacerbation. Patient should be admitted for further workup and possible expert consultation. ) Impression: Primary Impression: Acute on chronic systolic heart failure Additional Impression: Shortness of breath Disposition: 09 ADMITTED INPATIENT Admit to: Tele Condition: Guarded Critical Care Note Critical Care Time?: Yes Critical care comment: Acute on chronic heart failure Authorized and Performed by: Lopez Linda MD Total critical care time: Approximately 38 minutes Due to a high probability of clinically significant, life threatening deteri oration, the patient required my highest level of preparedness to intervene emergently and I personally spent this critical care time directly and personally managing the patient. This critical care time included obtaining a history; examining the patient; pulse oximetry; ordering and review of studies; arranging urgent treatment with development of a management plan; evaluation of patient's response to treatment; frequent reassessment; and, discussions with other providers. This critical care time was performed to assess and manage the high probability of imminent, life-threatening deterioration that could result in multi-organ an lure. It was exclusive of separately billable procedures and treating other patients and teaching time. Please see my other sections and the rest of the note for further information on patient assessment and treatment. Stability Stability form required: No Heart Score Heart Score: Heart Score Response (Comments) Value History N/A 0 EKG N/A 0 Age N/A 0 Risk Factors N/A 0 Troponin N/A 0 Total 0 I personally scribed for LOPEZ LINDA MD ([email or web address]) on 08/07/25 at 11:59. Electronically submitted by Rick Guerra ([email or web address]). LOPEZ LINDA MD Aug 07, 2025 11:59
--- NOTE | 2025-08-07 12:27 | DVH ---
XY CHEST PORTABLE, HISTORY: sob COMPARISON: CT CHEST WITHOUT CONTRAST on DOS: 08/03/25, XY CHEST PORTABLE on DOS: 08/03/25, XY CHEST PORTABLE on DOS: 06/01/25 CT CHEST WITHOUT CONTRAST on DOS: 08/03/25, XY CHEST PORTABLE on DOS: 08/03/25, XY CHEST PORTABLE on DOS: 06/01/25 TECHNICAL DATA: 1 view of the chest was obtained. FINDINGS: Lines and tubes: None Cardiomediastinal silhouette: Enlarged Pulmonary vasculature: Prominent Lung expansion: normal Lung airspace: normal Lung interstitium: normal Pleura: Trace effusions, bilaterally. Pneumothorax: no Bones: Unremarkable Other: no IMPRESSION: Cardiomegaly with pulmonary vascular congestion.
[2025-08-07] MEDS: IPRATROPIUM BROM 0.5 MG/2.5ML INH SOL NEB ONE ×2 (12:51→17:00)
[2025-08-07] MEDS: ALBUTEROL SULF 2.5 MG/0.5ML(0.5%) NEB SOLN NEB ONE ×2 (12:52→17:00)
[2025-08-07] MEDS: AZITHROMYCIN 250 MG TAB PO ONE (13:27)
[2025-08-07] MEDS: methylPREDNISolone SOD SUCC 125 MG/2 ML VL IV ONE (13:33)
[2025-08-07 13:48] LABS: Hematocrit 24.1 % (41.0-53.0); Hemoglobin 7.7 g/dL (13.5-17.5); Mean Corpuscular Hemoglobin 27.9 pg (28.0-32.0); Mean Corpuscular Volume 87.0 fL (80.0-100.0); Nucleated Red Blood Cells % 0.1 %
[2025-08-07 13:51] LABS: Chloride 106 mmol/L (98-107); Potassium 3.8 mmol/L (3.5-5.1); Sodium 145 mmol/L (136-145)
[2025-08-07 13:52] LABS: Anion Gap 14 (5-15); Calcium 9.0 mg/dL (8.7-10.4); Carbon Dioxide 25 mmol/L (20-31)
[2025-08-07 13:57] LABS: BUN/Creatinine Ratio 10.5 (10.0-20.0)
[2025-08-07 13:59] LABS: Blood Urea Nitrogen 54 mg/dL (9-23); Glucose 115 mg/dL (74-106)
[2025-08-07 14:21] LABS: Urine Protein, UAD 2+ (Negative)
[2025-08-07] MEDS: FUROSEMIDE 40 MG/4 ML VIAL IV ONE ×2 (15:20→18:00)
[2025-08-07] MEDS: hydrALAZINE HCL 20 MG/ML VL IV ONE (15:22)
[2025-08-07] MEDS: NITROGLYCERIN 0.4 MG SL TAB SL ONE (15:24)
[2025-08-07] MEDS: IPRATROPIUM BROM 0.5 MG/2.5ML INH SOL ONE (17:43)
[2025-08-07] MEDS: ALBUTEROL SULF 2.5 MG/0.5ML(0.5%) NEB SOLN ONE (17:43)
[2025-08-07] MEDS ORDERED: ALBUTEROL SULF 2.5 MG/0.5ML(0.5%) NEB SOLN NEB SCH (18:00)
[2025-08-07 18:34] VITALS: PULSE 84; O2SAT 97
[2025-08-07 19:48] LABS: Base Excess -0.2 mmol/L (-2.0-3.0)
--- NOTE | 2025-08-07 19:58 | DVHHPRES ---
History of Present Illness Resident Creating Document: HARJIT GEORGE RESIDENT History of Present Illness 64-year-old male patient with past medical history of COPD on 2 L of oxygen at home, CHF, obesity hypoventilation syndrome, CKD stage 4, tobacco use disorder, marijuana use disorder presented in the ED for complaints of shortness of breath. Patient was admitted in the hospital last week for COPD and was discharged yesterday. Patient is alert and oriented but is drowsy and lethargic to talk. Patient is a poor historian. He denied any chest pain, palpitations, abdominal pain, nausea, vomiting. Past medical history COPD on 2 L of oxygen at home, CHF, obesity hypoventilation syndrome, CKD stage 4, tobacco use disorder, marijuana use disorder surgical history Poor historian Social history Poor historian Family history Poor historian Medication history Poor historian Review of Systems Review of Systems As described in the HPI Allergies: Coded Allergies: [place] (Verified Allergy, Severe, 08/03/25) Penicillins (Verified Allergy, Unknown, 05/31/24) Medications Current Medications Medications Dose Ordered Sig/Ricky Route Start Time Stop Time Status Last Admin Dose Admin Ipratropium [place] 0.5 mg Q4HR NEB 08/07/25 22:00 Albuterol 2.5 mg Q4HR NEB 08/07/25 22:00 Exam Vital Signs Vital Signs Date Time Temp Pulse Resp B/P (MAP) Pulse Ox O2 Delivery O2 Flow Rate FiO2 08/07/25 19:04 83 08/07/25 18:34 97 Facial BiPAP Mask 30 08/07/25 18:00 165/79 08/07/25 17:48 20 6 08/07/25 11:51 98.0 98.0 Exam Examination General Appearance: Drowsy and lethargic HEENT: EOMI Respiratory: Bilateral crackles Cardiovascular: Regular rate, Normal S1, Normal S2 Abdominal: Normal bowel sounds Extremities: No cyanosis, No edema, Normal pulses, No tenderness/swelling Skin: No rashes, No breakdown Neuro: Normal speech and tone, alert and oriented but drowsy and lethargic Labs/Xrays Labs Test 08/07/25 18:00 08/07/25 16:19 08/07/25 13:57 08/07/25 13:18 Range/Units Blood Gas Specimen Type Venous Blood Gas Sample Site Vbg - n/a Blood Gas Patient Temperature 37.0 Arterial Blood Date Drawn [id number] Bernardo Test N/a Venous Blood pH 7.403 7.320-7.430 Venous Blood pCO2 at Patient Temp 38.6 38.0-54.0 mmHg Venous Blood pO2 at Patient Temp 43.8 23.0-48.0 mmHg Venous Blood HCO3 23.5 22.0-29.0 mmol/L Venous Blood Base Excess -0.9 -2.0-3.0 mmol/L Blood Gas Modality Nasal cannula FiO2 % 36.0 Troponin I High Sensitivity 24 </=54 ng/L Urine Color Light-yellow Yellow Urine Clarity Clear Clear Urine pH 6.5 5.0-9.0 Urine Specific [place] 1.012 1.001-1.035 Urine Protein 2+ H Negative Urine Ketones Negative Negative Urine Blood Negative Negative /uL Urine Nitrite Negative Negative Urine Bilirubin Negative Negative Urine Urobilinogen Normal Negative mg/dL Urine Leukocyte Esterase Negative Negative /uL Urine RBC 1 0 - 3 /hpf Urine Microscopic WBC 2 0-3 /HPF Urine Squamous Epithelial Cells Few <5 /hpf Urine Bacteria None seen None Seen /hpf Urine Glucose Normal Normal mg/dL White Blood Count 4.6 4.4-10.8 10^3/uL Red Blood Count 2.77 L 4.5-5.90 10^6/uL Hemoglobin 7.7 L 13.5-17.5 g/dL Hematocrit 24.1 L 41.0-53.0 % Mean Corpuscular Volume 87.0 80.0-100.0 fL Mean Corpuscular Hemoglobin 27.9 L 28.0-32.0 pg Mean Corpuscular Hemoglobin Concent 32.1 32.0-36.0 g/dL Red Cell Distribution Width 17.4 H 11.8-14.3 % Platelet Count 125 L 140-450 10^3/uL Mean Platelet Volume 9.8 6.9-10.8 fL Neutrophils (%) (Auto) 79.6 37.0-80.0 % Lymphocytes (%) (Auto) 11.3 10.0-50.0 % Monocytes (%) (Auto) 6.6 0.0-12.0 % Eosinophils (%) (Auto) 1.8 0.0-7.0 % Basophils (%) (Auto) 0.7 0.0-2.0 % Neutrophils # (Auto) 3.7 1.6-8.6 10 ^3/uL Lymphocytes # (Auto) 0.5 0.4-5.4 10 ^3/uL Monocytes # (Auto) 0.3 0-1.3 10 ^3/uL Eosinophils # (Auto) 0.1 0-0.8 10 ^3/uL Basophils # (Auto) 0 0-0.2 10 ^3/uL Nucleated Red Blood Cells 0.1 % Sodium Level 145 136-145 mmol/L Potassium Level 3.8 3.5-5.1 mmol/L Chloride Level 106 98-107 mmol/L Carbon Dioxide Level 25 20-31 mmol/L Anion Gap 14 5-15 Blood Urea Nitrogen 54 H 9-23 mg/dL Creatinine 5.13 H 0.700-1.30 mg/dL Glomerular Filtration Rate Calc 12 >90 mL/min BUN/Creatinine Ratio 10.5 10.0-20.0 Serum Glucose 115 H 74-106 mg/dL Lactic Acid Level 0.9 0.4-2.0 mmol/L Calcium Level 9.0 8.7-10.4 mg/dL B-Type Natriuretic Peptide 444.40 0-100 pg/mL SEPSIS Sepsis Screen Date sepsis recognized/suspect: Aug 07, 2025 Time Sepsis recognized/suspect: 1151 Recent Procedure: No On Antibiotic Therapy: No Respiratory Rate >20: No Heart Rate >90: No Temp<36 C (96.8 F) or >38.3 C: No SBP <90 or MAP <65 mmHG: No New Acute Mental Status Change: No Is the patient on CPAP, BIPAP,: No Physician Orders Blood Culture (08/07/25 11:50) Electrocardigram (08/07/25 11:50) Chest Portable (08/07/25 11:50) Electrocardigram (08/07/25 12:50) Electrocardigram (08/07/25 14:50) Ipratropium Medneb (Atrovent Medneb) (08/07/25 22:00) Admit (08/07/25 16:46) Oxygen By Nasal Cannula (08/07/25 16:46) Stat Ekg For Chest Pain (08/07/25 16:46) Notify Of Changes From Base (08/07/25 16:46) Patroller For 24 Hours (08/07/25 16:46) Emergency Dysrhythmia Protocol (08/07/25 16:46) Rhythm Strips Once Every Shift (08/07/25 16:46) *[facility] (08/07/25 17:12) Albuterol Medneb (Ventolin Medneb) (08/07/25 22:00) Venous Blood Gas (08/07/25 18:00) BIPAP (08/07/25 18:15) Abg W/ Co-Ox (08/07/25 19:00) Vital Signs Date Time Temp Pulse Resp B/P (MAP) Pulse Ox O2 Delivery O2 Flow Rate FiO2 08/07/25 19:04 83 08/07/25 18:34 84 97 Facial BiPAP Mask 30 08/07/25 18:00 165/79 08/07/25 17:48 20 98 Nasal Cannula* 6 44 08/07/25 15:24 170/90 08/07/25 15:22 170/90 08/07/25 15:21 84 14 170/90 (116) 98 08/07/25 15:20 170/90 08/07/25 15:06 77 13 162/77 (105) 100 08/07/25 14:40 81 15 155/101 (119) 96 08/07/25 12:52 14 98 Nasal Cannula* 5 40 08/07/25 12:09 74 12 158/78 (104) 97 08/07/25 12:00 80 17 179/80 (113) 95 08/07/25 11:51 82 13 94 Nasal Cannula* 4 36 08/07/25 11:51 98.0 82 13 187/89 (121) 94 98.0 08/07/25 11:51 84 Laboratory Tests Test 08/07/25 13:18 Lactic Acid Level 0.9 mmol/L (0.4-2.0) White Blood Count 4.6 10^3/uL (4.4-10.8) Medications Medications Dose Ordered Sig/Ricky Route Start Time Stop Time Status Last Admin Dose Admin Albuterol 2.5 mg STK-MED ONCE .ROUTE 08/07/25 17:34 08/07/25 17:33 DC 08/07/25 17:43 2.5 MG Albuterol 5 mg ONCE ONCE NEB 08/07/25 12:00 08/07/25 12:20 DC 08/07/25 12:52 5 MG Azithromycin 500 mg ONCE ONCE PO 08/07/25 12:00 08/07/25 12:20 DC 08/07/25 13:27 500 MG Furosemide 40 mg ONCE ONCE IV 08/07/25 14:45 08/07/25 14:48 DC 08/07/25 15:20 40 MG Furosemide 40 mg ONCE ONCE IV 08/07/25 17:00 08/07/25 18:03 DC 08/07/25 18:00 40 MG Ipratropium [place] 0.5 mg ONCE ONCE NEB 08/07/25 12:00 08/07/25 12:20 DC 08/07/25 12:51 0.5 MG Ipratropium [place] 0.5 mg STK-MED ONCE .ROUTE 08/07/25 17:34 08/07/25 17:33 DC 08/07/25 17:43 0.5 MG Methylprednisolone Sodium Succinate 62.5 mg ONCE ONCE IV 08/07/25 12:00 08/07/25 12:20 DC 08/07/25 13:33 62.5 MG Assessment/Plan Assessment/Plan Assessment/plan # acute on chronic hypoxic respiratory failure due to CHF exacerbation/COPD exacerbation -started on BiPAP -IV Lasix # hypertensive emergency - Nitroglycerin drip # acute CHF exacerbation -IV Lasix Resume guideline directed medical therapy Started on BiPAP # ?COPD exacerbation -IV Methylprednisolone given in the ER -Target SpO2 is 88-92%. -Nebulize with Ipratropium and Albuterol # MIREYA on CKD stage IV -nephrology consulted # tobacco use disorder # obesity # methamphetamine use disorder Code status, unable to obtain as patient is a poor historian and gets lethargic and does not communicate properly, full code as of now Case discussion with Dr. Elmore Plan discussed with: Other My Orders Orders - HARJIT GEORGE RESIDENT Procedure Category Date Status Time Ipratropium Medneb PHA 08/07/25 In Process (Atrovent Medneb) 22:00 Admit ADMIT 08/07/25 Transmitted 16:46 Oxygen By Nasal RT 08/07/25 Transmitted Cannula 16:46 Stat Ekg For Chest VICKIE 08/07/25 In Process Pain 16:46 Notify Of Changes VICKIE 08/07/25 In Process From Base 16:46 Patroller For VICKIE 08/07/25 In Process 24 Hours 16:46 Emergency Dysrhythmia VICKIE 08/07/25 In Process Protocol 16:46 Rhythm Strips Once VICKIE 08/07/25 In Process Every Shift 16:46 *[facility] CONS 08/07/25 Transmitted -[place] 17:12 Albuterol Medneb PHA 08/07/25 In Process (Ventolin Medneb) 22:00 Venous Blood Gas RT 08/07/25 Logged 18:00 BIPAP RT 08/07/25 Logged 18:15 Abg W/ Co-Ox RT 08/07/25 Logged 19:00 Date of Service: Aug 07, 2025 Billing Provider: ALISIA ELMORE MD Common Visit Codes: [id number] INP/OBS CARE (HIGH) Secondary Visit Codes: [id number] CARE PLAN 30 MINUTES HARJIT GEORGE RESIDENT Aug 07, 2025 19:58
[2025-08-07 20:08] VITALS: PULSE 86; RESP 16; O2SAT 97
[2025-08-07 20:34] VITALS: BP 182/89; PULSE 86; RESP 16; O2SAT 86
[2025-08-07 21:12] VITALS: PULSE 89; O2SAT 95
[2025-08-07] MEDS: NITROGLYCERIN 50MG/250ML 250 ML IV SCH (22:00)
[2025-08-07] MEDS: IPRATROPIUM BROM 0.5 MG/2.5ML INH SOL NEB SCH (22:17)
[2025-08-07] MEDS: ALBUTEROL SULF 2.5 MG/0.5ML(0.5%) NEB SOLN NEB SCH (22:17)
[2025-08-07 22:18] VITALS: O2SAT 98
[2025-08-08] VITALS (11 sets, daily range): BP systolic 133–152; BP diastolic 58–82; PULSE 69–90; RESP 14–18; O2SAT 95–100
[2025-08-08] MEDS: levETIRAcetam 500 MG TAB PO SCH (00:31)
[2025-08-08] MEDS: ATORVASTATIN 20 MG TAB PO SCH (00:31)
[2025-08-08] MEDS: HEPARIN SODIUM (PORCINE) 5000 UNITS/ML 1ML VIAL SC SCH (00:34)
[2025-08-08 03:29] LABS: Alkaline Phosphatase 65 U/L (46-116)
[2025-08-08 03:30] LABS: Alanine Aminotransferase 16 U/L (7-40); Albumin 3.7 g/dL (3.2-4.8); Anion Gap 14 (5-15); BUN/Creatinine Ratio 11.9 (10.0-20.0); Carbon Dioxide 25 mmol/L (20-31); Chloride 106 mmol/L (98-107); Magnesium 2.3 mg/dL (1.6-2.6); Potassium 4.3 mmol/L (3.5-5.1); Sodium 145 mmol/L (136-145); Total Protein 6.2 g/dL (5.7-8.2)
[2025-08-08 03:31] LABS: Bilirubin, Total 0.2 mg/dL (0.2-1.0); Blood Urea Nitrogen 60 mg/dL (9-23); Calcium 8.5 mg/dL (8.7-10.4); Glucose 194 mg/dL (74-106)
[2025-08-08 05:18] LABS: COVID19 ANTIGEN SOFIA FIA NEGATIVE (NEGATIVE)
[2025-08-08] MEDS: ASPirin-EC 81 mg tab PO SCH (05:26)
[2025-08-08] MEDS: METOPROLOL SUCCINATE XL 50 MG TAB PO SCH (05:27)
[2025-08-08] MEDS: SPIRONOLACTONE 25 MG TAB PO SCH (05:29)
[2025-08-08] MEDS: FUROSEMIDE 100 MG/10ML VIAL IV SCH (05:29)
--- NOTE | 2025-08-08 06:11 | DVH ---
CHEST RADIOGRAPH Indication: sob Technique: Single frontal view of the chest was obtained COMPARISON: XY CHEST PORTABLE on DOS: 08/07/25, CT CHEST WITHOUT CONTRAST on DOS: 08/03/25, XY CHEST PORTABLE on DOS: 08/03/25, XY CHEST PORTABLE on DOS: 06/01/25, XY CHEST XRAY 1 VIEW on DOS: 05/28/25 FINDINGS: Lines and Tubes: None Lungs: Stable appearing diffuse Increased prominence of the pulmonary vasculature and small bilateral pleural effusions. No pneumothorax. Cardiomediastinal contours: Unremarkable Bones: Unremarkable IMPRESSION: 1. Stable appearing pulmonary edema.
--- NOTE | 2025-08-08 10:48 | DVHINCON2 ---
Date of service: Aug 08, [address] Pastrana Reason for Consultation Acute kidney injury History of Present Illness Patient is a 64-year-old obese male with past medical history significant for CHF, CKD stage 5 followed by , patient refused to start hemodialysis last admission, COPD, DM, High Lipids, HTN, RI, and seizures is admitted for shortness of breath and hypoxemia. On admission patient found to have elevated BUN creatinine nephrology is consulted for acute kidney injury Past Medical History PAST MEDICAL HISTORY: CHF, CKD 5, COPD, DM, High Lipids, HTN, RI, Seizures Past Surgical History Surgical History: Denies all surgeries Allergies: Coded Allergies: [place] (Verified Allergy, Severe, 08/03/25) Penicillins (Verified Allergy, Unknown, 05/31/24) Home Meds Active Scripts Losartan Potassium (Losartan Potassium) 50 Mg Tab, 1 TAB PO DAILY for 30 Days, #30 TAB 3 Refills Prov:LINDA NUGENT MAINTENANCE HELPER 04/18/25 Spironolactone (Spironolactone) 50 Mg Tab, 1 TAB PO DAILY, #30 TAB 5 Refills Prov:LINDA NUGENT NP 04/18/25 Metoprolol Succinate (Toprol Xl) 50 Mg Tab, 1 TAB PO DAILY, #30 TAB 5 Refills Prov:LINDA NUGENT NP 04/18/25 Nifedipine (Nifedipine Er) 90 Mg Tab, 1 TAB PO DAILY, #30 TAB 5 Refills Prov:LINDA NUGENT NP 04/18/25 Potassium Bicarbonate (Effer-K) 25 Meq Tab, 25 MEQ PO DAILY, #30 TAB 5 Refills Prov:JON WRIGHT MD 04/02/25 Bumetanide (Bumex Tablet) 1 Mg Tab, 1 MG PO BID, #60 TAB 5 Refills BLK BX WARNING-CAN LEAD TO PROFOUND DIURESIS WITH FLUID- ELECTROLYTE LOSS Prov:JON WRIGHT MD 04/02/25 Hydralazine Hcl (Hydralazine Hcl) 100 Mg Tab, 1 TAB PO TID, #90 TAB 5 Refills Prov:JON WRIGHT MD 04/02/25 Clonidine Hydrochloride (Clonidine Hcl) 0.2 Mg Tab, 1 TAB PO BID, #120 TAB 5 Refills Prov:JON WRIGHT MD 04/02/25 Gabapentin (Gabapentin) 300 Mg Cap, 1 CAP PO TID, #90 CAP 5 Refills Prov:JON WRIGHT MD 04/02/25 Aspirin (Aspir-81) 81 Mg Tab, 1 TAB PO DAILY, #60 TAB 5 Refills Prov:TEO HEART MD 06/02/24 Reported Medications Atorvastatin Calcium (ATORVASTATIN CALCIUM) 40 Mg Tab, 1 TAB PO QPM, #90 TAB 3 Refills 05/26/25 Levetiracetam (Levetiracetam) 500 Mg Tab, 1 TAB PO BID 05/26/25 Hydrocodone-Acetaminophen (Hydrocodone/Acetaminophen 10-325 mg) 1 Tab Tab, TID 04/23/25 Current Medications Current Medications Medications (Trade) Dose Ordered Sig/Ricky Route PRN Reason Start Time Stop Time Status Last Admin Albuterol (Ventolin Medneb) 2.5 mg Q3HR NEB 08/07/25 18:00 08/07/25 17:32 DC Ipratropium [place] (Atrovent Medneb) 0.5 mg Q4HR NEB 08/07/25 22:00 08/08/25 13:27 Albuterol (Ventolin Medneb) 2.5 mg Q4HR NEB 08/07/25 22:00 08/08/25 13:27 Aspirin (Ecotrin Enteric Coated Tablet) 81 mg DAILY PO 08/08/25 10:00 08/08/25 05:26 Levetiracetam (Keppra Tablet) 500 mg BID PO 08/07/25 22:00 08/08/25 05:27 Metoprolol Succinate (Toprol Xl) 50 mg DAILY PO 08/08/25 10:00 08/08/25 05:27 Atorvastatin Calcium (Lipitor) 40 mg HS PO 08/07/25 22:00 08/08/25 00:31 Hydralazine HCl (Apresoline Tablet) 100 mg TID PO 08/07/25 22:00 08/08/25 14:30 Nifedipine (Procardia Xl (Time-Release)) 90 mg DAILY PO 08/08/25 10:00 08/08/25 05:29 Spironolactone (Aldactone) 50 mg DAILY PO 08/08/25 10:00 08/08/25 10:51 DC 08/08/25 05:29 Heparin Sodium (Porcine) 5,000 units Q12HR SC 08/07/25 22:00 Furosemide (Lasix Injection) 60 mg BIDD IV 08/08/25 06:00 08/08/25 10:51 DC 08/08/25 05:29 Nitroglycerin 250 ml @ 1.5 mls/hr Q24H IV 08/07/25 21:00 08/08/25 05:55 Bumetanide 25 mg/ Miscellaneous 100 ml @ 4 mls/hr Q24H IV 08/08/25 11:00 Morphine Sulfate 2 mg Q4HPRN PRN IV SEVERE PAIN (7-10 PAIN SCALE) 08/08/25 11:45 08/08/25 11:57 Acetaminophen/ Hydrocodone Bitart ([place] 5/325MG Tab) 1 tab Q6HPRN PRN PO MILD PAIN (1-3 PAIN SCALE) 08/08/25 13:15 Family History: FH: Alzheimers disease FH: HTN (hypertension) G8 MOTHER FH: cancer G8 MOTHER Grandmother Grandfather Review of Systems All 12 item review of systems reviewed with the patient nonsignificant except what is mentioned in the history of present illness H&P Exam Vital Signs/I&O Vital Sign Date Time Temp Pulse Resp B/P (MAP) Pulse Ox O2 Delivery O2 Flow Rate FiO2 08/08/25 14:30 161/87 08/08/25 14:25 98 Nasal Cannula 6.0 08/08/25 14:25 44 08/08/25 12:27 70 16 08/08/25 07:30 98.0 98.0 Intake and Output 08/07/25 08/08/25 19:00 07:00 Intake Total 213 ml Balance 213 ml Intake IV Total 213 ml Physical Exam Moderate respiratory distress, high flow oxygen Lungs bibasilar crackles Cardiac exam regular rate and rhythm GI soft nontender normal Extremity 1+ edema Neuro nonfocal Labs/Diagnostic Data Labs/Diagnostic Data Laboratory Tests Test 08/08/25 11:12 08/08/25 03:00 08/08/25 02:35 08/07/25 19:35 Range/Units Uric Acid 10.1 H 3.7-9.2 mg/dL Phosphorus Level 4.0 2.4-5.1 mg/dL Magnesium Level 2.3 2.3 1.6-2.6 mg/dL Iron Level 56 L 65-175 ug/dL Total Iron Binding Capacity 217 L 250-425 ug/dL Percent Iron Saturation 25.8 20-55 % Ferritin 213.0 22-322 ng/mL Influenza Type A Antigen Negative Negative Influenza Type B Antigen Negative Negative SARS-CoV-2 Antigen (Rapid) Negative NEGATIVE Sodium Level 145 136-145 mmol/L Potassium Level 4.3 3.5-5.1 mmol/L Chloride Level 106 98-107 mmol/L Carbon Dioxide Level 25 20-31 mmol/L Anion Gap 14 5-15 Blood Urea Nitrogen 60 H 9-23 mg/dL Creatinine 5.03 H 0.700-1.30 mg/dL Glomerular Filtration Rate Calc 12 >90 mL/min BUN/Creatinine Ratio 11.9 10.0-20.0 Serum Glucose 194 H 74-106 mg/dL Calcium Level 8.5 L 8.7-10.4 mg/dL Total Bilirubin 0.2 0.2-1.0 mg/dL Aspartate Amino Transferase (AST) 14 13-40 U/L Alanine Aminotransferase (ALT) 16 7-40 U/L Alkaline Phosphatase 65 46-116 U/L Total Protein 6.2 5.7-8.2 g/dL Albumin 3.7 3.2-4.8 g/dL Blood Gas Specimen Type Arterial Blood Gas Sample Site Left radial Blood Gas Patient Temperature 37.0 Arterial Blood Date Drawn [id number] Arterial Blood pH 7.483 H 7.350-7.450 Arterial Blood Partial Pressure CO2 31.3 L 35.0-48.0 mmHg Arterial Blood Partial Pressure O2 108.8 H 83.0-108.0 mmHg Arterial Blood HCO3 22.9 21.0-28.0 mmol/L Arterial Blood Oxygen Saturation 97.7 94.0-98.0 % Arterial Blood Base Excess -0.2 -2.0-3.0 mmol/L Arterial Blood Oxyhemoglobin 96.4 94.0-98.0 % Arterial Blood Carboxyhemoglobin 0.6 0.5-1.5 % Arterial Blood Methemoglobin 0.7 0.0-1.5 % Arterial Blood Deoxyhemoglobin 2.3 0.0-5.0 % Bernardo Test Yes Blood Gas Total Hemoglobin 8.00 L 13.5-17.5 g/dL Blood Gas Modality Mask - bipap Blood Gas Spontaneous Rate 12 FiO2 % 30.0 Blood Gas PEEP or CPAP 5.0 Blood Gas EPAP 5 Blood Gas IPAP 14 Test 08/07/25 18:00 08/07/25 16:19 08/07/25 14:09 08/07/25 13:57 Range/Units Blood Gas Specimen Type Venous Blood Gas Sample Site Vbg - n/a Blood Gas Patient Temperature 37.0 Arterial Blood Date Drawn [id number] Bernardo Test N/a Venous Blood pH 7.403 7.320-7.430 Venous Blood pCO2 at Patient Temp 38.6 38.0-54.0 mmHg Venous Blood pO2 at Patient Temp 43.8 23.0-48.0 mmHg Venous Blood HCO3 23.5 22.0-29.0 mmol/L Venous Blood Base Excess -0.9 -2.0-3.0 mmol/L Blood Gas Modality Nasal cannula FiO2 % 36.0 Troponin I High Sensitivity 24 26 </=54 ng/L Urine Color Light-yellow Yellow Urine Clarity Clear Clear Urine pH 6.5 5.0-9.0 Urine Specific [place] 1.012 1.001-1.035 Urine Protein 2+ H Negative Urine Ketones Negative Negative Urine Blood Negative Negative /uL Urine Nitrite Negative Negative Urine Bilirubin Negative Negative Urine Urobilinogen Normal Negative mg/dL Urine Leukocyte Esterase Negative Negative /uL Urine RBC 1 0 - 3 /hpf Urine Microscopic WBC 2 0-3 /HPF Urine Squamous Epithelial Cells Few <5 /hpf Urine Bacteria None seen None Seen /hpf Urine Glucose Normal Normal mg/dL Test 08/07/25 13:18 Range/Units White Blood Count 4.6 4.4-10.8 10^3/uL Red Blood Count 2.77 L 4.5-5.90 10^6/uL Hemoglobin 7.7 L 13.5-17.5 g/dL Hematocrit 24.1 L 41.0-53.0 % Mean Corpuscular Volume 87.0 80.0-100.0 fL Mean Corpuscular Hemoglobin 27.9 L 28.0-32.0 pg Mean Corpuscular Hemoglobin Concent 32.1 32.0-36.0 g/dL Red Cell Distribution Width 17.4 H 11.8-14.3 % Platelet Count 125 L 140-450 10^3/uL Mean Platelet Volume 9.8 6.9-10.8 fL Neutrophils (%) (Auto) 79.6 37.0-80.0 % Lymphocytes (%) (Auto) 11.3 10.0-50.0 % Monocytes (%) (Auto) 6.6 0.0-12.0 % Eosinophils (%) (Auto) 1.8 0.0-7.0 % Basophils (%) (Auto) 0.7 0.0-2.0 % Neutrophils # (Auto) 3.7 1.6-8.6 10 ^3/uL Lymphocytes # (Auto) 0.5 0.4-5.4 10 ^3/uL Monocytes # (Auto) 0.3 0-1.3 10 ^3/uL Eosinophils # (Auto) 0.1 0-0.8 10 ^3/uL Basophils # (Auto) 0 0-0.2 10 ^3/uL Nucleated Red Blood Cells 0.1 % Sodium Level 145 136-145 mmol/L Potassium Level 3.8 3.5-5.1 mmol/L Chloride Level 106 98-107 mmol/L Carbon Dioxide Level 25 20-31 mmol/L Anion Gap 14 5-15 Blood Urea Nitrogen 54 H 9-23 mg/dL Creatinine 5.13 H 0.700-1.30 mg/dL Glomerular Filtration Rate Calc 12 >90 mL/min BUN/Creatinine Ratio 10.5 10.0-20.0 Serum Glucose 115 H 74-106 mg/dL Lactic Acid Level 0.9 0.4-2.0 mmol/L Calcium Level 9.0 8.7-10.4 mg/dL Troponin I High Sensitivity 26 </=54 ng/L B-Type Natriuretic Peptide 444.40 0-100 pg/mL Assessment Chronic Kidney Disease stage 5 now ESRD requiring intermittent hemodialysis Acute respiratory failure, on BIPAP Congestive heart failure exacerbation Diabetes mellitus type 2 Hypertension Seizure disorder Anemia of chronic kidney disease Recommendations Consents for tunneled IJ hemodialysis catheter and hemodialysis Radiology consult for IJ tunneled hemodialysis catheter Hemodialysis after catheter placement Bumex 1 mg IV per hour Blood pressure control Insulin sliding scale Strict I&Os RENAL DIET Resume home medication DISCONTINUE SPIRONOLACTONE We will continue to follow Patient seen and examined by myself in the ER. I discussed my plan of care with the patient and primary nurse at the bedside I would like to thank Dr. Pastrana FOR THE CONSULT, WILL FOLLOW Plan discussed with: Patient FLAVIA BROWN MD Aug 08, 2025 10:48
[2025-08-08] MEDS: BUMETANIDE INJECTION 25 MG in GIVE UN-DILUTED 0 ML IV SCH (11:00)
[2025-08-08 11:39] LABS: Iron 56.0 ug/dL (65-175)
[2025-08-08 11:42] LABS: Magnesium 2.3 mg/dL (1.6-2.6)
[2025-08-08 11:48] LABS: Total Iron Binding Capacity 217.0 ug/dL (250-425)
[2025-08-08] MEDS: MORPHINE SULFATE 4 MG/ML SYR/VIAL IV PRN (11:57)
[2025-08-08] MEDS ORDERED: HYDROcodone-ACET 5/325MG TAB PO PRN (13:15)
--- NOTE | 2025-08-08 13:57 | DVHPN2 ---
Subjective on bipap Reviewed: H&P Changes from previous H/P or p: No Changes Objective Vitals Vital Signs Date Time Temp Pulse Resp B/P (MAP) Pulse Ox O2 Delivery O2 Flow Rate FiO2 08/08/25 12:27 70 16 129/56 08/08/25 10:04 98 Facial BiPAP Mask 30 08/08/25 08:00 6 08/08/25 07:30 98.0 98.0 Intake/Output Intake and Output 08/08/25 07:00 Intake Total 213 ml Balance 213 ml Intake IV Total 213 ml General Appearance: Alert, Oriented X3 HEENT: Atraumatic Cardiovascular: Regular rate, Normal S1, Normal S2 Abdomen: Normal bowel sounds Medications Current Medications Medications Dose Ordered Sig/Ricky Route Start Time Stop Time Status Last Admin Dose Admin Ipratropium [place] 0.5 mg Q4HR NEB 08/07/25 22:00 08/08/25 13:27 0.5 MG Albuterol 2.5 mg Q4HR NEB 08/07/25 22:00 08/08/25 13:27 2.5 MG Aspirin 81 mg DAILY PO 08/08/25 10:00 08/08/25 05:26 81 MG Levetiracetam 500 mg BID PO 08/07/25 22:00 08/08/25 05:27 500 MG Metoprolol Succinate 50 mg DAILY PO 08/08/25 10:00 08/08/25 05:27 50 MG Atorvastatin Calcium 40 mg HS PO 08/07/25 22:00 08/08/25 00:31 40 MG Hydralazine HCl 100 mg TID PO 08/07/25 22:00 08/08/25 05:26 100 MG Nifedipine 90 mg DAILY PO 08/08/25 10:00 08/08/25 05:29 90 MG Heparin Sodium (Porcine) 5,000 units Q12HR SC 08/07/25 22:00 Nitroglycerin 250 ml @ 1.5 mls/hr Q24H IV 08/07/25 21:00 08/08/25 05:55 36 MLS/HR Bumetanide 25 mg/ Miscellaneous 100 ml @ 4 mls/hr Q24H IV 08/08/25 11:00 Morphine Sulfate 2 mg Q4HPRN PRN IV 08/08/25 11:45 08/08/25 11:57 2 MG Acetaminophen/ Hydrocodone Bitart 1 tab Q6HPRN PRN PO 08/08/25 13:15 Laboratory Results Laboratory Tests 08/07/25 13:18 08/08/25 02:35 Chemistry Test 08/08/25 02:35 08/08/25 11:12 Albumin 3.7 g/dL (3.2-4.8) Calcium Level 8.5 mg/dL (8.7-10.4) L Magnesium Level 2.3 mg/dL (1.6-2.6) 2.3 mg/dL (1.6-2.6) Total Protein 6.2 g/dL (5.7-8.2) Phosphorus Level 4.0 mg/dL (2.4-5.1) LFT Test 08/08/25 02:35 Alanine Aminotransferase (ALT) 16 U/L (7-40) Alkaline Phosphatase 65 U/L (46-116) Aspartate Amino Transferase (AST) 14 U/L (13-40) Total Bilirubin 0.2 mg/dL (0.2-1.0) Urinalysis Test 08/07/25 13:57 Urine Color Light-yellow (Yellow) Urine Clarity Clear (Clear) Urine pH 6.5 (5.0-9.0) Urine Specific [place] 1.012 (1.001-1.035) Urine Protein 2+ (Negative) H Urine Ketones Negative (Negative) Urine Blood Negative /uL (Negative) Urine Nitrite Negative (Negative) Urine Bilirubin Negative (Negative) Urine Urobilinogen Normal mg/dL (Negative) Urine Leukocyte Esterase Negative /uL (Negative) Urine RBC 1 /hpf (0 - 3) Urine Microscopic WBC 2 /HPF (0-3) Urine Squamous Epithelial Cells Few /hpf (<5) Urine Bacteria None seen /hpf (None Seen) Urine Glucose Normal mg/dL (Normal) Blood Gas Results Test 08/07/25 18:00 08/07/25 19:35 FiO2 % 36.0 30.0 Arterial Blood pH 7.483 (7.350-7.450) Microbiology Microbiology Date/Time Source Procedure Growth Status 08/07/25 13:18 Blood Blood Culture - Preliminary NO GROWTH AFTER 24 HOURS OF INCUBATION. Resulted Assessment/Plan Assessment/Plan # acute on chronic hypoxic respiratory failure due to CHF exacerbation/COPD exacerbation -started on BiPAP -IV Lasix # hypertensive emergency - Nitroglycerin drip # acute CHF exacerbation -IV Lasix Resume guideline directed medical therapy Started on BiPAP # ?COPD exacerbation -IV Methylprednisolone given in the ER -Target SpO2 is 88-92%. -Nebulize with Ipratropium and Albuterol # MIREYA on CKD stage IV -nephrology consulted # tobacco use disorder # obesity # methamphetamine use disorder Code status, unable to obtain as patient is a poor historian and gets lethargic and does not communicate properly, full code as of now Plan discussed with: Patient My Orders Orders - YANG FOUNTAIN MD Procedure Category Date Status Time Hydrocodone-Acet PHA 08/08/25 In Process 5/325mg Tab ([place] 13:15 Date of Service: Aug 08, 2025 Billing Provider: YANG FOUNTAIN MD Common Visit Codes: [id number] INP/OBS CARE(HIGH) YANG FOUNTAIN MD Aug 08, 2025 13:56
--- NOTE | 2025-08-08 22:39 | DVHINCON2 ---
Date of service: Aug 08, [address] Pastrana Reason for Consultation Acute hypoxic respiratory failure and COPD. History of Present Illness A 64-year-old man with past medical history of COPD on 2 L oxygen at home, CHF, obesity hypoventilation syndrome, CKD stage 4, tobacco use disorder, and marijuana use disorder who presented to ED on 08/07/25 for complaints of shortness of breath. Patient was admitted in the hospital last week for COPD and was discharged the day prior to presentation. HPI is limited due to patient being a poor historian; he was alert and oriented but drowsy and lethargic to talk. Pt denied any chest pain, palpitations, abdominal pain, nausea, vomiting. Patient was admitted for further care. Pulmonary consultation is requested for evaluation and management of acute hypoxic respiratory failure and COPD. Review of Systems: 14-point review of systems negative unless otherwise noted above. Past Medical History: COPD on 2 L of oxygen at home, CHF, obesity hypoventilation syndrome, CKD stage 4, tobacco use disorder, marijuana use disorder Past Surgical History: None Medications: Reviewed. Allergies: Penicillins [place] Family History: Alzheimer's disease Hypertension Cancer. Social History: Nonsmoker. No alcohol or illicit drug use. Family History: FH: Alzheimers disease FH: HTN (hypertension) G8 MOTHER FH: cancer G8 MOTHER Grandmother Grandfather Allergies: Coded Allergies: [place] (Verified Allergy, Severe, 08/03/25) Penicillins (Verified Allergy, Unknown, 05/31/24) Home Meds Active Scripts Isosorbide Mononitrate (Isosorbide Mononitrate Er) 60 Mg Tab, 1 TAB PO DAILY for 90 Days, #90 TAB 1 Refill Prov:JUANA DE PAZ 08/13/25 B-Complex W/ C & Folic Acid (Nephro-Mercedes) Tab, 1 TAB OR DAILY for 60 Days, #60 TAB Prov:JUANA DE PAZ 08/13/25 1, 25 Dihydroxycholecalciferol (ROCALTROL CAPSULE) 0.25 Mcg Cp, 0.25 MCG PO DAILY for 60 Days, #60 CAP Prov:JUANA DE PAZ 08/13/25 Metoprolol Succinate (Toprol Xl) 50 Mg Tab, 1 TAB PO DAILY, #30 TAB 5 Refills Prov:LINDA NUGENT TURNTABLE WORKER 04/18/25 Nifedipine (Nifedipine Er) 90 Mg Tab, 1 TAB PO DAILY, #30 TAB 5 Refills Prov:LINDA NUGENT NP 04/18/25 Bumetanide (Bumex Tablet) 1 Mg Tab, 1 MG PO BID, #60 TAB 5 Refills BLK BX WARNING-CAN LEAD TO PROFOUND DIURESIS WITH FLUID- ELECTROLYTE LOSS Prov:JON WRIGHT MD 04/02/25 Hydralazine Hcl (Hydralazine Hcl) 100 Mg Tab, 1 TAB PO TID, #90 TAB 5 Refills Prov:JON WRIGHT MD 04/02/25 Clonidine Hydrochloride (Clonidine Hcl) 0.2 Mg Tab, 1 TAB PO BID, #120 TAB 5 Refills Prov:JON WRIGHT MD 04/02/25 Gabapentin (Gabapentin) 300 Mg Cap, 1 CAP PO TID, #90 CAP 5 Refills Prov:JON WRIGHT MD 04/02/25 Aspirin (Aspir-81) 81 Mg Tab, 1 TAB PO DAILY, #60 TAB 5 Refills Prov:TEO HEART MD 06/02/24 Reported Medications Atorvastatin Calcium (ATORVASTATIN CALCIUM) 40 Mg Tab, 1 TAB PO QPM, #90 TAB 3 Refills 05/26/25 Levetiracetam (Levetiracetam) 500 Mg Tab, 1 TAB PO BID 05/26/25 Hydrocodone-Acetaminophen (Hydrocodone/Acetaminophen 10-325 mg) 1 Tab Tab, TID 04/23/25 Discontinued Scripts Losartan Potassium (Losartan Potassium) 50 Mg Tab, 1 TAB PO DAILY for 30 Days, #30 TAB 3 Refills Prov:LINDA NUGENT NP 04/18/25 Spironolactone (Spironolactone) 50 Mg Tab, 1 TAB PO DAILY, #30 TAB 5 Refills Prov:LINDA NUGENT NP 04/18/25 Potassium Bicarbonate (Effer-K) 25 Meq Tab, 25 MEQ PO DAILY, #30 TAB 5 Refills Prov:OJN WRIGHT MD 04/02/25 Current Medications Current Medications Medications (Trade) Dose Ordered Sig/Ricky Route PRN Reason Start Time Stop Time Status Last Admin Aspirin (Ecotrin Enteric Coated Tablet) 81 mg DAILY PO 08/08/25 10:00 08/08/25 05:26 Metoprolol Succinate (Toprol Xl) 50 mg DAILY PO 08/08/25 10:00 08/08/25 05:27 Nifedipine (Procardia Xl (Time-Release)) 90 mg DAILY PO 08/08/25 10:00 08/08/25 05:29 Spironolactone (Aldactone) 50 mg DAILY PO 08/08/25 10:00 08/08/25 10:51 DC 08/08/25 05:29 Furosemide (Lasix Injection) 60 mg BIDD IV 08/08/25 06:00 08/08/25 10:51 DC 08/08/25 05:29 Bumetanide 25 mg/ Miscellaneous 100 ml @ 4 mls/hr Q24H IV 08/08/25 11:00 Morphine Sulfate 2 mg Q4HPRN PRN IV SEVERE PAIN (7-10 PAIN SCALE) 08/08/25 11:45 08/08/25 15:51 Acetaminophen/ Hydrocodone Bitart ([place] 5/325MG Tab) 1 tab Q6HPRN PRN PO MILD PAIN (1-3 PAIN SCALE) 08/08/25 13:15 Vital Signs Vital Signs Date Time Temp Pulse Resp B/P (MAP) Pulse Ox O2 Delivery O2 Flow Rate FiO2 08/08/25 22:06 69 136/82 95 Facial BiPAP Mask 30 08/08/25 20:45 15 08/08/25 19:30 98.0 98.0 08/08/25 14:25 6.0 Physical Exam Gen.: Patient lying in bed in no apparent distress. On BiPAP. Head: Normocephalic, atraumatic. Eyes: EOMI/PERRLA. Ears: Normal hearing. Normal anatomy. Neck/trachea: Trachea midline, supple. Nose: Normal external anatomy. Mouth: Moist mucous membranes. Chest: Decreased air entry bilaterally. No wheezing or rhonchi. Cardiovascular: Positive S1, positive S2. Regular rate and rhythm. Abdomen: Positive bowel sounds in all 4 quadrants. Soft, non-tender, non- distended. : Deferred. Rectal: Deferred. Skin: Warm, dry. Intact. Extremities: 2+ radial pulses bilaterally. No lower extremity edema. Neuro: Awake, alert, oriented x3. No gross motor or sensory deficits. Cranial n erves II through XII intact. Gait not assessed. Labs/Diagnostic Data Labs Test 08/08/25 11:12 08/08/25 03:00 08/08/25 02:35 08/07/25 19:35 Range/Units Uric Acid 10.1 H 3.7-9.2 mg/dL Phosphorus Level 4.0 2.4-5.1 mg/dL Magnesium Level 2.3 1.6-2.6 mg/dL Iron Level 56 L 65-175 ug/dL Total Iron Binding Capacity 217 L 250-425 ug/dL Percent Iron Saturation 25.8 20-55 % Ferritin 213.0 22-322 ng/mL Influenza Type A Antigen Negative Negative Influenza Type B Antigen Negative Negative SARS-CoV-2 Antigen (Rapid) Negative NEGATIVE Sodium Level 145 136-145 mmol/L Potassium Level 4.3 3.5-5.1 mmol/L Chloride Level 106 98-107 mmol/L Carbon Dioxide Level 25 20-31 mmol/L Anion Gap 14 5-15 Blood Urea Nitrogen 60 H 9-23 mg/dL Creatinine 5.03 H 0.700-1.30 mg/dL Glomerular Filtration Rate Calc 12 >90 mL/min BUN/Creatinine Ratio 11.9 10.0-20.0 Serum Glucose 194 H 74-106 mg/dL Calcium Level 8.5 L 8.7-10.4 mg/dL Total Bilirubin 0.2 0.2-1.0 mg/dL Aspartate Amino Transferase (AST) 14 13-40 U/L Alanine Aminotransferase (ALT) 16 7-40 U/L Alkaline Phosphatase 65 46-116 U/L Total Protein 6.2 5.7-8.2 g/dL Albumin 3.7 3.2-4.8 g/dL Blood Gas Specimen Type Arterial Blood Gas Sample Site Left radial Blood Gas Patient Temperature 37.0 Arterial Blood Date Drawn [id number] Arterial Blood pH 7.483 H 7.350-7.450 Arterial Blood Partial Pressure CO2 31.3 L 35.0-48.0 mmHg Arterial Blood Partial Pressure O2 108.8 H 83.0-108.0 mmHg Arterial Blood HCO3 22.9 21.0-28.0 mmol/L Arterial Blood Oxygen Saturation 97.7 94.0-98.0 % Arterial Blood Base Excess -0.2 -2.0-3.0 mmol/L Arterial Blood Oxyhemoglobin 96.4 94.0-98.0 % Arterial Blood Carboxyhemoglobin 0.6 0.5-1.5 % Arterial Blood Methemoglobin 0.7 0.0-1.5 % Arterial Blood Deoxyhemoglobin 2.3 0.0-5.0 % Bernardo Test Yes Blood Gas Total Hemoglobin 8.00 L 13.5-17.5 g/dL Blood Gas Modality Mask - bipap Blood Gas Spontaneous Rate 12 FiO2 % 30.0 Blood Gas PEEP or CPAP 5.0 Blood Gas EPAP 5 Blood Gas IPAP 14 Test 08/07/25 18:00 08/07/25 16:19 08/07/25 13:57 08/07/25 13:18 Range/Units Venous Blood pH 7.403 7.320-7.430 Venous Blood pCO2 at Patient Temp 38.6 38.0-54.0 mmHg Venous Blood pO2 at Patient Temp 43.8 23.0-48.0 mmHg Venous Blood HCO3 23.5 22.0-29.0 mmol/L Venous Blood Base Excess -0.9 -2.0-3.0 mmol/L Troponin I High Sensitivity 24 </=54 ng/L Urine Color Light-yellow Yellow Urine Clarity Clear Clear Urine pH 6.5 5.0-9.0 Urine Specific [place] 1.012 1.001-1.035 Urine Protein 2+ H Negative Urine Ketones Negative Negative Urine Blood Negative Negative /uL Urine Nitrite Negative Negative Urine Bilirubin Negative Negative Urine Urobilinogen Normal Negative mg/dL Urine Leukocyte Esterase Negative Negative /uL Urine RBC 1 0 - 3 /hpf Urine Microscopic WBC 2 0-3 /HPF Urine Squamous Epithelial Cells Few <5 /hpf Urine Bacteria None seen None Seen /hpf Urine Glucose Normal Normal mg/dL White Blood Count 4.6 4.4-10.8 10^3/uL Red Blood Count 2.77 L 4.5-5.90 10^6/uL Hemoglobin 7.7 L 13.5-17.5 g/dL Hematocrit 24.1 L 41.0-53.0 % Mean Corpuscular Volume 87.0 80.0-100.0 fL Mean Corpuscular Hemoglobin 27.9 L 28.0-32.0 pg Mean Corpuscular Hemoglobin Concent 32.1 32.0-36.0 g/dL Red Cell Distribution Width 17.4 H 11.8-14.3 % Platelet Count 125 L 140-450 10^3/uL Mean Platelet Volume 9.8 6.9-10.8 fL Neutrophils (%) (Auto) 79.6 37.0-80.0 % Lymphocytes (%) (Auto) 11.3 10.0-50.0 % Monocytes (%) (Auto) 6.6 0.0-12.0 % Eosinophils (%) (Auto) 1.8 0.0-7.0 % Basophils (%) (Auto) 0.7 0.0-2.0 % Neutrophils # (Auto) 3.7 1.6-8.6 10 ^3/uL Lymphocytes # (Auto) 0.5 0.4-5.4 10 ^3/uL Monocytes # (Auto) 0.3 0-1.3 10 ^3/uL Eosinophils # (Auto) 0.1 0-0.8 10 ^3/uL Basophils # (Auto) 0 0-0.2 10 ^3/uL Nucleated Red Blood Cells 0.1 % Lactic Acid Level 0.9 0.4-2.0 mmol/L B-Type Natriuretic Peptide 444.40 0-100 pg/mL Microbiology Date/Time Source Procedure Growth Status 08/07/25 13:18 Blood Blood Culture - Preliminary NO GROWTH AFTER 24 HOURS OF INCUBATION. Resulted Assessment Impression: Acute hypoxic respiratory failure Likely CHEMA Acute on chronic diastolic CHF Chronic obstructive pulmonary disease exacerbation Dyspnea Obesity BMI 37 Plan: On BiPAP Titrate to keep O2 sats above 92%. Chest x-ray today reviewed, demonstrates stable-appearing diffuse increased prominence of the pulmonary vasculature and small bilateral pleural effusions. Continue bronchodilators. Incentive spirometry Blood pressure control Antiepileptic with Keppra Diurese to euvolemia Monitor renal function. Monitor electrolytes. Supplement as necessary. Monitor ins and outs. Recommend diet and lifestyle modifications for weight reduction Obesity complicates all care Recommend outpatient evaluation for obstructive sleep apnea. DVT prophylaxis. Prognosis: Poor given patient's multiple co-morbidities. Rest of plan per hospitalist and other consultants. Thank you, Dr. Pastrana, for allowing me to participate in this patient's care. Further recommendations will depend on the patient's clinical course. Please do not hesitate to contact me if you have any questions or concerns. This medical document was created using an electronic medical record system with [employer] system. Although these documentations are being carefully reviewed, there may still be some phonetic and typographical changes. The errors are purely typographical, due to imperfection on the software program, and do not reflect any compromise in the patient's medical care. Plan discussed with: Patient, Other (RN/MD) Visit Coding Pulmonary Billing Provider: SERENA SMITH MD Date of Service if different f: Aug 08, 2025 Common Visit Codes: [id number] INP/OBS CARE (HIGH) SERENA SMITH MD Aug 08, 2025 22:39
[2025-08-09] VITALS (32 sets, daily range): BP systolic 128–167; BP diastolic 59–80; PULSE 66–94; RESP 10–20; TEMP 98.3; O2SAT 94–100
[2025-08-09 05:21] LABS: Urine Protein, UAD 2+ (Negative)
--- NOTE | 2025-08-09 10:48 | DVHPN2 ---
Progress Note Date Seen: Aug 09, 2025 Medical Necessity Reason Pt with a Central, PICC or Fol: No Subjective Review of Systems: RESPIRATORY:Abnormal Other Systems: Patient seen and examined by myself today in follow-up Objective vital signs Vital Sign Date Time Temp Pulse Resp B/P (MAP) Pulse Ox O2 Delivery O2 Flow Rate FiO2 08/09/25 10:30 177/74 08/09/25 10:08 93 08/09/25 09:58 20 100 08/09/25 07:49 Nasal Cannula* 6 44 08/09/25 07:30 98.2 98.2 Total Intake and Output 08/08/25 08/08/25 08/09/25 15:00 23:00 07:00 Output Total 400 ml 200 ml Balance -400 ml -200 ml medications Current Medications Medications Dose Ordered Sig/Ricky Route Start Time Stop Time Status Last Admin Dose Admin Ipratropium [place] 0.5 mg Q4HR NEB 08/07/25 22:00 08/09/25 09:48 0.5 MG Albuterol 2.5 mg Q4HR NEB 08/07/25 22:00 08/09/25 09:48 2.5 MG Aspirin 81 mg DAILY PO 08/08/25 10:00 08/09/25 10:09 81 MG Levetiracetam 500 mg BID PO 08/07/25 22:00 08/09/25 10:09 500 MG Metoprolol Succinate 50 mg DAILY PO 08/08/25 10:00 08/09/25 10:08 50 MG Atorvastatin Calcium 40 mg HS PO 08/07/25 22:00 08/08/25 23:16 40 MG Hydralazine HCl 100 mg TID PO 08/07/25 22:00 08/09/25 05:53 100 MG Nifedipine 90 mg DAILY PO 08/08/25 10:00 08/09/25 10:10 90 MG Heparin Sodium (Porcine) 5,000 units Q12HR SC 08/07/25 22:00 Nitroglycerin 250 ml @ 1.5 mls/hr Q24H IV 08/07/25 21:00 08/08/25 05:55 36 MLS/HR Bumetanide 25 mg/ Miscellaneous 100 ml @ 4 mls/hr Q24H IV 08/08/25 11:00 Morphine Sulfate 2 mg Q4HPRN PRN IV 08/08/25 11:45 08/08/25 15:51 2 MG Acetaminophen/ Hydrocodone Bitart 1 tab Q6HPRN PRN PO 08/08/25 13:15 Examination: LUNGS:Normal, CVS:Normal, MSK:Abnormal laboratory and microbiology Laboratory Tests 08/08/25 02:35 08/07/25 13:18 Test 08/08/25 02:35 Range/Units Serum Glucose 194 H 74-106 mg/dL Microbiology Date/Time Source Procedure Growth Status 08/07/25 13:18 Blood Blood Culture - Preliminary NO GROWTH AFTER 24 HOURS OF INCUBATION. Resulted Problem List/Assessment/Plan Problem List/Assessment/Plan Chronic Kidney Disease stage 5 now ESRD requiring intermittent hemodialysis Acute respiratory failure, on BIPAP Congestive heart failure exacerbation Diabetes mellitus type 2 Hypertension Seizure disorder Anemia of chronic kidney disease Recommendations Consents for tunneled IJ hemodialysis catheter and hemodialysis Radiology consult for IJ tunneled hemodialysis catheter Hemodialysis after catheter placement Bumex 1 mg IV per hour Blood pressure control Insulin sliding scale Strict I&Os RENAL DIET Resume home medication DISCONTINUE SPIRONOLACTONE We will continue to follow Plan discussed with: Patient My Orders My Orders Orders - FLAVIA BROWN MD Procedure Category Date Status Time Give Un-Diluted PHA 08/08/25 In Process (Gi... W/Bumetanide 11:00 Renal Specific DIET 08/08/25 Transmitted Diet(Renal) Lunch * Radiologist Consult CONS 08/08/25 Transmitted 12:12 * Radiologist Consult CONS 08/09/25 Verified 10:45 Hemodialysis Orders ORDERS 08/10/25 Verified 07:00 Dialysis Nursing VICKIE 08/10/25 Verified Message 07:00 Heparin Sodium PHA 08/10/25 Verified (Porcine) 07:00 Heparin Sodium PHA 08/10/25 Verified (Porcine) 07:00 Sodium Chloride 0.9% PHA 08/10/25 Verified 07:00 Document Fluid Input VICKIE 08/10/25 Verified And Outpu 07:00 Retacrit 10,000unit PHA 08/10/25 Verified Sc Xone 21:00 FLAVIA BROWN MD Aug 09, 2025 10:48
--- NOTE | 2025-08-09 14:30 | DVHPN2 ---
Subjective on bipap>now on 6L NC Reviewed: H&P Changes from previous H/P or p: No Changes Objective Vitals Vital Signs Date Time Temp Pulse Resp B/P (MAP) Pulse Ox O2 Delivery O2 Flow Rate FiO2 08/09/25 14:03 156/67 08/09/25 14:02 83 12 96 08/09/25 12:01 98.2 98.2 08/09/25 07:49 Nasal Cannula* 6 44 Intake/Output Intake and Output 08/09/25 05:00 Output Total 600 ml Balance -600 ml Output Urine Total 600 ml General Appearance: Alert, Oriented X3 HEENT: Atraumatic Cardiovascular: Regular rate, Normal S1, Normal S2 Abdomen: Normal bowel sounds Medications Current Medications Medications Dose Ordered Sig/Ricky Route Start Time Stop Time Status Last Admin Dose Admin Ipratropium [place] 0.5 mg Q4HR NEB 08/07/25 22:00 08/09/25 09:48 0.5 MG Albuterol 2.5 mg Q4HR NEB 08/07/25 22:00 08/09/25 09:48 2.5 MG Aspirin 81 mg DAILY PO 08/08/25 10:00 08/09/25 10:09 81 MG Levetiracetam 500 mg BID PO 08/07/25 22:00 08/09/25 10:09 500 MG Metoprolol Succinate 50 mg DAILY PO 08/08/25 10:00 08/09/25 10:08 50 MG Atorvastatin Calcium 40 mg HS PO 08/07/25 22:00 08/08/25 23:16 40 MG Hydralazine HCl 100 mg TID PO 08/07/25 22:00 08/09/25 14:03 100 MG Nifedipine 90 mg DAILY PO 08/08/25 10:00 08/09/25 10:10 90 MG Heparin Sodium (Porcine) 5,000 units Q12HR SC 08/07/25 22:00 Nitroglycerin 250 ml @ 1.5 mls/hr Q24H IV 08/07/25 21:00 08/08/25 05:55 36 MLS/HR Bumetanide 25 mg/ Miscellaneous 100 ml @ 4 mls/hr Q24H IV 08/08/25 11:00 08/09/25 12:06 4 MLS/HR Morphine Sulfate 2 mg Q4HPRN PRN IV 08/08/25 11:45 08/08/25 15:51 2 MG Acetaminophen/ Hydrocodone Bitart 1 tab Q6HPRN PRN PO 08/08/25 13:15 Laboratory Results Laboratory Tests 08/07/25 13:18 08/08/25 02:35 Urinalysis Test 08/09/25 04:52 Urine Color Light-yellow (Yellow) Urine Clarity Clear (Clear) Urine pH 6.0 (5.0-9.0) Urine Specific [place] 1.013 (1.001-1.035) Urine Protein 2+ (Negative) H Urine Ketones Negative (Negative) Urine Blood Negative /uL (Negative) Urine Nitrite Negative (Negative) Urine Bilirubin Negative (Negative) Urine Urobilinogen Normal mg/dL (Negative) Urine Leukocyte Esterase Negative /uL (Negative) Urine RBC <1 /hpf (0 - 3) Urine Microscopic WBC 6 /HPF (0-3) H Urine Squamous Epithelial Cells Few /hpf (<5) Urine Transitional Epithelial Cells Few /hpf (<2) Urine Bacteria Few /hpf (None Seen) H Urine Hyaline Casts Few /lpf (0 - 2) Urine Creatinine 126.16 mg/dL (30.0-125.0) H Urine Sodium 19 mmol/L (40-220) L Urine Glucose Normal mg/dL (Normal) Microbiology Microbiology Date/Time Source Procedure Growth Status 08/08/25 03:00 Nose MRSA Screen - Final Complete 08/07/25 13:18 Blood Blood Culture - Preliminary NO GROWTH AFTER 48 HOURS OF INCUBATION. Resulted Assessment/Plan Assessment/Plan # acute on chronic hypoxic respiratory failure due to CHF exacerbation/COPD exacerbation -started on BiPAP >down to 6l NC -IV Lasix # hypertensive emergency - Nitroglycerin drip # acute CHF exacerbation -IV Lasix Resume guideline directed medical therapy Started on BiPAP weaned offf to oxygen today # ?COPD exacerbation -IV Methylprednisolone given in the ER -Target SpO2 is 88-92%. -Nebulize with Ipratropium and Albuterol # MIREYA on CKD stage IV -nephrology consulted # tobacco use disorder # obesity # methamphetamine use disorder Critical care time is 79 minutes Plan discussed with: Patient Date of Service: Aug 09, 2025 Billing Provider: YANG FOUNTAIN MD Common Visit Codes: [id number] CARE 30-74 MIN YANG FOUNTAIN MD Aug 09, 2025 14:30
--- NOTE | 2025-08-09 17:43 | ECG ---
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
--- NOTE | 2025-08-09 17:43 | ECG ---
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
--- NOTE | 2025-08-09 22:40 | DVHPN2 ---
Subjective DOS: 08/09/2025 Patient seen and examined at bedside. Currently on supplemental oxygen Overnight events reviewed. Reviewed: H&P Changes from previous H/P or p: No Changes Objective Vitals Vital Signs Date Time Temp Pulse Resp B/P (MAP) Pulse Ox O2 Delivery O2 Flow Rate FiO2 08/09/25 21:53 147/67 08/09/25 21:03 78 13 97 Bi-Pap+ 30 30 08/09/25 20:54 98.3 98.3 08/09/25 07:49 6 Intake/Output Intake and Output 08/09/25 07:00 Output Total 600 ml Balance -600 ml Output Urine Total 600 ml Exam Gen.: Patient lying in bed in no apparent distress. On supplemental oxygen. Head: Normocephalic, atraumatic. Eyes: EOMI/PERRLA. Ears: Normal hearing. Normal anatomy. Neck/trachea: Trachea midline, supple. Nose: Normal external anatomy. Mouth: Moist mucous membranes. Chest: Decreased air entry bilaterally. No wheezing or rhonchi. Cardiovascular: Positive S1, positive S2. Regular rate and rhythm. Abdomen: Positive bowel sounds in all 4 quadrants. Soft, non-tender, non- distended. : Deferred. Rectal: Deferred. Skin: Warm, dry. Intact. Extremities: 2+ radial pulses bilaterally. No lower extremity edema. Neuro: Awake, alert, oriented x3. No gross motor or sensory deficits. Cranial nerves II through XII intact. Gait not assessed. General Appearance: Alert, Oriented X3 HEENT: Atraumatic Cardiovascular: Regular rate, Normal S1, Normal S2 Abdomen: Normal bowel sounds Medications Current Medications Medications Dose Ordered Sig/[facility] Route Start Time Stop Time Status Last Admin Dose Admin Ipratropium [place] 0.5 mg Q4HR NEB 08/07/25 22:00 08/09/25 18:35 0.5 MG Albuterol 2.5 mg Q4HR NEB 08/07/25 22:00 08/09/25 18:34 2.5 MG Aspirin 81 mg DAILY PO 08/08/25 10:00 08/09/25 10:09 81 MG Levetiracetam 500 mg BID PO 08/07/25 22:00 08/09/25 21:52 500 MG Metoprolol Succinate 50 mg DAILY PO 08/08/25 10:00 08/09/25 10:08 50 MG Atorvastatin Calcium 40 mg HS PO 08/07/25 22:00 08/09/25 21:52 40 MG Hydralazine HCl 100 mg TID PO 08/07/25 22:00 08/09/25 21:53 100 MG Nifedipine 90 mg DAILY PO 08/08/25 10:00 08/09/25 10:10 90 MG Heparin Sodium (Porcine) 5,000 units Q12HR SC 08/07/25 22:00 Nitroglycerin 250 ml @ 1.5 mls/hr Q24H IV 08/07/25 21:00 08/08/25 05:55 36 MLS/HR Bumetanide 25 mg/ Miscellaneous 100 ml @ 4 mls/hr Q24H IV 08/08/25 11:00 08/09/25 12:06 4 MLS/HR Morphine Sulfate 2 mg Q4HPRN PRN IV 08/08/25 11:45 08/09/25 20:24 2 MG Acetaminophen/ Hydrocodone Bitart 1 tab Q6HPRN PRN PO 08/08/25 13:15 Laboratory Results Laboratory Tests 08/07/25 13:18 08/08/25 02:35 Urinalysis Test 08/09/25 04:52 Urine Color Light-yellow (Yellow) Urine Clarity Clear (Clear) Urine pH 6.0 (5.0-9.0) Urine Specific [place] 1.013 (1.001-1.035) Urine Protein 2+ (Negative) H Urine Ketones Negative (Negative) Urine Blood Negative /uL (Negative) Urine Nitrite Negative (Negative) Urine Bilirubin Negative (Negative) Urine Urobilinogen Normal mg/dL (Negative) Urine Leukocyte Esterase Negative /uL (Negative) Urine RBC <1 /hpf (0 - 3) Urine Microscopic WBC 6 /HPF (0-3) H Urine Squamous Epithelial Cells Few /hpf (<5) Urine Transitional Epithelial Cells Few /hpf (<2) Urine Bacteria Few /hpf (None Seen) H Urine Hyaline Casts Few /lpf (0 - 2) Urine Creatinine 126.16 mg/dL (30.0-125.0) H Urine Sodium 19 mmol/L (40-220) L Urine Glucose Normal mg/dL (Normal) Microbiology Microbiology Date/Time Source Procedure Growth Status 08/08/25 03:00 Nose MRSA Screen - Final Complete 08/07/25 13:18 Blood Blood Culture - Preliminary NO GROWTH AFTER 48 HOURS OF INCUBATION. Resulted Assessment/Plan Assessment/Plan Impression: Acute hypoxic respiratory failure Dependence on supplemental oxygen Likely CHEMA Acute on chronic diastolic CHF Chronic obstructive pulmonary disease Dyspnea Obesity Events: Off BiPAP Currently on supplemental oxygen, 6 LPM NC Taper O2 as tolerated Continue bronchodilators Continue steroids Continue antibiotics Incentive spirometry Diurese with Lasix to maintain euvolemia Monitor renal function. Monitor electrolytes. Supplement as necessary. Monitor ins and outs. Strict ins and outs. Labs and imaging reviewed. Rest of plan as noted below. Plan: Supplemental oxygen Titrate to keep O2 sats above 92%. Chest x-ray on 08/08/25 demonstrates stable-appearing diffuse increased prominence of the pulmonary vasculature and small bilateral pleural effusions. Continue bronchodilators. Incentive spirometry Blood pressure control Antiepileptic with Keppra Diurese to euvolemia Monitor renal function. Monitor electrolytes. Supplement as necessary. Monitor ins and outs. Recommend diet and lifestyle modifications for weight reduction Obesity complicates all care Recommend outpatient evaluation for obstructive sleep apnea. DVT prophylaxis. Prognosis: Poor given patient's multiple co-morbidities. Rest of plan per hospitalist and other consultants. Thank you, Dr. Pastrana, for allowing me to participate in this patient's care. Further recommendations will depend on the patient's clinical course. Please do not hesitate to contact me if you have any questions or concerns. This medical document was created using an electronic medical record system with [employer] dictation system. Although these documentations are being carefully reviewed, there may still be some phonetic and typographical changes. The errors are purely typographical, due to imperfection on the software program, and do not reflect any compromise in the patient's medical care. Plan discussed with: Patient, Other (RN) Visit Coding Pulmonary Billing Provider: SERENA SMITH MD Date of Service if different f: Aug 09, 2025 Common Visit Codes: [id number] INP/OBS CARE(HIGH) SERENA SMITH MD Aug 09, 2025 22:40
[2025-08-10] VITALS (108 sets, daily range): BP systolic 87–175; BP diastolic 47–87; PULSE 63–98; RESP 9–19; TEMP 98–98.8; O2SAT 87–100
[2025-08-10 03:31] LABS: Hematocrit 21.0 % (41.0-53.0); Hemoglobin 7.1 g/dL (13.5-17.5); Mean Corpuscular Hemoglobin 27.9 pg (28.0-32.0); Mean Corpuscular Volume 82.7 fL (80.0-100.0); Nucleated Red Blood Cells % 0.0 %
[2025-08-10 03:38] LABS: Chloride 104 mmol/L (98-107); Potassium 3.6 mmol/L (3.5-5.1); Sodium 144 mmol/L (136-145)
[2025-08-10 03:39] LABS: Anion Gap 12 (5-15); Carbon Dioxide 28 mmol/L (20-31)
[2025-08-10 03:44] LABS: BUN/Creatinine Ratio 11.7 (10.0-20.0)
[2025-08-10 03:57] LABS: Blood Urea Nitrogen 54 mg/dL (9-23); Calcium 8.3 mg/dL (8.7-10.4); Glucose 129 mg/dL (74-106)
[2025-08-10] MEDS ORDERED: SODIUM CHL 0.9% 1000 ML BAG XX ONE (07:00)
[2025-08-10 09:42] LABS: INR 1.04 (0.9-1.15); Partial Thromboplastin Time 29.8 SEC (24.5-34.5); Prothrombin Time 11.0 sec (9.3-11.8)
--- NOTE | 2025-08-10 12:29 | DVHPNRES ---
Progress Note Date Seen: Aug 10, 2025 Resident Creating Document: RODRI YOUNG RESIDENT Has the PT tested + for MRSA If YES, has PT been informed?: No Medical Necessity Reason Pt with a Central, PICC or Fol: No Subjective Review of Systems 64-year-old male with extensive cardiopulmonary and renal disease, currently in the ICU, admitted 08/07/2025 for acute hypoxic respiratory failure secondary to COPD exacerbation vs volume overload / CHF decompensation in the setting of ESRD (CKD-5), pulmonary edema, and anemia of CKD. PAST MEDICAL HISTORY COPD On 24L home O? Chronic respiratory failure Repeated admissions CHF HFpEF, NYHA III Prior pulmonary edema episodes CKD Stage 5 ESRD GFR 13 today Hypertension (labile) Multiple antihypertensives required Type 2 Diabetes Mellitus SSI controlled Seizure disorder On Keppra Chronic anemia of CKD Hgb 7.1 today NSTEMI (remote) Medical management Hyperlipidemia On statin Obesity BMI 37 Obesity hypoventilation Tobacco use disorder (quit 2 yrs ago) Marijuana use disorder PAST SURGICAL HISTORY No major surgical history reported SOCIAL HISTORY Item Details Living Situation Lives with spouse Tobacco Quit 2 years ago, long-term smoker Alcohol Rare use Marijuana Previous chronic use Diet High sodium historically now renal diet Compliance History of AMA discharge & treatment refusal 08/10/2025 64-year-old male with extensive cardiopulmonary and renal disease, currently in the ICU, admitted 08/07/2025 for acute hypoxic respiratory failure secondary to COPD exacerbation vs volume overload / CHF decompensation in the setting of ESRD (CKD-5), pulmonary edema, and anemia of CKD. Today, patient is awake but intermittently lethargic. Needs prompting for orientation oriented to self/place/time intermittently, . Denies active chest pain, abdominal pain, nausea, vomiting, or subjective dyspnea despite mild work of breathing being observed. No fevers, no chills, no hemoptysis. Appetite fair, bowel movement last on 08/09. Refused hemodialysis catheter placement and refused transfusion despite Hb 7.1 detailed discussion held again with family, who confirmed refusal. Constitutional: Fatigue, lethargy present. No fever or weight loss reported. Neuro: No focal deficits reported, mild confusion/drowsiness. Respiratory: Mild SOB observed, denies chest tightness currently. Cardiac: No chest pain or pressure. + lower extremity edema. GI: No abdominal pain, vomiting; last BM 08/09. : Oliguria but UOP 0.75 mL/kg/hr. No hematuria. Musculoskeletal: Generalized deconditioning, weakness. Skin: Warm, intact, no ulcers. + red band allergy precaution. Psych: Limited insight into disease severity. Objective vital signs Vital Sign Date Time Temp Pulse Resp B/P (MAP) Pulse Ox O2 Delivery O2 Flow Rate FiO2 08/10/25 10:31 78 14 157/54 (88) 96 08/10/25 10:03 Nasal Cannula* 4 36 08/10/25 08:01 98.4 98.4 Total Intake and Output 08/09/25 08/09/25 08/10/25 15:00 23:00 07:00 Intake Total 8 ml 332.0 ml 796.5 ml Output Total 400 ml 400 ml 1175 ml Balance -392 ml -68.0 ml -378.5 ml medications Current Medications Medications Dose Ordered Sig/Ricky Route Start Time Stop Time Status Last Admin Dose Admin Ipratropium [place] 0.5 mg Q4HR NEB 08/07/25 22:00 08/10/25 10:03 0.5 MG Albuterol 2.5 mg Q4HR NEB 08/07/25 22:00 08/10/25 10:03 2.5 MG Aspirin 81 mg DAILY PO 08/08/25 10:00 08/10/25 09:36 81 MG Levetiracetam 500 mg BID PO 08/07/25 22:00 08/10/25 09:34 500 MG Metoprolol Succinate 50 mg DAILY PO 08/08/25 10:00 08/10/25 09:36 50 MG Atorvastatin Calcium 40 mg HS PO 08/07/25 22:00 08/09/25 21:52 40 MG Hydralazine HCl 100 mg TID PO 08/07/25 22:00 08/10/25 06:01 100 MG Nifedipine 90 mg DAILY PO 08/08/25 10:00 08/10/25 09:35 90 MG Heparin Sodium (Porcine) 5,000 units Q12HR SC 08/07/25 22:00 Nitroglycerin 250 ml @ 1.5 mls/hr Q24H IV 08/07/25 21:00 08/10/25 09:24 52.5 MLS/HR Bumetanide 25 mg/ Miscellaneous 100 ml @ 4 mls/hr Q24H IV 08/08/25 11:00 08/10/25 09:26 4 MLS/HR Morphine Sulfate 2 mg Q4HPRN PRN IV 08/08/25 11:45 08/09/25 20:24 2 MG Acetaminophen/ Hydrocodone Bitart 1 tab Q6HPRN PRN PO 08/08/25 13:15 Examination * General: Obese, drowsy but arousable, on 5L NC, no acute distress. * HEENT: No icterus, no JVD pulsation visible. * Neuro: Opens eyes to voice, follows simple commands, non-focal, confused intermittently. * CVS: Regular rhythm, normal S1/S2, no murmurs. 2+ bilateral pitting edema. * Resp: Mild crackles bilaterally, prolonged exhalation, decreased air entry at bases. * Abdomen: Soft, NT/ND, positive bowel sounds. * Extremities: No cellulitis, pulses palpable. * Skin: No breakdown or rashes. laboratory and microbiology Laboratory Tests 08/10/25 02:27 Test 08/10/25 02:27 Range/Units Serum Glucose 129 H 74-106 mg/dL Microbiology Date/Time Source Procedure Growth Status 08/08/25 03:00 Nose MRSA Screen - Final Complete 08/07/25 13:18 Blood Blood Culture - Preliminary NO GROWTH AFTER 48 HOURS OF INCUBATION. Resulted Problem List/Assessment/Plan Problem List/Assessment/Plan [facility] Metabolic encephalopathy likely uremia + anemia + hypoxia related. Seizure disorder Muscle spasms and intermittent myoclonic jerks due to Uremia and ESRD + Diuresis On Keppra *Monitor mental status Q4h Continue Baclofen 5 mg daily CARDIOVASCULAR Acute on Chronic Decompensated Congestive Heart Failure PRESERVED EF (HFpEF, NYHA II) Hypertensive emergency Hyperlipidemia * CXR: pulmonary congestion + edema; BNP 444. * On IV Bumex net negative today (-838.5 mL). * BP 284596 systolic * On Nifedipine XL 90mg daily + Hydralazine 100mg TID + Metoprolol Succinate 50mg daily, Clonidine 0.1 mg BID new * Continue guideline-directed medical therapy. Nitroglycerin drip PRN hypertensive emergency Strict I/O + Daily weights Goal MAP 6590 On statin RESPIRATORY Acute Hypoxic Respiratory Failure ONGOING, improving. Acute on Chronic COPD Exacerbation Morbid Obesity (BMI 37) / Obesity Hypoventilation * Etiology: COPD exacerbation + pulmonary edema due to acute decompensated HF + ESRD-induced volume overload * O2 requirement: NC 5L (previous BiPAP). * ABG alkalemic, blowing off CO2 on BiPAP, now clinically stable. * Continue bronchodilators, steroids PRN, BiPAP overnight protocol. Incentive Spirometry Diuresis to reduce pulmonary edema RENAL / MIREYA ON ESRD (CKD-5) with Uremic Symptoms & Volume Overload * Cr trending ~5 mg/dL - 4.63 mg/dL, GFR 13. * HD recommended by nephrology patient/family refused * ESRD with refusal for HD. continue diuresis cautiously with Bumex drip. * Discussed risks of volume overload, encephalopathy, arrhythmia. Continue: Bumex drip Avoid nephrotoxins Renal dose medication adjustments Re-evaluate for IJ dialysis catheter if consent obtained HEMATOLOGY 5. Anemia of CKD + Iron Deficiency Component * Hb 7.7 - 7.1; ferritin normal but low Tsat (25%). * Transfusion recommended but refused. * Anemia of CKD + iron deficiency picture. Recommended but refused: PRBC transfusion (Hgb < 7 threshold) IV iron could be considered if transfusion still refused. INFECTIOUS DISEASE Afebrile, WBC 4.3, cultures negative. Management * No active infection no antibiotics at this time GI / NUTRITION * At risk for malnutrition due to illness + catabolic state. Renal diet + 2g sodium restriction+ Cardiac diet Bowel regimen PRN ENDOCRINE Morbid Obesity (BMI 37) * Prediabetes monitored glucose stable 129. POC Glucose AC/HS SSI if glucose >180 PSYCHIATRIC Tobacco + Marijuana Use Disorder (remote tobacco abstinent x2 yrs) Smoking cessation reinforced to prevent recurrent COPD flares. SKIN & WOUND CARE No breakdown noted preventive care active. Barrier cream PRN Offload heels Daily skin check DVT / GI PROPHYLAXIS Heparin SQ on hold due to anemia reasonable. Consider resume when Hb stabilizes. SCDs for VTE prophylaxis PPI for GI protection LINES / ACCESS / DRIPS * No central line. Midline order placed * IJ HD catheter planned pending consent. REHAB + SOCIAL * PT/OT consult for mobilization. * Daily family updates establish goals of care if refusal persists. Critical Care Time: 83 minutes today (excluding procedures). Code status: Full Code.Family updated at bedside; >20 minutes spent in [id number] counseling. Case discussed in detail with the attending physician Dr. Carter, including the clinical presentation, diagnostic workup, and comprehensive management plan. The patient was present for the discussion and demonstrated understanding of his condition and the proposed plan. Plan discussed with: Patient, Spouse My Orders My Orders Orders - RODRI YOUNG Procedure Category Date Status Time Insert Midline ORDERS 08/10/25 Transmitted 11:15 Visit Coding STANDARD RES Billing Provider: YUNIER CARTER MD Date of Service if different f: Aug 10, 2025 Common Visit Codes: [id number] CARE 30-74 MIN, [id number] CARE-EACH +30MIN RODRI YOUNG Aug 10, 2025 12:29 YUNIER CARTER MD Aug 11, 2025 11:16
[2025-08-10] MEDS: EPOETIN ALFA-EPBX 10,000 UNIT/1ML VIAL SC ONE (21:00)
[2025-08-10] MEDS: BACLOFEN 10 MG TAB PO SCH (22:14)
[2025-08-11] VITALS (97 sets, daily range): BP systolic 110–176; BP diastolic 39–128; PULSE 60–97; RESP 8–18; TEMP 97.4–98.8; O2SAT 82–100
[2025-08-11] MEDS: PANTOPRAZOLE 40 MG TAB PO SCH (05:28)
[2025-08-11 05:46] LABS: Hematocrit 22.2 % (41.0-53.0); Hemoglobin 7.4 g/dL (13.5-17.5); Mean Corpuscular Hemoglobin 27.9 pg (28.0-32.0); Mean Corpuscular Volume 84.2 fL (80.0-100.0); Nucleated Red Blood Cells % 0.1 %
[2025-08-11 05:55] LABS: Anion Gap 12 (5-15); Carbon Dioxide 29 mmol/L (20-31); Chloride 102 mmol/L (98-107); Sodium 143 mmol/L (136-145)
[2025-08-11 06:01] LABS: Calcium 8.4 mg/dL (8.7-10.4); Glucose 105 mg/dL (74-106); Potassium 3.4 mmol/L (3.5-5.1)
[2025-08-11 06:02] LABS: BUN/Creatinine Ratio 10.2 (10.0-20.0); Magnesium 1.9 mg/dL (1.6-2.6)
[2025-08-11 06:04] LABS: Blood Urea Nitrogen 47 mg/dL (9-23)
[2025-08-11 06:12] LABS: INR 1.05 (0.9-1.15); Partial Thromboplastin Time 30.8 SEC (24.5-34.5); Prothrombin Time 11.1 sec (9.3-11.8)
--- NOTE | 2025-08-11 07:05 | DVHPN2 ---
Progress Note - Dictate Date Seen: Aug 11, 2025 Has the PT tested + for MRSA If YES, has PT been informed?: No Medical Necessity Reason Pt with a Central, PICC or Fol: No Subjective Patient resting comfortably this morning, refused dialysis catheter placement yesterday. vital signs Vital Sign Date Time Temp Pulse Resp B/P (MAP) Pulse Ox O2 Delivery O2 Flow Rate FiO2 08/11/25 06:25 65 12 100 08/11/25 06:19 Nasal Cannula 3.0 08/11/25 06:19 32 08/11/25 06:15 110/61 (77) 08/11/25 04:01 97.7 97.7 Total Intake and Output 08/10/25 08/10/25 08/11/25 15:00 23:00 07:00 Intake Total 425.0 ml 782.0 ml 464.5 ml Output Total 1490 ml 1200 ml Balance 425.0 ml -708.0 ml -735.5 ml medications Current Medications Medications Dose Ordered Sig/Ricky Route Start Time Stop Time Status Last Admin Dose Admin Ipratropium [place] 0.5 mg Q4HR NEB 08/07/25 22:00 08/11/25 06:19 0.5 MG Albuterol 2.5 mg Q4HR NEB 08/07/25 22:00 08/11/25 06:19 2.5 MG Aspirin 81 mg DAILY PO 08/08/25 10:00 08/10/25 09:36 81 MG Levetiracetam 500 mg BID PO 08/07/25 22:00 08/10/25 22:14 500 MG Metoprolol Succinate 50 mg DAILY PO 08/08/25 10:00 08/10/25 09:36 50 MG Atorvastatin Calcium 40 mg HS PO 08/07/25 22:00 08/10/25 22:13 40 MG Hydralazine HCl 100 mg TID PO 08/07/25 22:00 08/11/25 05:29 100 MG Nifedipine 90 mg DAILY PO 08/08/25 10:00 08/10/25 09:35 90 MG Nitroglycerin 250 ml @ 1.5 mls/hr Q24H IV 08/07/25 21:00 08/10/25 23:25 21 MLS/HR Bumetanide 25 mg/ Miscellaneous 100 ml @ 4 mls/hr Q24H IV 08/08/25 11:00 08/10/25 09:26 4 MLS/HR Morphine Sulfate 2 mg Q4HPRN PRN IV 08/08/25 11:45 08/10/25 14:22 2 MG Acetaminophen/ Hydrocodone Bitart 1 tab Q6HPRN PRN PO 08/08/25 13:15 Clonidine HCl 0.1 mg BID PO 08/10/25 22:00 08/10/25 22:14 0.1 MG Baclofen 5 mg DAILY PO 08/10/25 17:45 08/10/25 22:14 5 MG Pantoprazole Sodium 40 mg DAILY@0600 PO 08/11/25 06:00 08/11/25 05:28 40 MG objective Gen: nad, somnolent lungs: cta anteriorly cvs: no rub abd: soft, bowel sounds audible ext: + edema laboratory and microbiology Laboratory Tests 08/11/25 04:29 Test 08/11/25 04:29 Range/Units Serum Glucose 105 74-106 mg/dL Assessment/Plan Chronic Kidney Disease stage 5 now ESRD requiring intermittent hemodialysis Acute respiratory failure, on BIPAP Congestive heart failure exacerbation Diabetes mellitus type 2 Hypertension Seizure disorder Anemia of chronic kidney disease Recommendations - medical management of advanced kidney disease - discussed risks and benefits of initiation of dialysis, - discussed risks and benefits of not initiating dialysis, including from sequelae of kidney failure. - these conversations occurred on August 10, patient expressed full understanding and was Lucent during this dialogue. - we will continue to follow closely with you. Dietary Evaluation Review Comments: Nutrition Recommendation: 1) Consider cardiac + renal specific 60gm protein diet 2) Monitor PO intake, lab values, weight trend, and I/O Expected Outcomes/Goals: Intake to meet >75% estimated needs Lab values to improve FU 3-5 days Plan discussed with: Patient LISSETTE MONZON MD Aug 11, 2025 07:05
[2025-08-11] MEDS: POTASSIUM EFFERVESENT TAB 25 MEQ PO ONE (08:11)
[2025-08-11] MEDS: MAGNESIUM SULFATE 1GM/100ML 100 ML IV SCH (11:58)
--- NOTE | 2025-08-11 14:16 | DVHPNRES ---
Progress Note Date Seen: Aug 11, 2025 Resident Creating Document: RODRI YOUNG RESIDENT Has the PT tested + for MRSA If YES, has PT been informed?: No Medical Necessity Reason Pt with a Central, PICC or Fol: No Subjective Review of Systems 64-year-old male with extensive cardiopulmonary and renal disease, currently in the ICU, admitted 08/07/2025 for acute hypoxic respiratory failure secondary to COPD exacerbation vs volume overload / CHF decompensation in the setting of ESRD (CKD-5), pulmonary edema, and anemia of CKD. PAST MEDICAL HISTORY COPD On 24L home O? Chronic respiratory failure Repeated admissions CHF HFpEF, NYHA III Prior pulmonary edema episodes CKD Stage 5 ESRD GFR 13 today Hypertension (labile) Multiple antihypertensives required Type 2 Diabetes Mellitus SSI controlled Seizure disorder On Keppra Chronic anemia of CKD Hgb 7.1 today NSTEMI (remote) Medical management Hyperlipidemia On statin Obesity BMI 37 Obesity hypoventilation Tobacco use disorder (quit 2 yrs ago) Marijuana use disorder PAST SURGICAL HISTORY No major surgical history reported SOCIAL HISTORY Item Details Living Situation Lives with spouse Tobacco Quit 2 years ago, long-term smoker Alcohol Rare use Marijuana Previous chronic use Diet High sodium historically now renal diet Compliance History of AMA discharge & treatment refusal 08/10/2025 64-year-old male with extensive cardiopulmonary and renal disease, currently in the ICU, admitted 08/07/2025 for acute hypoxic respiratory failure secondary to COPD exacerbation vs volume overload / CHF decompensation in the setting of ESRD (CKD-5), pulmonary edema, and anemia of CKD. Today, patient is awake but intermittently lethargic. Needs prompting for orientation oriented to self/place/time intermittently, . Denies active chest pain, abdominal pain, nausea, vomiting, or subjective dyspnea despite mild work of breathing being observed. No fevers, no chills, no hemoptysis. Appetite fair, bowel movement last on 08/09. Refused hemodialysis catheter placement and refused transfusion despite Hb 7.1 detailed discussion held again with family, who confirmed refusal. 08/11/25 Patient evaluated at bedside. Awake, interactive, responds appropriately but fatigued. Reports improvement in breathing compared to yesterday. No chest pain, nausea, or vomiting. Appetite present. No bowel movement today bowel regimen being initiated. Patient continues to refuse hemodialysis, despite CKD-5, worsening renal retention markers, and elevated PTH. Detailed discussion held again today with patient and family regarding mortality risk, uremia, volume overload progression, and dialysis benefits; family states decision pending. Patient downgraded today from ICU to telemetry based on hemodynamic stability. Nitro drip discontinued at 09:00 AM. Bumex drip transitioned to Bumex 1 mg IV BID. Starting Calcitriol 0.25 mcg daily for secondary hyperparathyroidism. PT/OT ordered for mobilization. Objective vital signs Vital Sign Date Time Temp Pulse Resp B/P (MAP) Pulse Ox O2 Delivery O2 Flow Rate FiO2 08/11/25 13:55 64 16 100 08/11/25 13:49 Nasal Cannula 3.0 08/11/25 13:49 32 08/11/25 12:31 168/72 (104) 08/11/25 12:01 98.4 98.4 Total Intake and Output 08/10/25 08/10/25 08/11/25 15:00 23:00 07:00 Intake Total 425.0 ml 782.0 ml 477.5 ml Output Total 1490 ml 1200 ml Balance 425.0 ml -708.0 ml -722.5 ml medications Current Medications Medications Dose Ordered Sig/Ricky Route Start Time Stop Time Status Last Admin Dose Admin Ipratropium [place] 0.5 mg Q4HR NEB 08/07/25 22:00 08/11/25 13:49 0.5 MG Albuterol 2.5 mg Q4HR NEB 08/07/25 22:00 08/11/25 13:49 2.5 MG Aspirin 81 mg DAILY PO 08/08/25 10:00 08/11/25 09:42 81 MG Levetiracetam 500 mg BID PO 08/07/25 22:00 08/11/25 09:42 500 MG Metoprolol Succinate 50 mg DAILY PO 08/08/25 10:00 08/11/25 09:43 50 MG Atorvastatin Calcium 40 mg HS PO 08/07/25 22:00 08/10/25 22:13 40 MG Hydralazine HCl 100 mg TID PO 08/07/25 22:00 08/11/25 05:29 100 MG Nifedipine 90 mg DAILY PO 08/08/25 10:00 08/11/25 11:57 90 MG Bumetanide 25 mg/ Miscellaneous 100 ml @ 4 mls/hr Q24H IV 08/08/25 11:00 08/11/25 10:27 4 MLS/HR Morphine Sulfate 2 mg Q4HPRN PRN IV 08/08/25 11:45 08/10/25 14:22 2 MG Acetaminophen/ Hydrocodone Bitart 1 tab Q6HPRN PRN PO 08/08/25 13:15 Clonidine HCl 0.1 mg BID PO 08/10/25 22:00 08/11/25 09:42 0.1 MG Pantoprazole Sodium 40 mg DAILY@0600 PO 08/11/25 06:00 08/11/25 05:28 40 MG Baclofen 5 mg DAILY PO 08/11/25 22:00 Examination General: Obese, drowsy but arousable, on 3L NC, no acute distress. * HEENT: No icterus, no JVD pulsation visible. * Neuro: Opens eyes to voice, follows simple commands, non-focal, * CVS: Regular rhythm, normal S1/S2, no murmurs. bilateral pitting edema improving * Resp: Mild crackles bilaterally, prolonged exhalation, decreased air entry at bases. * Abdomen: Soft, NT/ND, positive bowel sounds. * Extremities: No cellulitis, pulses palpable. * Skin: No breakdown or rashes. laboratory and microbiology Laboratory Tests 08/11/25 04:29 Test 08/11/25 04:29 Range/Units Serum Glucose 105 74-106 mg/dL Microbiology Date/Time Source Procedure Growth Status 08/08/25 03:00 Nose MRSA Screen - Final Complete 08/07/25 13:18 Blood Blood Culture - Preliminary NO GROWTH AFTER 72 HOURS OF INCUBATION. Resulted Problem List/Assessment/Plan Problem List/Assessment/Plan [facility] Metabolic encephalopathy likely uremia + anemia + hypoxia related. Seizure disorder Muscle spasms and intermittent myoclonic jerks due to Uremia and ESRD + Diuresis improved mentation. On Keppra *Monitor mental status Q4h Continue Baclofen 5 mg daily CARDIOVASCULAR Acute on Chronic Decompensated Congestive Heart Failure PRESERVED EF (HFpEF, NYHA II) Hypertensive emergency Hyperlipidemia * CXR: pulmonary congestion + edema; BNP 444. * Continue Bumex 1 mg IV BID * BP 947821 systolic * On Nifedipine XL 90mg daily + Hydralazine 100mg TID + Metoprolol Succinate 50mg daily, Clonidine 0.1 mg BID * Continue guideline-directed medical therapy. * Discontinued Nitro drip 09:00 AM Strict I/O + Daily weights Goal MAP 6590 On statin RESPIRATORY Acute Hypoxic Respiratory Failure ONGOING, improving. Acute on Chronic COPD Exacerbation Morbid Obesity (BMI 37) / Obesity Hypoventilation * Etiology: COPD exacerbation + pulmonary edema due to acute decompensated HF + ESRD-induced volume overload * O2 requirement: NC 3L (previous BiPAP). * ABG alkalemic, blowing off CO2 on BiPAP, now clinically stable. * Continue bronchodilators, steroids PRN, BiPAP overnight protocol. Incentive Spirometry Diuresis to reduce pulmonary edema RENAL / MIREYA ON ESRD (CKD-5) with Uremic Symptoms & Volume Overload * Cr trending * HD recommended by nephrology patient/family refused * ESRD with refusal for HD. continue diuresis cautiously with Bumex 1mg iv BID . * Discussed risks of volume overload, encephalopathy, arrhythmia. Continue: Bumex 1mg iv bid Avoid nephrotoxins Renal dose medication adjustments Re-evaluate for IJ dialysis catheter if consent obtained * PTH high, Initiating Calcitriol 0.25 mcg HEMATOLOGY 5. Anemia of CKD + Iron Deficiency Component * Hb 7.7 - 7.1; ferritin normal but low Tsat (25%). * Transfusion recommended but refused. * Anemia of CKD + iron deficiency picture. Recommended but refused: PRBC transfusion (Hgb < 7 threshold) IV iron could be considered if transfusion still refused. INFECTIOUS DISEASE Afebrile, WBC 4.3, cultures negative. Management * No active infection no antibiotics at this time GI / NUTRITION * At risk for malnutrition due to illness + catabolic state. Renal diet + 2g sodium restriction+ Cardiac diet Bowel regimen PRN ENDOCRINE Morbid Obesity (BMI 37) * Prediabetes monitored glucose stable POC Glucose AC/HS SSI if glucose >180 Secondary hyperparathyroidism PTH 644. Plan: Start Calcitriol 0.25 mcg daily Monitor Ca/P. PSYCHIATRIC Tobacco + Marijuana Use Disorder (remote tobacco abstinent x2 yrs) Smoking cessation reinforced to prevent recurrent COPD flares. Understands but hesitant about dialysis. Family in discussion decision pending. SKIN & WOUND CARE No breakdown noted preventive care active. Barrier cream PRN Offload heels Daily skin check MUSCULOSKELETAL Generalized weakness from prolonged illness. Orders:PT/OT initiated . Mobilize with standby assist DVT / GI PROPHYLAXIS Heparin SQ on hold due to anemia reasonable. Consider resume when Hb stabilizes. SCDs for VTE prophylaxis PPI for GI protection LINES / ACCESS / DRIPS * No central line. Midline 18g/10cm inserted via right cephalic vein on 08/10 * IJ HD catheter planned pending consent. REHAB + SOCIAL * PT/OT consult for mobilization. * Daily family updates establish goals of care if refusal persists. Critical Care Time: 41 minutes today (excluding procedures). Code status: Full Code.Family updated at bedside; >20 minutes spent in [id number] counseling. Downgraded to telemetry today Case discussed in detail with the attending physician Dr. Carter, including the clinical presentation, diagnostic workup, and comprehensive management plan. The patient was present for the discussion and demonstrated understanding of his condition and the proposed plan. Plan discussed with: Patient, Spouse My Orders My Orders Orders - RODRI YOUNG RESIDENT Procedure Category Date Status Time Pantoprazole Tablet PHA 08/11/25 In Process (Protonix Tablet) 06:00 Baclofen Tablet PHA 08/11/25 In Process (Liorisal Tablet) 22:00 Complete Blood Count LAB 08/12/25 Verified 04:00 Comprehensive LAB 08/12/25 Verified Metabolic Panel 04:00 Magnesium LAB 08/12/25 Verified 04:00 Dietary Evaluation Review Comments: Nutrition Recommendation: 1) Consider cardiac + renal specific 60gm protein diet 2) Monitor PO intake, lab values, weight trend, and I/O Expected Outcomes/Goals: Intake to meet >75% estimated needs Lab values to improve FU 3-5 days Visit Coding STANDARD RES Billing Provider: YUNIER CARTER MD Date of Service if different f: Aug 11, 2025 Common Visit Codes: 16066-[id number] CARE 30-74 MIN RODRI YOUNG RESIDENT Aug 11, 2025 14:16 YUNIER CARTER MD Aug 12, 2025 16:11
[2025-08-11] MEDS: BUMETANIDE 1mg/4ml VIAL (0.25mg/ml) IV SCH (17:36)
[2025-08-11] MEDS ORDERED: BACLOFEN 10 MG TAB PO SCH (22:00)
[2025-08-12] VITALS (18 sets, daily range): BP systolic 129–160; BP diastolic 59–78; PULSE 55–89; RESP 16–22; TEMP 97.6–98.3; O2SAT 95–100
[2025-08-12] MEDS: CALCITRIOL 0.25 MCG CAP PO SCH (10:19)
[2025-08-12 14:53] LABS: Mean Corpuscular Hemoglobin 27.5 pg (28.0-32.0); Nucleated Red Blood Cells % 0.0 %
[2025-08-12 14:55] LABS: Hematocrit 22.6 % (41.0-53.0); Hemoglobin 7.4 g/dL (13.5-17.5); Mean Corpuscular Volume 84.2 fL (80.0-100.0)
[2025-08-12 15:11] LABS: Alanine Aminotransferase 11 U/L (7-40); Albumin 3.2 g/dL (3.2-4.8); Alkaline Phosphatase 60 U/L (46-116); Anion Gap 9 (5-15); BUN/Creatinine Ratio 9.4 (10.0-20.0); Blood Urea Nitrogen 43 mg/dL (9-23); Calcium 8.1 mg/dL (8.7-10.4); Carbon Dioxide 31 mmol/L (20-31); Chloride 104 mmol/L (98-107); Glucose 122 mg/dL (74-106); Magnesium 2.2 mg/dL (1.6-2.6); Potassium 3.7 mmol/L (3.5-5.1); Sodium 144 mmol/L (136-145); Total Protein 5.3 g/dL (5.7-8.2)
[2025-08-12 15:14] LABS: Bilirubin, Total < 0.2 mg/dL (0.2-1.0)
[2025-08-12] MEDS: POTASSIUM EFFERVESENT TAB 25 MEQ PO ONE (17:43)
--- NOTE | 2025-08-12 18:00 | DVHPNRES ---
Progress Note Date Seen: Aug 12, 2025 Resident Creating Document: RODRI YOUNG RESIDENT Has the PT tested + for MRSA If YES, has PT been informed?: No Medical Necessity Reason Pt with a Central, PICC or Fol: No Subjective Review of Systems 64-year-old male with extensive cardiopulmonary and renal disease, currently in the ICU, admitted 08/07/2025 for acute hypoxic respiratory failure secondary to COPD exacerbation vs volume overload / CHF decompensation in the setting of ESRD (CKD-5), pulmonary edema, and anemia of CKD. PAST MEDICAL HISTORY COPD On 24L home O? Chronic respiratory failure Repeated admissions CHF HFpEF, NYHA III Prior pulmonary edema episodes CKD Stage 5 ESRD GFR 13 today Hypertension (labile) Multiple antihypertensives required Type 2 Diabetes Mellitus SSI controlled Seizure disorder On Keppra Chronic anemia of CKD Hgb 7.1 today NSTEMI (remote) Medical management Hyperlipidemia On statin Obesity BMI 37 Obesity hypoventilation Tobacco use disorder (quit 2 yrs ago) Marijuana use disorder PAST SURGICAL HISTORY No major surgical history reported SOCIAL HISTORY Item Details Living Situation Lives with spouse Tobacco Quit 2 years ago, long-term smoker Alcohol Rare use Marijuana Previous chronic use Diet High sodium historically now renal diet Compliance History of AMA discharge & treatment refusal 08/10/2025 64-year-old male with extensive cardiopulmonary and renal disease, currently in the ICU, admitted 08/07/2025 for acute hypoxic respiratory failure secondary to COPD exacerbation vs volume overload / CHF decompensation in the setting of ESRD (CKD-5), pulmonary edema, and anemia of CKD. Today, patient is awake but intermittently lethargic. Needs prompting for orientation oriented to self/place/time intermittently, . Denies active chest pain, abdominal pain, nausea, vomiting, or subjective dyspnea despite mild work of breathing being observed. No fevers, no chills, no hemoptysis. Appetite fair, bowel movement last on 08/09. Refused hemodialysis catheter placement and refused transfusion despite Hb 7.1 detailed discussion held again with family, who confirmed refusal. 08/11/25 Patient evaluated at bedside. Awake, interactive, responds appropriately but fatigued. Reports improvement in breathing compared to yesterday. No chest pain, nausea, or vomiting. Appetite present. No bowel movement today bowel regimen being initiated. Patient continues to refuse hemodialysis, despite CKD-5, worsening renal retention markers, and elevated PTH. Detailed discussion held again today with patient and family regarding mortality risk, uremia, volume overload progression, and dialysis benefits; family states decision pending. Patient downgraded today from ICU to telemetry based on hemodynamic stability. Nitro drip discontinued at 09:00 AM. Bumex drip transitioned to Bumex 1 mg IV BID. Starting Calcitriol 0.25 mcg daily for secondary hyperparathyroidism. PT/OT ordered for mobilization. 08/12/25 Today, patient reports improved breathing compared to admission, denies chest pain, dizziness, abdominal pain, nausea, vomiting, or overt dyspnea at rest. He still feels fatigued and weak and reports no bowel movement yet, but is tolerating oral intake. He remains on 3 L/min nasal cannula by day with oxygen saturations 01952%, and BiPAP at night. No confusion reported today; he is answering questions appropriately. Patient was again counseled regarding hemodialysis benefits (uremia control, volume removal, symptom relief, survival benefit) versus risks discussed with patient and family. He remains resistant to starting dialysis, though the family is still thinking about it. He continues to work with physical therapy at bedside and is tolerating mobilization with assistance. ancillary services manager therapy were consulted today to begin evaluating SNF placement for ongoing rehab and support after discharge. Objective vital signs Vital Sign Date Time Temp Pulse Resp B/P (MAP) Pulse Ox O2 Delivery O2 Flow Rate FiO2 08/12/25 17:43 137/78 08/12/25 17:00 97.6 64 19 97 97.6 08/12/25 14:10 Nasal Cannula 3.0 08/12/25 14:10 32 Total Intake and Output 08/11/25 08/11/25 08/12/25 15:00 23:00 07:00 Intake Total 327 ml 760 ml 175 ml Output Total 1700 ml 250 ml Balance 327 ml -940 ml -75 ml medications Current Medications Medications Dose Ordered Sig/Ricky Route Start Time Stop Time Status Last Admin Dose Admin Ipratropium [place] 0.5 mg Q4HR NEB 08/07/25 22:00 08/12/25 14:09 0.5 MG Albuterol 2.5 mg Q4HR NEB 08/07/25 22:00 08/12/25 14:08 2.5 MG Aspirin 81 mg DAILY PO 08/08/25 10:00 08/11/25 09:42 81 MG Levetiracetam 500 mg BID PO 08/07/25 22:00 08/12/25 10:19 500 MG Metoprolol Succinate 50 mg DAILY PO 08/08/25 10:00 08/12/25 10:22 50 MG Atorvastatin Calcium 40 mg HS PO 08/07/25 22:00 08/11/25 21:33 40 MG Hydralazine HCl 100 mg TID PO 08/07/25 22:00 08/12/25 13:26 100 MG Nifedipine 90 mg DAILY PO 08/08/25 10:00 08/12/25 10:20 90 MG Morphine Sulfate 2 mg Q4HPRN PRN IV 08/08/25 11:45 08/10/25 14:22 2 MG Acetaminophen/ Hydrocodone Bitart 1 tab Q6HPRN PRN PO 08/08/25 13:15 Clonidine HCl 0.1 mg BID PO 08/10/25 22:00 08/12/25 10:21 0.1 MG Pantoprazole Sodium 40 mg DAILY@0600 PO 08/11/25 06:00 08/12/25 06:08 40 MG Bumetanide 1 mg BIDD IV 08/11/25 18:00 08/12/25 17:43 1 MG Calcitriol 0.25 mcg DAILY PO 08/12/25 10:00 08/12/25 10:19 0.25 MCG Examination * General: 64-year-old male, sitting up in bed, no acute distress, appears tired but comfortable on NC. * Neuro: Awake, oriented x3, speech coherent, moves all extremities, no focal deficits. * HEENT: PERRL, mucous membranes moist. * CV: Regular rate and rhythm, no audible murmur, bilateral LE pitting edema . * Respiratory: Bilateral breath sounds, mild bibasilar crackles, no wheeze, normal effort on 3 L NC. * Abdomen: Soft, non-tender, non-distended, bowel sounds present. * Extremities: Warm, no cyanosis, mild edema as above. * Skin: Intact, no pressure ulcers. * Psych: Cooperative, appropriate affect. laboratory and microbiology Laboratory Tests 08/12/25 14:45 Test 08/12/25 14:45 Range/Units Serum Glucose 122 H 74-106 mg/dL Microbiology Date/Time Source Procedure Growth Status 08/08/25 03:00 Nose MRSA Screen - Final Complete 08/07/25 13:18 Blood Blood Culture - Final NO GROWTH AFTER 5 DAYS OF INCUBATION. Complete Problem List/Assessment/Plan Problem List/Assessment/Plan [facility] Metabolic encephalopathy likely uremia + anemia + hypoxia related. Seizure disorder Muscle spasms and intermittent myoclonic jerks due to Uremia and ESRD + Diuresis improved mentation. On Keppra *Monitor mental status Q4h Continue Baclofen 5 mg daily CARDIOVASCULAR Acute on Chronic Decompensated Congestive Heart Failure PRESERVED EF (HFpEF, NYHA II) Hypertensive emergency Hyperlipidemia * CXR: pulmonary congestion + edema; BNP 444. * Continue Bumex 1 mg IV BID * BP [id number] systolic * On Nifedipine XL 90mg daily + Hydralazine 100mg TID + Metoprolol Succinate 50mg daily, Clonidine 0.2 mg BID * Continue guideline-directed medical therapy. * Discontinued Nitro drip 09:00 AM Strict I/O + Daily weights Goal MAP 6590 On statin RESPIRATORY Acute Hypoxic Respiratory Failure ONGOING, improving. Acute on Chronic COPD Exacerbation Morbid Obesity (BMI 37) / Obesity Hypoventilation * Etiology: COPD exacerbation + pulmonary edema due to acute decompensated HF + ESRD-induced volume overload * O2 requirement: NC 3L (previous BiPAP). * ABG alkalemic, blowing off CO2 on BiPAP, now clinically stable. * Continue bronchodilators, steroids PRN, BiPAP overnight protocol. Incentive Spirometry Diuresis to reduce pulmonary edema * Plan outpatient sleep apnea study for possible CHEMA/OHS. RENAL / MIREYA ON ESRD (CKD-5) with Uremic Symptoms & Volume Overload * Cr trending * HD recommended by nephrology patient/family refused * ESRD with refusal for HD. continue diuresis cautiously with Bumex 1mg iv BID . * Discussed risks of volume overload, encephalopathy, arrhythmia. Continue: Bumex 1mg iv bid Avoid nephrotoxins Renal dose medication adjustments Re-evaluate for IJ dialysis catheter if consent obtained * PTH high, Initiating Calcitriol 0.25 mcg HEMATOLOGY 5. Anemia of CKD + Iron Deficiency Component * Hb 7.7 - 7.1; ferritin normal but low Tsat (25%). * Transfusion recommended but refused. * Anemia of CKD + iron deficiency picture. Recommended but refused: PRBC transfusion (Hgb < 7 threshold) IV iron could be considered if transfusion still refused. INFECTIOUS DISEASE Afebrile, WBC 4.3, cultures negative. Management * No active infection no antibiotics at this time GI / NUTRITION * At risk for malnutrition due to illness + catabolic state. Renal diet + 2g sodium restriction+ Cardiac diet Bowel regimen PRN ENDOCRINE Morbid Obesity (BMI 37) * Prediabetes monitored glucose stable POC Glucose AC/HS SSI if glucose >180 Secondary hyperparathyroidism PTH 644. Plan: Start Calcitriol 0.25 mcg daily Monitor Ca/P. PSYCHIATRIC Tobacco + Marijuana Use Disorder (remote tobacco abstinent x2 yrs) Smoking cessation reinforced to prevent recurrent COPD flares. Understands but hesitant about dialysis. Family in discussion decision pending. SKIN & WOUND CARE No breakdown noted preventive care active. Barrier cream PRN Offload heels Daily skin check MUSCULOSKELETAL Generalized weakness from prolonged illness. Orders:PT/OT initiated . Mobilize with standby assist DVT / GI PROPHYLAXIS Heparin SQ on hold due to anemia reasonable. Consider resume when Hb stabilizes. SCDs for VTE prophylaxis PPI for GI protection LINES / ACCESS / DRIPS * No central line. Midline 18g/10cm inserted via right cephalic vein on 08/10 * IJ HD catheter planned pending consent. REHAB + SOCIAL * PT/OT consult for mobilization. * Daily family updates were given establish goals of care if refusal persists. * Given ESRD, HF, COPD, and functional status, patient likely needs SNF with on- site PT/OT after discharge. * Social work consulted today to begin SNF placement process. * Coordinate with nephrology and family regarding long-term dialysis decision Critical Care Time: 43 minutes today (excluding procedures). Code status: Full Code.Family updated at bedside; >20 minutes spent in [id number] counseling. Downgraded to telemetry today Case discussed in detail with the attending physician Dr. Carter, including the clinical presentation, diagnostic workup, and comprehensive management plan. The patient was present for the discussion and demonstrated understanding of his condition and the proposed plan. Plan discussed with: Spouse, Daughter (RN) Dietary Evaluation Review Comments: Nutrition Recommendation: 1) Consider cardiac + renal specific 60gm protein diet 2) Monitor PO intake, lab values, weight trend, and I/O Expected Outcomes/Goals: Intake to meet >75% estimated needs Lab values to improve FU 3-5 days Visit Coding STANDARD RES Billing Provider: YUNIER CARTER MD Date of Service if different f: Aug 12, 2025 Common Visit Codes: 95697-[id number] CARE 30-74 RODRI SNOWDEN Aug 12, 2025 18:00 YUNIER CARTER MD Aug 13, 2025 11:39
--- NOTE | 2025-08-12 19:30 | DVHPN2 ---
Progress Note - Dictate Date Seen: Aug 12, 2025 Has the PT tested + for MRSA If YES, has PT been informed?: No Medical Necessity Reason Pt with a Central, PICC or Fol: No Subjective Patient is somnolent earlier this afternoon. vital signs Vital Sign Date Time Temp Pulse Resp B/P (MAP) Pulse Ox O2 Delivery O2 Flow Rate FiO2 08/12/25 18:41 135/62 08/12/25 18:26 78 22 100 08/12/25 18:20 Nasal Cannula 3.0 08/12/25 18:20 32 08/12/25 17:00 97.6 97.6 Total Intake and Output 08/11/25 08/11/25 08/12/25 15:00 23:00 07:00 Intake Total 327 ml 760 ml 175 ml Output Total 1700 ml 250 ml Balance 327 ml -940 ml -75 ml medications Current Medications Medications Dose Ordered Sig/Ricky Route Start Time Stop Time Status Last Admin Dose Admin Ipratropium [place] 0.5 mg Q4HR NEB 08/07/25 22:00 08/12/25 18:20 0.5 MG Albuterol 2.5 mg Q4HR NEB 08/07/25 22:00 08/12/25 18:20 2.5 MG Aspirin 81 mg DAILY PO 08/08/25 10:00 08/11/25 09:42 81 MG Levetiracetam 500 mg BID PO 08/07/25 22:00 08/12/25 10:19 500 MG Metoprolol Succinate 50 mg DAILY PO 08/08/25 10:00 08/12/25 10:22 50 MG Atorvastatin Calcium 40 mg HS PO 08/07/25 22:00 08/11/25 21:33 40 MG Hydralazine HCl 100 mg TID PO 08/07/25 22:00 08/12/25 13:26 100 MG Nifedipine 90 mg DAILY PO 08/08/25 10:00 08/12/25 10:20 90 MG Morphine Sulfate 2 mg Q4HPRN PRN IV 08/08/25 11:45 08/10/25 14:22 2 MG Acetaminophen/ Hydrocodone Bitart 1 tab Q6HPRN PRN PO 08/08/25 13:15 Pantoprazole Sodium 40 mg DAILY@0600 PO 08/11/25 06:00 08/12/25 06:08 40 MG Bumetanide 1 mg BIDD IV 08/11/25 18:00 08/12/25 17:43 1 MG Calcitriol 0.25 mcg DAILY PO 08/12/25 10:00 08/12/25 10:19 0.25 MCG Clonidine HCl 0.2 mg BID PO 08/13/25 10:00 objective Gen: nad, somnolent lungs: cta anteriorly cvs: no rub abd: soft, bowel sounds audible ext: + edema laboratory and microbiology Laboratory Tests 08/12/25 14:45 Test 08/12/25 14:45 Range/Units Serum Glucose 122 H 74-106 mg/dL Assessment/Plan Chronic Kidney Disease stage 5 now ESRD requiring intermittent hemodialysis Acute respiratory failure, on BIPAP Congestive heart failure exacerbation Diabetes mellitus type 2 Hypertension Seizure disorder Anemia of chronic kidney disease Recommendations - clinically stable from Nephrology perspective - medical management of advanced kidney failure - consider transitioning to p.o. loop diuretic in preparation for discharge - we will plan for outpatient follow up after discharge. Dietary Evaluation Review Comments: Nutrition Recommendation: 1) Consider cardiac + renal specific 60gm protein diet 2) Monitor PO intake, lab values, weight trend, and I/O Expected Outcomes/Goals: Intake to meet >75% estimated needs Lab values to improve FU 3-5 days Plan discussed with: Other LISSETTE MONZON MD Aug 12, 2025 19:30
[2025-08-13] VITALS (13 sets, daily range): BP systolic 147–162; BP diastolic 78–93; PULSE 58–69; RESP 17–20; TEMP 97.6–98.3; O2SAT 96–100
[2025-08-13] MEDS ORDERED: POLYETHYLENE GLYCOL 17 GM PWDR PO PRN (06:00)
[2025-08-13] MEDS ORDERED: DOCUSATE SOD 100 MG CAP PO PRN (06:00)
[2025-08-13 10:55] LABS: Hematocrit 22.7 % (41.0-53.0); Hemoglobin 7.5 g/dL (13.5-17.5); Mean Corpuscular Hemoglobin 27.8 pg (28.0-32.0); Mean Corpuscular Volume 84.2 fL (80.0-100.0); Nucleated Red Blood Cells % 0.1 %
[2025-08-13 11:01] LABS: Chloride 103 mmol/L (98-107); Sodium 142 mmol/L (136-145)
[2025-08-13 11:02] LABS: Anion Gap 11 (5-15); Carbon Dioxide 28 mmol/L (20-31)
[2025-08-13 11:03] LABS: Calcium 8.6 mg/dL (8.7-10.4); Potassium 3.4 mmol/L (3.5-5.1)
[2025-08-13 11:07] LABS: BUN/Creatinine Ratio 6.4 (10.0-20.0); Magnesium 2.3 mg/dL (1.6-2.6)
[2025-08-13 11:08] LABS: Blood Urea Nitrogen 28 mg/dL (9-23); Glucose 144 mg/dL (74-106)
--- NOTE | 2025-08-13 12:41 | DVHDSRES ---
Discharge Summary Date of Admission Resident Creating Document: RODRI YOUNG MACKENZIE RESIDENT Aug 07, 2025 at 16:46 Date of Discharge: Aug 13, 2025 Admitting Diagnosis acute on chronic hypoxic respiratory failure due to CHF exacerbation/COPD exacerbation Labs/Diagnostic Data: Laboratory Results Test 08/13/25 10:38 08/12/25 14:45 08/11/25 04:29 08/09/25 04:52 White Blood Count 3.5 10^3/uL (4.4-10.8) Red Blood Count 2.70 10^6/uL (4.5-5.90) Hemoglobin 7.5 g/dL (13.5-17.5) Hematocrit 22.7 % (41.0-53.0) Mean Corpuscular Volume 84.2 fL (80.0-100.0) Mean Corpuscular Hemoglobin 27.8 pg (28.0-32.0) Mean Corpuscular Hemoglobin Concent 32.9 g/dL (32.0-36.0) Red Cell Distribution Width 16.9 % (11.8-14.3) Platelet Count 163 10^3/uL (140-450) Mean Platelet Volume 9.1 fL (6.9-10.8) Neutrophils (%) (Auto) 68.4 % (37.0-80.0) Lymphocytes (%) (Auto) 13.6 % (10.0-50.0) Monocytes (%) (Auto) 10.8 % (0.0-12.0) Eosinophils (%) (Auto) 6.4 % (0.0-7.0) Basophils (%) (Auto) 0.8 % (0.0-2.0) Neutrophils # (Auto) 2.4 10 ^3/uL (1.6-8.6) Lymphocytes # (Auto) 0.5 10 ^3/uL (0.4-5.4) Monocytes # (Auto) 0.4 10 ^3/uL (0-1.3) Eosinophils # (Auto) 0.2 10 ^3/uL (0-0.8) Basophils # (Auto) 0 10 ^3/uL (0-0.2) Nucleated Red Blood Cells 0.1 % Sodium Level 142 mmol/L (136-145) Potassium Level 3.4 mmol/L (3.5-5.1) Chloride Level 103 mmol/L (98-107) Carbon Dioxide Level 28 mmol/L (20-31) Anion Gap 11 (5-15) Blood Urea Nitrogen 28 mg/dL (9-23) Creatinine 4.35 mg/dL (0.700-1.30) Glomerular Filtration Rate Calc 14 mL/min (>90) BUN/Creatinine Ratio 6.4 (10.0-20.0) Serum Glucose 144 mg/dL (74-106) Calcium Level 8.6 mg/dL (8.7-10.4) Magnesium Level 2.3 mg/dL (1.6-2.6) Total Bilirubin < 0.2 mg/dL (0.2-1.0) Aspartate Amino Transferase (AST) 11 U/L (13-40) Alanine Aminotransferase (ALT) 11 U/L (7-40) Alkaline Phosphatase 60 U/L (46-116) Total Protein 5.3 g/dL (5.7-8.2) Albumin 3.2 g/dL (3.2-4.8) Prothrombin Time 11.1 sec (9.3-11.8) Prothrombin Time INR 1.05 (0.9-1.15) Activated Partial Thromboplast Time 30.8 SEC (24.5-34.5) Urine Color Light-yellow (Yellow) Urine Clarity Clear (Clear) Urine pH 6.0 (5.0-9.0) Urine Specific [place] 1.013 (1.001-1.035) Urine Protein 2+ (Negative) Urine Ketones Negative (Negative) Urine Blood Negative /uL (Negative) Urine Nitrite Negative (Negative) Urine Bilirubin Negative (Negative) Urine Urobilinogen Normal mg/dL (Negative) Urine Leukocyte Esterase Negative /uL (Negative) Urine RBC <1 /hpf (0 - 3) Urine Microscopic WBC 6 /HPF (0-3) Urine Squamous Epithelial Cells Few /hpf (<5) Urine Transitional Epithelial Cells Few /hpf (<2) Urine Bacteria Few /hpf (None Seen) Urine Hyaline Casts Few /lpf (0 - 2) Urine Creatinine 126.16 mg/dL (30.0-125.0) Urine Sodium 19 mmol/L (40-220) Urine Glucose Normal mg/dL (Normal) Test 08/08/25 11:12 08/08/25 03:00 08/07/25 19:35 08/07/25 18:00 Uric Acid 10.1 mg/dL (3.7-9.2) Phosphorus Level 4.0 mg/dL (2.4-5.1) Iron Level 56 ug/dL (65-175) Total Iron Binding Capacity 217 ug/dL (250-425) Percent Iron Saturation 25.8 % (20-55) Ferritin 213.0 ng/mL (22-322) Vitamin D 25-Hydroxy 30.4 ng/mL (30.0-100) Parathyroid Hormone (Intact) 644.1 pg/mL (18.4-80.1) Influenza Type A Antigen Negative (Negative) Influenza Type B Antigen Negative (Negative) SARS-CoV-2 Antigen (Rapid) Negative (NEGATIVE) Blood Gas Specimen Type Arterial Blood Gas Sample Site Left radial Blood Gas Patient Temperature 37.0 Arterial Blood Date Drawn [id number] Arterial Blood pH 7.483 (7.350-7.450) Arterial Blood Partial Pressure CO2 31.3 mmHg (35.0-48.0) Arterial Blood Partial Pressure O2 108.8 mmHg (83.0-108.0) Arterial Blood HCO3 22.9 mmol/L (21.0-28.0) Arterial Blood Oxygen Saturation 97.7 % (94.0-98.0) Arterial Blood Base Excess -0.2 mmol/L (-2.0-3.0) Arterial Blood Oxyhemoglobin 96.4 % (94.0-98.0) Arterial Blood Carboxyhemoglobin 0.6 % (0.5-1.5) Arterial Blood Methemoglobin 0.7 % (0.0-1.5) Arterial Blood Deoxyhemoglobin 2.3 % (0.0-5.0) Bernardo Test Yes Blood Gas Total Hemoglobin 8.00 g/dL (13.5-17.5) Blood Gas Modality Mask - bipap Blood Gas Spontaneous Rate 12 FiO2 % 30.0 Blood Gas PEEP or CPAP 5.0 Blood Gas EPAP 5 Blood Gas IPAP 14 Venous Blood pH 7.403 (7.320-7.430) Venous Blood pCO2 at Patient Temp 38.6 mmHg (38.0-54.0) Venous Blood pO2 at Patient Temp 43.8 mmHg (23.0-48.0) Venous Blood HCO3 23.5 mmol/L (22.0-29.0) Venous Blood Base Excess -0.9 mmol/L (-2.0-3.0) Test 08/07/25 16:19 08/07/25 13:18 Troponin I High Sensitivity 24 ng/L (</=54) Lactic Acid Level 0.9 mmol/L (0.4-2.0) B-Type Natriuretic Peptide 444.40 pg/mL (0-100) Other Laboratory Tests 08/13/25 10:38 Brief Hx & Hospital Course: 64-year-old male with ESRD (CKD-5, HD-eligible but refusing), HFpEF, COPD on home oxygen, resistant hypertension, anemia of CKD, seizure disorder, and secondary hyperparathyroidism was admitted on 08/07/2025 for acute hypoxic respiratory failure, acute decompensated HF, and COPD exacerbation with volume overload and worsening renal function. He required BiPAP, diuresis, oxygen support, titration of antihypertensives, and extensive counseling regarding hemodialysis, which he consistently declined. HOSPITAL COURSE SUMMARY During hospitalization: Respiratory * Presented with acute hypoxic respiratory failure requiring BiPAP. * Improved steadily transitioned to 34 L NC, maintaining SpO2 35744%. * Today on 4 L NC with SpO2 100% stable for discharge. Cardiac / Volume * Treated for acute decompensated HFpEF with Bumex drip then changed to Bumex 1 mg PO BID. * BP gradually improved with hydralazine, nifedipine, clonidine uptitration, and isosorbide mononitrate. * Edema significantly improved. Renal * ESRD with creatinine stable around 4.57 mg/dL, BUN 43 mg/dL. * Patient refused initiation of hemodialysis despite meeting AEIOU criteria. * Outpatient nephrology follow-up and dialysis counseling are critical. GI / Bowel Regimen * Constipation treated with Docusate + Miralax patient had bowel movement before discharge. Physical Therapy * Participated in PT. * Today walking with assistance, cleared for discharge with home caregiver support. Social / Disposition * Patient has caregiver at home. Patient meets criteria for safe discharge with close outpatient follow-up. Time spent today on discharge planning, medication reconciliation, patient counseling, coordination with physical therapy, caregiver education, and arranging follow-up care: 41 minutes. Case discussed in detail with the attending physician , including the clinical presentation, diagnostic workup, and comprehensive management plan. The patient was present for the discussion and demonstrated understanding of his condition and the proposed plan. Consults/Reason for consult Nephrology Pulmonology/Critical care Condition at Discharge: Stable Final Diagnosis/Problems List Metabolic encephalopathyPOA likely uremia + anemia + hypoxia related improved now Seizure disorder POA Chronic condition no relapse Muscle spasms and intermittent myoclonic jerks due to Uremia and ESRD POA improved Acute on Chronic Decompensated Congestive Heart Failure PRESERVED EF (HFpEF, NYHA II) POA / Improved Hypertensive emergency POA IMPROVED Hyperlipidemia POA Acute Hypoxic Respiratory Failure POA improved Acute on Chronic COPD Exacerbation POA, Improved Morbid Obesity (BMI 37) / Obesity Hypoventilation POA MIREYA ON ESRD (CKD-5) with Uremic Symptoms & Volume Overload POA * HD recommended by nephrology patient/family refused Anemia of CKD + Iron Deficiency Component/POA Morbid Obesity (BMI 37) POA * Prediabetes monitored glucose stable POA Secondary hyperparathyroidism PTH 644.POA Tobacco + Marijuana Use Disorder (remote tobacco abstinent x2 yrs) POA Functional deconditioning POA improved with PT, needs home PT Discharge Disposition: Home Discharge Instruct/Medications Diet: Cardiac 2g Na,low cholest, Renal Activity: No Restrictions, As Tolerated Follow Up/Referral: . Nephrology URGENT (within 1 WEEK) * Ongoing dialysis counseling * Secondary hyperparathyroidism management * ESRD care, volume status support 2. Cardiology (HF clinic) within 12 weeks * HFpEF optimization * Resistant hypertension management 3. Pulmonology / Sleep Medicine within 24 weeks * Outpatient sleep apnea study recommended * COPD follow-up 4. PCP Visit within 1 week * Medication reconciliation * Home oxygen reassessment * PT/functional follow-up 5. Home PT * Patient has caregiver 6. DC Clinic in 1week New Medications: B-Complex W/ C & Folic Acid (Nephro-Mercedes) Tab 1 TAB OR DAILY for 60 Days, #60 TAB Isosorbide Mononitrate (Isosorbide Mononitrate Er) 60 Mg Tab 1 TAB PO DAILY for 90 Days, #90 TAB 1 Refill 1, 25 Dihydroxycholecalciferol (Rocaltrol Capsule) 0.25 Mcg Cp 0.25 MCG PO DAILY for 60 Days, #60 CAP Continued Medications: Aspirin (Aspir-81) 81 Mg Tab 1 TAB PO DAILY, #60 TAB 5 Refills Atorvastatin Calcium (Atorvastatin Calcium) 40 Mg Tab 1 TAB PO QPM, #90 TAB 3 Refills Bumetanide (Bumex Tablet) 1 Mg Tab 1 MG PO BID, #60 TAB 5 Refills BLK BX WARNING-CAN LEAD TO PROFOUND DIURESIS WITH FLUID- ELECTROLYTE LOSS Clonidine Hydrochloride (Clonidine Hcl) 0.2 Mg Tab 1 TAB PO BID, #120 TAB 5 Refills Hydralazine Hcl (Hydralazine Hcl) 100 Mg Tab 1 TAB PO TID, #90 TAB 5 Refills Levetiracetam (Levetiracetam) 500 Mg Tab 1 TAB PO BID Metoprolol Succinate (Toprol Xl) 50 Mg Tab 1 TAB PO DAILY, #30 TAB 5 Refills Nifedipine (Nifedipine Er) 90 Mg Tab 1 TAB PO DAILY, #30 TAB 5 Refills Discontinued Medications: Losartan Potassium (Losartan Potassium) 50 Mg Tab 1 TAB PO DAILY for 30 Days, #30 TAB 3 Refills Potassium Bicarbonate (Effer-K) 25 Meq Tab 25 MEQ PO DAILY, #30 TAB 5 Refills Spironolactone (Spironolactone) 50 Mg Tab 1 TAB PO DAILY, #30 TAB 5 Refills Care Plan: CONTINUE Medication Dose Purpose Calcitriol (Rocaltrol) 0.25 mcg PO daily Secondary hyperparathyroidism Neprolite daily once ESRD nutrition/vitamin support Isosorbide mononitrate (Imdur) 60 mg PO daily Afterload reduction / HF Aspirin 81 mg PO daily CAD prevention Atorvastatin 40 mg PO daily Dyslipidemia Bumetanide (Bumex) 1 mg PO BID Diuresis / fluid management Clonidine 0.2 mg PO BID Resistant hypertension Hydralazine 100 mg PO TID BP control Levetiracetam (Keppra) 500 mg PO BID Seizure disorder Metoprolol succinate (Toprol XL) 50 mg PO daily HF / BP control Nifedipine ER 90 mg PO daily BP control DISCONTINUE * Losartan * Spironolactone 50 mg * Potassium supplements (effervescent K)?These are discontinued to prevent hyperkalemia in ESRD patients, especially those refusing dialysis. Scheduled 1, 25 Dihydroxycholecalciferol (Rocaltrol Capsule), 0.25 MCG PO DAILY Aspirin (Aspir-81), 1 TAB PO DAILY Atorvastatin Calcium (Atorvastatin Calcium), 1 TAB PO QPM, (Reported) B-Complex W/ C & Folic Acid (Nephro-Mercedes), 1 TAB OR DAILY Bumetanide (Bumex Tablet), 1 MG PO BID Clonidine Hydrochloride (Clonidine Hcl), 1 TAB PO BID Gabapentin (Gabapentin), 1 CAP PO TID Hydralazine Hcl (Hydralazine Hcl), 1 TAB PO TID Hydrocodone-Acetaminophen (Hydrocodone/Acetaminophen 10-325 mg), TID, (Reported) Isosorbide Mononitrate (Isosorbide Mononitrate Er), 1 TAB PO DAILY Levetiracetam (Levetiracetam), 1 TAB PO BID, (Reported) Metoprolol Succinate (Toprol Xl), 1 TAB PO DAILY Nifedipine (Nifedipine Er), 1 TAB PO DAILY Discontinued Medications Losartan Potassium (Losartan Potassium), 1 TAB PO DAILY Potassium Bicarbonate (Effer-K), 25 MEQ PO DAILY Spironolactone (Spironolactone), 1 TAB PO DAILY Discharge Statement: "Patient was advised to return to the ER or call 911 if any headaches, dizziness, shortness of breath, chest pain, abdominal pain, bleeding, fevers, or worsening of medical condition. Patient was counseled about treatment plan, medications, possible side effects, patientverbalized understanding. All questions were answered to the best of my ability. This discharge took greater then 30 minutes in planning, reviewing documentation, counseling the patient, and discussing with other team members." ASSESSMENT ASSESSMENT Hospital Course 64-year-old male with ESRD (CKD-5, HD-eligible but refusing), HFpEF, COPD on home oxygen, resistant hypertension, anemia of CKD, seizure disorder, and secondary hyperparathyroidism was admitted on 08/07/2025 for acute hypoxic respiratory failure, acute decompensated HF, and COPD exacerbation with volume overload and worsening renal function. He required BiPAP, diuresis, oxygen support, titration of antihypertensives, and extensive counseling regarding hemodialysis, which he consistently declined. HOSPITAL COURSE SUMMARY During hospitalization: Respiratory * Presented with acute hypoxic respiratory failure requiring BiPAP. * Improved steadily transitioned to 34 L NC, maintaining SpO2 43737%. * Today on 4 L NC with SpO2 100% stable for discharge. Cardiac / Volume * Treated for acute decompensated HFpEF with Bumex drip then changed to Bumex 1 mg PO BID. * BP gradually improved with hydralazine, nifedipine, clonidine uptitration, and isosorbide mononitrate. * Edema significantly improved. Renal * ESRD with creatinine stable around 4.57 mg/dL, BUN 43 mg/dL. * Patient refused initiation of hemodialysis despite meeting AEIOU criteria. * Outpatient nephrology follow-up and dialysis counseling are critical. GI / Bowel Regimen * Constipation treated with Docusate + Miralax patient had bowel movement before discharge. Physical Therapy * Participated in PT. * Today walking with assistance, cleared for discharge with home caregiver support. Social / Disposition * Patient has caregiver at home. Patient meets criteria for safe discharge with close outpatient follow-up. Time spent today on discharge planning, medication reconciliation, patient counseling, coordination with physical therapy, caregiver education, and arranging follow-up care: 40 minutes. Case discussed in detail with the attending physician , including the clinical presentation, diagnostic workup, and comprehensive management plan. The patient was present for the discussion and demonstrated understanding of his condition and the proposed plan. Assessment Metabolic encephalopathyPOA likely uremia + anemia + hypoxia related improved now Seizure disorder POA Chronic condition no relapse Muscle spasms and intermittent myoclonic jerks due to Uremia and ESRD POA improved Acute on Chronic Decompensated Congestive Heart Failure PRESERVED EF (HFpEF, NYHA II) POA / Improved Hypertensive emergency POA IMPROVED Hyperlipidemia POA Acute Hypoxic Respiratory Failure POA improved Acute on Chronic COPD Exacerbation POA, Improved Morbid Obesity (BMI 37) / Obesity Hypoventilation POA MIREYA ON ESRD (CKD-5) with Uremic Symptoms & Volume Overload POA * HD recommended by nephrology patient/family refused Anemia of CKD + Iron Deficiency Component/POA Morbid Obesity (BMI 37) POA * Prediabetes monitored glucose stable POA Secondary hyperparathyroidism PTH 644.POA Tobacco + Marijuana Use Disorder (remote tobacco abstinent x2 yrs) POA Functional deconditioning POA improved with PT, needs home PT Visit Coding STANDARD RES Billing Provider: YUNIER CARTER MD Date of Service if different f: Aug 13, 2025 Common Visit Codes: 72749-FFK/OBS DISCH DAY >30min RODRI YOUNG RESIDENT Aug 13, 2025 12:41 YUNIER CARTER MD Aug 15, 2025 11:45
[2025-08-13] MEDS: ISOSORBIDE MONONITRATE ER 60 MG TAB PO ONE (13:07)
[2025-08-13] MEDS ORDERED: B-CO1TAB60 OR ×2 (13:38)
[2025-08-13] MEDS ORDERED: CAL025T PO ×2 (13:38)
[2025-08-13] MEDS ORDERED: ISOS1TAB29 PO ×2 (13:40)
--- NOTE | 2025-08-13 16:48 | DVHPN2 ---
Progress Note - Dictate Date Seen: Aug 13, 2025 Has the PT tested + for MRSA If YES, has PT been informed?: No Medical Necessity Reason Pt with a Central, PICC or Fol: No Subjective Patient seen earlier this morning. Suspect Is and Os maybe inaccurate. vital signs Vital Sign Date Time Temp Pulse Resp B/P (MAP) Pulse Ox O2 Delivery O2 Flow Rate FiO2 08/13/25 15:12 97.9 62 19 100 08/13/25 13:07 179/77 08/13/25 10:19 Room Air* 0 21 Total Intake and Output 08/12/25 08/12/25 08/13/25 14:59 22:59 06:59 Intake Total 1060 ml Output Total 875 ml Balance 185 ml medications Current Medications Medications Dose Ordered Sig/Ricky Route Start Time Stop Time Status Last Admin Dose Admin Ipratropium [place] 0.5 mg Q4HR NEB 08/07/25 22:00 08/13/25 14:01 0.5 MG Albuterol 2.5 mg Q4HR NEB 08/07/25 22:00 08/13/25 14:00 2.5 MG Aspirin 81 mg DAILY PO 08/08/25 10:00 08/13/25 10:17 81 MG Levetiracetam 500 mg BID PO 08/07/25 22:00 08/13/25 10:17 500 MG Metoprolol Succinate 50 mg DAILY PO 08/08/25 10:00 08/13/25 10:17 50 MG Atorvastatin Calcium 40 mg HS PO 08/07/25 22:00 08/13/25 00:06 40 MG Hydralazine HCl 100 mg TID PO 08/07/25 22:00 08/13/25 13:07 100 MG Nifedipine 90 mg DAILY PO 08/08/25 10:00 08/13/25 10:19 90 MG Morphine Sulfate 2 mg Q4HPRN PRN IV 08/08/25 11:45 08/10/25 14:22 2 MG Acetaminophen/ Hydrocodone Bitart 1 tab Q6HPRN PRN PO 08/08/25 13:15 Pantoprazole Sodium 40 mg DAILY@0600 PO 08/11/25 06:00 08/12/25 06:08 40 MG Bumetanide 1 mg BIDD IV 08/11/25 18:00 12/10/25 17:43 1 MG Calcitriol 0.25 mcg DAILY PO 08/12/25 10:00 08/13/25 10:17 0.25 MCG Clonidine HCl 0.2 mg BID PO 08/13/25 10:00 08/13/25 10:18 0.2 MG Docusate Sodium 100 mg BIDPRN PRN PO 08/13/25 06:00 Polyethylene Glycol 17 gm DAILYPRN PRN PO 08/13/25 06:00 objective Gen: nad, somnolent lungs: cta anteriorly cvs: no rub abd: soft, bowel sounds audible ext: + edema laboratory and microbiology Laboratory Tests 08/13/25 10:38 Test 08/13/25 10:38 Range/Units Serum Glucose 144 H 74-106 mg/dL Assessment/Plan Chronic Kidney Disease stage 5 now ESRD requiring intermittent hemodialysis Acute respiratory failure, on BIPAP Congestive heart failure exacerbation Diabetes mellitus type 2 Hypertension Seizure disorder Anemia of chronic kidney disease Recommendations - kidney function remains stable - will change Bumex to p.o. b.i.d. - if discharged we will follow up in CKD Clinic Within two weeks, my office will make arrangements for outpatient Labs to be drawn. Dietary Evaluation Review Comments: Nutrition Recommendation: 1) Consider cardiac + renal specific 60gm protein diet 2) Monitor PO intake, lab values, weight trend, and I/O Expected Outcomes/Goals: Intake to meet >75% estimated needs Lab values to improve FU 3-5 days Plan discussed with: Other LISSETTE MONZON MD Aug 13, 2025 16:48
[2025-08-13] MEDS ORDERED: BUMETANIDE 1 MG TAB PO SCH (18:00)
== END 2025-08-13 16:50 | disposition home or self-care (01) | DRG 133 ==
LOC: ER 11:31 → OVERFLOW 16:46 → ICU WEST 08-09 19:50 → TELE-WESTW 08-11 22:33
PROVIDERS: ADMIT Internal Medicine; ATTEND Internal Medicine
PROC: 5A09357 Assistance with Respiratory Ventilation, Less than 24 Consecutive Hours, Continuous Positive Airway Pressure (ICD-10-PCS; principal; 2025-08-07)
PROC: 5A09357 Assistance with Respiratory Ventilation, Less than 24 Consecutive Hours, Continuous Positive Airway Pressure (ICD-10-PCS; 2025-08-08)
PROC: 5A09357 Assistance with Respiratory Ventilation, Less than 24 Consecutive Hours, Continuous Positive Airway Pressure (ICD-10-PCS; 2025-08-09)
PROC: 5A09357 Assistance with Respiratory Ventilation, Less than 24 Consecutive Hours, Continuous Positive Airway Pressure (ICD-10-PCS; 2025-08-10)
PROC: 05HD33Z Insertion of Infusion Device into Right Cephalic Vein, Percutaneous Approach (ICD-10-PCS; 2025-08-10)
PROC: B54MZZA Ultrasonography of Right Upper Extremity Veins, Guidance (ICD-10-PCS; 2025-08-10)
PROC: 5A09357 Assistance with Respiratory Ventilation, Less than 24 Consecutive Hours, Continuous Positive Airway Pressure (ICD-10-PCS; 2025-08-11)
PROC: 5A09357 Assistance with Respiratory Ventilation, Less than 24 Consecutive Hours, Continuous Positive Airway Pressure (ICD-10-PCS; 2025-08-12)
PROC: 5A09357 Assistance with Respiratory Ventilation, Less than 24 Consecutive Hours, Continuous Positive Airway Pressure (ICD-10-PCS; 2025-08-13)
DX: J96.21 Acute and chronic respiratory failure with hypoxia (principal); I13.2 Hypertensive heart and chronic kidney disease with heart failure and with stage 5 chronic kidney disease, or end stage renal disease; I50.43 Acute on chronic combined systolic (congestive) and diastolic (congestive) heart failure; N18.6 End stage renal disease; I16.1 Hypertensive emergency; D63.1 Anemia in chronic kidney disease; N17.9 Acute kidney failure, unspecified; Z99.2 Dependence on renal dialysis; J44.1 Chronic obstructive pulmonary disease with (acute) exacerbation; E11.22 Type 2 diabetes mellitus with diabetic chronic kidney disease; F15.10 Other stimulant abuse, uncomplicated; G40.909 Epilepsy, unspecified, not intractable, without status epilepticus; E66.01 Morbid (severe) obesity due to excess calories; Z20.822 Contact with and (suspected) exposure to COVID-19; G47.33 Obstructive sleep apnea (adult) (pediatric); F17.200 Nicotine dependence, unspecified, uncomplicated; E78.5 Hyperlipidemia, unspecified; N25.81 Secondary hyperparathyroidism of renal origin; F12.10 Cannabis abuse, uncomplicated; K59.00 Constipation, unspecified; Z68.37 Body mass index [BMI] 37.0-37.9, adult; Z83.3 Family history of diabetes mellitus; Z88.0 Allergy status to penicillin; Z91.018 Allergy to other foods; Z82.49 Family history of ischemic heart disease and other diseases of the circulatory system; Z82.0 Family history of epilepsy and other diseases of the nervous system; Z99.81 Dependence on supplemental oxygen
CPT/HCPCS: 36415; 36600; 71045; 80048; 80053; 81001; 82306; 82570; 82728; 82805; 83540; 83550; 83605; 83735; 83880; 83970; 84100; 84300; 84484; 84550; 85025; 85610; 85730; 86850; 86900; 86901; 87040; 87081; 87426; 87804; 93005; 94640; 94660; 96374; 96375; 97162; 99291; G0378

== ENCOUNTER 2025-08-17 14:58 | Emergency (ER) | payer MEDICAID ==
[~2025-08-17] VITALS: Ht 175.3 cm; Wt 110.0 kg
[~2025-08-17 14:58] MED LIST changes: +B-CO1TAB60 OR; +CAL025T PO; +ISOS1TAB29 PO
[2025-08-17 15:12] VITALS: BP 188/75; PULSE 55; RESP 16; TEMP 97.7; O2SAT 95
--- NOTE | 2025-08-17 15:30 | ED.PDOC ---
History of Present Illness HPI Comments 64-year-old male who comes in with chief complaint of elevated blood pressure. The patient denies any chest pain, shortness breath or headache. The patient states that he went for follow up today at the follow up urgent care and they did his blood pressure was elevated. At that time the patient was given cl onidine 0.1 mg by mouth. Upon arrival to the emergency department's, the patient's blood pressure is now 185/75. The patient is still asymptomatic. He does has a history of hypertension as well as COPD and CHF but is complaining of no shortness a breath or chest pain Chief Complaint: High Blood Pressure Time Seen by MD: 15:05 Primary Care Provider: TIKA Reviewed Notes: Nurses Notes, Medications, Allergies (Allergies listed above) Allergies: Coded Allergies: Fountain (Verified Allergy, Severe, 08/03/25) Penicillins (Verified Allergy, Unknown, 05/31/24) Home Meds Active Scripts Isosorbide Mononitrate (Isosorbide Mononitrate Er) 60 Mg Tab, 1 TAB PO DAILY for 90 Days, #90 TAB 1 Refill Prov:JUANA DE PAZ 08/13/25 B-Complex W/ C & Folic Acid (Nephro-Mercedes) Tab, 1 TAB OR DAILY for 60 Days, #60 TAB Prov:JUANA DE PAZ 08/13/25 1, 25 Dihydroxycholecalciferol (ROCALTROL CAPSULE) 0.25 Mcg Cp, 0.25 MCG PO DAILY for 60 Days, #60 CAP Prov:JUANA DE PAZ 08/13/25 Metoprolol Succinate (Toprol Xl) 50 Mg Tab, 1 TAB PO DAILY, #30 TAB 5 Refills Prov:LINDA NUGENT BOAT RIGGER 04/18/25 Nifedipine (Nifedipine Er) 90 Mg Tab, 1 TAB PO DAILY, #30 TAB 5 Refills Prov:LINDA NUGENT NP 04/18/25 Bumetanide (Bumex Tablet) 1 Mg Tab, 1 MG PO BID, #60 TAB 5 Refills BLK BX WARNING-CAN LEAD TO PROFOUND DIURESIS WITH FLUID- ELECTROLYTE LOSS Prov:JON WRIGHT MD 04/02/25 Hydralazine Hcl (Hydralazine Hcl) 100 Mg Tab, 1 TAB PO TID, #90 TAB 5 Refills Prov:JON WRIGHT MD 04/02/25 Clonidine Hydrochloride (Clonidine Hcl) 0.2 Mg Tab, 1 TAB PO BID, #120 TAB 5 Refills Prov:JON WRIGHT MD 04/02/25 Gabapentin (Gabapentin) 300 Mg Cap, 1 CAP PO TID, #90 CAP 5 Refills Prov:JON WRIGHT MD 04/02/25 Aspirin (Aspir-81) 81 Mg Tab, 1 TAB PO DAILY, #60 TAB 5 Refills Prov:TEO HEART MD 06/02/24 Reported Medications Atorvastatin Calcium (ATORVASTATIN CALCIUM) 40 Mg Tab, 1 TAB PO QPM, #90 TAB 3 Refills 05/26/25 Levetiracetam (Levetiracetam) 500 Mg Tab, 1 TAB PO BID 05/26/25 Hydrocodone-Acetaminophen (Hydrocodone/Acetaminophen 10-325 mg) 1 Tab Tab, TID 04/23/25 Discontinued Scripts Losartan Potassium (Losartan Potassium) 50 Mg Tab, 1 TAB PO DAILY for 30 Days, #30 TAB 3 Refills Prov:LINDA NUGENT NP 04/18/25 Spironolactone (Spironolactone) 50 Mg Tab, 1 TAB PO DAILY, #30 TAB 5 Refills Prov:LINDA NUGENT NP 04/18/25 Potassium Bicarbonate (Effer-K) 25 Meq Tab, 25 MEQ PO DAILY, #30 TAB 5 Refills Prov:JON WRIGHT MD 04/02/25 Information Source: Patient Mode of Arrival: Wheelchair Severity: Mild, Moderate Timing: Minutes Duration: Since onset Prehospital treatment: None Associated signs and symptoms The patient is asymptomatic Past Medical History PAST MEDICAL HISTORY: CHF, CKF, COPD, DM, High Lipids, HTN, [place], Seizures Surgical History: Denies all surgeries Family History Family History: Reviewed,noncontributory to illness, Family hx of DM Social History Smoker: Quit Greater Than 1 Year Alcohol: Denies ETOH Use Drugs: Denies Drug Use Lives In: Home Constitutional: denies: chills, diaphoresis, fatigue, fever, malaise, sweats, weakness, others EENTM: denies: blurred vision, double vision, ear bleeding, ear discharge, ear drainage, ear pain, ear ringing, eye pain, eye redness, hearing loss, mouth pain, mouth swelling, nasal discharge, nose bleeding, nose congestion, nose pain, photophobia, tearing, throat pain, throat swelling, voice changes, others Respiratory: reports: others (The patient is currently on his home oxygen); denies: cough, hemoptysis, orthopnea, SOB at rest, shortness of breath, SOB with excertion, stridor, wheezing Cardiovascular: denies: chest pain, dizzy spells, diaphoresis, Dyspnea on exertion, edema, irregular heart beat, left arm pain, lightheadedness, palpitations, PND, syncope, others Gastrointestinal: denies: abdomen distended, abdominal pain, blood streaked bowels, constipated, diarrhea, dysphagia, difficulty swallowing, hematemesis, melena, nausea, poor appetite, poor fluid intake, rectal bleeding, rectal pain, vomiting, others Genitourinary: denies: burning, dysuria, flank pain, frequency, hematuria, incontinence, penile discharge, penile sore, pain, testicle pain, testicle swelling, urgency, others Neurological: denies: dizziness, fainting, headache, left sided numbness, left sided weakness, numbness, paresthesia, pre-existing deficit, right sided numbness, right sided weakness, seizure, speech problems, tingling, tremors, weakness, others Musculoskeletal: denies: back pain, gout, joint pain, joint swelling, muscle pain, muscle stiffness, neck pain, others Integumetry: denies: bruises, change in color, change in hair/nails, dryness, laceration, lesions, lumps, rash, wounds, others Allergic/Immunocompromised: denies: Difficulty Healing, Frequent Infections, Hives, Itching, others Hematologic/Lymphatic: denies: anemia, blood clots, easy bleeding, easy bruising, swollen glands, others Endocrine: denies: excessive hunger, excessive sweating, excessive thirst, excessive urination, flushing, intolerance to cold, intolerance to heat, unexplained weight gain, unexplained weight loss, others Psychiatric: denies: anxiety, bipolar disorder, depression, hopeless, panic disorder, schizophrenia, sleepless, suicidal, others Physical Exam General Appearance: No Apparent Distress HEENT: Normal ENT Inspection, Pharynx Normal, TMs Normal Neck: Full Range of Motion, Non-Tender, Normal, Normal Inspection Respiratory: Chest Non-Tender, Lungs Clear, No Accessory Muscle Use, No Respiratory Distress, Normal Breath Sounds Cardiovascular: No Edema, No JVD, No Murmur, No Gallop, Normal Peripheral Pulses, Regular Rate/Rhythm Breast Exam: Deferred Gastrointestinal: No Organomegaly, Non Tender, No Pulsatile Mass, Normal Bowel Sounds, Soft Genitalia: Deferred Pelvic: Deferred Rectal: Deferred Extremities: No calf tenderness, Normal capillary refill, Normal inspection, Normal range of motion, Non-tender, No pedal edema Musculoskeletal : Apperance: Normal Neurologic: Alert, wax room supervisor 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 Was a procedure done?: No Differential Dx Considerations may include: Hypertensive urgency, hypertensive crisis X-Ray, Labs, Meds, VS Vital Signs Date Time Temp Pulse Resp B/P (MAP) Pulse Ox O2 Delivery O2 Flow Rate FiO2 08/17/25 15:12 97.7 55 16 188/75 (112) 95 97.7 08/17/25 15:01 97.0 55 18 188/75 100 97.0 The patient is being discharged at this time The patient will return to the emergency department's condition worsens The patient understands and agrees with the management Time of 1ST Reevaluation: 15:30 Reevaluation 1ST: Improved Patient Education/Counseling: Diagnosis, Treatment, Prognosis, Need For Follow Up Family Education/Counseling: No Family Present SEPSIS Sepsis Screen Date sepsis recognized/suspect: Aug 17, 2025 Time Sepsis recognized/suspect: 1504 Recent Procedure: No On Antibiotic Therapy: No Respiratory Rate >20: No Heart Rate >90: No Temp<36 C (96.8 F) or >38.3 C: No SBP <90 or MAP <65 mmHG: No New Acute Mental Status Change: No Is the patient on CPAP, BIPAP,: No Vital Signs Date Time Temp Pulse Resp B/P (MAP) Pulse Ox O2 Delivery O2 Flow Rate FiO2 08/17/25 15:12 97.7 55 16 188/75 (112) 95 97.7 08/17/25 15:01 97.0 55 18 188/75 100 97.0 Departure 1 Departure Time of Disposition: 15:30 Impression: Primary Impression: Hypertensive urgency Disposition: 01 HOME / SELF CARE / HOMELESS Condition: Fair Discharged With: Self Critical Care Note Critical Care Time?: No Stability Stability form required: No Heart Score Heart Score: Heart Score Response (Comments) Value History N/A 0 EKG N/A 0 Age N/A 0 Risk Factors N/A 0 Troponin N/A 0 Total 0 ANDRES SLAUGHTER MD Aug 17, 2025 15:30
== END 2025-08-17 15:46 | disposition home or self-care (01) ==
LOC: ER 14:58
DX: I16.0 Hypertensive urgency (principal); E11.9 Type 2 diabetes mellitus without complications; J44.9 Chronic obstructive pulmonary disease, unspecified; Z79.899 Other long term (current) drug therapy; Z88.0 Allergy status to penicillin